=== PATIENT | male | born 1945 | race Caucasian/White ===

== ENCOUNTER 2022-02-03 19:28 | Inpatient (IN) | payer MEDICARE, MEDICAID, SELFPAY ==
--- NOTE | ~2022-02-03 | US_ITS ---
EXAMINATION: US VENOUS ULTRASOUND WITH DOPPLER LOWER EXTREMITY, BILATERAL CLINICAL INFORMATION: Swelling COMPARISON: None TECHNIQUE: Ultrasound of the deep veins is performed from the hip to the calf with compression sonography and color and pulse Doppler assessment. Spectral analysis with color-flow imaging is performed. FINDINGS: RIGHT: There is normal venous compression and respiratory variation and augmented flow. The visualized common femoral vein, superficial femoral vein, profunda femoral vein, popliteal vein, and posterior tibial veins show no evidence of deep venous thrombosis. The peroneal veins are not visualized. There is limited visualization of the distal superficial femoral vein. There is no significant popliteal fossa cyst. LEFT: There is normal venous compression and respiratory variation and augmented flow. The visualized common femoral vein, superficial femoral vein, profunda femoral vein, popliteal vein, and the posterior tibial veins show no evidence of deep venous thrombosis. The peroneal veins are not visualized. There is limited visualization of the distal superficial femoral vein. There is no significant popliteal fossa cyst. If the patient's symptoms persist, followup ultrasound in 5 days 7 days might be of value to exclude proximal propagation from a non-visualized calf vein. US/US venous duplex LE BI IMPRESSION: No DVT demonstrated in the bilateral lower extremity. Peroneal vein is not visualized bilaterally and there is limited visualization of the distal superficial femoral veins bilaterally as well.
--- NOTE | ~2022-02-03 | XR_ITS ---
EXAMINATION: XR SHOULDER, RIGHT CLINICAL INFORMATION: Pain COMPARISON: None TECHNIQUE: AP external rotation, Grashey, scapular Y, and axillary views of the right shoulder. FINDINGS: Mild widening of the AC joint. The glenohumeral joint space is maintained normal. No visible acute fracture, dislocation or subluxation. XR/XR shoulder RT min 2V IMPRESSION: Mild widening of right AC joint. No visible acute fracture, dislocation or subluxation seen.
--- NOTE | ~2022-02-03 | XR_ITS ---
EXAMINATION: XR CHEST CLINICAL INFORMATION: Hypoxia COMPARISON: None TECHNIQUE: Frontal view of the chest was obtained. FINDINGS: Exam is limited due to patient positioning. The lung volumes are low. The cardiac silhouette is not well visualized but may be slightly enlarged. There is a left subclavian dual chamber pacemaker. There is atelectasis or small infiltrates at the lung bases. There is no pleural effusion or pneumothorax. There are degenerative changes of the spine. XR/XR chest 1V IMPRESSION: Limited exam. Question atelectasis or small infiltrates at the lung bases.
[2022-02-03 21:28] VITALS: BMI 25.2
[2022-02-03] MEDS: Acetaminophen 325 MG TABLET 650 MG PO (21:31)
[2022-02-03] MEDS: Thiamine HCL 100 MG TABLET PO (22:40)
[2022-02-03] MEDS: Apixaban 5 MG TABLET PO (22:40)
[2022-02-03] MEDS: Memantine HCl 10 MG TABLET PO (22:40)
[2022-02-03] MEDS: levETIRAcetam 500 MG TABLET PO (22:40)
[2022-02-03] MEDS: Gabapentin 600 MG TABLET PO (22:40)
[2022-02-03] MEDS: Folic Acid 1 MG TABLET PO (22:40)
[2022-02-03] MEDS: Pravastatin Sodium 40 MG TABLET PO (22:41)
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
[2022-02-04 06:00] VITALS: BP 157/85; PULSE 75; RESP 16; TEMP 36.2; O2SAT 92
[2022-02-04] MEDS: Sertraline HCL 25 MG TABLET 75 MG PO (10:18)
[2022-02-04] MEDS: Gabapentin 600 MG TABLET PO ×2 (10:19→21:09)
[2022-02-04] MEDS: Acetaminophen 325 MG TABLET 650 MG PO (10:19)
[2022-02-04] MEDS: Metoprolol Succinate ER 25 MG TAB.ER.24H PO (10:19)
[2022-02-04] MEDS: Memantine HCl 10 MG TABLET PO ×2 (10:20→21:09)
[2022-02-04] MEDS: Thiamine HCL 100 MG TABLET PO ×2 (10:20→21:09)
[2022-02-04] MEDS: Apixaban 5 MG TABLET PO ×2 (10:20→21:09)
[2022-02-04] MEDS: levETIRAcetam 500 MG TABLET PO ×2 (10:20→21:09)
[2022-02-04] MEDS: Multivitamin TABLET 1 TAB PO (10:20)
--- NOTE | 2022-02-04 14:20 | MHC.CLN ---
NUTRITION DIET CHANGED TO 2 GRAM SODIUM DUE TO DX CKD STAGE 3 AND HTN.
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
[2022-02-04 19:48] VITALS: BP 136/85; PULSE 78; RESP 20; TEMP 36.3; O2SAT 94
[2022-02-04] MEDS: Pravastatin Sodium 40 MG TABLET PO (21:09)
[2022-02-04] MEDS: risperiDONE 0.5 MG TABLET PO (21:09)
[2022-02-04] MEDS: Folic Acid 1 MG TABLET PO (21:09)
[2022-02-05 06:00] VITALS: BP 117/84; PULSE 76; RESP 16; TEMP 36.5; O2SAT 94
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
[2022-02-05 19:59] VITALS: BP 100/66; PULSE 92; RESP 18; TEMP 36.5; O2SAT 94
[2022-02-05] MEDS: Thiamine HCL 100 MG TABLET PO (21:22)
[2022-02-05] MEDS: Folic Acid 1 MG TABLET PO (21:22)
[2022-02-05] MEDS: Gabapentin 600 MG TABLET PO (21:22)
[2022-02-05] MEDS: Apixaban 5 MG TABLET PO (21:23)
[2022-02-05] MEDS: risperiDONE 0.5 MG TABLET PO (21:23)
[2022-02-05] MEDS: levETIRAcetam 500 MG TABLET PO (21:23)
[2022-02-05] MEDS: Memantine HCl 10 MG TABLET PO (21:23)
[2022-02-05] MEDS: Pravastatin Sodium 40 MG TABLET PO (21:23)
[2022-02-06 07:45] VITALS: BP 109/79; PULSE 77; RESP 16; TEMP 36.7; O2SAT 92
[2022-02-06] MEDS: risperiDONE 0.5 MG TABLET PO ×2 (13:10→20:15)
[2022-02-06] MEDS: levETIRAcetam 500 MG TABLET PO ×2 (13:10→20:15)
[2022-02-06] MEDS: Thiamine HCL 100 MG TABLET PO ×2 (13:10→20:15)
[2022-02-06] MEDS: Apixaban 5 MG TABLET PO ×2 (13:11→20:15)
[2022-02-06] MEDS: Tamsulosin HCL 0.4 MG CAPSULE PO (13:11)
[2022-02-06] MEDS: Multivitamin TABLET 1 TAB PO (13:11)
[2022-02-06] MEDS: Gabapentin 600 MG TABLET PO ×2 (13:11→20:15)
[2022-02-06] MEDS: Memantine HCl 10 MG TABLET PO ×2 (13:12→20:15)
[2022-02-06] MEDS: Sertraline HCL 25 MG TABLET 75 MG PO (13:12)
[2022-02-06] MEDS: Metoprolol Succinate ER 25 MG TAB.ER.24H PO (13:12)
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
[2022-02-06 18:00] VITALS: BP 100/65; PULSE 96; RESP 20; TEMP 36.1; O2SAT 91
--- NOTE | 2022-02-06 18:49 | PC.NURSE ---
Amb with walker about unit, Displayed good respiratory tolerance/stamina. Required frequent rests later in shift. O2 sat 88-90% rm air with activity, 89-92 at rest. Message sent to Chela MIN via [employer] to question need for prn O2 with parameters. Chela states O2 sat needs to be 90 or above at all times.
[2022-02-06] MEDS: Folic Acid 1 MG TABLET PO (20:15)
[2022-02-06] MEDS: Pravastatin Sodium 40 MG TABLET PO (20:15)
[2022-02-07 09:11] VITALS: BP 108/76; PULSE 92; RESP 17; TEMP 36.1; O2SAT 92
[2022-02-07] MEDS: levETIRAcetam 500 MG TABLET PO ×2 (09:13→20:29)
[2022-02-07] MEDS: Sertraline HCL 25 MG TABLET 75 MG PO (09:13)
[2022-02-07] MEDS: Apixaban 5 MG TABLET PO ×2 (09:13→20:29)
[2022-02-07] MEDS: Tamsulosin HCL 0.4 MG CAPSULE PO (09:13)
[2022-02-07] MEDS: Memantine HCl 10 MG TABLET PO ×2 (09:13→20:28)
[2022-02-07] MEDS: Metoprolol Succinate ER 25 MG TAB.ER.24H PO (09:14)
[2022-02-07] MEDS: Gabapentin 600 MG TABLET PO ×2 (09:14→20:29)
[2022-02-07] MEDS: risperiDONE 0.5 MG TABLET PO ×2 (09:15→20:28)
[2022-02-07] MEDS: Thiamine HCL 100 MG TABLET PO ×2 (09:15→20:28)
[2022-02-07] MEDS: Multivitamin TABLET 1 TAB PO (09:15)
--- NOTE | 2022-02-07 10:32 | PC.NURSE ---
Patients O2 at 92%. Respiration are even and non labored. No acute distress noted or reported. Does not require supplemental Oxygen at this time. Will continue to monitor.
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
[2022-02-07 18:00] VITALS: BP 127/73; PULSE 90; RESP 20; TEMP 35.9; O2SAT 95
[2022-02-07] MEDS: Pravastatin Sodium 40 MG TABLET PO (20:29)
[2022-02-07] MEDS: Folic Acid 1 MG TABLET PO (20:29)
[2022-02-08] MEDS: Acetaminophen 325 MG TABLET 650 MG PO ×2 (05:17→19:59)
[2022-02-08 11:57] VITALS: BP 118/76; PULSE 73; RESP 17; TEMP 36.3; O2SAT 91
[2022-02-08 13:16] VITALS: BP 102/63; PULSE 87
[2022-02-08] MEDS: Sertraline HCL 25 MG TABLET 75 MG PO (13:43)
[2022-02-08] MEDS: Thiamine HCL 100 MG TABLET PO ×2 (13:43→20:00)
[2022-02-08] MEDS: Gabapentin 600 MG TABLET PO ×2 (13:44→20:00)
[2022-02-08] MEDS: risperiDONE 0.5 MG TABLET PO ×2 (13:44→20:00)
[2022-02-08] MEDS: levETIRAcetam 500 MG TABLET PO ×2 (13:44→20:00)
[2022-02-08] MEDS: Multivitamin TABLET 1 TAB PO (13:44)
[2022-02-08] MEDS: Tamsulosin HCL 0.4 MG CAPSULE PO (13:44)
[2022-02-08] MEDS: Apixaban 5 MG TABLET PO ×2 (13:45→20:00)
[2022-02-08] MEDS: Memantine HCl 10 MG TABLET PO ×2 (13:45→20:00)
[2022-02-08] MEDS: Metoprolol Succinate ER 25 MG TAB.ER.24H PO (13:45)
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
[2022-02-08 18:00] VITALS: BP 138/53; PULSE 90; RESP 18; TEMP 36.4; O2SAT 91
[2022-02-08] MEDS: Pravastatin Sodium 40 MG TABLET PO (20:00)
[2022-02-08] MEDS: Folic Acid 1 MG TABLET PO (20:00)
[2022-02-09] MEDS: Tamsulosin HCL 0.4 MG CAPSULE PO (09:15)
[2022-02-09] MEDS: risperiDONE 0.5 MG TABLET PO ×2 (09:15→21:21)
[2022-02-09] MEDS: Apixaban 5 MG TABLET PO ×2 (09:15→21:21)
[2022-02-09] MEDS: Memantine HCl 10 MG TABLET PO ×2 (09:16→21:21)
[2022-02-09] MEDS: Multivitamin TABLET 1 TAB PO (09:16)
[2022-02-09] MEDS: levETIRAcetam 500 MG TABLET PO ×2 (09:16→21:21)
[2022-02-09] MEDS: Gabapentin 600 MG TABLET PO ×2 (09:17→21:21)
[2022-02-09] MEDS: Thiamine HCL 100 MG TABLET PO ×2 (09:17→21:21)
[2022-02-09] MEDS: Sertraline HCL 25 MG TABLET 75 MG PO (09:17)
[2022-02-09 09:30] VITALS: BP 144/71; PULSE 87; RESP 20; TEMP 36.1; O2SAT 94
[2022-02-09] MEDS: Metoprolol Succinate ER 25 MG TAB.ER.24H PO (10:34)
[2022-02-09 10:47] VITALS: BP 144/71; PULSE 87; O2SAT 94
--- NOTE | 2022-02-09 17:16 | HO.PSYCHPN ---
Subjective Subjective Date of Service: 02/09/22 Reason For Visit: acute psychosis Interim History: Patient seen and discussed with team. Patient evaluated today and upon interview he reports Im fantastic, says he is having a wonderful time today here, people are very very nice, then says he has been out giving away gifts, i.e. trying to give t-shirts to peers. Says he sleeps like a log, no issues sleeping whatsoever. Reviewed shoulder x-ray, says I don?t have any pain right now. Says the police are gonna find me an apartment. Denies SI/SIB/HI upon inquiry. Medication Compliance: Yes Side effects from medications: No Review of Systems Acute medical concerns: No Medical Review of Systems: unchanged Mental Status Exam Mental Status Exam Narrative: Patient Appearance:?Well Grooomed Patient Orientation:?Person and Situation Level of Consciousness:?Awake Patient Behavior:?Appropriate Mood Description:?Withdrawn Affect Description:?Constricted Ability to Follow Directions:?Good Speech Pattern:?Clear Hallucinations:?None Delusions:?Not Present Thought Process:?Linear Thought Content:?positive for Sullivan and positive for Circumstantial Judgement:?Fair Diagnostics Vital Signs (24Hr): Vital Signs - 24 hr 02/08/22 18:00 02/09/22 09:30 02/09/22 10:47 Temperature 97.6 F 96.9 F Pulse Rate 90 87 87 Respiratory Rate 18 20 Blood Pressure 138/53 L 144/71 H 144/71 H Pulse Oximetry 91 L 94 94 BMI result Body Mass Index 25.2 Imaging Radiology Impressions: ITS Impressions Shoulder X-Ray 02/09/22 08:43 IMPRESSION: Mild widening of right AC joint. No visible acute fracture, dislocation or subluxation seen. Medications Medications Current Medications Acetaminophen (Acetaminophen 325 Mg Tablet) 650 mg PO Q6H PRN PRN Reason: Headache/Pain Mild Scale (1-3) Last Admin: 02/08/22 19:59 Dose: 650 mg Documented by: Al Hydroxide/Mg Hydroxide (Magnesium Hydrox/Alum Hydrox 30 Ml Oral.Susp) 30 ml PO Q6H PRN PRN Reason: Heartburn/Nausea Apixaban (Apixaban 5 Mg Tablet) 5 mg PO BID [facility] Last Admin: 02/09/22 09:15 Dose: 5 mg Documented by: Benzocaine (Throat Lozenge, Medicated Lozenge) 1 lozenge MUCOUS MEM Q2H PRN PRN Reason: Cough Folic Acid (Folic Acid 1 Mg Tablet) 1 mg PO BEDTIME [facility] Last Admin: 02/08/22 20:00 Dose: 1 mg Documented by: Gabapentin (Gabapentin 600 Mg Tablet) 600 mg PO BID [facility] Last Admin: 02/09/22 09:17 Dose: 600 mg Documented by: Levetiracetam (Levetiracetam 500 Mg Tablet) 500 mg PO BID [facility] Last Admin: 02/09/22 09:16 Dose: 500 mg Documented by: Magnesium Hydroxide (Milk Of Magnesia 30 Ml Oral.Susp) 30 ml PO DAILY PRN PRN Reason: Constipation Memantine (Memantine Hcl 10 Mg Tablet) 10 mg PO BID [facility] Last Admin: 02/09/22 09:16 Dose: 10 mg Documented by: Metoprolol Succinate (Metoprolol Succinate Er 25 Mg Tab.Er.24h) 25 mg PO DAILY [facility]; Protocol Last Admin: 02/09/22 10:34 Dose: 25 mg Documented by: Multivitamins/Vitamin C (Multivitamin Tablet) 1 tab PO DAILY [facility] Last Admin: 02/09/22 09:16 Dose: 1 tab Documented by: Non-Formulary Medication (Umeclidinium-Vilanterol [Anoro Ellipta]) 1 inhalation INHALE DAILY [facility] Pravastatin Sodium (Pravastatin Sodium 40 Mg Tablet) 40 mg PO BEDTIME [facility] Last Admin: 02/08/22 20:00 Dose: 40 mg Documented by: Risperidone (Risperidone 0.5 Mg Tablet) 0.5 mg PO BID [facility] Last Admin: 02/09/22 09:15 Dose: 0.5 mg Documented by: Sertraline HCl (Sertraline Hcl 25 Mg Tablet) 75 mg PO DAILY [facility] Last Admin: 02/09/22 09:17 Dose: 75 mg Documented by: Tamsulosin HCl (Tamsulosin Hcl 0.4 Mg Capsule) 0.4 mg PO DAILY [facility] Last Admin: 02/09/22 09:15 Dose: 0.4 mg Documented by: Thiamine HCl (Thiamine Hcl 100 Mg Tablet) 100 mg PO BID [facility] Last Admin: 02/09/22 09:17 Dose: 100 mg Documented by: Allergies Allergies Allergy/AdvReac Type Severity Reaction Status Date / Time Penicillins Allergy Unknown Unknown Verified 05/17/22 19:47 Assessment & Plan Assessment & Plan (1) Psychosis: Status: Acute Code(s): F29 - Unspecified psychosis not due to a substance or known physiological condition Assessment and Plan: 02/08/2022: Complained of right shoulder pain (there pre admission) and agreed to x ray. No changes to primary team treatment plan. Disposition planning Is challenging and in progress. Plan ?the patient is an elderly male with a history of dementia who was brought into the facility for exacerbation of aggressive behavior.? The patient denies having prior psychiatric illness but he is confused and restless unable to provide a full comprehensive history.? Plan 1. Gather collateral information.? 2. Start Risperdal 0.5 p.o. b.i.d. to target paranoia and as a mood stabilizer 02/08/2022: Complained of right shoulder pain (there pre admission) and agreed to x ray. No changes to primary team treatment plan.? Disposition planning ? Is challenging and in progress. 02/09/2022: No med changes I spent minutes with the patient and/or on the patient floor today, greater than?50% of which was spent counseling/coordinating care. Patient educated on: other Reason for contiued inpatient stay Substantial Risk for: inability to function and med/psych decompensation
[2022-02-09 21:15] VITALS: BP 148/73; PULSE 82; RESP 19; TEMP 36.4; O2SAT 96
[2022-02-09] MEDS: Folic Acid 1 MG TABLET PO (21:21)
[2022-02-09] MEDS: Pravastatin Sodium 40 MG TABLET PO (21:21)
[2022-02-09] MEDS: Acetaminophen 325 MG TABLET 650 MG PO (21:36)
[2022-02-10 06:00] VITALS: BP 118/69; PULSE 75; RESP 18; TEMP 36.1; O2SAT 96
--- NOTE | 2022-02-10 07:54 | P.CONOP_ITS ---
History of Present Illness HPI Consult date: 02/10/22 Chief complaint: acute psychosis Narrative: Patient currently admitted to the geriatric psychiatric unit for acute psychosis. Durring his stay he verbalized right shoulder pain and orthopedics was consulted. The patient reports that he has been unable to move the right upper extremity for quite some time. He reports that he had an injury but is unable to recall what happened. Review of Systems Review of Systems: Yes all other systems are reviewed and are negative PMFSH Past Medical History Medical History (Updated 02/10/22 @ 07:58 by Savannah Mishra PA-C) Atrial fibrillation BPH (benign prostatic hyperplasia) Chronic shoulder pain CKD (chronic kidney disease) COPD (chronic obstructive pulmonary disease) CVA (cerebral vascular accident) HLD (hyperlipidemia) HTN (hypertension) Hyponatremia Pacemaker Pulmonary embolism Seizure disorder Surgical History Surgical History History of appendectomy Social History Social History (Updated 02/06/22 @ 14:52 by MECHELLE Hadley) Household Members: Family Household Members Other:: Lives with nephew Housing: Apartment Do you presently have visiting nurse or other home services: Yes (Reports a nurse comes in to take care of his feet.) Alcohol intake: current Patient Tobacco Use Status: Current everyday Tobacco user Tobacco use type: Cigarette Cigarette Packs Per Day: 2.5 Cigarettes Per Day: 50.0 Years Smoked: 63 Smoked in Last 30 Days: Yes e-Cigarette/Vaping Use: Never Used Patient Interested in Nicotine Replacement: No Patient Given Instructions on How to Stop Smoking: Yes Date Education Initiated: 02/03/22 Second Hand Smoke Exposure: No Use of substances other than those prescribed or required for medical reasons: No Currently Displaying Signs/Symptoms of Drug Intoxication Withdrawal: No Any prior treatment program specific to substance use: No Have you been hit, kicked, punched, or otherwise hurt by someone within the past year? If so, by whom?: No Do you feel safe in your current relationship?: No Current Relationship Is there a partner from a previous relationship who is making you feel unsafe now?: No Are you made to feel afraid or neglected: No Spiritual Healthcare Practices: n/a [facility] Practices: n/a Cultural Healthcare Practices: n/a Advance Directives: No Advance Directives Information Provided: No Advance Directives on File: No Do you have thoughts of harming others: None Do you have a plan to hurt others: No Plan Recently lost weight without trying: No How much weight loss: Not applicable Eating poorly because of decreased appetite: No Nutrition screen score: 0 Poor oral hygiene: No service: No Sexual orientation: Straight/Heterosexual Meds Allergies Allergy/AdvReac Type Severity Reaction Status Date / Time Penicillins Allergy Unknown Unknown Verified 02/03/22 19:47 Active Medications: Current Medications Acetaminophen (Acetaminophen 325 Mg Tablet) 650 mg PO Q6H PRN PRN Reason: Headache/Pain Mild Scale (1-3) Last Admin: 02/09/22 21:36 Dose: 650 mg Documented by: Al Hydroxide/Mg Hydroxide (Magnesium Hydrox/Alum Hydrox 30 Ml Oral.Susp) 30 ml PO Q6H PRN PRN Reason: Heartburn/Nausea Apixaban (Apixaban 5 Mg Tablet) 5 mg PO BID [facility] Last Admin: 02/09/22 21:21 Dose: 5 mg Documented by: Benzocaine (Throat Lozenge, Medicated Lozenge) 1 lozenge MUCOUS MEM Q2H PRN PRN Reason: Cough Folic Acid (Folic Acid 1 Mg Tablet) 1 mg PO BEDTIME [facility] Last Admin: 02/09/22 21:21 Dose: 1 mg Documented by: Gabapentin (Gabapentin 600 Mg Tablet) 600 mg PO BID [facility] Last Admin: 02/09/22 21:21 Dose: 600 mg Documented by: Levetiracetam (Levetiracetam 500 Mg Tablet) 500 mg PO BID [facility] Last Admin: 02/09/22 21:21 Dose: 500 mg Documented by: Magnesium Hydroxide (Milk Of Magnesia 30 Ml Oral.Susp) 30 ml PO DAILY PRN PRN Reason: Constipation Memantine (Memantine Hcl 10 Mg Tablet) 10 mg PO BID [facility] Last Admin: 02/09/22 21:21 Dose: 10 mg Documented by: Metoprolol Succinate (Metoprolol Succinate Er 25 Mg Tab.Er.24h) 25 mg PO DAILY [facility]; Protocol Last Admin: 02/09/22 10:34 Dose: 25 mg Documented by: Multivitamins/Vitamin C (Multivitamin Tablet) 1 tab PO DAILY [facility] Last Admin: 02/09/22 09:16 Dose: 1 tab Documented by: Non-Formulary Medication (Umeclidinium-Vilanterol [Anoro Ellipta]) 1 inhalation INHALE DAILY [facility] Pravastatin Sodium (Pravastatin Sodium 40 Mg Tablet) 40 mg PO BEDTIME [facility] Last Admin: 02/09/22 21:21 Dose: 40 mg Documented by: Risperidone (Risperidone 0.5 Mg Tablet) 0.5 mg PO BID [facility] Last Admin: 02/09/22 21:21 Dose: 0.5 mg Documented by: Sertraline HCl (Sertraline Hcl 25 Mg Tablet) 75 mg PO DAILY [facility] Last Admin: 02/09/22 09:17 Dose: 75 mg Documented by: Tamsulosin HCl (Tamsulosin Hcl 0.4 Mg Capsule) 0.4 mg PO DAILY [facility] Last Admin: 02/09/22 09:15 Dose: 0.4 mg Documented by: Thiamine HCl (Thiamine Hcl 100 Mg Tablet) 100 mg PO BID [facility] Last Admin: 02/09/22 21:21 Dose: 100 mg Documented by: Home Medications Medication Instructions Recorded Confirmed Last Taken Type apixaban 5 mg tablet (Eliquis) 5 mg PO BID 02/03/22 02/03/22 Unknown History folic acid 1 mg tablet 1 mg PO BEDTIME 02/03/22 02/03/22 Unknown History gabapentin 300 mg tablet 600 mg PO BID 02/03/22 02/03/22 Unknown History levetiracetam 500 mg tablet 500 mg PO BID 02/03/22 02/03/22 Unknown History lovastatin 40 mg tablet 40 mg PO QPM 02/03/22 02/03/22 Unknown History memantine 10 mg tablet 10 mg PO BID 02/03/22 02/03/22 Unknown History metoprolol succinate 25 mg 25 mg PO DAILY 02/03/22 02/03/22 Unknown History tablet,extended release 24 hr (Toprol XL) multivitamin 1 tab PO DAILY 02/03/22 02/03/22 Unknown History sertraline 25 mg tablet 75 mg PO DAILY 02/03/22 02/03/22 Unknown History tamsulosin 0.4 mg capsule 0.04 mg PO DAILY 02/03/22 02/03/22 Unknown History thiamine HCl (vitamin B1) 100 mg 100 mg PO BID 02/03/22 02/03/22 Unknown History tablet (Vitamin B-1) umeclidinium 62.5 mcg-vilanterol 1 inh INHALATION DAILY 02/03/22 02/03/22 Unknown History 25 mcg/actuation powdr for inhalation (Anoro Ellipta) Physical Exam Vital Signs: Vital Signs: Last Vital Signs Temp 97.5 F 02/09/22 21:15 Pulse 82 02/09/22 21:15 Resp 19 02/09/22 21:15 BP 148/73 H 02/09/22 21:15 Pulse Ox 96 02/09/22 21:15 BMI result Body Mass Index 25.2 Const: General: cooperative, healthy appearing and no acute distress Resp: Effort & Inspection: normal respiratory effort and able to speak in complete sentences Cardio: Rate: regular rate Peripheral pulses: Peripheral pulses 2+ throughout GI: Palpation (GI): Soft to palpation Skin: Lesions: no lesions Rashes: no rashes Extrem: Other: Patient demonstrates pain with active forward flexion to 30 degrees. THe rest of the examination was deferred due to patient agitation. Results Labs Labs: All other labs normal. Assessment and Plan (1) Separation of right acromioclavicular joint: Status: Acute Mr. Pizarro is a 76 year old male who is currently admitted to the geriatric psychiatric unit for acute psychosis. Durring his stay he verbalized right shoulder pain and orthopedics was consulted. The patient reports that he has been unable to move the right upper extremity for quite some time. He reports that he had an injury but is unable to recall what happened. X-rays obtained reveals an AC joint separation. No additional orthopedic intervention is needed at this time. Tylenol as needed for pain control as the patient is unable to take NSAIDs due to Eliquis. Procedures Date of Service Date of Service: 02/10/22
--- NOTE | 2022-02-10 16:24 | P.CONNP_ITS ---
History of Present Illness Reason for Consult Consult date: 02/10/22 Reason for consult: CKD Management Chief Complaint Chief complaint: acute psychosis History of Present Illness Narrative: 76-year-old male with past medical history of dementia, CKD III with last know S-Cr ~ 1.4 mg/dL on 02/02 at [facility], who initially presented to [facility] emergency room for agitation and paranoia. He was transferred to [facility] for psychiatric stabilization. The patient reports seeing a clothes wringer out in [place], [place] named Dr. Lamb and seems to be aware of underlying CKD history. He admits to smoking 2 ppd since his teens. Patient states that he is cold but otherwise denies symptoms. ROS otherwise negative. Review of Systems Review of Systems Yes all other systems are reviewed and are negative [facility] Past Medical History Medical History (Updated 02/10/22 @ 16:32 by Hira Braun MD) Atrial fibrillation BPH (benign prostatic hyperplasia) Chronic shoulder pain CKD (chronic kidney disease) COPD (chronic obstructive pulmonary disease) CVA (cerebral vascular accident) HLD (hyperlipidemia) HTN (hypertension) Hyponatremia Pacemaker Pulmonary embolism Seizure disorder Surgical History Surgical History History of appendectomy Social History Social History (Updated 02/06/22 @ 14:52 by MECHELLE Hadley) Household Members: Family Household Members Other:: Lives with nephew Housing: Apartment Do you presently have visiting nurse or other home services: Yes (Reports a nurse comes in to take care of his feet.) Alcohol intake: current Patient Tobacco Use Status: Current everyday Tobacco user Tobacco use type: Cigarette Cigarette Packs Per Day: 2.5 Cigarettes Per Day: 50.0 Years Smoked: 63 Smoked in Last 30 Days: Yes e-Cigarette/Vaping Use: Never Used Patient Interested in Nicotine Replacement: No Patient Given Instructions on How to Stop Smoking: Yes Date Education Initiated: 02/03/22 Second Hand Smoke Exposure: No Use of substances other than those prescribed or required for medical reasons: No Currently Displaying Signs/Symptoms of Drug Intoxication Withdrawal: No Any prior treatment program specific to substance use: No Have you been hit, kicked, punched, or otherwise hurt by someone within the past year? If so, by whom?: No Do you feel safe in your current relationship?: No Current Relationship Is there a partner from a previous relationship who is making you feel unsafe now?: No Are you made to feel afraid or neglected: No Spiritual Healthcare Practices: n/a Gnosticist Healthcare Practices: n/a Cultural Healthcare Practices: n/a Advance Directives: No Advance Directives Information Provided: No Advance Directives on File: No Do you have thoughts of harming others: None Do you have a plan to hurt others: No Plan Recently lost weight without trying: No How much weight loss: Not applicable Eating poorly because of decreased appetite: No Nutrition screen score: 0 Poor oral hygiene: No service: No Sexual orientation: Straight/Heterosexual Meds Allergies Allergy/AdvReac Type Severity Reaction Status Date / Time Penicillins Allergy Unknown Unknown Verified 02/03/22 19:47 Active Medications: Current Medications Acetaminophen (Acetaminophen 325 Mg Tablet) 650 mg PO Q6H PRN PRN Reason: Headache/Pain Mild Scale (1-3) Last Admin: 02/09/22 21:36 Dose: 650 mg Documented by: Al Hydroxide/Mg Hydroxide (Magnesium Hydrox/Alum Hydrox 30 Ml Oral.Susp) 30 ml PO Q6H PRN PRN Reason: Heartburn/Nausea Apixaban (Apixaban 5 Mg Tablet) 5 mg PO BID [facility] Last Admin: 02/10/22 11:17 Dose: Not Given Documented by: Benzocaine (Throat Lozenge, Medicated Lozenge) 1 lozenge MUCOUS MEM Q2H PRN PRN Reason: Cough Folic Acid (Folic Acid 1 Mg Tablet) 1 mg PO BEDTIME [facility] Last Admin: 02/09/22 21:21 Dose: 1 mg Documented by: Gabapentin (Gabapentin 600 Mg Tablet) 600 mg PO BID [facility] Last Admin: 02/10/22 11:18 Dose: Not Given Documented by: Levetiracetam (Levetiracetam 500 Mg Tablet) 500 mg PO BID [facility] Last Admin: 02/10/22 11:18 Dose: Not Given Documented by: Magnesium Hydroxide (Milk Of Magnesia 30 Ml Oral.Susp) 30 ml PO DAILY PRN PRN Reason: Constipation Memantine (Memantine Hcl 10 Mg Tablet) 10 mg PO BID [facility] Last Admin: 02/10/22 11:18 Dose: Not Given Documented by: Metoprolol Succinate (Metoprolol Succinate Er 25 Mg Tab.Er.24h) 25 mg PO DAILY [facility]; Protocol Last Admin: 02/10/22 11:18 Dose: Not Given Documented by: Multivitamins/Vitamin C (Multivitamin Tablet) 1 tab PO DAILY [facility] Last Admin: 02/10/22 11:18 Dose: Not Given Documented by: Non-Formulary Medication (Umeclidinium-Vilanterol [Anoro Ellipta]) 1 inhalation INHALE DAILY [facility] Pravastatin Sodium (Pravastatin Sodium 40 Mg Tablet) 40 mg PO BEDTIME [facility] Last Admin: 02/09/22 21:21 Dose: 40 mg Documented by: Risperidone (Risperidone 0.5 Mg Tablet) 0.5 mg PO BID [facility] Last Admin: 02/10/22 11:18 Dose: Not Given Documented by: Sertraline HCl (Sertraline Hcl 25 Mg Tablet) 75 mg PO DAILY [facility] Last Admin: 02/10/22 11:18 Dose: Not Given Documented by: Tamsulosin HCl (Tamsulosin Hcl 0.4 Mg Capsule) 0.4 mg PO DAILY [facility] Last Admin: 02/10/22 11:19 Dose: Not Given Documented by: Thiamine HCl (Thiamine Hcl 100 Mg Tablet) 100 mg PO BID [facility] Last Admin: 02/10/22 11:19 Dose: Not Given Documented by: Home Medications Medication Instructions Recorded Confirmed Last Taken Type apixaban 5 mg tablet (Eliquis) 5 mg PO BID 02/03/22 02/03/22 Unknown History folic acid 1 mg tablet 1 mg PO BEDTIME 02/03/22 02/03/22 Unknown History gabapentin 300 mg tablet 600 mg PO BID 02/03/22 02/03/22 Unknown History levetiracetam 500 mg tablet 500 mg PO BID 02/03/22 02/03/22 Unknown History lovastatin 40 mg tablet 40 mg PO QPM 02/03/22 02/03/22 Unknown History memantine 10 mg tablet 10 mg PO BID 02/03/22 02/03/22 Unknown History metoprolol succinate 25 mg 25 mg PO DAILY 02/03/22 02/03/22 Unknown History tablet,extended release 24 hr (Toprol XL) multivitamin 1 tab PO DAILY 02/03/22 02/03/22 Unknown History sertraline 25 mg tablet 75 mg PO DAILY 02/03/22 02/03/22 Unknown History tamsulosin 0.4 mg capsule 0.04 mg PO DAILY 02/03/22 02/03/22 Unknown History thiamine HCl (vitamin B1) 100 mg 100 mg PO BID 02/03/22 02/03/22 Unknown History tablet (Vitamin B-1) umeclidinium 62.5 mcg-vilanterol 1 inh INHALATION DAILY 02/03/22 02/03/22 Unknown History 25 mcg/actuation powdr for inhalation (Anoro Ellipta) Physical Exam Vital Signs: Last Vital Signs Temp 97.0 F 02/10/22 06:00 Pulse 75 02/10/22 06:00 Resp 18 02/10/22 06:00 BP 118/69 02/10/22 06:00 Pulse Ox 96 02/10/22 06:00 BMI result Body Mass Index 25.2 Const General: comfortable and no acute distress HEENT Head: Yes normocephalic and Yes atraumatic Chest Chest palpation & inspection: normal inspection of the chest Resp Auscultation: clear to auscultation bilaterally Cardio Jugular venous distension: no JVD Rate: regular rate Rhythm: regular rhythm GI Auscultation: normal bowel sounds Neuro General: no focal motor deficits Extrem General: Yes no joint enlargement and Yes no clubbing, cyanosis or edema Assessment and Plan (1) CKD (chronic kidney disease): Status: Acute Plan 76-year-old male with past medical history of dementia, CKD III with last know S-Cr ~ 1.4 mg/dL on 02/02 at [facility], who initially presented to [facility] emergency room for agitation and paranoia. He was transferred to [facility] for psychiatric stabilization. The patient reports seeing a clothes wringer out in [place], [place] named Dr. Lamb and seems to be aware of underlying CKD history. He admits to smoking 2 ppd since his teens. Patient states that he is cold but otherwise denies symptoms. CKD III (BL S-Cr ~ 1.4 mg/dL) Will plan to check renal panel and UA BP appears well controlled at this time. CKD-Anemia: Check Iron panel and cbc CKD-MBD: Will chek PTH, vitD, phos to rule out SHPTH. Thank you for allowing me to take part in the care of this patient. Hira Braun, DO Procedures Date of Service Date of Service: 02/10/22
--- NOTE | 2022-02-10 17:11 | HO.PSYCHPN ---
Subjective Subjective Date of Service: 02/10/22 Reason For Visit: acute psychosis Subjective Notes: Conditional Voluntary Interim History: the nursing staff reported the patient has been confused but compliant with his treatment. He denies suicidal ideation or middle ideation. Yesterday he have consult with Nephrology and other services. On interview the patient reports that he is doing fine and he wants to be discharged but currently he is technically homeless. Mental Status Exam Mental Status Exam Patient Appearance: Appropriate Patient Orientation: Person and Situation Level of Consciousness: Awake Patient Behavior: Cooperative Mood Description: Withdrawn Affect Description: Constricted Patient Cognition Impaired: Yes Ability to Follow Directions: Good Speech Pattern: Appropriate Hallucinations: None Delusions: Not Present Thought Process: Distracted and Linear Thought Content: positive for [place] and positive for Poverty of Content Judgement: Fair Diagnostics Vital Signs (24Hr): Vital Signs - 24 hr 02/09/22 21:15 02/10/22 06:00 Temperature 97.5 F 97.0 F Pulse Rate 82 75 Respiratory Rate 19 18 Blood Pressure 148/73 H 118/69 Pulse Oximetry 96 96 BMI result Body Mass Index 25.2 Imaging Radiology Impressions: ITS Impressions Shoulder X-Ray 02/09/22 08:43 IMPRESSION: Mild widening of right AC joint. No visible acute fracture, dislocation or subluxation seen. Medications Medications Current Medications Acetaminophen (Acetaminophen 325 Mg Tablet) 650 mg PO Q6H PRN PRN Reason: Headache/Pain Mild Scale (1-3) Last Admin: 02/09/22 21:36 Dose: 650 mg Documented by: Al Hydroxide/Mg Hydroxide (Magnesium Hydrox/Alum Hydrox 30 Ml Oral.Susp) 30 ml PO Q6H PRN PRN Reason: Heartburn/Nausea Apixaban (Apixaban 5 Mg Tablet) 5 mg PO BID [facility] Last Admin: 02/10/22 11:17 Dose: Not Given Documented by: Benzocaine (Throat Lozenge, Medicated Lozenge) 1 lozenge MUCOUS MEM Q2H PRN PRN Reason: Cough Folic Acid (Folic Acid 1 Mg Tablet) 1 mg PO BEDTIME [facility] Last Admin: 02/09/22 21:21 Dose: 1 mg Documented by: Gabapentin (Gabapentin 600 Mg Tablet) 600 mg PO BID [facility] Last Admin: 02/10/22 11:18 Dose: Not Given Documented by: Levetiracetam (Levetiracetam 500 Mg Tablet) 500 mg PO BID [facility] Last Admin: 02/10/22 11:18 Dose: Not Given Documented by: Magnesium Hydroxide (Milk Of Magnesia 30 Ml Oral.Susp) 30 ml PO DAILY PRN PRN Reason: Constipation Memantine (Memantine Hcl 10 Mg Tablet) 10 mg PO BID [facility] Last Admin: 02/10/22 11:18 Dose: Not Given Documented by: Metoprolol Succinate (Metoprolol Succinate Er 25 Mg Tab.Er.24h) 25 mg PO DAILY [facility]; Protocol Last Admin: 02/10/22 11:18 Dose: Not Given Documented by: Multivitamins/Vitamin C (Multivitamin Tablet) 1 tab PO DAILY [facility] Last Admin: 02/10/22 11:18 Dose: Not Given Documented by: Non-Formulary Medication (Umeclidinium-Vilanterol [Anoro Ellipta]) 1 inhalation INHALE DAILY [facility] Pravastatin Sodium (Pravastatin Sodium 40 Mg Tablet) 40 mg PO BEDTIME [facility] Last Admin: 02/09/22 21:21 Dose: 40 mg Documented by: Risperidone (Risperidone 0.5 Mg Tablet) 0.5 mg PO BID [facility] Last Admin: 02/10/22 11:18 Dose: Not Given Documented by: Sertraline HCl (Sertraline Hcl 25 Mg Tablet) 75 mg PO DAILY [facility] Last Admin: 02/10/22 11:18 Dose: Not Given Documented by: Tamsulosin HCl (Tamsulosin Hcl 0.4 Mg Capsule) 0.4 mg PO DAILY [facility] Last Admin: 02/10/22 11:19 Dose: Not Given Documented by: Thiamine HCl (Thiamine Hcl 100 Mg Tablet) 100 mg PO BID [facility] Last Admin: 02/10/22 11:19 Dose: Not Given Documented by: Allergies Allergies Allergy/AdvReac Type Severity Reaction Status Date / Time Penicillins Allergy Unknown Unknown Verified 02/03/22 19:47 Assessment & Plan Assessment & Plan (1) CKD (chronic kidney disease): Status: Acute Code(s): N18.9 - Chronic kidney disease, unspecified Plan 76-year-old male with past medical history of dementia, CKD III with last know S-Cr ~ 1.4 mg/dL on 02/02 at [facility], who initially presented to [facility] emergency room for agitation and paranoia. He was transferred to [facility] for psychiatric stabilization. The patient reports seeing a television station manager out in [place] named Dr. Lamb and seems to be aware of underlying CKD history. He admits to smoking 2 ppd since his teens. Patient states that he is cold but otherwise denies symptoms. CKD III (BL S-Cr ~ 1.4 mg/dL) Will plan to check renal panel and UA BP appears well controlled at this time. CKD-Anemia: Check Iron panel and cbc CKD-MBD: Will chek PTH, vitD, phos to rule out SHPTH. Prepare for discharge planning I spent ___20___ minutes with the patient and/or on the patient floor today, greater than?50% of which was spent counseling/coordinating care. Reason for contiued inpatient stay Substantial Risk for: inability to function, rapid decompensation and med/psych decompensation
[2022-02-10 18:00] VITALS: BP 113/66; PULSE 91; RESP 19; TEMP 36.6; O2SAT 92
[2022-02-10] MEDS: Apixaban 5 MG TABLET PO (20:15)
[2022-02-10] MEDS: Folic Acid 1 MG TABLET PO (20:15)
[2022-02-10] MEDS: levETIRAcetam 500 MG TABLET PO (20:16)
[2022-02-10] MEDS: Memantine HCl 10 MG TABLET PO (20:16)
[2022-02-10] MEDS: risperiDONE 0.5 MG TABLET PO (20:16)
[2022-02-10] MEDS: Pravastatin Sodium 40 MG TABLET PO (20:16)
[2022-02-10] MEDS: Thiamine HCL 100 MG TABLET PO (20:16)
[2022-02-10] MEDS: Gabapentin 600 MG TABLET PO (20:16)
[2022-02-10] MEDS: Acetaminophen 325 MG TABLET 650 MG PO (20:17)
[2022-02-11] MEDS: Acetaminophen 325 MG TABLET 650 MG PO ×2 (02:53→23:08)
[2022-02-11 06:00] VITALS: BP 121/82; PULSE 86; RESP 18; TEMP 36.1; O2SAT 92
[2022-02-11] MEDS: Sertraline HCL 25 MG TABLET 75 MG PO (08:15)
[2022-02-11] MEDS: Multivitamin TABLET 1 TAB PO (08:18)
[2022-02-11] MEDS: Gabapentin 600 MG TABLET PO ×2 (08:18→20:22)
[2022-02-11] MEDS: levETIRAcetam 500 MG TABLET PO ×2 (08:18→20:23)
[2022-02-11] MEDS: Tamsulosin HCL 0.4 MG CAPSULE PO (08:19)
[2022-02-11] MEDS: Thiamine HCL 100 MG TABLET PO ×2 (08:19→20:22)
[2022-02-11] MEDS: Memantine HCl 10 MG TABLET PO ×2 (08:19→20:22)
[2022-02-11] MEDS: Metoprolol Succinate ER 25 MG TAB.ER.24H PO (08:19)
[2022-02-11] MEDS: Apixaban 5 MG TABLET PO ×2 (08:19→20:22)
[2022-02-11] MEDS: risperiDONE 0.5 MG TABLET PO ×2 (10:37→20:22)
--- NOTE | 2022-02-11 15:26 | HO.PSYCHPN ---
Subjective Subjective Date of Service: 02/11/22 Reason For Visit: acute psychosis Subjective Notes: Conditional Voluntary and 3 Day Mental Status Exam Mental Status Exam Patient Appearance: Well Grooomed Patient Orientation: Person and Situation Level of Consciousness: Awake Patient Behavior: Appropriate Mood Description: Withdrawn Affect Description: Constricted Ability to Follow Directions: Good Speech Pattern: Clear Hallucinations: None Delusions: Not Present Thought Process: Linear Thought Content: positive for [place] and positive for Circumstantial Judgement: Fair Diagnostics Vital Signs (24Hr): Vital Signs - 24 hr 02/10/22 18:00 02/11/22 06:00 Temperature 97.8 F 96.9 F Pulse Rate 91 86 Respiratory Rate 19 18 Blood Pressure 113/66 121/82 Pulse Oximetry 92 92 BMI result Body Mass Index 25.2 Imaging Radiology Impressions: ITS Impressions Shoulder X-Ray 02/09/22 08:43 IMPRESSION: Mild widening of right AC joint. No visible acute fracture, dislocation or subluxation seen. Medications Medications Current Medications Acetaminophen (Acetaminophen 325 Mg Tablet) 650 mg PO Q6H PRN PRN Reason: Headache/Pain Mild Scale (1-3) Last Admin: 02/11/22 02:53 Dose: 650 mg Documented by: Al Hydroxide/Mg Hydroxide (Magnesium Hydrox/Alum Hydrox 30 Ml Oral.Susp) 30 ml PO Q6H PRN PRN Reason: Heartburn/Nausea Apixaban (Apixaban 5 Mg Tablet) 5 mg PO BID [facility] Last Admin: 02/11/22 08:19 Dose: 5 mg Documented by: Benzocaine (Throat Lozenge, Medicated Lozenge) 1 lozenge MUCOUS MEM Q2H PRN PRN Reason: Cough Folic Acid (Folic Acid 1 Mg Tablet) 1 mg PO BEDTIME [facility] Last Admin: 02/10/22 20:15 Dose: 1 mg Documented by: Gabapentin (Gabapentin 600 Mg Tablet) 600 mg PO BID [facility] Last Admin: 02/11/22 08:18 Dose: 600 mg Documented by: Levetiracetam (Levetiracetam 500 Mg Tablet) 500 mg PO BID [facility] Last Admin: 02/11/22 08:18 Dose: 500 mg Documented by: Magnesium Hydroxide (Milk Of Magnesia 30 Ml Oral.Susp) 30 ml PO DAILY PRN PRN Reason: Constipation Memantine (Memantine Hcl 10 Mg Tablet) 10 mg PO BID [facility] Last Admin: 02/11/22 08:19 Dose: 10 mg Documented by: Metoprolol Succinate (Metoprolol Succinate Er 25 Mg Tab.Er.24h) 25 mg PO DAILY [facility]; Protocol Last Admin: 02/11/22 08:19 Dose: 25 mg Documented by: Multivitamins/Vitamin C (Multivitamin Tablet) 1 tab PO DAILY [facility] Last Admin: 02/11/22 08:18 Dose: 1 tab Documented by: Non-Formulary Medication (Umeclidinium-Vilanterol [Anoro Ellipta]) 1 inhalation INHALE DAILY [facility] Pravastatin Sodium (Pravastatin Sodium 40 Mg Tablet) 40 mg PO BEDTIME [facility] Last Admin: 02/10/22 20:16 Dose: 40 mg Documented by: Risperidone (Risperidone 0.5 Mg Tablet) 0.5 mg PO BID [facility] Last Admin: 02/11/22 10:37 Dose: 0.5 mg Documented by: Sertraline HCl (Sertraline Hcl 25 Mg Tablet) 75 mg PO DAILY [facility] Last Admin: 02/11/22 08:15 Dose: 75 mg Documented by: Tamsulosin HCl (Tamsulosin Hcl 0.4 Mg Capsule) 0.4 mg PO DAILY [facility] Last Admin: 02/11/22 08:19 Dose: 0.4 mg Documented by: Thiamine HCl (Thiamine Hcl 100 Mg Tablet) 100 mg PO BID [facility] Last Admin: 02/11/22 08:19 Dose: 100 mg Documented by: Allergies Allergies Allergy/AdvReac Type Severity Reaction Status Date / Time Penicillins Allergy Unknown Unknown Verified 02/03/22 19:47 Assessment & Plan Assessment & Plan (1) CKD (chronic kidney disease): Status: Acute Code(s): N18.9 - Chronic kidney disease, unspecified Plan 76-year-old male with past medical history of dementia, CKD III with last know S-Cr ~ 1.4 mg/dL on 02/02 at [facility], who initially presented to [facility] emergency room for agitation and paranoia. He was transferred [place] [facility] [place]. The patient reports [place] Lamb and seems to be aware of underlying CKD history. He admits to smoking 2 ppd since his teens. Patient states that he is cold but otherwise denies symptoms. CKD III (BL S-Cr ~ 1.4 mg/dL) Will plan to check renal panel and UA BP appears well controlled at this time. CKD-Anemia: Check Iron panel and cbc CKD-MBD: Will chek PTH, vitD, phos to rule out SHPTH. Prepare for discharge planning I spent ___20___ minutes with the patient and/or on the patient floor today, greater than?50% of which was spent counseling/coordinating care. Reason for contiued inpatient stay Substantial Risk for: inability to function, rapid decompensation and med/psych decompensation
[2022-02-11 18:00] VITALS: BP 141/95; PULSE 99; RESP 18; TEMP 36.8; O2SAT 92
[2022-02-11] MEDS: Pravastatin Sodium 40 MG TABLET PO (20:22)
[2022-02-11] MEDS: Folic Acid 1 MG TABLET PO (20:23)
[2022-02-12] MEDS: Acetaminophen 325 MG TABLET 650 MG PO (05:55)
[2022-02-12 06:00] VITALS: BP 116/59; PULSE 97; RESP 18; TEMP 36.6; O2SAT 92
[2022-02-12 07:00] VITALS: BMI 31.6
[2022-02-12] MEDS: Sertraline HCL 25 MG TABLET 75 MG PO (11:07)
[2022-02-12] MEDS: Apixaban 5 MG TABLET PO ×2 (11:07→23:10)
[2022-02-12] MEDS: Multivitamin TABLET 1 TAB PO (11:08)
[2022-02-12] MEDS: Tamsulosin HCL 0.4 MG CAPSULE PO (11:08)
[2022-02-12] MEDS: Thiamine HCL 100 MG TABLET PO ×2 (11:08→23:10)
[2022-02-12] MEDS: Metoprolol Succinate ER 25 MG TAB.ER.24H PO (11:08)
[2022-02-12] MEDS: Gabapentin 600 MG TABLET PO ×2 (11:08→23:11)
[2022-02-12] MEDS: risperiDONE 0.5 MG TABLET PO ×2 (11:08→23:11)
[2022-02-12] MEDS: Memantine HCl 10 MG TABLET PO ×2 (11:09→23:10)
[2022-02-12] MEDS: levETIRAcetam 500 MG TABLET PO ×2 (11:09→23:10)
[2022-02-12] MEDS: traMADoL HCL 50 MG TABLET PO ×2 (11:32→17:47)
--- NOTE | 2022-02-12 16:23 | HO.PSYCHPN ---
Subjective Subjective Date of Service: 02/12/22 Reason For Visit: acute psychosis Subjective Notes: Conditional Voluntary Medical Problems Affecting Mental Status: No Interim History: The nursing staff reported that he was compliant with treatment. He complained of shoulder pain that has not improved with Tylenol. On interview, he denied of new symptoms. We will have a family meeting tomorrow. Mental Status Exam Mental Status Exam Patient Appearance: Appropriate Patient Orientation: Person, Place and Situation Level of Consciousness: Awake Patient Behavior: Appropriate Mood Description: Withdrawn Affect Description: Constricted Patient Cognition Impaired: Yes Ability to Follow Directions: Good Speech Pattern: Clear Hallucinations: None Delusions: Paranoid Ideation Thought Process: Distracted and Evasive Thought Content: positive for [place], positive for [place] and positive for Poverty of Content Judgement: Fair Diagnostics Vital Signs (24Hr): Vital Signs - 24 hr 02/11/22 18:00 Temperature 98.3 F Pulse Rate 99 Respiratory Rate 18 Blood Pressure 141/95 H Pulse Oximetry 92 BMI result Body Mass Index 25.2 Imaging Radiology Impressions: ITS Impressions Shoulder X-Ray 02/09/22 08:43 IMPRESSION: Mild widening of right AC joint. No visible acute fracture, dislocation or subluxation seen. Medications Medications Current Medications Acetaminophen (Acetaminophen 325 Mg Tablet) 650 mg PO Q6H PRN PRN Reason: Headache/Pain Mild Scale (1-3) Last Admin: 02/12/22 05:55 Dose: 650 mg Documented by: Al Hydroxide/Mg Hydroxide (Magnesium Hydrox/Alum Hydrox 30 Ml Oral.Susp) 30 ml PO Q6H PRN PRN Reason: Heartburn/Nausea Apixaban (Apixaban 5 Mg Tablet) 5 mg PO BID [facility] Last Admin: 02/12/22 11:07 Dose: 5 mg Documented by: Benzocaine (Throat Lozenge, Medicated Lozenge) 1 lozenge MUCOUS MEM Q2H PRN PRN Reason: Cough Folic Acid (Folic Acid 1 Mg Tablet) 1 mg PO BEDTIME [facility] Last Admin: 02/11/22 20:23 Dose: 1 mg Documented by: Gabapentin (Gabapentin 600 Mg Tablet) 600 mg PO BID [facility] Last Admin: 02/12/22 11:08 Dose: 600 mg Documented by: Levetiracetam (Levetiracetam 500 Mg Tablet) 500 mg PO BID [facility] Last Admin: 02/12/22 11:09 Dose: 500 mg Documented by: Magnesium Hydroxide (Milk Of Magnesia 30 Ml Oral.Susp) 30 ml PO DAILY PRN PRN Reason: Constipation Memantine (Memantine Hcl 10 Mg Tablet) 10 mg PO BID [facility] Last Admin: 02/12/22 11:09 Dose: 10 mg Documented by: Metoprolol Succinate (Metoprolol Succinate Er 25 Mg Tab.Er.24h) 25 mg PO DAILY [facility]; Protocol Last Admin: 02/12/22 11:08 Dose: 25 mg Documented by: Multivitamins/Vitamin C (Multivitamin Tablet) 1 tab PO DAILY [facility] Last Admin: 02/12/22 11:08 Dose: 1 tab Documented by: Non-Formulary Medication (Umeclidinium-Vilanterol [Anoro Ellipta]) 1 inhalation INHALE DAILY [facility] Pravastatin Sodium (Pravastatin Sodium 40 Mg Tablet) 40 mg PO BEDTIME [facility] Last Admin: 02/11/22 20:22 Dose: 40 mg Documented by: Risperidone (Risperidone 0.5 Mg Tablet) 0.5 mg PO BID [facility] Last Admin: 02/12/22 11:08 Dose: 0.5 mg Documented by: Sertraline HCl (Sertraline Hcl 25 Mg Tablet) 75 mg PO DAILY [facility] Last Admin: 02/12/22 11:07 Dose: 75 mg Documented by: Tamsulosin HCl (Tamsulosin Hcl 0.4 Mg Capsule) 0.4 mg PO DAILY [facility] Last Admin: 02/12/22 11:08 Dose: 0.4 mg Documented by: Thiamine HCl (Thiamine Hcl 100 Mg Tablet) 100 mg PO BID [facility] Last Admin: 02/12/22 11:08 Dose: 100 mg Documented by: Tramadol HCl (Tramadol Hcl 50 Mg Tablet) 50 mg PO Q6H PRN PRN Reason: Pain, Moderate (Pain Scale 4-6 Last Admin: 02/12/22 11:32 Dose: 50 mg Documented by: Allergies Allergies Allergy/AdvReac Type Severity Reaction Status Date / Time Penicillins Allergy Unknown Unknown Verified 02/03/22 19:47 Assessment & Plan Assessment & Plan (1) Psychosis: Status: Acute Code(s): F29 - Unspecified psychosis not due to a substance or known physiological condition Assessment and Plan: 02/08/2022: Complained of right shoulder pain (there pre admission) and agreed to x ray. No changes to primary team treatment plan. Disposition planning Is challenging and in progress. Plan ?the patient is an elderly male with a history of dementia who was brought into the facility for exacerbation of aggressive behavior.? The patient denies having prior psychiatric illness but he is confused and restless unable to provide a full comprehensive history.? Plan 1. Gather collateral information.? 2. Start Risperdal 0.5 p.o. b.i.d. to target paranoia and as a mood stabilizer 3. Add PRN Tramadol for pain I spent __20____ minutes with the patient and/or on the patient floor today, greater than?50% of which was spent counseling/coordinating care. Reason for contiued inpatient stay Substantial Risk for: inability to function, rapid decompensation and med/psych decompensation
[2022-02-12 18:00] VITALS: BP 117/67; PULSE 105; RESP 17; TEMP 36.3; O2SAT 89
[2022-02-12 20:15] VITALS: BP 117/67; PULSE 111; RESP 18; TEMP 36.3; O2SAT 89
[2022-02-12] MEDS: Pravastatin Sodium 40 MG TABLET PO (23:10)
[2022-02-12] MEDS: Folic Acid 1 MG TABLET PO (23:10)
[2022-02-13 08:00] VITALS: BP 129/67; PULSE 96; RESP 18; TEMP 36.6; O2SAT 86
--- NOTE | 2022-02-13 15:49 | P.PNPSI_ITS ---
Subjective Subjective Date of Service: 02/13/22 Reason For Visit: acute psychosis Subjective Notes: Conditional Voluntary Interim History: The nursing staff reported the patient is compliant at times with medication. His pain improved with the affect of tramadol. We had a family meeting over zoom with his family and it was clear that they cannot take care of him. We will go through the process of a few permission of healthcare proxy. Apparently, he has been complaining of paranoid delusions with his family. On interview the patient denies new symptoms he looks pleasantly confused Mental Status Exam Mental Status Exam Patient Appearance: Appropriate Patient Orientation: Person and Situation Level of Consciousness: Awake Patient Behavior: Guarded Mood Description: Withdrawn Affect Description: Constricted Patient Cognition Impaired: Yes Ability to Follow Directions: Fair Speech Pattern: Clear Hallucinations: None Delusions: Paranoid Ideation Thought Process: Distracted Thought Content: positive for [place] and positive for Poverty of Content Judgement: Fair Diagnostics Vital Signs (24Hr): Vital Signs - 24 hr 02/12/22 18:00 02/12/22 20:15 02/13/22 08:00 Temperature 97.3 F 97.3 F 97.9 F Pulse Rate 105 H 111 H 96 Respiratory Rate 17 18 18 Blood Pressure 117/67 117/67 129/67 Pulse Oximetry 89 L 89 L 86 L BMI result Body Mass Index 31.6 Imaging Radiology Impressions: ITS Impressions Shoulder X-Ray 02/09/22 08:43 IMPRESSION: Mild widening of right AC joint. No visible acute fracture, dislocation or subluxation seen. Medications Medications Current Medications Acetaminophen (Acetaminophen 325 Mg Tablet) 650 mg PO Q6H PRN PRN Reason: Headache/Pain Mild Scale (1-3) Last Admin: 02/12/22 05:55 Dose: 650 mg Documented by: Al Hydroxide/Mg Hydroxide (Magnesium Hydrox/Alum Hydrox 30 Ml Oral.Susp) 30 ml PO Q6H PRN PRN Reason: Heartburn/Nausea Apixaban (Apixaban 5 Mg Tablet) 5 mg PO BID [facility] Last Admin: 02/13/22 10:24 Dose: Not Given Documented by: Benzocaine (Throat Lozenge, Medicated Lozenge) 1 lozenge MUCOUS MEM Q2H PRN PRN Reason: Cough Folic Acid (Folic Acid 1 Mg Tablet) 1 mg PO BEDTIME [facility] Last Admin: 02/12/22 23:10 Dose: 1 mg Documented by: Gabapentin (Gabapentin 600 Mg Tablet) 600 mg PO BID [facility] Last Admin: 02/13/22 10:24 Dose: Not Given Documented by: Levetiracetam (Levetiracetam 500 Mg Tablet) 500 mg PO BID [facility] Last Admin: 02/13/22 10:25 Dose: Not Given Documented by: Magnesium Hydroxide (Milk Of Magnesia 30 Ml Oral.Susp) 30 ml PO DAILY PRN PRN Reason: Constipation Memantine (Memantine Hcl 10 Mg Tablet) 10 mg PO BID [facility] Last Admin: 02/13/22 10:25 Dose: Not Given Documented by: Metoprolol Succinate (Metoprolol Succinate Er 25 Mg Tab.Er.24h) 25 mg PO DAILY [facility]; Protocol Last Admin: 02/13/22 10:25 Dose: Not Given Documented by: Multivitamins/Vitamin C (Multivitamin Tablet) 1 tab PO DAILY [facility] Last Admin: 02/13/22 10:25 Dose: Not Given Documented by: Pravastatin Sodium (Pravastatin Sodium 40 Mg Tablet) 40 mg PO BEDTIME [facility] Last Admin: 02/12/22 23:10 Dose: 40 mg Documented by: Risperidone (Risperidone 0.5 Mg Tablet) 0.5 mg PO BID [facility] Last Admin: 02/13/22 10:25 Dose: Not Given Documented by: Sertraline HCl (Sertraline Hcl 25 Mg Tablet) 75 mg PO DAILY [facility] Last Admin: 02/13/22 10:27 Dose: Not Given Documented by: Tamsulosin HCl (Tamsulosin Hcl 0.4 Mg Capsule) 0.4 mg PO DAILY [facility] Last Admin: 02/13/22 10:27 Dose: Not Given Documented by: Thiamine HCl (Thiamine Hcl 100 Mg Tablet) 100 mg PO BID [facility] Last Admin: 02/13/22 10:28 Dose: Not Given Documented by: Tramadol HCl (Tramadol Hcl 50 Mg Tablet) 50 mg PO Q6H PRN PRN Reason: Pain, Moderate (Pain Scale 4-6 Last Admin: 02/12/22 17:47 Dose: 50 mg Documented by: Allergies Allergies Allergy/AdvReac Type Severity Reaction Status Date / Time Penicillins Allergy Unknown Unknown Verified 02/03/22 19:47 Assessment & Plan Assessment & Plan (1) Psychosis: Status: Acute Code(s): F29 - Unspecified psychosis not due to a substance or known physiological condition Assessment and Plan: 02/08/2022: Complained of right shoulder pain (there pre admission) and agreed to x ray. No changes to primary team treatment plan. Disposition planning Is challenging and in progress. Plan ?the patient is an elderly male with a history of dementia who was brought into the facility for exacerbation of aggressive behavior.? The patient denies having prior psychiatric illness but he is confused and restless unable to provide a full comprehensive history.? Plan 1. Gather collateral information.? 2. Start Risperdal 0.5 p.o. b.i.d. to target paranoia and as a mood stabilizer 3. Add PRN Tramadol for pain I spent ___20___ minutes with the patient and/or on the patient floor today, greater than?50% of which was spent counseling/coordinating care. Reason for contiued inpatient stay Substantial Risk for: inability to function, rapid decompensation and med/psych decompensation
[2022-02-13] MEDS: Pravastatin Sodium 40 MG TABLET PO (20:13)
[2022-02-13] MEDS: Folic Acid 1 MG TABLET PO (20:13)
[2022-02-13] MEDS: risperiDONE 0.5 MG TABLET PO (20:13)
[2022-02-13] MEDS: traMADoL HCL 50 MG TABLET PO (20:13)
[2022-02-13] MEDS: Thiamine HCL 100 MG TABLET PO (20:13)
[2022-02-13] MEDS: Gabapentin 600 MG TABLET PO (20:13)
[2022-02-13] MEDS: Memantine HCl 10 MG TABLET PO (20:13)
[2022-02-13] MEDS: levETIRAcetam 500 MG TABLET PO (20:13)
[2022-02-13] MEDS: Apixaban 5 MG TABLET PO (20:13)
[2022-02-13] MEDS: Throat Lozenge, Medicated LOZENGE 1 LOZENGE MUCOUS MEM (20:26)
[2022-02-13 21:00] VITALS: BP 130/69; PULSE 95; RESP 18; TEMP 36.6; O2SAT 93
[2022-02-13] MEDS: Acetaminophen 325 MG TABLET 650 MG PO (21:22)
[2022-02-14] MEDS: traMADoL HCL 50 MG TABLET PO ×2 (06:53→20:53)
[2022-02-14 08:00] VITALS: BP 134/66; PULSE 86; RESP 19; TEMP 36; O2SAT 92
--- NOTE | 2022-02-14 08:24 | P.PNPSI_ITS ---
Subjective Subjective Date of Service: 02/14/22 Reason For Visit: acute psychosis Subjective Notes: Conditional Voluntary Interim History: The nursing staff reported the last night the patient was angry and agitated because his room was called. He was offered to be changed rooms but he refused. He received tramadol for pain and apparently helped him a little. On interview the patient denies new symptoms we will increase Risperdal at night to target irritability and sundowning. Medication Compliance: Yes Side effects from medications: No Attending Groups: Intermittent Mental Status Exam Mental Status Exam Patient Appearance: Appropriate Patient Orientation: Person and Situation Level of Consciousness: Awake Patient Behavior: Guarded and Cooperative Mood Description: Withdrawn Affect Description: Withdrawn and Constricted Patient Cognition Impaired: Yes Ability to Follow Directions: Good Speech Pattern: Clear Hallucinations: None Delusions: Paranoid Ideation Thought Process: Distracted Thought Content: positive for [place] and positive for Poverty of Content Judgement: Fair Diagnostics Vital Signs (24Hr): Vital Signs - 24 hr 02/13/22 21:00 Temperature 98 F Pulse Rate 95 Respiratory Rate 18 Blood Pressure 130/69 Pulse Oximetry 93 BMI result Body Mass Index 31.6 Imaging Radiology Impressions: ITS Impressions Shoulder X-Ray 02/09/22 08:43 IMPRESSION: Mild widening of right AC joint. No visible acute fracture, dislocation or subluxation seen. Medications Medications Current Medications Acetaminophen (Acetaminophen 325 Mg Tablet) 650 mg PO Q6H PRN PRN Reason: Headache/Pain Mild Scale (1-3) Last Admin: 02/13/22 21:22 Dose: 650 mg Documented by: Al Hydroxide/Mg Hydroxide (Magnesium Hydrox/Alum Hydrox 30 Ml Oral.Susp) 30 ml PO Q6H PRN PRN Reason: Heartburn/Nausea Apixaban (Apixaban 5 Mg Tablet) 5 mg PO BID [facility] Last Admin: 02/13/22 20:13 Dose: 5 mg Documented by: Benzocaine (Throat Lozenge, Medicated Lozenge) 1 lozenge MUCOUS MEM Q2H PRN PRN Reason: Cough Last Admin: 02/13/22 20:26 Dose: 1 lozenge Documented by: Folic Acid (Folic Acid 1 Mg Tablet) 1 mg PO BEDTIME [facility] Last Admin: 02/13/22 20:13 Dose: 1 mg Documented by: Gabapentin (Gabapentin 600 Mg Tablet) 600 mg PO BID [facility] Last Admin: 02/13/22 20:13 Dose: 600 mg Documented by: Levetiracetam (Levetiracetam 500 Mg Tablet) 500 mg PO BID [facility] Last Admin: 02/13/22 20:13 Dose: 500 mg Documented by: Magnesium Hydroxide (Milk Of Magnesia 30 Ml Oral.Susp) 30 ml PO DAILY PRN PRN Reason: Constipation Memantine (Memantine Hcl 10 Mg Tablet) 10 mg PO BID [facility] Last Admin: 02/13/22 20:13 Dose: 10 mg Documented by: Metoprolol Succinate (Metoprolol Succinate Er 25 Mg Tab.Er.24h) 25 mg PO DAILY [facility]; Protocol Last Admin: 02/13/22 10:25 Dose: Not Given Documented by: Multivitamins/Vitamin C (Multivitamin Tablet) 1 tab PO DAILY [facility] Last Admin: 02/13/22 10:25 Dose: Not Given Documented by: Pravastatin Sodium (Pravastatin Sodium 40 Mg Tablet) 40 mg PO BEDTIME [facility] Last Admin: 02/13/22 20:13 Dose: 40 mg Documented by: Risperidone (Risperidone 0.5 Mg Tablet) 0.5 mg PO BID [facility] Last Admin: 02/13/22 20:13 Dose: 0.5 mg Documented by: Sertraline HCl (Sertraline Hcl 50 Mg Tablet) 50 mg PO DAILY [facility] Tamsulosin HCl (Tamsulosin Hcl 0.4 Mg Capsule) 0.4 mg PO DAILY [facility] Last Admin: 02/13/22 10:27 Dose: Not Given Documented by: Thiamine HCl (Thiamine Hcl 100 Mg Tablet) 100 mg PO BID [facility] Last Admin: 02/13/22 20:13 Dose: 100 mg Documented by: Tramadol HCl (Tramadol Hcl 50 Mg Tablet) 50 mg PO Q6H PRN PRN Reason: Pain, Moderate (Pain Scale 4-6 Last Admin: 02/14/22 06:53 Dose: 50 mg Documented by: Allergies Allergies Allergy/AdvReac Type Severity Reaction Status Date / Time Penicillins Allergy Unknown Unknown Verified 02/03/22 19:47 Assessment & Plan Assessment & Plan (1) Psychosis: Status: Acute Code(s): F29 - Unspecified psychosis not due to a substance or known physiological condition Assessment and Plan: 02/08/2022: Complained of right shoulder pain (there pre admission) and agreed to x ray. No changes to primary team treatment plan. Disposition planning Is challenging and in progress. Plan ?the patient is an elderly male with a history of dementia who was brought into the facility for exacerbation of aggressive behavior.? The patient denies having prior psychiatric illness but he is confused and restless unable to provide a full comprehensive history.? Plan 1. Gather collateral information.? 2. Increase Risperdal up to 1 mg p.o. q.h.s. 3. Keep the rest the same I spent __20____ minutes with the patient and/or on the patient floor today, greater than?50% of which was spent counseling/coordinating care. Reason for contiued inpatient stay Substantial Risk for: inability to function, rapid decompensation and med/psych decompensation
[2022-02-14] MEDS: Gabapentin 600 MG TABLET PO ×2 (08:33→20:53)
[2022-02-14] MEDS: Sertraline HCL 50 MG TABLET PO (08:33)
[2022-02-14] MEDS: Multivitamin TABLET 1 TAB PO (08:33)
[2022-02-14] MEDS: Apixaban 5 MG TABLET PO ×2 (08:33→20:53)
[2022-02-14] MEDS: levETIRAcetam 500 MG TABLET PO ×2 (08:33→20:53)
[2022-02-14] MEDS: Memantine HCl 10 MG TABLET PO ×2 (08:33→22:05)
[2022-02-14] MEDS: Metoprolol Succinate ER 25 MG TAB.ER.24H PO (08:33)
[2022-02-14] MEDS: Tamsulosin HCL 0.4 MG CAPSULE PO (08:33)
[2022-02-14] MEDS: Thiamine HCL 100 MG TABLET PO ×2 (08:34→20:53)
[2022-02-14] MEDS: risperiDONE 0.5 MG TABLET PO (08:34)
[2022-02-14 19:30] VITALS: BP 155/83; PULSE 93; RESP 17; TEMP 36.1; O2SAT 90
[2022-02-14] MEDS: Pravastatin Sodium 40 MG TABLET PO (20:53)
[2022-02-14] MEDS: Folic Acid 1 MG TABLET PO (20:53)
[2022-02-14] MEDS: risperiDONE 1 MG TABLET PO (20:53)
[2022-02-14] MEDS: Acetaminophen 325 MG TABLET 650 MG PO (20:53)
[2022-02-14] MEDS: Throat Lozenge, Medicated LOZENGE 1 LOZENGE MUCOUS MEM (20:53)
[2022-02-15 08:00] VITALS: BP 103/61; PULSE 79; RESP 18; TEMP 36.1; O2SAT 94
[2022-02-15] MEDS: Thiamine HCL 100 MG TABLET PO ×2 (08:17→20:48)
[2022-02-15] MEDS: Memantine HCl 10 MG TABLET PO ×2 (08:17→20:48)
[2022-02-15] MEDS: Multivitamin TABLET 1 TAB PO (08:18)
[2022-02-15] MEDS: Sertraline HCL 50 MG TABLET PO (08:18)
[2022-02-15] MEDS: levETIRAcetam 500 MG TABLET PO ×2 (08:18→20:48)
[2022-02-15] MEDS: Gabapentin 600 MG TABLET PO ×2 (08:18→20:48)
[2022-02-15] MEDS: Tamsulosin HCL 0.4 MG CAPSULE PO (08:18)
[2022-02-15] MEDS: risperiDONE 0.5 MG TABLET PO (08:18)
[2022-02-15] MEDS: Apixaban 5 MG TABLET PO ×2 (08:18→20:47)
--- NOTE | 2022-02-15 09:43 | HO.PSYCHPN ---
Subjective Subjective Date of Service: 02/15/22 Reason For Visit: acute psychosis Subjective Notes: Conditional Voluntary Guardianship: No Interim History: The nursing staff reported that yesterday the patient was agitated and needed to move to a new room because he was feeling to called. His confused at times. On interview the patient remains confused at times Mental Status Exam Mental Status Exam Patient Appearance: Appropriate Patient Orientation: Person and Situation Level of Consciousness: Appropriate Patient Behavior: Suspicious Mood Description: Appropriate Affect Description: Withdrawn Patient Cognition Impaired: Yes Ability to Follow Directions: Fair Speech Pattern: Loud (hard of hearing) Hallucinations: None Delusions: Paranoid Ideation Thought Process: Evasive Thought Content: positive for [place] and positive for Poverty of Content Judgement: Fair Diagnostics Vital Signs (24Hr): Vital Signs - 24 hr 02/14/22 19:30 Temperature 97.0 F Pulse Rate 93 Respiratory Rate 17 Blood Pressure 155/83 H Pulse Oximetry 90 L BMI result Body Mass Index 31.6 Imaging Radiology Impressions: ITS Impressions Shoulder X-Ray 02/09/22 08:43 IMPRESSION: Mild widening of right AC joint. No visible acute fracture, dislocation or subluxation seen. Medications Medications Current Medications Acetaminophen (Acetaminophen 325 Mg Tablet) 650 mg PO Q6H PRN PRN Reason: Headache/Pain Mild Scale (1-3) Last Admin: 02/14/22 20:53 Dose: 650 mg Documented by: Al Hydroxide/Mg Hydroxide (Magnesium Hydrox/Alum Hydrox 30 Ml Oral.Susp) 30 ml PO Q6H PRN PRN Reason: Heartburn/Nausea Apixaban (Apixaban 5 Mg Tablet) 5 mg PO BID [facility] Last Admin: 02/15/22 08:18 Dose: 5 mg Documented by: Benzocaine (Throat Lozenge, Medicated Lozenge) 1 lozenge MUCOUS MEM Q2H PRN PRN Reason: Cough Last Admin: 02/14/22 20:53 Dose: 1 lozenge Documented by: Folic Acid (Folic Acid 1 Mg Tablet) 1 mg PO BEDTIME [facility] Last Admin: 02/14/22 20:53 Dose: 1 mg Documented by: Gabapentin (Gabapentin 600 Mg Tablet) 600 mg PO BID [facility] Last Admin: 02/15/22 08:18 Dose: 600 mg Documented by: Levetiracetam (Levetiracetam 500 Mg Tablet) 500 mg PO BID [facility] Last Admin: 02/15/22 08:18 Dose: 500 mg Documented by: Magnesium Hydroxide (Milk Of Magnesia 30 Ml Oral.Susp) 30 ml PO DAILY PRN PRN Reason: Constipation Memantine (Memantine Hcl 10 Mg Tablet) 10 mg PO BID [facility] Last Admin: 02/15/22 08:17 Dose: 10 mg Documented by: Metoprolol Succinate (Metoprolol Succinate Er 25 Mg Tab.Er.24h) 25 mg PO DAILY [facility]; Protocol Last Admin: 02/14/22 08:33 Dose: 25 mg Documented by: Multivitamins/Vitamin C (Multivitamin Tablet) 1 tab PO DAILY [facility] Last Admin: 02/15/22 08:18 Dose: 1 tab Documented by: Pravastatin Sodium (Pravastatin Sodium 40 Mg Tablet) 40 mg PO BEDTIME [facility] Last Admin: 02/14/22 20:53 Dose: 40 mg Documented by: Risperidone (Risperidone 0.5 Mg Tablet) 0.5 mg PO DAILY [facility] Last Admin: 02/15/22 08:18 Dose: 0.5 mg Documented by: Risperidone (Risperidone 1 Mg Tablet) 1 mg PO DAILY@1700 [facility] Last Admin: 02/14/22 20:53 Dose: 1 mg Documented by: Sertraline HCl (Sertraline Hcl 50 Mg Tablet) 50 mg PO DAILY [facility] Last Admin: 02/15/22 08:18 Dose: 50 mg Documented by: Tamsulosin HCl (Tamsulosin Hcl 0.4 Mg Capsule) 0.4 mg PO DAILY [facility] Last Admin: 02/15/22 08:18 Dose: 0.4 mg Documented by: Thiamine HCl (Thiamine Hcl 100 Mg Tablet) 100 mg PO BID [facility] Last Admin: 02/15/22 08:17 Dose: 100 mg Documented by: Tramadol HCl (Tramadol Hcl 50 Mg Tablet) 50 mg PO Q6H PRN PRN Reason: Pain, Moderate (Pain Scale 4-6 Last Admin: 02/14/22 20:53 Dose: 50 mg Documented by: Allergies Allergies Allergy/AdvReac Type Severity Reaction Status Date / Time Penicillins Allergy Unknown Unknown Verified 02/03/22 19:47 Assessment & Plan Assessment & Plan (1) Psychosis: Status: Acute Code(s): F29 - Unspecified psychosis not due to a substance or known physiological condition Assessment and Plan: 02/08/2022: Complained of right shoulder pain (there pre admission) and agreed to x ray. No changes to primary team treatment plan. Disposition planning Is challenging and in progress. Plan ?the patient is an elderly male with a history of dementia who was brought into the facility for exacerbation of aggressive behavior.? The patient denies having prior psychiatric illness but he is confused and restless unable to provide a full comprehensive history.? Plan 1. Gather collateral information.? 2. Increase Risperdal up to 1 mg p.o. q.h.s. 3. Continuation of tapering of Zoloft, lower Zoloft 25 mg po qhs. I spent __20____ minutes with the patient and/or on the patient floor today, greater than?50% of which was spent counseling/coordinating care. Reason for contiued inpatient stay Substantial Risk for: inability to function, rapid decompensation and med/psych decompensation
[2022-02-15] MEDS: risperiDONE 1 MG TABLET PO (17:35)
[2022-02-15 19:30] VITALS: BP 116/70; PULSE 107; RESP 18; TEMP 36.9; O2SAT 92
[2022-02-15] MEDS: Pravastatin Sodium 40 MG TABLET PO (20:48)
[2022-02-15] MEDS: Folic Acid 1 MG TABLET PO (20:48)
[2022-02-15] MEDS: traMADoL HCL 50 MG TABLET PO (22:56)
--- NOTE | 2022-02-16 08:06 | HO.PSYCHPN ---
Subjective Subjective Date of Service: 02/16/22 Reason For Visit: acute psychosis Subjective Notes: Conditional Voluntary Interim History: The nursing staff reported the patient has been compliant with treatment, he was agitated when he had to go to the bathroom because he does not want to be observed when he is using the toilet. On interview the patient denies new symptoms. Mental Status Exam Mental Status Exam Patient Appearance: Well Grooomed Patient Orientation: Person and Situation Level of Consciousness: Awake Patient Behavior: Guarded and Passive Mood Description: Withdrawn Affect Description: Withdrawn Patient Cognition Impaired: Yes Ability to Follow Directions: Fair Speech Pattern: Clear Hallucinations: None Delusions: Paranoid Ideation Thought Process: Distracted and Evasive Thought Content: positive for Circumstantial Judgement: Fair Diagnostics Vital Signs (24Hr): Vital Signs - 24 hr 02/15/22 19:30 Temperature 98.4 F Pulse Rate 107 H Respiratory Rate 18 Blood Pressure 116/70 Pulse Oximetry 92 BMI result Body Mass Index 31.6 Imaging Radiology Impressions: ITS Impressions Shoulder X-Ray 02/09/22 08:43 IMPRESSION: Mild widening of right AC joint. No visible acute fracture, dislocation or subluxation seen. Medications Medications Current Medications Acetaminophen (Acetaminophen 325 Mg Tablet) 650 mg PO Q6H PRN PRN Reason: Headache/Pain Mild Scale (1-3) Last Admin: 02/14/22 20:53 Dose: 650 mg Documented by: Al Hydroxide/Mg Hydroxide (Magnesium Hydrox/Alum Hydrox 30 Ml Oral.Susp) 30 ml PO Q6H PRN PRN Reason: Heartburn/Nausea Apixaban (Apixaban 5 Mg Tablet) 5 mg PO BID [facility] Last Admin: 02/15/22 20:47 Dose: 5 mg Documented by: Benzocaine (Throat Lozenge, Medicated Lozenge) 1 lozenge MUCOUS MEM Q2H PRN PRN Reason: Cough Last Admin: 02/14/22 20:53 Dose: 1 lozenge Documented by: Folic Acid (Folic Acid 1 Mg Tablet) 1 mg PO BEDTIME [facility] Last Admin: 02/15/22 20:48 Dose: 1 mg Documented by: Gabapentin (Gabapentin 600 Mg Tablet) 600 mg PO BID [facility] Last Admin: 02/15/22 20:48 Dose: 600 mg Documented by: Levetiracetam (Levetiracetam 500 Mg Tablet) 500 mg PO BID [facility] Last Admin: 02/15/22 20:48 Dose: 500 mg Documented by: Magnesium Hydroxide (Milk Of Magnesia 30 Ml Oral.Susp) 30 ml PO DAILY PRN PRN Reason: Constipation Memantine (Memantine Hcl 10 Mg Tablet) 10 mg PO BID [facility] Last Admin: 02/15/22 20:48 Dose: 10 mg Documented by: Metoprolol Succinate (Metoprolol Succinate Er 25 Mg Tab.Er.24h) 25 mg PO DAILY [facility]; Protocol Last Admin: 02/15/22 10:07 Dose: Not Given Documented by: Multivitamins/Vitamin C (Multivitamin Tablet) 1 tab PO DAILY [facility] Last Admin: 02/15/22 08:18 Dose: 1 tab Documented by: Pravastatin Sodium (Pravastatin Sodium 40 Mg Tablet) 40 mg PO BEDTIME [facility] Last Admin: 02/15/22 20:48 Dose: 40 mg Documented by: Risperidone (Risperidone 0.5 Mg Tablet) 0.5 mg PO DAILY [facility] Last Admin: 02/15/22 08:18 Dose: 0.5 mg Documented by: Risperidone (Risperidone 1 Mg Tablet) 1 mg PO DAILY@1700 [facility] Last Admin: 02/15/22 17:35 Dose: 1 mg Documented by: Sertraline HCl (Sertraline Hcl 25 Mg Tablet) 25 mg PO DAILY [facility] Tamsulosin HCl (Tamsulosin Hcl 0.4 Mg Capsule) 0.4 mg PO DAILY [facility] Last Admin: 02/15/22 08:18 Dose: 0.4 mg Documented by: Thiamine HCl (Thiamine Hcl 100 Mg Tablet) 100 mg PO BID [facility] Last Admin: 02/15/22 20:48 Dose: 100 mg Documented by: Tramadol HCl (Tramadol Hcl 50 Mg Tablet) 50 mg PO Q6H PRN PRN Reason: Pain, Moderate (Pain Scale 4-6 Last Admin: 02/15/22 22:56 Dose: 50 mg Documented by: Allergies Allergies Allergy/AdvReac Type Severity Reaction Status Date / Time Penicillins Allergy Unknown Unknown Verified 02/03/22 19:47 Assessment & Plan Assessment & Plan (1) Psychosis: Status: Acute Code(s): F29 - Unspecified psychosis not due to a substance or known physiological condition Assessment and Plan: 02/08/2022: Complained of right shoulder pain (there pre admission) and agreed to x ray. No changes to primary team treatment plan. Disposition planning Is challenging and in progress. Plan ?the patient is an elderly male with a history of dementia who was brought into the facility for exacerbation of aggressive behavior.? The patient denies having prior psychiatric illness but he is confused and restless unable to provide a full comprehensive history.? Plan 1. Gather collateral information.? 2. Increase Risperdal up to 1 mg p.o. q.h.s. 3. Continuation of tapering of Zoloft, lower Zoloft 25 mg po qhs. I spent minutes with the patient and/or on the patient floor today, greater than?50% of which was spent counseling/coordinating care. Reason for contiued inpatient stay Substantial Risk for: inability to function, rapid decompensation and med/psych decompensation
[2022-02-16 09:11] VITALS: BP 117/62; PULSE 101; RESP 18; TEMP 36.6; O2SAT 91
[2022-02-16] MEDS: levETIRAcetam 500 MG TABLET PO ×2 (09:11→20:00)
[2022-02-16] MEDS: Tamsulosin HCL 0.4 MG CAPSULE PO (09:12)
[2022-02-16] MEDS: risperiDONE 0.5 MG TABLET PO (09:12)
[2022-02-16] MEDS: Thiamine HCL 100 MG TABLET PO ×2 (09:12→20:00)
[2022-02-16] MEDS: Multivitamin TABLET 1 TAB PO (09:12)
[2022-02-16] MEDS: Sertraline HCL 25 MG TABLET PO (09:12)
[2022-02-16] MEDS: Memantine HCl 10 MG TABLET PO ×2 (09:13→20:00)
[2022-02-16] MEDS: Apixaban 5 MG TABLET PO ×2 (09:13→19:59)
[2022-02-16] MEDS: Metoprolol Succinate ER 25 MG TAB.ER.24H PO (09:13)
[2022-02-16] MEDS: Gabapentin 600 MG TABLET PO ×2 (09:13→20:00)
[2022-02-16 18:00] VITALS: BP 133/100; PULSE 97; RESP 16; TEMP 35.9; O2SAT 92
[2022-02-16] MEDS: risperiDONE 1 MG TABLET PO (18:22)
[2022-02-16] MEDS: Throat Lozenge, Medicated LOZENGE 1 LOZENGE MUCOUS MEM (19:21)
[2022-02-16] MEDS: Folic Acid 1 MG TABLET PO (20:00)
[2022-02-16] MEDS: Pravastatin Sodium 40 MG TABLET PO (20:00)
[2022-02-17 07:40] VITALS: BP 101/55; PULSE 76; RESP 14; TEMP 36.1; O2SAT 94
[2022-02-17] MEDS: traMADoL HCL 50 MG TABLET PO (08:56)
[2022-02-17] MEDS: Memantine HCl 10 MG TABLET PO ×2 (08:56→20:38)
[2022-02-17] MEDS: Tamsulosin HCL 0.4 MG CAPSULE PO (08:56)
[2022-02-17] MEDS: levETIRAcetam 500 MG TABLET PO ×2 (08:56→20:37)
[2022-02-17] MEDS: Metoprolol Succinate ER 25 MG TAB.ER.24H PO (08:56)
[2022-02-17] MEDS: Gabapentin 600 MG TABLET PO ×2 (08:56→20:37)
[2022-02-17] MEDS: Thiamine HCL 100 MG TABLET PO ×2 (08:56→20:38)
[2022-02-17] MEDS: Apixaban 5 MG TABLET PO ×2 (08:57→20:37)
[2022-02-17] MEDS: Multivitamin TABLET 1 TAB PO (08:58)
[2022-02-17] MEDS: Sertraline HCL 25 MG TABLET PO (08:58)
[2022-02-17] MEDS: risperiDONE 0.5 MG TABLET PO (08:58)
[2022-02-17 09:08] LABS: COVID-19 Test Positive (Negative)
[2022-02-17 12:50] VITALS: BP 114/65; PULSE 80; RESP 16; TEMP 36.6; O2SAT 90
--- NOTE | 2022-02-17 15:37 | P.PNPSI_ITS ---
Subjective Subjective Date of Service: 02/17/22 Reason For Visit: acute psychosis Subjective Notes: Conditional Voluntary Interim History: The nursing staff reported the patient has been fully compliant with treatment. He has some shoulder pain and he took tramadol with improvement. Later, he presented with upper respiratory symptoms and he tested positive to COVID. At this moment he is on COVID precaution as per protocol. On interview the patient is hard of hearing he is fully aware that he needs to be in isolation. Mental Status Exam Mental Status Exam Patient Appearance: Appropriate Patient Orientation: Person Level of Consciousness: Appropriate Patient Behavior: Guarded and Passive Mood Description: Withdrawn Affect Description: Constricted Patient Cognition Impaired: Yes Ability to Follow Directions: Fair Speech Pattern: Clear Hallucinations: None Delusions: Paranoid Ideation Thought Process: Distracted Thought Content: positive for Poverty of Content Judgement: Fair Diagnostics Vital Signs (24Hr): Vital Signs - 24 hr 02/16/22 18:00 02/17/22 07:40 02/17/22 12:50 Temperature 96.7 F L 97.0 F 98 F Pulse Rate 97 76 80 Respiratory Rate 16 14 16 Blood Pressure 133/100 H 101/55 L 114/65 Pulse Oximetry 92 94 90 L BMI result Body Mass Index 31.6 Labs Labs: Laboratory Results - last 48 hr 02/17/22 08:40 COVID-19 ([facility]) Positive A COVID-19 Clin Com See Note Imaging Radiology Impressions: ITS Impressions Shoulder X-Ray 02/09/22 08:43 IMPRESSION: Mild widening of right AC joint. No visible acute fracture, dislocation or subluxation seen. Medications Medications Current Medications Acetaminophen (Acetaminophen 325 Mg Tablet) 650 mg PO Q6H PRN PRN Reason: Headache/Pain Mild Scale (1-3) Last Admin: 02/14/22 20:53 Dose: 650 mg Documented by: Al Hydroxide/Mg Hydroxide (Magnesium Hydrox/Alum Hydrox 30 Ml Oral.Susp) 30 ml PO Q6H PRN PRN Reason: Heartburn/Nausea Apixaban (Apixaban 5 Mg Tablet) 5 mg PO BID [facility] Last Admin: 02/17/22 08:57 Dose: 5 mg Documented by: Benzocaine (Throat Lozenge, Medicated Lozenge) 1 lozenge MUCOUS MEM Q2H PRN PRN Reason: Cough Last Admin: 02/16/22 19:21 Dose: 1 lozenge Documented by: Folic Acid (Folic Acid 1 Mg Tablet) 1 mg PO BEDTIME [facility] Last Admin: 02/16/22 20:00 Dose: 1 mg Documented by: Gabapentin (Gabapentin 600 Mg Tablet) 600 mg PO BID [facility] Last Admin: 02/17/22 08:56 Dose: 600 mg Documented by: Levetiracetam (Levetiracetam 500 Mg Tablet) 500 mg PO BID [facility] Last Admin: 02/17/22 08:56 Dose: 500 mg Documented by: Magnesium Hydroxide (Milk Of Magnesia 30 Ml Oral.Susp) 30 ml PO DAILY PRN PRN Reason: Constipation Memantine (Memantine Hcl 10 Mg Tablet) 10 mg PO BID [facility] Last Admin: 02/17/22 08:56 Dose: 10 mg Documented by: Metoprolol Succinate (Metoprolol Succinate Er 25 Mg Tab.Er.24h) 25 mg PO DAILY [facility]; Protocol Last Admin: 02/17/22 08:56 Dose: 25 mg Documented by: Multivitamins/Vitamin C (Multivitamin Tablet) 1 tab PO DAILY [facility] Last Admin: 02/17/22 08:58 Dose: 1 tab Documented by: Pravastatin Sodium (Pravastatin Sodium 40 Mg Tablet) 40 mg PO BEDTIME [facility] Last Admin: 02/16/22 20:00 Dose: 40 mg Documented by: Risperidone (Risperidone 0.5 Mg Tablet) 0.5 mg PO DAILY [facility] Last Admin: 02/17/22 08:58 Dose: 0.5 mg Documented by: Risperidone (Risperidone 1 Mg Tablet) 1 mg PO DAILY@1700 [facility] Last Admin: 02/16/22 18:22 Dose: 1 mg Documented by: Sertraline HCl (Sertraline Hcl 25 Mg Tablet) 25 mg PO DAILY [facility] Last Admin: 02/17/22 08:58 Dose: 25 mg Documented by: Tamsulosin HCl (Tamsulosin Hcl 0.4 Mg Capsule) 0.4 mg PO DAILY [facility] Last Admin: 02/17/22 08:56 Dose: 0.4 mg Documented by: Thiamine HCl (Thiamine Hcl 100 Mg Tablet) 100 mg PO BID [facility] Last Admin: 02/17/22 08:56 Dose: 100 mg Documented by: Allergies Allergies Allergy/AdvReac Type Severity Reaction Status Date / Time Penicillins Allergy Unknown Unknown Verified 02/03/22 19:47 Assessment & Plan Assessment & Plan (1) Psychosis: Status: Acute Code(s): F29 - Unspecified psychosis not due to a substance or known physiological condition Assessment and Plan: 02/08/2022: Complained of right shoulder pain (there pre admission) and agreed to x ray. No changes to primary team treatment plan. Disposition planning Is challenging and in progress. Plan ?the patient is an elderly male with a history of dementia who was brought into the facility for exacerbation of aggressive behavior.? The patient denies having prior psychiatric illness but he is confused and restless unable to provide a full comprehensive history.? Plan 1. Gather collateral information.? 2. Increase Risperdal up to 1 mg p.o. q.h.s. 3. Discontinue Zoloft. 4. COVID-19 protocol. I spent __20____ minutes with the patient and/or on the patient floor today, greater than?50% of which was spent counseling/coordinating care. Reason for contiued inpatient stay Substantial Risk for: inability to function, rapid decompensation and med/psych decompensation
[2022-02-17 16:03] VITALS: BP 107/55; PULSE 76; RESP 16; TEMP 36.2; O2SAT 92
[2022-02-17] MEDS: risperiDONE 1 MG TABLET PO (16:08)
[2022-02-17 20:00] VITALS: PULSE 96; RESP 18; TEMP 36.6; O2SAT 91
[2022-02-17] MEDS: Pravastatin Sodium 40 MG TABLET PO (20:38)
[2022-02-17] MEDS: Folic Acid 1 MG TABLET PO (20:38)
[2022-02-17] MEDS: Acetaminophen 325 MG TABLET 650 MG PO (20:46)
[2022-02-18] VITALS: BP 110/63; PULSE 84; TEMP 36.9; O2SAT 91
[2022-02-18 08:50] VITALS: BP 120/56; PULSE 64; RESP 14; TEMP 36.3; O2SAT 92
[2022-02-18] MEDS: risperiDONE 0.5 MG TABLET PO (09:39)
[2022-02-18] MEDS: Apixaban 5 MG TABLET PO ×2 (09:39→20:07)
[2022-02-18] MEDS: Multivitamin TABLET 1 TAB PO (09:39)
[2022-02-18] MEDS: levETIRAcetam 500 MG TABLET PO ×2 (09:39→20:07)
[2022-02-18] MEDS: Tamsulosin HCL 0.4 MG CAPSULE PO (09:39)
[2022-02-18] MEDS: Gabapentin 600 MG TABLET PO ×2 (09:39→20:07)
[2022-02-18] MEDS: Metoprolol Succinate ER 25 MG TAB.ER.24H PO (09:39)
[2022-02-18] MEDS: Thiamine HCL 100 MG TABLET PO ×2 (09:39→20:08)
[2022-02-18] MEDS: Memantine HCl 10 MG TABLET PO ×2 (09:40→20:07)
--- NOTE | 2022-02-18 11:09 | PC.NURSE ---
Pt's daughter notified of pt's positive Covid status.
--- NOTE | 2022-02-18 13:30 | HO.PSYCHPN ---
Subjective Subjective Date of Service: 02/18/22 Reason For Visit: acute psychosis Subjective Notes: Conditional Voluntary Interim History: The patient has been uncooperative and belligerent with COVID precautions and protocol. Security needed to be called yesterday because he was not compliant with the protocol. He has been med compliant he slept well. On interview the patient denies new symptoms and he wants to be discharged to another facility as soon as possible. He is aware of his COVID diagnosis. Mental Status Exam Mental Status Exam Patient Appearance: Appropriate Patient Orientation: Person and Situation Level of Consciousness: Awake Patient Behavior: Guarded and Cooperative Mood Description: Withdrawn Affect Description: Constricted Patient Cognition Impaired: Yes Ability to Follow Directions: Good Speech Pattern: Clear Hallucinations: None Delusions: Not Present Thought Process: Distracted Thought Content: positive for Poverty of Content Judgement: Fair Diagnostics Vital Signs (24Hr): Vital Signs - 24 hr 02/17/22 16:03 02/17/22 20:00 02/18/22 00:00 Temperature 97.2 F 97.9 F 98.4 F Pulse Rate 76 96 84 Respiratory Rate 16 18 Blood Pressure 107/55 L 110/63 Pulse Oximetry 92 91 L 91 L 02/18/22 08:50 Temperature 97.3 F Pulse Rate 64 Respiratory Rate 14 Blood Pressure 120/56 L Pulse Oximetry 92 BMI result Body Mass Index 31.6 Labs Labs: Laboratory Results - last 48 hr 02/17/22 08:40 COVID-19 ([facility]) Positive A COVID-19 Clin Com See Note Imaging Radiology Impressions: ITS Impressions Shoulder X-Ray 02/09/22 08:43 IMPRESSION: Mild widening of right AC joint. No visible acute fracture, dislocation or subluxation seen. Medications Medications Current Medications Acetaminophen (Acetaminophen 325 Mg Tablet) 650 mg PO Q6H PRN PRN Reason: Headache/Pain Mild Scale (1-3) Last Admin: 02/17/22 20:46 Dose: 650 mg Documented by: Al Hydroxide/Mg Hydroxide (Magnesium Hydrox/Alum Hydrox 30 Ml Oral.Susp) 30 ml PO Q6H PRN PRN Reason: Heartburn/Nausea Apixaban (Apixaban 5 Mg Tablet) 5 mg PO BID [facility] Last Admin: 02/18/22 09:39 Dose: 5 mg Documented by: Benzocaine (Throat Lozenge, Medicated Lozenge) 1 lozenge MUCOUS MEM Q2H PRN PRN Reason: Cough Last Admin: 02/16/22 19:21 Dose: 1 lozenge Documented by: Folic Acid (Folic Acid 1 Mg Tablet) 1 mg PO BEDTIME [facility] Last Admin: 02/17/22 20:38 Dose: 1 mg Documented by: Gabapentin (Gabapentin 600 Mg Tablet) 600 mg PO BID [facility] Last Admin: 02/18/22 09:39 Dose: 600 mg Documented by: Levetiracetam (Levetiracetam 500 Mg Tablet) 500 mg PO BID [facility] Last Admin: 02/18/22 09:39 Dose: 500 mg Documented by: Magnesium Hydroxide (Milk Of Magnesia 30 Ml Oral.Susp) 30 ml PO DAILY PRN PRN Reason: Constipation Memantine (Memantine Hcl 10 Mg Tablet) 10 mg PO BID [facility] Last Admin: 02/18/22 09:40 Dose: 10 mg Documented by: Metoprolol Succinate (Metoprolol Succinate Er 25 Mg Tab.Er.24h) 25 mg PO DAILY [facility]; Protocol Last Admin: 02/18/22 09:39 Dose: 25 mg Documented by: Multivitamins/Vitamin C (Multivitamin Tablet) 1 tab PO DAILY [facility] Last Admin: 02/18/22 09:39 Dose: 1 tab Documented by: Pravastatin Sodium (Pravastatin Sodium 40 Mg Tablet) 40 mg PO BEDTIME [facility] Last Admin: 02/17/22 20:38 Dose: 40 mg Documented by: Risperidone (Risperidone 0.5 Mg Tablet) 0.5 mg PO DAILY [facility] Last Admin: 02/18/22 09:39 Dose: 0.5 mg Documented by: Risperidone (Risperidone 1 Mg Tablet) 1 mg PO DAILY@1700 [facility] Last Admin: 02/17/22 16:08 Dose: 1 mg Documented by: Tamsulosin HCl (Tamsulosin Hcl 0.4 Mg Capsule) 0.4 mg PO DAILY [facility] Last Admin: 02/18/22 09:39 Dose: 0.4 mg Documented by: Thiamine HCl (Thiamine Hcl 100 Mg Tablet) 100 mg PO BID [facility] Last Admin: 02/18/22 09:39 Dose: 100 mg Documented by: Allergies Allergies Allergy/AdvReac Type Severity Reaction Status Date / Time Penicillins Allergy Unknown Unknown Verified 02/03/22 19:47 Assessment & Plan Assessment & Plan (1) Psychosis: Status: Acute Code(s): F29 - Unspecified psychosis not due to a substance or known physiological condition Assessment and Plan: 02/08/2022: Complained of right shoulder pain (there pre admission) and agreed to x ray. No changes to primary team treatment plan. Disposition planning Is challenging and in progress. Plan ?the patient is an elderly male with a history of dementia who was brought into the facility for exacerbation of aggressive behavior.? The patient denies having prior psychiatric illness but he is confused and restless unable to provide a full comprehensive history.? Plan 1. Gather collateral information.? 2. Increase Risperdal up to 1 mg p.o. q.h.s. 3. Discontinue Zoloft. 4. COVID-19 protocol. I spent _20 minutes with the patient and/or on the patient floor today, greater than?50% of which was spent counseling/coordinating care. Reason for contiued inpatient stay Substantial Risk for: inability to function, rapid decompensation and med/psych decompensation
--- NOTE | 2022-02-18 15:00 | PC.NURSE ---
ALEXANDRA attempted to engage patient in 1:1 treatment however patient has been sleeping all day and not feeling well. Attempts to wake patient caused patient to be irritable/argumentative.
[2022-02-18 16:00] VITALS: BP 134/75; PULSE 82; RESP 17; TEMP 36.6; O2SAT 92
[2022-02-18] MEDS: risperiDONE 1 MG TABLET PO (17:32)
[2022-02-18 20:00] VITALS: BP 106/66; PULSE 91; RESP 18; TEMP 36.3; O2SAT 93
[2022-02-18] MEDS: Folic Acid 1 MG TABLET PO (20:07)
[2022-02-18] MEDS: Pravastatin Sodium 40 MG TABLET PO (20:08)
[2022-02-18] MEDS: Acetaminophen 325 MG TABLET 650 MG PO (22:17)
[2022-02-19] VITALS: BP 120/70; PULSE 90; RESP 20; TEMP 36.5; O2SAT 92
[2022-02-19 07:00] VITALS: BMI 25.6
[2022-02-19 08:00] VITALS: BP 90/57; PULSE 73; RESP 18; TEMP 35.7; O2SAT 93
[2022-02-19] MEDS: Metoprolol Succinate ER 25 MG TAB.ER.24H PO (08:18)
[2022-02-19] MEDS: Apixaban 5 MG TABLET PO ×2 (08:19→20:15)
[2022-02-19] MEDS: risperiDONE 0.5 MG TABLET PO (08:19)
[2022-02-19] MEDS: Tamsulosin HCL 0.4 MG CAPSULE PO (08:19)
[2022-02-19] MEDS: Memantine HCl 10 MG TABLET PO ×2 (08:19→20:15)
[2022-02-19] MEDS: levETIRAcetam 500 MG TABLET PO ×2 (08:19→20:15)
[2022-02-19] MEDS: Thiamine HCL 100 MG TABLET PO ×2 (08:19→20:15)
[2022-02-19] MEDS: Gabapentin 600 MG TABLET PO ×2 (08:19→20:15)
[2022-02-19] MEDS: Multivitamin TABLET 1 TAB PO (08:19)
[2022-02-19 12:00] VITALS: BP 107/65; PULSE 94; RESP 18; TEMP 36; O2SAT 92
[2022-02-19] MEDS: traMADoL HCL 50 MG TABLET PO ×2 (13:50→21:41)
[2022-02-19] MEDS: risperiDONE 1 MG TABLET PO (17:16)
--- NOTE | 2022-02-19 18:08 | HO.PSYCHPN ---
Subjective Subjective Date of Service: 02/19/22 Reason For Visit: acute psychosis Interim History: Patient seen and discussed with team. Pt did not have behavioral outbursts today. Patient evaluated today and upon interview he reports im doing just fine, requests for nail clipper to clean nails. Says I dont have any trouble sleeping. Per pt I'm so freaking bored, nothing else to do [but sleep], and the whole place sucks. But says the food aint all that bad. In the milieu, patient is safe. Says he feels safe. Mental Status Exam Mental Status Exam Narrative: Patient Appearance:?Appropriate Patient Orientation:?Person and Situation Level of Consciousness:?Awake Patient Behavior:?Guarded and Cooperative Mood Description:?Withdrawn Affect Description:?Constricted Patient Cognition Impaired:?Yes Ability to Follow Directions:?Good Speech Pattern:?Clear Hallucinations:?None Delusions:?Not Present Thought Process:?Distracted Thought Content:?positive for Poverty of Content Judgment:?Fair Diagnostics Vital Signs (24Hr): Vital Signs - 24 hr 02/18/22 20:00 02/19/22 00:00 02/19/22 08:00 Temperature 97.3 F 97.7 F 96.3 F L Pulse Rate 91 90 73 Respiratory Rate 18 20 18 Blood Pressure 106/66 120/70 90/57 L Pulse Oximetry 93 92 93 02/19/22 12:00 Temperature 96.8 F Pulse Rate 94 Respiratory Rate 18 Blood Pressure 107/65 Pulse Oximetry 92 BMI result Body Mass Index 25.6 Imaging Radiology Impressions: ITS Impressions Shoulder X-Ray 02/09/22 08:43 IMPRESSION: Mild widening of right AC joint. No visible acute fracture, dislocation or subluxation seen. Medications Medications Current Medications Acetaminophen (Acetaminophen 325 Mg Tablet) 650 mg PO Q6H PRN PRN Reason: Headache/Pain Mild Scale (1-3) Last Admin: 02/18/22 22:17 Dose: 650 mg Documented by: Al Hydroxide/Mg Hydroxide (Magnesium Hydrox/Alum Hydrox 30 Ml Oral.Susp) 30 ml PO Q6H PRN PRN Reason: Heartburn/Nausea Apixaban (Apixaban 5 Mg Tablet) 5 mg PO BID [facility] Last Admin: 02/19/22 08:19 Dose: 5 mg Documented by: Benzocaine (Throat Lozenge, Medicated Lozenge) 1 lozenge MUCOUS MEM Q2H PRN PRN Reason: Cough Last Admin: 02/16/22 19:21 Dose: 1 lozenge Documented by: Folic Acid (Folic Acid 1 Mg Tablet) 1 mg PO BEDTIME [facility] Last Admin: 02/18/22 20:07 Dose: 1 mg Documented by: Gabapentin (Gabapentin 600 Mg Tablet) 600 mg PO BID [facility] Last Admin: 02/19/22 08:19 Dose: 600 mg Documented by: Levetiracetam (Levetiracetam 500 Mg Tablet) 500 mg PO BID [facility] Last Admin: 02/19/22 08:19 Dose: 500 mg Documented by: Magnesium Hydroxide (Milk Of Magnesia 30 Ml Oral.Susp) 30 ml PO DAILY PRN PRN Reason: Constipation Memantine (Memantine Hcl 10 Mg Tablet) 10 mg PO BID [facility] Last Admin: 02/19/22 08:19 Dose: 10 mg Documented by: Metoprolol Succinate (Metoprolol Succinate Er 25 Mg Tab.Er.24h) 25 mg PO DAILY [facility]; Protocol Last Admin: 02/19/22 08:18 Dose: 25 mg Documented by: Multivitamins/Vitamin C (Multivitamin Tablet) 1 tab PO DAILY [facility] Last Admin: 02/19/22 08:19 Dose: 1 tab Documented by: Pravastatin Sodium (Pravastatin Sodium 40 Mg Tablet) 40 mg PO BEDTIME [facility] Last Admin: 02/18/22 20:08 Dose: 40 mg Documented by: Risperidone (Risperidone 0.5 Mg Tablet) 0.5 mg PO DAILY [facility] Last Admin: 02/19/22 08:19 Dose: 0.5 mg Documented by: Risperidone (Risperidone 1 Mg Tablet) 1 mg PO DAILY@1700 [facility] Last Admin: 02/19/22 17:16 Dose: 1 mg Documented by: Tamsulosin HCl (Tamsulosin Hcl 0.4 Mg Capsule) 0.4 mg PO DAILY [facility] Last Admin: 02/19/22 08:19 Dose: 0.4 mg Documented by: Thiamine HCl (Thiamine Hcl 100 Mg Tablet) 100 mg PO BID [facility] Last Admin: 02/19/22 08:19 Dose: 100 mg Documented by: Tramadol HCl (Tramadol Hcl 50 Mg Tablet) 50 mg PO Q6H PRN PRN Reason: Pain, Severe (Pain Scale 7-10) Last Admin: 02/19/22 13:50 Dose: 50 mg Documented by: Allergies Allergies Allergy/AdvReac Type Severity Reaction Status Date / Time Penicillins Allergy Unknown Unknown Verified 02/03/22 19:47 Assessment & Plan Assessment & Plan (1) Psychosis: Status: Acute Code(s): F29 - Unspecified psychosis not due to a substance or known physiological condition Assessment and Plan: 02/08/2022: Complained of right shoulder pain (there pre admission) and agreed to x ray. No changes to primary team treatment plan. Disposition planning Is challenging and in progress. Plan ?the patient is an elderly male with a history of dementia who was brought into the facility for exacerbation of aggressive behavior.? The patient denies having prior psychiatric illness but he is confused and restless unable to provide a full comprehensive history.? Plan 1. Gather collateral information.? 2. Increase Risperdal up to 1 mg p.o. q.h.s. 3. Discontinue Zoloft. 4. COVID-19 protocol. I spent minutes with the patient and/or on the patient floor today, greater than?50% of which was spent counseling/coordinating care. Patient educated on: therapeutic strategies Reason for contiued inpatient stay Substantial Risk for: med/psych decompensation
[2022-02-19 20:00] VITALS: BP 98/52; PULSE 90; RESP 20; TEMP 37.1; O2SAT 92
[2022-02-19] MEDS: Pravastatin Sodium 40 MG TABLET PO (20:15)
[2022-02-19] MEDS: Folic Acid 1 MG TABLET PO (20:15)
[2022-02-20] MEDS: Memantine HCl 10 MG TABLET PO ×2 (08:22→20:02)
[2022-02-20] MEDS: levETIRAcetam 500 MG TABLET PO ×2 (08:22→20:02)
[2022-02-20] MEDS: Gabapentin 600 MG TABLET PO ×2 (08:22→20:02)
[2022-02-20] MEDS: Multivitamin TABLET 1 TAB PO (08:22)
[2022-02-20] MEDS: Thiamine HCL 100 MG TABLET PO ×2 (08:22→20:02)
[2022-02-20] MEDS: Tamsulosin HCL 0.4 MG CAPSULE PO (08:22)
[2022-02-20] MEDS: risperiDONE 0.5 MG TABLET PO (08:22)
[2022-02-20] MEDS: Apixaban 5 MG TABLET PO ×2 (08:22→20:02)
[2022-02-20] MEDS: Metoprolol Succinate ER 25 MG TAB.ER.24H PO (08:22)
[2022-02-20 08:30] VITALS: BP 126/64; PULSE 91; RESP 18; TEMP 36.4; O2SAT 90
--- NOTE | 2022-02-20 09:58 | HO.PSYCHPN ---
Subjective Subjective Date of Service: 02/20/22 Reason For Visit: acute psychosis Subjective Notes: Conditional Voluntary Interim History: Nursing staff reported the patient had shoulder pain and he took tramadol p.r.n. he has been cooperative. He is at regions of oxygen rounds between 85-90% but in general his vital signs are stable. On interview the patient reports that he is doing fine, waiting for placement, aware that he is homeless at this moment, willing to go to [facility] facility Mental Status Exam Mental Status Exam Patient Appearance: Well Grooomed Patient Orientation: Person and Situation Level of Consciousness: Awake Patient Behavior: Cooperative Mood Description: Appropriate Affect Description: Constricted Patient Cognition Impaired: Yes Ability to Follow Directions: Fair Speech Pattern: Clear Hallucinations: None Delusions: Paranoid Ideation Thought Content: positive for [place] Judgement: Fair Diagnostics Vital Signs (24Hr): Vital Signs - 24 hr 02/19/22 12:00 02/19/22 20:00 02/20/22 08:30 Temperature 96.8 F 98.8 F 97.6 F Pulse Rate 94 90 91 Respiratory Rate 18 20 18 Blood Pressure 107/65 98/52 L 126/64 Pulse Oximetry 92 92 90 L BMI result Body Mass Index 25.6 Imaging Radiology Impressions: ITS Impressions Shoulder X-Ray 02/09/22 08:43 IMPRESSION: Mild widening of right AC joint. No visible acute fracture, dislocation or subluxation seen. Medications Medications Current Medications Acetaminophen (Acetaminophen 325 Mg Tablet) 650 mg PO Q6H PRN PRN Reason: Headache/Pain Mild Scale (1-3) Last Admin: 02/18/22 22:17 Dose: 650 mg Documented by: Al Hydroxide/Mg Hydroxide (Magnesium Hydrox/Alum Hydrox 30 Ml Oral.Susp) 30 ml PO Q6H PRN PRN Reason: Heartburn/Nausea Apixaban (Apixaban 5 Mg Tablet) 5 mg PO BID [facility] Last Admin: 02/20/22 08:22 Dose: 5 mg Documented by: Benzocaine (Throat Lozenge, Medicated Lozenge) 1 lozenge MUCOUS MEM Q2H PRN PRN Reason: Cough Last Admin: 02/16/22 19:21 Dose: 1 lozenge Documented by: Folic Acid (Folic Acid 1 Mg Tablet) 1 mg PO BEDTIME [facility] Last Admin: 02/19/22 20:15 Dose: 1 mg Documented by: Gabapentin (Gabapentin 600 Mg Tablet) 600 mg PO BID [facility] Last Admin: 02/20/22 08:22 Dose: 600 mg Documented by: Levetiracetam (Levetiracetam 500 Mg Tablet) 500 mg PO BID [facility] Last Admin: 02/20/22 08:22 Dose: 500 mg Documented by: Magnesium Hydroxide (Milk Of Magnesia 30 Ml Oral.Susp) 30 ml PO DAILY PRN PRN Reason: Constipation Memantine (Memantine Hcl 10 Mg Tablet) 10 mg PO BID [facility] Last Admin: 02/20/22 08:22 Dose: 10 mg Documented by: Metoprolol Succinate (Metoprolol Succinate Er 25 Mg Tab.Er.24h) 25 mg PO DAILY [facility]; Protocol Last Admin: 02/20/22 08:22 Dose: 25 mg Documented by: Multivitamins/Vitamin C (Multivitamin Tablet) 1 tab PO DAILY [facility] Last Admin: 02/20/22 08:22 Dose: 1 tab Documented by: Pravastatin Sodium (Pravastatin Sodium 40 Mg Tablet) 40 mg PO BEDTIME [facility] Last Admin: 02/19/22 20:15 Dose: 40 mg Documented by: Risperidone (Risperidone 0.5 Mg Tablet) 0.5 mg PO DAILY [facility] Last Admin: 02/20/22 08:22 Dose: 0.5 mg Documented by: Risperidone (Risperidone 1 Mg Tablet) 1 mg PO DAILY@1700 [facility] Last Admin: 02/19/22 17:16 Dose: 1 mg Documented by: Tamsulosin HCl (Tamsulosin Hcl 0.4 Mg Capsule) 0.4 mg PO DAILY [facility] Last Admin: 02/20/22 08:22 Dose: 0.4 mg Documented by: Thiamine HCl (Thiamine Hcl 100 Mg Tablet) 100 mg PO BID [facility] Last Admin: 02/20/22 08:22 Dose: 100 mg Documented by: Tramadol HCl (Tramadol Hcl 50 Mg Tablet) 50 mg PO Q6H PRN PRN Reason: Pain, Severe (Pain Scale 7-10) Last Admin: 02/19/22 21:41 Dose: 50 mg Documented by: Allergies Allergies Allergy/AdvReac Type Severity Reaction Status Date / Time Penicillins Allergy Unknown Unknown Verified 02/03/22 19:47 Assessment & Plan Assessment & Plan (1) Psychosis: Status: Acute Code(s): F29 - Unspecified psychosis not due to a substance or known physiological condition Assessment and Plan: 02/08/2022: Complained of right shoulder pain (there pre admission) and agreed to x ray. No changes to primary team treatment plan. Disposition planning Is challenging and in progress. Plan ?the patient is an elderly male with a history of dementia who was brought into the facility for exacerbation of aggressive behavior.? The patient denies having prior psychiatric illness but he is confused and restless unable to provide a full comprehensive history.? Plan 1. Gather collateral information.? 2. Increase Risperdal up to 1 mg p.o. q.h.s. 3. Discontinue Zoloft. 4. COVID-19 protocol. I spent __20____ minutes with the patient and/or on the patient floor today, greater than?50% of which was spent counseling/coordinating care. Reason for contiued inpatient stay Substantial Risk for: inability to function, rapid decompensation and med/psych decompensation
[2022-02-20 13:46] VITALS: BP 146/69; PULSE 91; RESP 18; TEMP 36.3; O2SAT 89
[2022-02-20 17:00] VITALS: BP 126/59; PULSE 86; RESP 14; TEMP 36.2; O2SAT 88
[2022-02-20] MEDS: risperiDONE 1 MG TABLET PO (17:01)
[2022-02-20] MEDS: Pravastatin Sodium 40 MG TABLET PO (20:02)
[2022-02-20] MEDS: Folic Acid 1 MG TABLET PO (20:02)
[2022-02-20 21:00] VITALS: TEMP 36.1; O2SAT 89
[2022-02-21 08:17] VITALS: BP 129/78; PULSE 100; RESP 18; TEMP 36.8; O2SAT 90
[2022-02-21] MEDS: risperiDONE 0.5 MG TABLET PO (08:18)
[2022-02-21] MEDS: levETIRAcetam 500 MG TABLET PO ×2 (08:18→20:07)
[2022-02-21] MEDS: Thiamine HCL 100 MG TABLET PO ×2 (08:19→20:07)
[2022-02-21] MEDS: Gabapentin 600 MG TABLET PO ×2 (08:19→20:07)
[2022-02-21] MEDS: Metoprolol Succinate ER 25 MG TAB.ER.24H PO (08:19)
[2022-02-21] MEDS: Memantine HCl 10 MG TABLET PO ×2 (08:19→20:08)
[2022-02-21] MEDS: Apixaban 5 MG TABLET PO ×2 (08:19→20:07)
[2022-02-21] MEDS: Multivitamin TABLET 1 TAB PO (08:20)
[2022-02-21] MEDS: Tamsulosin HCL 0.4 MG CAPSULE PO (08:21)
--- NOTE | 2022-02-21 10:53 | HO.PSYCHPN ---
Subjective Subjective Date of Service: 02/21/22 Reason For Visit: acute psychosis Subjective Notes: Conditional Voluntary Healthcare Proxy: No Guardianship: No Medical Problems Affecting Mental Status: Yes (COVID positive) Interim History: Patient was seen and discussed in rounds today. He is visible, intermittently social and interactive. His oxygen continues to be in the high 80s and this morning 90% because of his COPD. He is in no distress. He is med compliant. Eating and sleeping adequately. No changes were made today Review of Systems Review of Systems Yes all other systems are reviewed and are negative Mental Status Exam Mental Status Exam Patient Appearance: Well Grooomed Patient Orientation: Person and Situation Level of Consciousness: Awake Patient Behavior: Cooperative Mood Description: Appropriate Affect Description: Constricted Patient Cognition Impaired: Yes Ability to Follow Directions: Fair Speech Pattern: Clear Hallucinations: None Delusions: Paranoid Ideation Thought Content: positive for [place] Judgement: Fair Diagnostics Vital Signs (24Hr): Vital Signs - 24 hr 02/20/22 13:46 02/20/22 17:00 02/20/22 21:00 Temperature 97.3 F 97.2 F 97.0 F Pulse Rate 91 86 Respiratory Rate 18 14 Blood Pressure 146/69 H 126/59 L Pulse Oximetry 89 L 88 L 89 L 02/21/22 08:17 Temperature 98.2 F Pulse Rate 100 Respiratory Rate 18 Blood Pressure 129/78 Pulse Oximetry 90 L BMI result Body Mass Index 25.6 Imaging Radiology Impressions: ITS Impressions Shoulder X-Ray 02/09/22 08:43 IMPRESSION: Mild widening of right AC joint. No visible acute fracture, dislocation or subluxation seen. Medications Medications Current Medications Acetaminophen (Acetaminophen 325 Mg Tablet) 650 mg PO Q6H PRN PRN Reason: Headache/Pain Mild Scale (1-3) Last Admin: 02/18/22 22:17 Dose: 650 mg Documented by: Al Hydroxide/Mg Hydroxide (Magnesium Hydrox/Alum Hydrox 30 Ml Oral.Susp) 30 ml PO Q6H PRN PRN Reason: Heartburn/Nausea Apixaban (Apixaban 5 Mg Tablet) 5 mg PO BID [facility] Last Admin: 02/21/22 08:19 Dose: 5 mg Documented by: Benzocaine (Throat Lozenge, Medicated Lozenge) 1 lozenge MUCOUS MEM Q2H PRN PRN Reason: Cough Last Admin: 02/16/22 19:21 Dose: 1 lozenge Documented by: Folic Acid (Folic Acid 1 Mg Tablet) 1 mg PO BEDTIME [facility] Last Admin: 02/20/22 20:02 Dose: 1 mg Documented by: Gabapentin (Gabapentin 600 Mg Tablet) 600 mg PO BID [facility] Last Admin: 02/21/22 08:19 Dose: 600 mg Documented by: Levetiracetam (Levetiracetam 500 Mg Tablet) 500 mg PO BID [facility] Last Admin: 02/21/22 08:18 Dose: 500 mg Documented by: Magnesium Hydroxide (Milk Of Magnesia 30 Ml Oral.Susp) 30 ml PO DAILY PRN PRN Reason: Constipation Memantine (Memantine Hcl 10 Mg Tablet) 10 mg PO BID [facility] Last Admin: 02/21/22 08:19 Dose: 10 mg Documented by: Metoprolol Succinate (Metoprolol Succinate Er 25 Mg Tab.Er.24h) 25 mg PO DAILY [facility]; Protocol Last Admin: 02/21/22 08:19 Dose: 25 mg Documented by: Multivitamins/Vitamin C (Multivitamin Tablet) 1 tab PO DAILY [facility] Last Admin: 02/21/22 08:20 Dose: 1 tab Documented by: Pravastatin Sodium (Pravastatin Sodium 40 Mg Tablet) 40 mg PO BEDTIME [facility] Last Admin: 02/20/22 20:02 Dose: 40 mg Documented by: Risperidone (Risperidone 0.5 Mg Tablet) 0.5 mg PO DAILY [facility] Last Admin: 02/21/22 08:18 Dose: 0.5 mg Documented by: Risperidone (Risperidone 1 Mg Tablet) 1 mg PO DAILY@1700 [facility] Last Admin: 02/20/22 17:01 Dose: 1 mg Documented by: Tamsulosin HCl (Tamsulosin Hcl 0.4 Mg Capsule) 0.4 mg PO DAILY [facility] Last Admin: 02/21/22 08:21 Dose: 0.4 mg Documented by: Thiamine HCl (Thiamine Hcl 100 Mg Tablet) 100 mg PO BID [facility] Last Admin: 02/21/22 08:19 Dose: 100 mg Documented by: Tramadol HCl (Tramadol Hcl 50 Mg Tablet) 50 mg PO Q6H PRN PRN Reason: Pain, Severe (Pain Scale 7-10) Last Admin: 02/19/22 21:41 Dose: 50 mg Documented by: Allergies Allergies Allergy/AdvReac Type Severity Reaction Status Date / Time Penicillins Allergy Unknown Unknown Verified 02/03/22 19:47 Assessment & Plan Assessment & Plan (1) Psychosis: Status: Acute Code(s): F29 - Unspecified psychosis not due to a substance or known physiological condition Assessment and Plan: 02/08/2022: Complained of right shoulder pain (there pre admission) and agreed to x ray. No changes to primary team treatment plan. Disposition planning Is challenging and in progress. Plan ?the patient is an elderly male with a history of dementia who was brought into the facility for exacerbation of aggressive behavior.? The patient denies having prior psychiatric illness but he is confused and restless unable to provide a full comprehensive history.? Plan 1. Gather collateral information.? 2. Increase Risperdal up to 1 mg p.o. q.h.s. 3. Discontinue Zoloft. 4. COVID-19 protocol. 02/21: Continue current regimen and plans I spent minutes with the patient and/or on the patient floor today, greater than?50% of which was spent counseling/coordinating care. Reason for contiued inpatient stay Substantial Risk for: inability to function
[2022-02-21 13:00] VITALS: PULSE 79; RESP 18; TEMP 35.9; O2SAT 89
[2022-02-21] MEDS: risperiDONE 1 MG TABLET PO (16:26)
[2022-02-21 16:49] VITALS: PULSE 94; TEMP 37; O2SAT 91
[2022-02-21] MEDS: Folic Acid 1 MG TABLET PO (20:07)
[2022-02-21] MEDS: traMADoL HCL 50 MG TABLET PO (20:08)
[2022-02-21] MEDS: Pravastatin Sodium 40 MG TABLET PO (20:08)
[2022-02-21 20:58] VITALS: BP 121/75; PULSE 90; RESP 18; TEMP 36.1; O2SAT 88
--- NOTE | 2022-02-22 09:00 | P.PNPSI_ITS ---
Subjective Subjective Date of Service: 02/22/22 Reason For Visit: acute psychosis Subjective Notes: Conditional Voluntary Interim History: Patient was seen and discussed in rounds today. Records and plans were reviewed. He continues to be visible. His O2 sat has been at baseline, 89- [address] COPD. He is med compliant. Eating and sleeping adequately and generally has been pleasant and cooperative. No complaints. No changes were made Review of Systems Review of Systems Yes all other systems are reviewed and are negative Mental Status Exam Mental Status Exam Patient Appearance: Well Grooomed Patient Orientation: Person and Situation Level of Consciousness: Awake Patient Behavior: Cooperative Mood Description: Appropriate Affect Description: Constricted Patient Cognition Impaired: Yes Ability to Follow Directions: Fair Speech Pattern: Clear Hallucinations: None Delusions: Paranoid Ideation Thought Content: positive for [place] Judgement: Fair Diagnostics Vital Signs (24Hr): Vital Signs - 24 hr 02/21/22 13:00 02/21/22 16:49 02/21/22 20:58 Temperature 96.7 F L 98.6 F 96.9 F Pulse Rate 79 94 90 Respiratory Rate 18 18 Blood Pressure 121/75 Pulse Oximetry 89 L 91 L 88 L BMI result Body Mass Index 25.6 Imaging Radiology Impressions: ITS Impressions Shoulder X-Ray 02/09/22 08:43 IMPRESSION: Mild widening of right AC joint. No visible acute fracture, dislocation or subluxation seen. Medications Medications Current Medications Acetaminophen (Acetaminophen 325 Mg Tablet) 650 mg PO Q6H PRN PRN Reason: Headache/Pain Mild Scale (1-3) Last Admin: 02/18/22 22:17 Dose: 650 mg Documented by: Al Hydroxide/Mg Hydroxide (Magnesium Hydrox/Alum Hydrox 30 Ml Oral.Susp) 30 ml PO Q6H PRN PRN Reason: Heartburn/Nausea Apixaban (Apixaban 5 Mg Tablet) 5 mg PO BID [facility] Last Admin: 02/21/22 20:07 Dose: 5 mg Documented by: Benzocaine (Throat Lozenge, Medicated Lozenge) 1 lozenge MUCOUS MEM Q2H PRN PRN Reason: Cough Last Admin: 02/16/22 19:21 Dose: 1 lozenge Documented by: Folic Acid (Folic Acid 1 Mg Tablet) 1 mg PO BEDTIME [facility] Last Admin: 02/21/22 20:07 Dose: 1 mg Documented by: Gabapentin (Gabapentin 600 Mg Tablet) 600 mg PO BID [facility] Last Admin: 02/21/22 20:07 Dose: 600 mg Documented by: Levetiracetam (Levetiracetam 500 Mg Tablet) 500 mg PO BID [facility] Last Admin: 02/21/22 20:07 Dose: 500 mg Documented by: Magnesium Hydroxide (Milk Of Magnesia 30 Ml Oral.Susp) 30 ml PO DAILY PRN PRN Reason: Constipation Memantine (Memantine Hcl 10 Mg Tablet) 10 mg PO BID [facility] Last Admin: 02/21/22 20:08 Dose: 10 mg Documented by: Metoprolol Succinate (Metoprolol Succinate Er 25 Mg Tab.Er.24h) 25 mg PO DAILY [facility]; Protocol Last Admin: 02/21/22 08:19 Dose: 25 mg Documented by: Multivitamins/Vitamin C (Multivitamin Tablet) 1 tab PO DAILY [facility] Last Admin: 02/21/22 08:20 Dose: 1 tab Documented by: Pravastatin Sodium (Pravastatin Sodium 40 Mg Tablet) 40 mg PO BEDTIME [facility] Last Admin: 02/21/22 20:08 Dose: 40 mg Documented by: Risperidone (Risperidone 0.5 Mg Tablet) 0.5 mg PO DAILY [facility] Last Admin: 02/21/22 08:18 Dose: 0.5 mg Documented by: Risperidone (Risperidone 1 Mg Tablet) 1 mg PO DAILY@1700 [facility] Last Admin: 02/21/22 16:26 Dose: 1 mg Documented by: Tamsulosin HCl (Tamsulosin Hcl 0.4 Mg Capsule) 0.4 mg PO DAILY [facility] Last Admin: 02/21/22 08:21 Dose: 0.4 mg Documented by: Thiamine HCl (Thiamine Hcl 100 Mg Tablet) 100 mg PO BID [facility] Last Admin: 02/21/22 20:07 Dose: 100 mg Documented by: Tramadol HCl (Tramadol Hcl 50 Mg Tablet) 50 mg PO Q6H PRN PRN Reason: Pain, Severe (Pain Scale 7-10) Last Admin: 02/21/22 20:08 Dose: 50 mg Documented by: Allergies Allergies Allergy/AdvReac Type Severity Reaction Status Date / Time Penicillins Allergy Unknown Unknown Verified 02/03/22 19:47 Assessment & Plan Assessment & Plan (1) Psychosis: Status: Acute Code(s): F29 - Unspecified psychosis not due to a substance or known physiological condition Assessment and Plan: 02/08/2022: Complained of right shoulder pain (there pre admission) and agreed to x ray. No changes to primary team treatment plan. Disposition planning Is challenging and in progress. Plan ?the patient is an elderly male with a history of dementia who was brought into the facility for exacerbation of aggressive behavior.? The patient denies having prior psychiatric illness but he is confused and restless unable to provide a full comprehensive history.? Plan 1. Gather collateral information.? 2. Increase Risperdal up to 1 mg p.o. q.h.s. 3. Discontinue Zoloft. 4. COVID-19 protocol. 02/21: Continue current regimen and plans 02/22: Continue current plans and regimen I spent minutes with the patient and/or on the patient floor today, greater than?50% of which was spent counseling/coordinating care. Reason for contiued inpatient stay Substantial Risk for: inability to function
[2022-02-22 09:26] VITALS: BP 84/50; PULSE 90; RESP 16; TEMP 36.4; O2SAT 89
[2022-02-22] MEDS: risperiDONE 0.5 MG TABLET PO (09:28)
[2022-02-22] MEDS: Multivitamin TABLET 1 TAB PO (09:29)
[2022-02-22] MEDS: Thiamine HCL 100 MG TABLET PO ×2 (09:29→21:49)
[2022-02-22] MEDS: Gabapentin 600 MG TABLET PO ×2 (09:29→21:49)
[2022-02-22] MEDS: Apixaban 5 MG TABLET PO ×2 (09:29→21:49)
[2022-02-22] MEDS: Memantine HCl 10 MG TABLET PO ×2 (09:29→21:49)
[2022-02-22] MEDS: levETIRAcetam 500 MG TABLET PO ×2 (09:29→21:49)
[2022-02-22] MEDS: Tamsulosin HCL 0.4 MG CAPSULE PO (09:29)
[2022-02-22 13:00] VITALS: TEMP 36.7; O2SAT 89
[2022-02-22 17:00] VITALS: PULSE 105; TEMP 36.4; O2SAT 88
[2022-02-22] MEDS: risperiDONE 1 MG TABLET PO (18:31)
[2022-02-22 21:45] VITALS: BP 137/66; PULSE 83; RESP 18; TEMP 36.1; O2SAT 93
[2022-02-22] MEDS: Acetaminophen 325 MG TABLET 650 MG PO (21:49)
[2022-02-22] MEDS: traMADoL HCL 50 MG TABLET PO (21:49)
[2022-02-22] MEDS: Pravastatin Sodium 40 MG TABLET PO (21:49)
[2022-02-22] MEDS: Folic Acid 1 MG TABLET PO (21:49)
[2022-02-23 08:30] VITALS: BP 119/65; PULSE 99; RESP 16; TEMP 36.6; O2SAT 93
[2022-02-23] MEDS: Memantine HCl 10 MG TABLET PO ×2 (08:51→20:38)
[2022-02-23] MEDS: Gabapentin 600 MG TABLET PO ×2 (08:51→20:36)
[2022-02-23] MEDS: Thiamine HCL 100 MG TABLET PO ×2 (08:51→20:36)
[2022-02-23] MEDS: risperiDONE 0.5 MG TABLET PO (08:51)
[2022-02-23] MEDS: levETIRAcetam 500 MG TABLET PO ×2 (08:51→20:36)
[2022-02-23] MEDS: Multivitamin TABLET 1 TAB PO (08:51)
[2022-02-23] MEDS: Tamsulosin HCL 0.4 MG CAPSULE PO (08:51)
[2022-02-23] MEDS: Apixaban 5 MG TABLET PO ×2 (08:51→20:38)
[2022-02-23] MEDS: Metoprolol Succinate ER 25 MG TAB.ER.24H PO (08:51)
[2022-02-23 12:45] VITALS: BP 107/64; PULSE 75; RESP 16; TEMP 36.4; O2SAT 91
--- NOTE | 2022-02-23 13:21 | HO.PSYCHPN ---
Subjective Subjective Date of Service: 02/23/22 Reason For Visit: acute psychosis Subjective Notes: Conditional Voluntary Interim History: The nursing staff reported the patient has been medication compliant and pleasant and times. His vital signs remained stable but his saturations around 91%, he does not have respiratory distress it seems that he has COPD. He has been waiting for placement. On interview the patient reports being bored and wants to be discharged, he is aware that he needs to be COVID negative. He wants to go close to her home town and he is not realistic on his options. Mental Status Exam Mental Status Exam Patient Appearance: Appropriate Patient Orientation: Person Level of Consciousness: Awake Patient Behavior: Guarded and Passive Mood Description: Withdrawn Affect Description: Labile Patient Cognition Impaired: Yes Ability to Follow Directions: Good Speech Pattern: Clear Hallucinations: None Delusions: Paranoid Ideation Thought Process: Distracted Thought Content: positive for [place] Judgement: Fair Diagnostics Vital Signs (24Hr): Vital Signs - 24 hr 02/22/22 17:00 02/22/22 21:45 02/23/22 08:30 Temperature 97.6 F 97 F 97.9 F Pulse Rate 105 H 83 99 Respiratory Rate 18 16 Blood Pressure 137/66 119/65 Pulse Oximetry 88 L 93 93 BMI result Body Mass Index 25.6 Imaging Radiology Impressions: ITS Impressions Shoulder X-Ray 02/09/22 08:43 IMPRESSION: Mild widening of right AC joint. No visible acute fracture, dislocation or subluxation seen. Medications Medications Current Medications Acetaminophen (Acetaminophen 325 Mg Tablet) 650 mg PO Q6H PRN PRN Reason: Headache/Pain Mild Scale (1-3) Last Admin: 02/22/22 21:49 Dose: 650 mg Documented by: Al Hydroxide/Mg Hydroxide (Magnesium Hydrox/Alum Hydrox 30 Ml Oral.Susp) 30 ml PO Q6H PRN PRN Reason: Heartburn/Nausea Apixaban (Apixaban 5 Mg Tablet) 5 mg PO BID [facility] Last Admin: 02/23/22 08:51 Dose: 5 mg Documented by: Benzocaine (Throat Lozenge, Medicated Lozenge) 1 lozenge MUCOUS MEM Q2H PRN PRN Reason: Cough Last Admin: 02/16/22 19:21 Dose: 1 lozenge Documented by: Folic Acid (Folic Acid 1 Mg Tablet) 1 mg PO BEDTIME [facility] Last Admin: 02/22/22 21:49 Dose: 1 mg Documented by: Gabapentin (Gabapentin 600 Mg Tablet) 600 mg PO BID [facility] Last Admin: 02/23/22 08:51 Dose: 600 mg Documented by: Levetiracetam (Levetiracetam 500 Mg Tablet) 500 mg PO BID [facility] Last Admin: 02/23/22 08:51 Dose: 500 mg Documented by: Magnesium Hydroxide (Milk Of Magnesia 30 Ml Oral.Susp) 30 ml PO DAILY PRN PRN Reason: Constipation Memantine (Memantine Hcl 10 Mg Tablet) 10 mg PO BID [facility] Last Admin: 02/23/22 08:51 Dose: 10 mg Documented by: Metoprolol Succinate (Metoprolol Succinate Er 25 Mg Tab.Er.24h) 25 mg PO DAILY [facility]; Protocol Last Admin: 02/23/22 08:51 Dose: 25 mg Documented by: Multivitamins/Vitamin C (Multivitamin Tablet) 1 tab PO DAILY [facility] Last Admin: 02/23/22 08:51 Dose: 1 tab Documented by: Pravastatin Sodium (Pravastatin Sodium 40 Mg Tablet) 40 mg PO BEDTIME [facility] Last Admin: 02/22/22 21:49 Dose: 40 mg Documented by: Risperidone (Risperidone 0.5 Mg Tablet) 0.5 mg PO DAILY [facility] Last Admin: 02/23/22 08:51 Dose: 0.5 mg Documented by: Risperidone (Risperidone 1 Mg Tablet) 1 mg PO DAILY@1700 [facility] Last Admin: 02/22/22 18:31 Dose: 1 mg Documented by: Tamsulosin HCl (Tamsulosin Hcl 0.4 Mg Capsule) 0.4 mg PO DAILY [facility] Last Admin: 02/23/22 08:51 Dose: 0.4 mg Documented by: Thiamine HCl (Thiamine Hcl 100 Mg Tablet) 100 mg PO BID [facility] Last Admin: 02/23/22 08:51 Dose: 100 mg Documented by: Tramadol HCl (Tramadol Hcl 50 Mg Tablet) 50 mg PO Q6H PRN PRN Reason: Pain, Severe (Pain Scale 7-10) Last Admin: 02/22/22 21:49 Dose: 50 mg Documented by: Allergies Allergies Allergy/AdvReac Type Severity Reaction Status Date / Time Penicillins Allergy Unknown Unknown Verified 02/03/22 19:47 Assessment & Plan Assessment & Plan (1) Psychosis: Status: Acute Code(s): F29 - Unspecified psychosis not due to a substance or known physiological condition Assessment and Plan: 02/08/2022: Complained of right shoulder pain (there pre admission) and agreed to x ray. No changes to primary team treatment plan. Disposition planning Is challenging and in progress. Plan ?the patient is an elderly male with a history of dementia who was brought into the facility for exacerbation of aggressive behavior.? The patient denies having prior psychiatric illness but he is confused and restless unable to provide a full comprehensive history.? Plan 1. Gather collateral information.? 2. Increase Risperdal up to 1 mg p.o. q.h.s. 3. Discontinue Zoloft. 4. COVID-19 protocol. I spent ___20___ minutes with the patient and/or on the patient floor today, greater than?50% of which was spent counseling/coordinating care. Reason for contiued inpatient stay Substantial Risk for: inability to function, rapid decompensation and med/psych decompensation
[2022-02-23] MEDS: risperiDONE 1 MG TABLET PO (17:16)
[2022-02-23 17:45] VITALS: BP 102/59; PULSE 91; RESP 16; TEMP 36.6; O2SAT 100
[2022-02-23] MEDS: traMADoL HCL 50 MG TABLET PO (20:36)
[2022-02-23] MEDS: Pravastatin Sodium 40 MG TABLET PO (20:37)
[2022-02-23] MEDS: Folic Acid 1 MG TABLET PO (20:38)
[2022-02-23 20:55] VITALS: BP 120/74; PULSE 98; RESP 18; TEMP 36.6; O2SAT 92
[2022-02-24] MEDS: traMADoL HCL 50 MG TABLET PO (03:33)
[2022-02-24] MEDS: Apixaban 5 MG TABLET PO ×2 (08:25→20:30)
[2022-02-24] MEDS: Thiamine HCL 100 MG TABLET PO ×2 (08:25→20:30)
[2022-02-24] MEDS: Tamsulosin HCL 0.4 MG CAPSULE PO (08:25)
[2022-02-24] MEDS: Metoprolol Succinate ER 25 MG TAB.ER.24H PO (08:25)
[2022-02-24] MEDS: Memantine HCl 10 MG TABLET PO ×2 (08:25→20:30)
[2022-02-24] MEDS: levETIRAcetam 500 MG TABLET PO ×2 (08:25→20:30)
[2022-02-24] MEDS: Multivitamin TABLET 1 TAB PO (08:25)
[2022-02-24] MEDS: Gabapentin 600 MG TABLET PO ×2 (08:25→20:30)
[2022-02-24] MEDS: risperiDONE 0.5 MG TABLET PO (08:25)
[2022-02-24] MEDS: Loratadine 10 MG TABLET PO (08:41)
[2022-02-24 09:00] VITALS: BP 123/59; PULSE 92; RESP 18; TEMP 36.4; O2SAT 90
[2022-02-24 13:00] VITALS: BP 120/62; PULSE 94; RESP 18; TEMP 36.7; O2SAT 92
--- NOTE | 2022-02-24 15:26 | HO.PSYCHPN ---
Subjective Subjective Date of Service: 02/24/22 Reason For Visit: acute psychosis Subjective Notes: Conditional Voluntary Interim History: The nursing staff reported the patient has shoulder pain he received tramadol with some help. He woke up at 03:00 o'clock in the morning complaining of pain. His saturation is between 90-93 with some productive cough but no fever. On interview, the patient refused to sign to apply for [facility] facility. He could not understand very well the papers that they were presented to him so I explained him that he is technically homeless and he has to be realistic with his expectations of housing. He agreed to work with us. Mental Status Exam Mental Status Exam Patient Appearance: Appropriate Patient Orientation: Person Level of Consciousness: Awake Patient Behavior: Cooperative Mood Description: Withdrawn Affect Description: Constricted Patient Cognition Impaired: Yes Ability to Follow Directions: Good Speech Pattern: Clear Hallucinations: None Delusions: Not Present Thought Process: Linear Thought Content: positive for Circumstantial Judgement: Fair Diagnostics Vital Signs (24Hr): Vital Signs - 24 hr 02/23/22 17:45 02/23/22 20:55 02/24/22 09:00 Temperature 97.9 F 97.8 F 97.5 F Pulse Rate 91 98 92 Respiratory Rate 16 18 18 Blood Pressure 102/59 L 120/74 123/59 L Pulse Oximetry 100 92 90 L BMI result Body Mass Index 25.6 Imaging Radiology Impressions: ITS Impressions Shoulder X-Ray 02/09/22 08:43 IMPRESSION: Mild widening of right AC joint. No visible acute fracture, dislocation or subluxation seen. Medications Medications Current Medications Acetaminophen (Acetaminophen 325 Mg Tablet) 650 mg PO Q6H PRN PRN Reason: Headache/Pain Mild Scale (1-3) Last Admin: 02/22/22 21:49 Dose: 650 mg Documented by: Al Hydroxide/Mg Hydroxide (Magnesium Hydrox/Alum Hydrox 30 Ml Oral.Susp) 30 ml PO Q6H PRN PRN Reason: Heartburn/Nausea Apixaban (Apixaban 5 Mg Tablet) 5 mg PO BID [facility] Last Admin: 02/24/22 08:25 Dose: 5 mg Documented by: Benzocaine (Throat Lozenge, Medicated Lozenge) 1 lozenge MUCOUS MEM Q2H PRN PRN Reason: Cough Last Admin: 02/16/22 19:21 Dose: 1 lozenge Documented by: Folic Acid (Folic Acid 1 Mg Tablet) 1 mg PO BEDTIME [facility] Last Admin: 02/23/22 20:38 Dose: 1 mg Documented by: Gabapentin (Gabapentin 600 Mg Tablet) 600 mg PO BID [facility] Last Admin: 02/24/22 08:25 Dose: 600 mg Documented by: Levetiracetam (Levetiracetam 500 Mg Tablet) 500 mg PO BID [facility] Last Admin: 02/24/22 08:25 Dose: 500 mg Documented by: Loratadine (Loratadine 10 Mg Tablet) 10 mg PO DAILY [facility] Last Admin: 02/24/22 08:41 Dose: 10 mg Documented by: Magnesium Hydroxide (Milk Of Magnesia 30 Ml Oral.Susp) 30 ml PO DAILY PRN PRN Reason: Constipation Memantine (Memantine Hcl 10 Mg Tablet) 10 mg PO BID [facility] Last Admin: 02/24/22 08:25 Dose: 10 mg Documented by: Metoprolol Succinate (Metoprolol Succinate Er 25 Mg Tab.Er.24h) 25 mg PO DAILY [facility]; Protocol Last Admin: 02/24/22 08:25 Dose: 25 mg Documented by: Multivitamins/Vitamin C (Multivitamin Tablet) 1 tab PO DAILY [facility] Last Admin: 02/24/22 08:25 Dose: 1 tab Documented by: Pravastatin Sodium (Pravastatin Sodium 40 Mg Tablet) 40 mg PO BEDTIME [facility] Last Admin: 02/23/22 20:37 Dose: 40 mg Documented by: Risperidone (Risperidone 0.5 Mg Tablet) 0.5 mg PO DAILY [facility] Last Admin: 02/24/22 08:25 Dose: 0.5 mg Documented by: Risperidone (Risperidone 1 Mg Tablet) 1 mg PO DAILY@1700 [facility] Last Admin: 02/23/22 17:16 Dose: 1 mg Documented by: Tamsulosin HCl (Tamsulosin Hcl 0.4 Mg Capsule) 0.4 mg PO DAILY [facility] Last Admin: 02/24/22 08:25 Dose: 0.4 mg Documented by: Thiamine HCl (Thiamine Hcl 100 Mg Tablet) 100 mg PO BID [facility] Last Admin: 02/24/22 08:25 Dose: 100 mg Documented by: Allergies Allergies Allergy/AdvReac Type Severity Reaction Status Date / Time Penicillins Allergy Unknown Unknown Verified 02/03/22 19:47 Assessment & Plan Assessment & Plan (1) Psychosis: Status: Acute Code(s): F29 - Unspecified psychosis not due to a substance or known physiological condition Assessment and Plan: 02/08/2022: Complained of right shoulder pain (there pre admission) and agreed to x ray. No changes to primary team treatment plan. Disposition planning Is challenging and in progress. Plan ?the patient is an elderly male with a history of dementia who was brought into the facility for exacerbation of aggressive behavior.? The patient denies having prior psychiatric illness but he is confused and restless unable to provide a full comprehensive history.? Plan 1. Gather collateral information.? 2. Increase Risperdal up to 1 mg p.o. q.h.s. 3. Discontinue Zoloft. 4. COVID-19 protocol. I spent ___20___ minutes with the patient and/or on the patient floor today, greater than?50% of which was spent counseling/coordinating care. Reason for contiued inpatient stay Substantial Risk for: inability to function, rapid decompensation and med/psych decompensation
[2022-02-24] MEDS: risperiDONE 1 MG TABLET PO (18:20)
[2022-02-24] MEDS: Acetaminophen 325 MG TABLET 650 MG PO (20:30)
[2022-02-24] MEDS: Folic Acid 1 MG TABLET PO (20:30)
[2022-02-24] MEDS: Pravastatin Sodium 40 MG TABLET PO (20:30)
[2022-02-24 21:00] VITALS: BP 109/69; PULSE 91; RESP 17; TEMP 36.1; O2SAT 92
[2022-02-25 05:00] VITALS: BP 118/68; PULSE 65; RESP 20; TEMP 36.4; O2SAT 91
[2022-02-25] MEDS: Memantine HCl 10 MG TABLET PO ×2 (08:56→20:28)
[2022-02-25] MEDS: Gabapentin 600 MG TABLET PO ×2 (08:56→20:28)
[2022-02-25] MEDS: Multivitamin TABLET 1 TAB PO (08:56)
[2022-02-25] MEDS: risperiDONE 0.5 MG TABLET PO (08:56)
[2022-02-25] MEDS: Apixaban 5 MG TABLET PO ×2 (08:56→20:28)
[2022-02-25] MEDS: levETIRAcetam 500 MG TABLET PO ×2 (08:56→20:28)
[2022-02-25] MEDS: Loratadine 10 MG TABLET PO (08:56)
[2022-02-25] MEDS: Tamsulosin HCL 0.4 MG CAPSULE PO (08:56)
[2022-02-25] MEDS: Metoprolol Succinate ER 25 MG TAB.ER.24H PO (08:56)
[2022-02-25] MEDS: Thiamine HCL 100 MG TABLET PO ×2 (08:56→20:28)
[2022-02-25 08:58] VITALS: BP 101/57; PULSE 83; RESP 16; TEMP 36.2; O2SAT 92
--- NOTE | 2022-02-25 13:44 | HO.PSYCHPN ---
Subjective Subjective Date of Service: 02/25/22 Reason For Visit: acute psychosis Subjective Notes: Conditional Voluntary Interim History: the nursing staff reported the patient has been pleasant mostly during the day and evening he was more irritable. He stated that he had been hearing cats under his bed. On interview the patient denies new symptoms Mental Status Exam Mental Status Exam Patient Appearance: Well Grooomed Patient Orientation: Person and Situation Level of Consciousness: Awake Patient Behavior: Guarded Mood Description: Constricted Affect Description: Labile Patient Cognition Impaired: Yes Ability to Follow Directions: Good Speech Pattern: Clear Hallucinations: Auditory Delusions: Paranoid Ideation Thought Process: Linear Thought Content: positive for [place] and positive for Poverty of Content Judgement: Fair Diagnostics Vital Signs (24Hr): Vital Signs - 24 hr 02/24/22 21:00 02/25/22 05:00 02/25/22 08:58 Temperature 96.9 F 97.5 F 97.1 F Pulse Rate 91 65 83 Respiratory Rate 17 20 16 Blood Pressure 109/69 118/68 101/57 L Pulse Oximetry 92 91 L 92 Oxygen Delivery Method Room Air Room Air Room Air BMI result Body Mass Index 25.6 Imaging Radiology Impressions: ITS Impressions Shoulder X-Ray 02/09/22 08:43 IMPRESSION: Mild widening of right AC joint. No visible acute fracture, dislocation or subluxation seen. Medications Medications Current Medications Acetaminophen (Acetaminophen 325 Mg Tablet) 650 mg PO Q6H PRN PRN Reason: Headache/Pain Mild Scale (1-3) Last Admin: 02/24/22 20:30 Dose: 650 mg Al Hydroxide/Mg Hydroxide (Magnesium Hydrox/Alum Hydrox 30 Ml Oral.Susp) 30 ml PO Q6H PRN PRN Reason: Heartburn/Nausea Apixaban (Apixaban 5 Mg Tablet) 5 mg PO BID [facility] Last Admin: 02/25/22 08:56 Dose: 5 mg Benzocaine (Throat Lozenge, Medicated Lozenge) 1 lozenge MUCOUS MEM Q2H PRN PRN Reason: Cough Last Admin: 02/16/22 19:21 Dose: 1 lozenge Folic Acid (Folic Acid 1 Mg Tablet) 1 mg PO BEDTIME [facility] Last Admin: 02/24/22 20:30 Dose: 1 mg Gabapentin (Gabapentin 600 Mg Tablet) 600 mg PO BID [facility] Last Admin: 02/25/22 08:56 Dose: 600 mg Levetiracetam (Levetiracetam 500 Mg Tablet) 500 mg PO BID [facility] Last Admin: 02/25/22 08:56 Dose: 500 mg Loratadine (Loratadine 10 Mg Tablet) 10 mg PO DAILY [facility] Last Admin: 02/25/22 08:56 Dose: 10 mg Magnesium Hydroxide (Milk Of Magnesia 30 Ml Oral.Susp) 30 ml PO DAILY PRN PRN Reason: Constipation Memantine (Memantine Hcl 10 Mg Tablet) 10 mg PO BID [facility] Last Admin: 02/25/22 08:56 Dose: 10 mg Metoprolol Succinate (Metoprolol Succinate Er 25 Mg Tab.Er.24h) 25 mg PO DAILY [facility]; Protocol Last Admin: 02/25/22 08:56 Dose: 25 mg Multivitamins/Vitamin C (Multivitamin Tablet) 1 tab PO DAILY [facility] Last Admin: 02/25/22 08:56 Dose: 1 tab Pravastatin Sodium (Pravastatin Sodium 40 Mg Tablet) 40 mg PO BEDTIME [facility] Last Admin: 02/24/22 20:30 Dose: 40 mg Risperidone (Risperidone 0.5 Mg Tablet) 0.5 mg PO DAILY [facility] Last Admin: 02/25/22 08:56 Dose: 0.5 mg Risperidone (Risperidone 1 Mg Tablet) 1 mg PO DAILY@1700 [facility] Last Admin: 02/24/22 18:20 Dose: 1 mg Tamsulosin HCl (Tamsulosin Hcl 0.4 Mg Capsule) 0.4 mg PO DAILY [facility] Last Admin: 02/25/22 08:56 Dose: 0.4 mg Thiamine HCl (Thiamine Hcl 100 Mg Tablet) 100 mg PO BID [facility] Last Admin: 02/25/22 08:56 Dose: 100 mg Allergies Allergies Allergy/AdvReac Type Severity Reaction Status Date / Time Penicillins Allergy Unknown Unknown Verified 02/03/22 19:47 Assessment & Plan Assessment & Plan (1) Psychosis: Status: Acute Code(s): F29 - Unspecified psychosis not due to a substance or known physiological condition Assessment and Plan: 02/08/2022: Complained of right shoulder pain (there pre admission) and agreed to x ray. No changes to primary team treatment plan. Disposition planning Is challenging and in progress. Plan ?the patient is an elderly male with a history of dementia who was brought into the facility for exacerbation of aggressive behavior.? The patient denies having prior psychiatric illness but he is confused and restless unable to provide a full comprehensive history.? Plan 1. Gather collateral information.? 2. Increase Risperdal up to 1 mg p.o. q.h.s. 3. Discontinue Zoloft. 4. COVID-19 protocol. I spent __20__ minutes with the patient and/or on the patient floor today, greater than?50% of which was spent counseling/coordinating care. Reason for contiued inpatient stay Substantial Risk for: inability to function, rapid decompensation and med/psych decompensation
[2022-02-25 14:15] VITALS: BP 92/58; PULSE 100; RESP 20; TEMP 36.6; O2SAT 92
[2022-02-25] MEDS: risperiDONE 1 MG TABLET PO (17:04)
[2022-02-25] MEDS: Pravastatin Sodium 40 MG TABLET PO (20:28)
[2022-02-25] MEDS: Folic Acid 1 MG TABLET PO (20:28)
[2022-02-25 22:20] VITALS: BP 132/62; PULSE 103; TEMP 36.1; O2SAT 90
[2022-02-26 06:00] VITALS: BP 112/62; PULSE 94; RESP 14; TEMP 36.3; O2SAT 93
[2022-02-26 07:00] VITALS: BMI 25.6
[2022-02-26] MEDS: Tamsulosin HCL 0.4 MG CAPSULE PO (08:40)
[2022-02-26] MEDS: Thiamine HCL 100 MG TABLET PO ×2 (08:40→20:38)
[2022-02-26] MEDS: risperiDONE 0.5 MG TABLET PO (08:40)
[2022-02-26] MEDS: levETIRAcetam 500 MG TABLET PO ×2 (08:40→20:38)
[2022-02-26] MEDS: Metoprolol Succinate ER 25 MG TAB.ER.24H PO (08:40)
[2022-02-26] MEDS: Multivitamin TABLET 1 TAB PO (08:40)
[2022-02-26] MEDS: Apixaban 5 MG TABLET PO ×2 (08:41→20:37)
[2022-02-26] MEDS: Memantine HCl 10 MG TABLET PO ×2 (08:41→20:38)
[2022-02-26] MEDS: Gabapentin 600 MG TABLET PO ×2 (08:41→20:38)
[2022-02-26] MEDS: Loratadine 10 MG TABLET PO (08:41)
[2022-02-26 13:47] VITALS: BP 90/55; PULSE 106; RESP 16; TEMP 36.7; O2SAT 92
[2022-02-26 14:00] VITALS: BP 100/60; PULSE 100
--- NOTE | 2022-02-26 15:11 | P.PNPSI_ITS ---
Subjective Subjective Date of Service: 02/26/22 Reason For Visit: acute psychosis Subjective Notes: Conditional Voluntary Interim History: the nursing staff reported the patient has been pleasant, sundowning in the evening but easily redirectable. He stated that he has been very called. On interview the patient denies new symptoms Mental Status Exam Mental Status Exam Patient Appearance: Well Grooomed Patient Orientation: Person and Situation Level of Consciousness: Awake Patient Behavior: Cooperative Mood Description: Withdrawn Affect Description: Labile Patient Cognition Impaired: Yes Ability to Follow Directions: Good Speech Pattern: Clear Hallucinations: None Delusions: Paranoid Ideation Thought Process: Distracted Thought Content: positive for [place] and positive for Poverty of Content Judgement: Fair Diagnostics Vital Signs (24Hr): Vital Signs - 24 hr 02/25/22 22:20 02/26/22 06:00 02/26/22 13:47 Temperature 97.0 F 97.4 F 98.0 F Pulse Rate 103 H 94 106 H Respiratory Rate 14 16 Blood Pressure 132/62 112/62 90/55 L Pulse Oximetry 90 L 93 92 Oxygen Delivery Method Room Air Room Air Room Air 02/26/22 14:00 Temperature Pulse Rate 100 Respiratory Rate Blood Pressure 100/60 Pulse Oximetry Oxygen Delivery Method BMI result Body Mass Index 25.6 Imaging Radiology Impressions: ITS Impressions Shoulder X-Ray 02/09/22 08:43 IMPRESSION: Mild widening of right AC joint. No visible acute fracture, dislocation or subluxation seen. Medications Medications Current Medications Acetaminophen (Acetaminophen 325 Mg Tablet) 650 mg PO Q6H PRN PRN Reason: Headache/Pain Mild Scale (1-3) Last Admin: 02/24/22 20:30 Dose: 650 mg Al Hydroxide/Mg Hydroxide (Magnesium Hydrox/Alum Hydrox 30 Ml Oral.Susp) 30 ml PO Q6H PRN PRN Reason: Heartburn/Nausea Apixaban (Apixaban 5 Mg Tablet) 5 mg PO BID [facility] Last Admin: 02/26/22 08:41 Dose: 5 mg Benzocaine (Throat Lozenge, Medicated Lozenge) 1 lozenge MUCOUS MEM Q2H PRN PRN Reason: Cough Last Admin: 02/16/22 19:21 Dose: 1 lozenge Folic Acid (Folic Acid 1 Mg Tablet) 1 mg PO BEDTIME [facility] Last Admin: 02/25/22 20:28 Dose: 1 mg Gabapentin (Gabapentin 600 Mg Tablet) 600 mg PO BID [facility] Last Admin: 02/26/22 08:41 Dose: 600 mg Levetiracetam (Levetiracetam 500 Mg Tablet) 500 mg PO BID [facility] Last Admin: 02/26/22 08:40 Dose: 500 mg Loratadine (Loratadine 10 Mg Tablet) 10 mg PO DAILY [facility] Last Admin: 02/26/22 08:41 Dose: 10 mg Magnesium Hydroxide (Milk Of Magnesia 30 Ml Oral.Susp) 30 ml PO DAILY PRN PRN Reason: Constipation Memantine (Memantine Hcl 10 Mg Tablet) 10 mg PO BID [facility] Last Admin: 02/26/22 08:41 Dose: 10 mg Metoprolol Succinate (Metoprolol Succinate Er 25 Mg Tab.Er.24h) 25 mg PO DAILY [facility]; Protocol Last Admin: 02/26/22 08:40 Dose: 25 mg Multivitamins/Vitamin C (Multivitamin Tablet) 1 tab PO DAILY [facility] Last Admin: 02/26/22 08:40 Dose: 1 tab Pravastatin Sodium (Pravastatin Sodium 40 Mg Tablet) 40 mg PO BEDTIME [facility] Last Admin: 02/25/22 20:28 Dose: 40 mg Risperidone (Risperidone 0.5 Mg Tablet) 0.5 mg PO DAILY [facility] Last Admin: 02/26/22 08:40 Dose: 0.5 mg Risperidone (Risperidone 1 Mg Tablet) 1 mg PO DAILY@1700 [facility] Last Admin: 02/25/22 17:04 Dose: 1 mg Tamsulosin HCl (Tamsulosin Hcl 0.4 Mg Capsule) 0.4 mg PO DAILY [facility] Last Admin: 02/26/22 08:40 Dose: 0.4 mg Thiamine HCl (Thiamine Hcl 100 Mg Tablet) 100 mg PO BID [facility] Last Admin: 02/26/22 08:40 Dose: 100 mg Allergies Allergies Allergy/AdvReac Type Severity Reaction Status Date / Time Penicillins Allergy Unknown Unknown Verified 02/03/22 19:47 Assessment & Plan Assessment & Plan (1) Psychosis: Status: Acute Code(s): F29 - Unspecified psychosis not due to a substance or known physiological condition Assessment and Plan: 02/08/2022: Complained of right shoulder pain (there pre admission) and agreed to x ray. No changes to primary team treatment plan. Disposition planning Is challenging and in progress. (2) Dementia: Status: Acute Code(s): F03.90 - Unspecified dementia without behavioral disturbance Plan ?the patient is an elderly male with a history of dementia who was brought into the facility for exacerbation of aggressive behavior.? The patient denies having prior psychiatric illness but he is confused and restless unable to provide a full comprehensive history.? Plan 1. Gather collateral information.? 2. Increase Risperdal up to 1 mg p.o. q.h.s. 3. Discontinue Zoloft. 4. COVID-19 protocol. I spent ___20___ minutes with the patient and/or on the patient floor today, greater than?50% of which was spent counseling/coordinating care. Reason for contiued inpatient stay Substantial Risk for: inability to function, rapid decompensation and med/psych decompensation
[2022-02-26] MEDS: risperiDONE 1 MG TABLET PO (17:23)
[2022-02-26 18:00] VITALS: BP 124/67; PULSE 96; TEMP 36.8; O2SAT 87
[2022-02-26] MEDS: Folic Acid 1 MG TABLET PO (20:37)
[2022-02-26] MEDS: Pravastatin Sodium 40 MG TABLET PO (20:38)
[2022-02-27] MEDS: Metoprolol Succinate ER 25 MG TAB.ER.24H PO (08:38)
[2022-02-27] MEDS: Tamsulosin HCL 0.4 MG CAPSULE PO (08:38)
[2022-02-27] MEDS: Multivitamin TABLET 1 TAB PO (08:38)
[2022-02-27] MEDS: levETIRAcetam 500 MG TABLET PO ×2 (08:38→20:57)
[2022-02-27] MEDS: Thiamine HCL 100 MG TABLET PO ×2 (08:38→20:57)
[2022-02-27] MEDS: Loratadine 10 MG TABLET PO (08:38)
[2022-02-27] MEDS: Apixaban 5 MG TABLET PO ×2 (08:38→20:58)
[2022-02-27] MEDS: Gabapentin 600 MG TABLET PO ×2 (08:39→20:57)
[2022-02-27] MEDS: Memantine HCl 10 MG TABLET PO ×2 (08:39→20:58)
[2022-02-27] MEDS: risperiDONE 0.5 MG TABLET PO (08:39)
[2022-02-27 08:40] VITALS: BP 110/58; PULSE 103; RESP 16; TEMP 36.2; O2SAT 91
--- NOTE | 2022-02-27 11:32 | P.PNPSI_ITS ---
Subjective Subjective Date of Service: 02/27/22 Reason For Visit: acute psychosis Subjective Notes: Conditional Voluntary Interim History: the nursing staff reported the patient has been fully compliant with treatment. they reported that he is more confused in the evening even though that we give Risperdal 1 mg at 03:00 o'clock in the evening. On interview the patient was complaining of shoulder pain and he has tramadol fell of the so pharmacy list. Mental Status Exam Mental Status Exam Patient Appearance: Well Grooomed Patient Orientation: Person and Situation Level of Consciousness: Awake Patient Behavior: Cooperative Mood Description: Withdrawn Affect Description: Calm Patient Cognition Impaired: Yes Ability to Follow Directions: Good Speech Pattern: Clear Hallucinations: None Delusions: Not Present Thought Process: Distracted Thought Content: positive for [place] and positive for Poverty of Content Judgement: Fair Diagnostics Vital Signs (24Hr): Vital Signs - 24 hr 02/26/22 13:47 02/26/22 14:00 02/26/22 18:00 Temperature 98.0 F 98.2 F Pulse Rate 106 H 100 96 Respiratory Rate 16 Blood Pressure 90/55 L 100/60 124/67 Pulse Oximetry 92 87 L Oxygen Delivery Method Room Air Room Air 02/27/22 08:40 Temperature 97.1 F Pulse Rate 103 H Respiratory Rate 16 Blood Pressure 110/58 L Pulse Oximetry 91 L Oxygen Delivery Method Room Air BMI result Body Mass Index 25.6 Imaging Radiology Impressions: ITS Impressions Shoulder X-Ray 02/09/22 08:43 IMPRESSION: Mild widening of right AC joint. No visible acute fracture, dislocation or subluxation seen. Medications Medications Current Medications Acetaminophen (Acetaminophen 325 Mg Tablet) 650 mg PO Q6H PRN PRN Reason: Headache/Pain Mild Scale (1-3) Last Admin: 02/24/22 20:30 Dose: 650 mg Al Hydroxide/Mg Hydroxide (Magnesium Hydrox/Alum Hydrox 30 Ml Oral.Susp) 30 ml PO Q6H PRN PRN Reason: Heartburn/Nausea Apixaban (Apixaban 5 Mg Tablet) 5 mg PO BID [facility] Last Admin: 02/27/22 08:38 Dose: 5 mg Benzocaine (Throat Lozenge, Medicated Lozenge) 1 lozenge MUCOUS MEM Q2H PRN PRN Reason: Cough Last Admin: 02/16/22 19:21 Dose: 1 lozenge Folic Acid (Folic Acid 1 Mg Tablet) 1 mg PO BEDTIME [facility] Last Admin: 02/26/22 20:37 Dose: 1 mg Gabapentin (Gabapentin 600 Mg Tablet) 600 mg PO BID [facility] Last Admin: 02/27/22 08:39 Dose: 600 mg Levetiracetam (Levetiracetam 500 Mg Tablet) 500 mg PO BID [facility] Last Admin: 02/27/22 08:38 Dose: 500 mg Loratadine (Loratadine 10 Mg Tablet) 10 mg PO DAILY [facility] Last Admin: 02/27/22 08:38 Dose: 10 mg Magnesium Hydroxide (Milk Of Magnesia 30 Ml Oral.Susp) 30 ml PO DAILY PRN PRN Reason: Constipation Memantine (Memantine Hcl 10 Mg Tablet) 10 mg PO BID [facility] Last Admin: 02/27/22 08:39 Dose: 10 mg Metoprolol Succinate (Metoprolol Succinate Er 25 Mg Tab.Er.24h) 25 mg PO DAILY [facility]; Protocol Last Admin: 02/27/22 08:38 Dose: 25 mg Multivitamins/Vitamin C (Multivitamin Tablet) 1 tab PO DAILY [facility] Last Admin: 02/27/22 08:38 Dose: 1 tab Pravastatin Sodium (Pravastatin Sodium 40 Mg Tablet) 40 mg PO BEDTIME [facility] Last Admin: 02/26/22 20:38 Dose: 40 mg Risperidone (Risperidone 0.5 Mg Tablet) 0.5 mg PO DAILY [facility] Last Admin: 02/27/22 08:39 Dose: 0.5 mg Risperidone (Risperidone 1 Mg Tablet) 1 mg PO DAILY@1700 [facility] Last Admin: 02/26/22 17:23 Dose: 1 mg Tamsulosin HCl (Tamsulosin Hcl 0.4 Mg Capsule) 0.4 mg PO DAILY [facility] Last Admin: 02/27/22 08:38 Dose: 0.4 mg Thiamine HCl (Thiamine Hcl 100 Mg Tablet) 100 mg PO BID [facility] Last Admin: 02/27/22 08:38 Dose: 100 mg Tramadol HCl (Tramadol Hcl 50 Mg Tablet) 25 mg PO TID [facility] Allergies Allergies Allergy/AdvReac Type Severity Reaction Status Date / Time Penicillins Allergy Unknown Unknown Verified 02/03/22 19:47 Assessment & Plan Assessment & Plan (1) Psychosis: Status: Acute Code(s): F29 - Unspecified psychosis not due to a substance or known physiological condition Assessment and Plan: 02/08/2022: Complained of right shoulder pain (there pre admission) and agreed to x ray. No changes to primary team treatment plan. Disposition planning Is challenging and in progress. (2) Dementia: Status: Acute Code(s): F03.90 - Unspecified dementia without behavioral disturbance Plan ?the patient is an elderly male with a history of dementia who was brought into the facility for exacerbation of aggressive behavior.? The patient denies having prior psychiatric illness but he is confused and restless unable to provide a full comprehensive history.? Plan 1. Gather collateral information.? 2. Increase Risperdal up to 1 mg p.o. q.h.s. 3. Discontinue Zoloft. 4. COVID-19 protocol. 5. Start tramadol 25 p.o. t.i.d. I spent minutes with the patient and/or on the patient floor today, greater than?50% of which was spent counseling/coordinating care. Reason for contiued inpatient stay Substantial Risk for: inability to function, rapid decompensation and med/psych decompensation
[2022-02-27 13:58] VITALS: BP 112/65; PULSE 88; RESP 20; O2SAT 93
[2022-02-27] MEDS: traMADoL HCL 50 MG TABLET 25 MG PO ×3 (15:06→20:55)
[2022-02-27] MEDS: risperiDONE 1 MG TABLET PO (16:34)
[2022-02-27 20:09] VITALS: BP 104/67; PULSE 97; RESP 16; TEMP 36.6; O2SAT 95
[2022-02-27] MEDS: Folic Acid 1 MG TABLET PO (20:54)
[2022-02-27] MEDS: Pravastatin Sodium 40 MG TABLET PO (20:58)
[2022-02-28] MEDS: traMADoL HCL 50 MG TABLET 25 MG PO ×3 (09:17→21:13)
[2022-02-28] MEDS: Apixaban 5 MG TABLET PO ×2 (09:18→21:10)
[2022-02-28] MEDS: Memantine HCl 10 MG TABLET PO ×2 (09:18→21:13)
[2022-02-28] MEDS: Loratadine 10 MG TABLET PO (09:18)
[2022-02-28] MEDS: Multivitamin TABLET 1 TAB PO (09:18)
[2022-02-28] MEDS: Tamsulosin HCL 0.4 MG CAPSULE PO (09:18)
[2022-02-28] MEDS: Metoprolol Succinate ER 25 MG TAB.ER.24H PO (09:18)
[2022-02-28] MEDS: Thiamine HCL 100 MG TABLET PO ×2 (09:18→21:14)
[2022-02-28] MEDS: risperiDONE 0.5 MG TABLET PO (09:18)
[2022-02-28] MEDS: levETIRAcetam 500 MG TABLET PO ×2 (09:18→21:13)
[2022-02-28] MEDS: Gabapentin 600 MG TABLET PO ×2 (09:18→21:13)
[2022-02-28 09:21] VITALS: BP 102/68; PULSE 83; RESP 18; TEMP 36.8
--- NOTE | 2022-02-28 10:08 | P.PNPSI_ITS ---
Subjective Subjective Date of Service: 02/28/22 Reason For Visit: acute psychosis Interim History: Pt seen outside. He reports doing well. He denies SI/HI. He reports his several years ago and it has been difficulty for him. He reports sleeping and eating well- which was confirmed by nursing. No behavioral concerns. Medication Compliance: Yes Side effects from medications: No Review of Systems Review of Systems Complained of right shoulder pain (there pre admission) and agreed to x ray Yes all other systems are reviewed and are negative Constitutional: Denies chills and Denies fever(s) Cardiovascular: Denies chest pain, Denies palpitations and Denies dyspnea Respiratory: Denies cough and Denies dyspnea Gastrointestinal: Denies abdominal pain, Denies nausea and Denies vomiting Endocrine: Denies palpitations Mental Status Exam Mental Status Exam Narrative: Patient Appearance:?Appropriate Patient Orientation:?Person and Situation Level of Consciousness:?Awake Patient Behavior:?Guarded and Cooperative Mood Description:?Withdrawn Affect Description:?Constricted Patient Cognition Impaired:?Yes Ability to Follow Directions:?Good Speech Pattern:?Clear Hallucinations:?None Delusions:?Not Present Thought Process:?Distracted Thought Content:?positive for Poverty of Content Judgment:?Fair Patient Appearance: Well Grooomed Patient Orientation: Person and Situation Level of Consciousness: Awake Patient Behavior: Cooperative Mood Description: Withdrawn Affect Description: Calm Patient Cognition Impaired: Yes Ability to Follow Directions: Good Speech Pattern: Clear Diagnostics Vital Signs (24Hr): Vital Signs - 24 hr 03/01/22 22:00 Temperature 97 F Pulse Rate 93 Respiratory Rate 20 Blood Pressure 126/71 Pulse Oximetry 91 L Oxygen Delivery Method Room Air BMI result Body Mass Index 25.6 Imaging Radiology Impressions: ITS Impressions Shoulder X-Ray 02/09/22 08:43 IMPRESSION: Mild widening of right AC joint. No visible acute fracture, dislocation or subluxation seen. Medications Medications Current Medications Acetaminophen (Acetaminophen 325 Mg Tablet) 650 mg PO Q6H PRN PRN Reason: Headache/Pain Mild Scale (1-3) Last Admin: 03/02/22 03:00 Dose: 650 mg Al Hydroxide/Mg Hydroxide (Magnesium Hydrox/Alum Hydrox 30 Ml Oral.Susp) 30 ml PO Q6H PRN PRN Reason: Heartburn/Nausea Apixaban (Apixaban 5 Mg Tablet) 5 mg PO BID [facility] Last Admin: 03/01/22 21:59 Dose: 5 mg Benzocaine (Throat Lozenge, Medicated Lozenge) 1 lozenge MUCOUS MEM Q2H PRN PRN Reason: Cough Last Admin: 02/16/22 19:21 Dose: 1 lozenge Folic Acid (Folic Acid 1 Mg Tablet) 1 mg PO BEDTIME [facility] Last Admin: 03/01/22 22:00 Dose: 1 mg Gabapentin (Gabapentin 600 Mg Tablet) 600 mg PO BID [facility] Last Admin: 03/01/22 21:59 Dose: 600 mg Levetiracetam (Levetiracetam 500 Mg Tablet) 500 mg PO BID [facility] Last Admin: 03/01/22 21:59 Dose: 500 mg Loratadine (Loratadine 10 Mg Tablet) 10 mg PO DAILY [facility] Last Admin: 03/01/22 08:37 Dose: 10 mg Magnesium Hydroxide (Milk Of Magnesia 30 Ml Oral.Susp) 30 ml PO DAILY PRN PRN Reason: Constipation Memantine (Memantine Hcl 10 Mg Tablet) 10 mg PO BID [facility] Last Admin: 03/01/22 22:00 Dose: 10 mg Metoprolol Succinate (Metoprolol Succinate Er 25 Mg Tab.Er.24h) 25 mg PO DAILY [facility]; Protocol Last Admin: 03/01/22 10:30 Dose: Not Given Multivitamins/Vitamin C (Multivitamin Tablet) 1 tab PO DAILY [facility] Last Admin: 03/01/22 08:35 Dose: 1 tab Pravastatin Sodium (Pravastatin Sodium 40 Mg Tablet) 40 mg PO BEDTIME [facility] Last Admin: 03/01/22 21:59 Dose: 40 mg Risperidone (Risperidone 0.5 Mg Tablet) 0.5 mg PO DAILY [facility] Last Admin: 03/01/22 08:36 Dose: 0.5 mg Risperidone (Risperidone 1 Mg Tablet) 1 mg PO DAILY@1700 [facility] Last Admin: 03/01/22 17:04 Dose: 1 mg Tamsulosin HCl (Tamsulosin Hcl 0.4 Mg Capsule) 0.4 mg PO DAILY [facility] Last Admin: 03/01/22 08:36 Dose: 0.4 mg Thiamine HCl (Thiamine Hcl 100 Mg Tablet) 100 mg PO BID [facility] Last Admin: 03/01/22 21:59 Dose: 100 mg Tramadol HCl (Tramadol Hcl 50 Mg Tablet) 25 mg PO TID [facility] Last Admin: 03/01/22 22:00 Dose: 25 mg Allergies Allergies Allergy/AdvReac Type Severity Reaction Status Date / Time Penicillins Allergy Unknown Unknown Verified 02/03/22 19:47 Assessment & Plan Assessment & Plan (1) Psychosis: Status: Acute Code(s): F29 - Unspecified psychosis not due to a substance or known physiological condition Assessment and Plan: 02/08/2022: Complained of right shoulder pain (there pre admission) and agreed to x ray. No changes to primary team treatment plan. Disposition planning Is challenging and in progress. (2) Dementia: Status: Acute Code(s): F03.90 - Unspecified dementia without behavioral disturbance Plan ?the patient is an elderly male with a history of dementia who was brought into the facility for exacerbation of aggressive behavior.? The patient denies having prior psychiatric illness but he is confused and restless unable to provide a full comprehensive history.? Plan 1. Gather collateral information.? 2. Increase Risperdal up to 1 mg p.o. q.h.s. 3. Discontinue Zoloft. 4. COVID-19 protocol. 5. Start tramadol 25 p.o. t.i.d. 02/28 continue current medications I spent minutes with the patient and/or on the patient floor today, greater than?50% of which was spent counseling/coordinating care. Reason for contiued inpatient stay Substantial Risk for: inability to function
[2022-02-28] MEDS: risperiDONE 1 MG TABLET PO (16:11)
[2022-02-28 19:31] VITALS: BP 130/56; PULSE 102; RESP 20; TEMP 36.5; O2SAT 94
[2022-02-28] MEDS: Acetaminophen 325 MG TABLET 650 MG PO (21:10)
[2022-02-28] MEDS: Pravastatin Sodium 40 MG TABLET PO (21:12)
[2022-02-28] MEDS: Folic Acid 1 MG TABLET PO (21:12)
[2022-03-01 06:00] VITALS: BP 116/56; PULSE 94; RESP 16; TEMP 36.4; O2SAT 90
[2022-03-01] MEDS: Multivitamin TABLET 1 TAB PO (08:35)
[2022-03-01] MEDS: Apixaban 5 MG TABLET PO ×2 (08:36→21:59)
[2022-03-01] MEDS: risperiDONE 0.5 MG TABLET PO (08:36)
[2022-03-01] MEDS: traMADoL HCL 50 MG TABLET 25 MG PO ×3 (08:36→22:00)
[2022-03-01] MEDS: Tamsulosin HCL 0.4 MG CAPSULE PO (08:36)
[2022-03-01] MEDS: levETIRAcetam 500 MG TABLET PO ×2 (08:37→21:59)
[2022-03-01] MEDS: Thiamine HCL 100 MG TABLET PO ×2 (08:37→21:59)
[2022-03-01] MEDS: Memantine HCl 10 MG TABLET PO ×2 (08:37→22:00)
[2022-03-01] MEDS: Loratadine 10 MG TABLET PO (08:37)
[2022-03-01] MEDS: Gabapentin 600 MG TABLET PO ×2 (08:37→21:59)
--- NOTE | 2022-03-01 10:10 | P.PNPSI_ITS ---
Subjective Subjective Date of Service: 03/01/22 Reason For Visit: acute psychosis Subjective Notes: Conditional Voluntary Interim History: Pt visible on the unit. He is casually groomed. Good hygiene.He reports he is doing well. He denies SI/HI. He is sleeping and eating well. He denies any pain or physical concerns. Per nursing, no behavioral concerns. Medication Compliance: Yes Side effects from medications: No Review of Systems Review of Systems Complained of right shoulder pain (there pre admission) and agreed to x ray Yes all other systems are reviewed and are negative Constitutional: Denies chills and Denies fever(s) Cardiovascular: Denies chest pain, Denies palpitations and Denies dyspnea Respiratory: Denies cough and Denies dyspnea Gastrointestinal: Denies abdominal pain, Denies nausea and Denies vomiting Endocrine: Denies palpitations Mental Status Exam Mental Status Exam Narrative: Patient Appearance:?Appropriate Patient Orientation:?Person and Situation Level of Consciousness:?Awake Patient Behavior:?Guarded and Cooperative Mood Description:?Withdrawn Affect Description:?Constricted Patient Cognition Impaired:?Yes Ability to Follow Directions:?Good Speech Pattern:?Clear Hallucinations:?None Delusions:?Not Present Thought Process:?Distracted Thought Content:?positive for Poverty of Content Judgment:?Fair Patient Appearance: Well Grooomed Patient Orientation: Person and Situation Level of Consciousness: Awake Patient Behavior: Cooperative Mood Description: Withdrawn Affect Description: Calm Patient Cognition Impaired: Yes Ability to Follow Directions: Good Speech Pattern: Clear Diagnostics Vital Signs (24Hr): Vital Signs - 24 hr 03/01/22 22:00 Temperature 97 F Pulse Rate 93 Respiratory Rate 20 Blood Pressure 126/71 Pulse Oximetry 91 L Oxygen Delivery Method Room Air BMI result Body Mass Index 25.6 Imaging Radiology Impressions: ITS Impressions Shoulder X-Ray 02/09/22 08:43 IMPRESSION: Mild widening of right AC joint. No visible acute fracture, dislocation or subluxation seen. Medications Medications Current Medications Acetaminophen (Acetaminophen 325 Mg Tablet) 650 mg PO Q6H PRN PRN Reason: Headache/Pain Mild Scale (1-3) Last Admin: 03/02/22 03:00 Dose: 650 mg Al Hydroxide/Mg Hydroxide (Magnesium Hydrox/Alum Hydrox 30 Ml Oral.Susp) 30 ml PO Q6H PRN PRN Reason: Heartburn/Nausea Apixaban (Apixaban 5 Mg Tablet) 5 mg PO BID [facility] Last Admin: 03/01/22 21:59 Dose: 5 mg Benzocaine (Throat Lozenge, Medicated Lozenge) 1 lozenge MUCOUS MEM Q2H PRN PRN Reason: Cough Last Admin: 02/16/22 19:21 Dose: 1 lozenge Folic Acid (Folic Acid 1 Mg Tablet) 1 mg PO BEDTIME [facility] Last Admin: 03/01/22 22:00 Dose: 1 mg Gabapentin (Gabapentin 600 Mg Tablet) 600 mg PO BID [facility] Last Admin: 03/01/22 21:59 Dose: 600 mg Levetiracetam (Levetiracetam 500 Mg Tablet) 500 mg PO BID [facility] Last Admin: 03/01/22 21:59 Dose: 500 mg Loratadine (Loratadine 10 Mg Tablet) 10 mg PO DAILY [facility] Last Admin: 03/01/22 08:37 Dose: 10 mg Magnesium Hydroxide (Milk Of Magnesia 30 Ml Oral.Susp) 30 ml PO DAILY PRN PRN Reason: Constipation Memantine (Memantine Hcl 10 Mg Tablet) 10 mg PO BID [facility] Last Admin: 03/01/22 22:00 Dose: 10 mg Metoprolol Succinate (Metoprolol Succinate Er 25 Mg Tab.Er.24h) 25 mg PO DAILY [facility]; Protocol Last Admin: 03/01/22 10:30 Dose: Not Given Multivitamins/Vitamin C (Multivitamin Tablet) 1 tab PO DAILY [facility] Last Admin: 03/01/22 08:35 Dose: 1 tab Pravastatin Sodium (Pravastatin Sodium 40 Mg Tablet) 40 mg PO BEDTIME [facility] Last Admin: 03/01/22 21:59 Dose: 40 mg Risperidone (Risperidone 0.5 Mg Tablet) 0.5 mg PO DAILY [facility] Last Admin: 03/01/22 08:36 Dose: 0.5 mg Risperidone (Risperidone 1 Mg Tablet) 1 mg PO DAILY@1700 [facility] Last Admin: 03/01/22 17:04 Dose: 1 mg Tamsulosin HCl (Tamsulosin Hcl 0.4 Mg Capsule) 0.4 mg PO DAILY [facility] Last Admin: 03/01/22 08:36 Dose: 0.4 mg Thiamine HCl (Thiamine Hcl 100 Mg Tablet) 100 mg PO BID [facility] Last Admin: 03/01/22 21:59 Dose: 100 mg Tramadol HCl (Tramadol Hcl 50 Mg Tablet) 25 mg PO TID [facility] Last Admin: 03/01/22 22:00 Dose: 25 mg Allergies Allergies Allergy/AdvReac Type Severity Reaction Status Date / Time Penicillins Allergy Unknown Unknown Verified 02/03/22 19:47 Assessment & Plan Assessment & Plan (1) Psychosis: Status: Acute Code(s): F29 - Unspecified psychosis not due to a substance or known physiological condition Assessment and Plan: 02/08/2022: Complained of right shoulder pain (there pre admission) and agreed to x ray. No changes to primary team treatment plan. Disposition planning Is challenging and in progress. (2) Dementia: Status: Acute Code(s): F03.90 - Unspecified dementia without behavioral disturbance Plan ?the patient is an elderly male with a history of dementia who was brought into the facility for exacerbation of aggressive behavior.? The patient denies having prior psychiatric illness but he is confused and restless unable to provide a full comprehensive history.? Plan 1. Gather collateral information.? 2. Increase Risperdal up to 1 mg p.o. q.h.s. 3. Discontinue Zoloft. 4. COVID-19 protocol. 5. Start tramadol 25 p.o. t.i.d. 02/28 continue current medications 03/01 continue current medications. I spent __25____ minutes with the patient and/or on the patient floor today, greater than?50% of which was spent counseling/coordinating care. Reason for contiued inpatient stay Substantial Risk for: inability to function
[2022-03-01] MEDS: Acetaminophen 325 MG TABLET 650 MG PO (15:38)
[2022-03-01] MEDS: risperiDONE 1 MG TABLET PO (17:04)
[2022-03-01] MEDS: Pravastatin Sodium 40 MG TABLET PO (21:59)
[2022-03-01 22:00] VITALS: BP 126/71; PULSE 93; RESP 20; TEMP 36.1; O2SAT 91
[2022-03-01] MEDS: Folic Acid 1 MG TABLET PO (22:00)
[2022-03-02] MEDS: Acetaminophen 325 MG TABLET 650 MG PO ×2 (03:00→23:52)
[2022-03-02 07:45] VITALS: BP 84/53; PULSE 89; RESP 14; TEMP 36.6; O2SAT 83
[2022-03-02 10:15] VITALS: BP 89/57
[2022-03-02] MEDS: risperiDONE 0.5 MG TABLET PO (10:17)
[2022-03-02] MEDS: Tamsulosin HCL 0.4 MG CAPSULE PO (10:17)
[2022-03-02] MEDS: Thiamine HCL 100 MG TABLET PO ×2 (10:17→20:50)
[2022-03-02] MEDS: traMADoL HCL 50 MG TABLET 25 MG PO ×3 (10:17→20:47)
[2022-03-02] MEDS: Multivitamin TABLET 1 TAB PO (10:17)
[2022-03-02] MEDS: Apixaban 5 MG TABLET PO ×2 (10:17→20:50)
[2022-03-02] MEDS: levETIRAcetam 500 MG TABLET PO ×2 (10:21→20:50)
[2022-03-02] MEDS: Loratadine 10 MG TABLET PO (10:21)
[2022-03-02] MEDS: Gabapentin 600 MG TABLET PO ×2 (10:21→20:50)
[2022-03-02] MEDS: Memantine HCl 10 MG TABLET PO ×2 (10:21→20:49)
--- NOTE | 2022-03-02 14:55 | HO.PSYCHPN ---
Subjective Subjective Date of Service: 03/02/22 Reason For Visit: acute psychosis Subjective Notes: Conditional Voluntary Interim History: the nursing staff reported the patient has been sundowning morning to evening. He becomes more confused and aggressive in the afternoon. The social worker masters reported that they have applied for several jail facilities. On interview the patient denies new symptoms Mental Status Exam Mental Status Exam Patient Appearance: Well Grooomed Patient Orientation: Person and Situation Level of Consciousness: Awake Patient Behavior: Cooperative Mood Description: Withdrawn Affect Description: Calm Patient Cognition Impaired: Yes Ability to Follow Directions: Good Speech Pattern: Clear Memory Description: Intact Hallucinations: None Delusions: Paranoid Ideation Judgement: Fair Diagnostics Vital Signs (24Hr): Vital Signs - 24 hr 03/01/22 22:00 03/02/22 07:45 03/02/22 10:15 Temperature 97 F 97.9 F Pulse Rate 93 89 Respiratory Rate 20 14 Blood Pressure 126/71 84/53 L 89/57 L Pulse Oximetry 91 L 83 L Oxygen Delivery Method Room Air Room Air BMI result Body Mass Index 25.6 Imaging Radiology Impressions: ITS Impressions Shoulder X-Ray 02/09/22 08:43 IMPRESSION: Mild widening of right AC joint. No visible acute fracture, dislocation or subluxation seen. Medications Medications Current Medications Acetaminophen (Acetaminophen 325 Mg Tablet) 650 mg PO Q6H PRN PRN Reason: Headache/Pain Mild Scale (1-3) Last Admin: 03/02/22 03:00 Dose: 650 mg Al Hydroxide/Mg Hydroxide (Magnesium Hydrox/Alum Hydrox 30 Ml Oral.Susp) 30 ml PO Q6H PRN PRN Reason: Heartburn/Nausea Apixaban (Apixaban 5 Mg Tablet) 5 mg PO BID [facility] Last Admin: 03/02/22 10:17 Dose: 5 mg Benzocaine (Throat Lozenge, Medicated Lozenge) 1 lozenge MUCOUS MEM Q2H PRN PRN Reason: Cough Last Admin: 02/16/22 19:21 Dose: 1 lozenge Folic Acid (Folic Acid 1 Mg Tablet) 1 mg PO BEDTIME [facility] Last Admin: 03/01/22 22:00 Dose: 1 mg Gabapentin (Gabapentin 600 Mg Tablet) 600 mg PO BID [facility] Last Admin: 03/02/22 10:21 Dose: 600 mg Levetiracetam (Levetiracetam 500 Mg Tablet) 500 mg PO BID [facility] Last Admin: 03/02/22 10:21 Dose: 500 mg Loratadine (Loratadine 10 Mg Tablet) 10 mg PO DAILY [facility] Last Admin: 03/02/22 10:21 Dose: 10 mg Magnesium Hydroxide (Milk Of Magnesia 30 Ml Oral.Susp) 30 ml PO DAILY PRN PRN Reason: Constipation Memantine (Memantine Hcl 10 Mg Tablet) 10 mg PO BID [facility] Last Admin: 03/02/22 10:21 Dose: 10 mg Metoprolol Succinate (Metoprolol Succinate Er 25 Mg Tab.Er.24h) 25 mg PO DAILY [facility]; Protocol Last Admin: 03/02/22 10:23 Dose: Not Given Multivitamins/Vitamin C (Multivitamin Tablet) 1 tab PO DAILY [facility] Last Admin: 03/02/22 10:17 Dose: 1 tab Pravastatin Sodium (Pravastatin Sodium 40 Mg Tablet) 40 mg PO BEDTIME [facility] Last Admin: 03/01/22 21:59 Dose: 40 mg Risperidone (Risperidone 0.5 Mg Tablet) 0.5 mg PO DAILY [facility] Last Admin: 03/02/22 10:17 Dose: 0.5 mg Risperidone (Risperidone 1 Mg Tablet) 1 mg PO DAILY@1700 [facility] Last Admin: 03/01/22 17:04 Dose: 1 mg Tamsulosin HCl (Tamsulosin Hcl 0.4 Mg Capsule) 0.4 mg PO DAILY [facility] Last Admin: 03/02/22 10:17 Dose: 0.4 mg Thiamine HCl (Thiamine Hcl 100 Mg Tablet) 100 mg PO BID [facility] Last Admin: 03/02/22 10:17 Dose: 100 mg Tramadol HCl (Tramadol Hcl 50 Mg Tablet) 25 mg PO TID [facility] Last Admin: 03/02/22 10:17 Dose: 25 mg Allergies Allergies Allergy/AdvReac Type Severity Reaction Status Date / Time Penicillins Allergy Unknown Unknown Verified 02/03/22 19:47 Assessment & Plan Assessment & Plan (1) Psychosis: Status: Acute Code(s): F29 - Unspecified psychosis not due to a substance or known physiological condition Assessment and Plan: 02/08/2022: Complained of right shoulder pain (there pre admission) and agreed to x ray. No changes to primary team treatment plan. Disposition planning Is challenging and in progress. (2) Dementia: Status: Acute Code(s): F03.90 - Unspecified dementia without behavioral disturbance Plan ?the patient is an elderly male with a history of dementia who was brought into the facility for exacerbation of aggressive behavior.? The patient denies having prior psychiatric illness but he is confused and restless unable to provide a full comprehensive history.? Plan 1. Gather collateral information.? 2. Increase Risperdal up to 1 mg p.o. q.h.s. 3. Discontinue Zoloft. 4. COVID-19 protocol. 5. Start tramadol 25 p.o. t.i.d. 02/28 continue current medications 03/01 continue current medications. I spent ___20___ minutes with the patient and/or on the patient floor today, greater than?50% of which was spent counseling/coordinating care. Reason for contiued inpatient stay Substantial Risk for: inability to function, rapid decompensation and med/psych decompensation
[2022-03-02] MEDS: risperiDONE 1 MG TABLET PO (16:59)
[2022-03-02 18:00] VITALS: BP 125/72; PULSE 99; TEMP 36.2; O2SAT 99
[2022-03-02] MEDS: Folic Acid 1 MG TABLET PO (20:50)
[2022-03-02] MEDS: Pravastatin Sodium 40 MG TABLET PO (20:50)
[2022-03-03 06:00] VITALS: BP 104/55; PULSE 69; RESP 16; TEMP 36.6; O2SAT 88
[2022-03-03] MEDS: risperiDONE 0.5 MG TABLET PO (09:57)
[2022-03-03] MEDS: Gabapentin 600 MG TABLET PO ×2 (09:57→20:40)
[2022-03-03] MEDS: levETIRAcetam 500 MG TABLET PO ×2 (09:57→20:39)
[2022-03-03] MEDS: traMADoL HCL 50 MG TABLET 25 MG PO ×3 (09:57→20:37)
[2022-03-03] MEDS: Metoprolol Succinate ER 25 MG TAB.ER.24H PO (09:57)
[2022-03-03] MEDS: Memantine HCl 10 MG TABLET PO ×2 (09:57→20:42)
[2022-03-03] MEDS: Thiamine HCL 100 MG TABLET PO ×2 (09:57→20:41)
[2022-03-03] MEDS: Multivitamin TABLET 1 TAB PO (09:57)
[2022-03-03] MEDS: Loratadine 10 MG TABLET PO (09:58)
[2022-03-03] MEDS: Apixaban 5 MG TABLET PO ×2 (09:58→20:40)
[2022-03-03] MEDS: Tamsulosin HCL 0.4 MG CAPSULE PO (09:58)
--- NOTE | 2022-03-03 16:00 | HO.PSYCHPN ---
Subjective Subjective Date of Service: 03/03/22 Reason For Visit: acute psychosis Subjective Notes: Conditional Voluntary Interim History: The nursing staff reported that the patient was compliant with treatment, he complained of shoulder pain. On interview the patient denies new symptoms he looks more confused in the afternoon. Mental Status Exam Mental Status Exam Patient Appearance: Well Grooomed Patient Orientation: Person Level of Consciousness: Awake Patient Behavior: Cooperative Mood Description: Calm Affect Description: Constricted Ability to Follow Directions: Fair Speech Pattern: Appropriate Hallucinations: None Delusions: Not Present Thought Process: Linear Thought Content: positive for Poverty of Content Judgement: Fair Diagnostics Vital Signs (24Hr): Vital Signs - 24 hr 03/02/22 18:00 03/03/22 06:00 Temperature 97.1 F 97.9 F Pulse Rate 99 69 Respiratory Rate 16 Blood Pressure 125/72 104/55 L Pulse Oximetry 99 88 L Oxygen Delivery Method Room Air Room Air BMI result Body Mass Index 25.6 Imaging Radiology Impressions: ITS Impressions Shoulder X-Ray 02/09/22 08:43 IMPRESSION: Mild widening of right AC joint. No visible acute fracture, dislocation or subluxation seen. Medications Medications Current Medications Acetaminophen (Acetaminophen 325 Mg Tablet) 650 mg PO Q6H PRN PRN Reason: Headache/Pain Mild Scale (1-3) Last Admin: 03/02/22 23:52 Dose: 650 mg Al Hydroxide/Mg Hydroxide (Magnesium Hydrox/Alum Hydrox 30 Ml Oral.Susp) 30 ml PO Q6H PRN PRN Reason: Heartburn/Nausea Apixaban (Apixaban 5 Mg Tablet) 5 mg PO BID [facility] Last Admin: 03/03/22 09:58 Dose: 5 mg Benzocaine (Throat Lozenge, Medicated Lozenge) 1 lozenge MUCOUS MEM Q2H PRN PRN Reason: Cough Last Admin: 02/16/22 19:21 Dose: 1 lozenge Folic Acid (Folic Acid 1 Mg Tablet) 1 mg PO BEDTIME [facility] Last Admin: 03/02/22 20:50 Dose: 1 mg Gabapentin (Gabapentin 600 Mg Tablet) 600 mg PO BID [facility] Last Admin: 03/03/22 09:57 Dose: 600 mg Levetiracetam (Levetiracetam 500 Mg Tablet) 500 mg PO BID [facility] Last Admin: 03/03/22 09:57 Dose: 500 mg Loratadine (Loratadine 10 Mg Tablet) 10 mg PO DAILY [facility] Last Admin: 03/03/22 09:58 Dose: 10 mg Magnesium Hydroxide (Milk Of Magnesia 30 Ml Oral.Susp) 30 ml PO DAILY PRN PRN Reason: Constipation Memantine (Memantine Hcl 10 Mg Tablet) 10 mg PO BID [facility] Last Admin: 03/03/22 09:57 Dose: 10 mg Metoprolol Succinate (Metoprolol Succinate Er 25 Mg Tab.Er.24h) 25 mg PO DAILY [facility]; Protocol Last Admin: 03/03/22 09:57 Dose: 25 mg Multivitamins/Vitamin C (Multivitamin Tablet) 1 tab PO DAILY [facility] Last Admin: 03/03/22 09:57 Dose: 1 tab Pravastatin Sodium (Pravastatin Sodium 40 Mg Tablet) 40 mg PO BEDTIME [facility] Last Admin: 03/02/22 20:50 Dose: 40 mg Risperidone (Risperidone 0.5 Mg Tablet) 0.5 mg PO DAILY [facility] Last Admin: 03/03/22 09:57 Dose: 0.5 mg Risperidone (Risperidone 1 Mg Tablet) 1 mg PO DAILY@1700 [facility] Last Admin: 03/02/22 16:59 Dose: 1 mg Tamsulosin HCl (Tamsulosin Hcl 0.4 Mg Capsule) 0.4 mg PO DAILY [facility] Last Admin: 03/03/22 09:58 Dose: 0.4 mg Thiamine HCl (Thiamine Hcl 100 Mg Tablet) 100 mg PO BID [facility] Last Admin: 03/03/22 09:57 Dose: 100 mg Tramadol HCl (Tramadol Hcl 50 Mg Tablet) 25 mg PO TID [facility] Last Admin: 03/03/22 15:18 Dose: 25 mg Allergies Allergies Allergy/AdvReac Type Severity Reaction Status Date / Time Penicillins Allergy Unknown Unknown Verified 02/03/22 19:47 Assessment & Plan Assessment & Plan (1) Psychosis: Status: Acute Code(s): F29 - Unspecified psychosis not due to a substance or known physiological condition Assessment and Plan: 02/08/2022: Complained of right shoulder pain (there pre admission) and agreed to x ray. No changes to primary team treatment plan. Disposition planning Is challenging and in progress. (2) Dementia: Status: Acute Code(s): F03.90 - Unspecified dementia without behavioral disturbance Plan ?the patient is an elderly male with a history of dementia who was brought into the facility for exacerbation of aggressive behavior.? The patient denies having prior psychiatric illness but he is confused and restless unable to provide a full comprehensive history.? Plan 1. Gather collateral information.? 2. Increase Risperdal up to 1 mg p.o. q.h.s. 3. Discontinue Zoloft. 4. COVID-19 protocol. 5. Start tramadol 25 p.o. t.i.d. I spent __20____ minutes with the patient and/or on the patient floor today, greater than?50% of which was spent counseling/coordinating care. Reason for contiued inpatient stay Substantial Risk for: inability to function, rapid decompensation and med/psych decompensation
[2022-03-03] MEDS: risperiDONE 1 MG TABLET PO (17:09)
[2022-03-03] MEDS: Folic Acid 1 MG TABLET PO (20:40)
[2022-03-03] MEDS: Pravastatin Sodium 40 MG TABLET PO (20:42)
[2022-03-04 09:14] VITALS: BP 99/62; PULSE 90; RESP 16; TEMP 36.8; O2SAT 89
[2022-03-04] MEDS: levETIRAcetam 500 MG TABLET PO ×2 (09:18→20:58)
[2022-03-04] MEDS: Memantine HCl 10 MG TABLET PO ×2 (09:18→20:57)
[2022-03-04] MEDS: Tamsulosin HCL 0.4 MG CAPSULE PO (09:18)
[2022-03-04] MEDS: risperiDONE 0.5 MG TABLET PO (09:18)
[2022-03-04] MEDS: traMADoL HCL 50 MG TABLET 25 MG PO ×2 (09:19→23:57)
[2022-03-04] MEDS: Multivitamin TABLET 1 TAB PO (09:19)
[2022-03-04] MEDS: Thiamine HCL 100 MG TABLET PO (09:19)
[2022-03-04] MEDS: Gabapentin 600 MG TABLET PO ×2 (09:19→20:57)
[2022-03-04] MEDS: Metoprolol Succinate ER 25 MG TAB.ER.24H PO (09:20)
[2022-03-04] MEDS: Apixaban 5 MG TABLET PO ×2 (09:20→20:58)
[2022-03-04] MEDS: Loratadine 10 MG TABLET PO (09:20)
[2022-03-04] MEDS: Acetaminophen 325 MG TABLET 650 MG PO (15:55)
--- NOTE | 2022-03-04 16:21 | HO.PSYCHPN ---
Subjective Subjective Date of Service: 03/04/22 Reason For Visit: acute psychosis Subjective Notes: Conditional Voluntary Interim History: the nursing staff reported the patient is in more confused in the evening. He was seen with exit seeking behavior but he was red rectal verbally. On interview the patient denies new symptoms waiting for placement Mental Status Exam Mental Status Exam Patient Appearance: Well Grooomed Patient Orientation: Person Level of Consciousness: Awake Patient Behavior: Guarded and Passive Mood Description: Withdrawn Affect Description: Labile Patient Cognition Impaired: Yes Ability to Follow Directions: Good Speech Pattern: Clear Hallucinations: None Delusions: Not Present Thought Process: Distracted Thought Content: positive for [place] and positive for Circumstantial Judgement: Fair Diagnostics Vital Signs (24Hr): Vital Signs - 24 hr 03/04/22 09:14 Temperature 98.2 F Pulse Rate 90 Respiratory Rate 16 Blood Pressure 99/62 Pulse Oximetry 89 L Oxygen Delivery Method Room Air BMI result Body Mass Index 25.6 Imaging Radiology Impressions: ITS Impressions Shoulder X-Ray 02/09/22 08:43 IMPRESSION: Mild widening of right AC joint. No visible acute fracture, dislocation or subluxation seen. Medications Medications Current Medications Acetaminophen (Acetaminophen 325 Mg Tablet) 650 mg PO Q6H PRN PRN Reason: Headache/Pain Mild Scale (1-3) Last Admin: 03/04/22 15:55 Dose: 650 mg Al Hydroxide/Mg Hydroxide (Magnesium Hydrox/Alum Hydrox 30 Ml Oral.Susp) 30 ml PO Q6H PRN PRN Reason: Heartburn/Nausea Apixaban (Apixaban 5 Mg Tablet) 5 mg PO BID [facility] Last Admin: 03/04/22 09:20 Dose: 5 mg Benzocaine (Throat Lozenge, Medicated Lozenge) 1 lozenge MUCOUS MEM Q2H PRN PRN Reason: Cough Last Admin: 02/16/22 19:21 Dose: 1 lozenge Folic Acid (Folic Acid 1 Mg Tablet) 1 mg PO BEDTIME [facility] Last Admin: 03/03/22 20:40 Dose: 1 mg Gabapentin (Gabapentin 600 Mg Tablet) 600 mg PO BID [facility] Last Admin: 03/04/22 09:19 Dose: 600 mg Levetiracetam (Levetiracetam 500 Mg Tablet) 500 mg PO BID [facility] Last Admin: 03/04/22 09:18 Dose: 500 mg Loratadine (Loratadine 10 Mg Tablet) 10 mg PO DAILY [facility] Last Admin: 03/04/22 09:20 Dose: 10 mg Magnesium Hydroxide (Milk Of Magnesia 30 Ml Oral.Susp) 30 ml PO DAILY PRN PRN Reason: Constipation Memantine (Memantine Hcl 10 Mg Tablet) 10 mg PO BID [facility] Last Admin: 03/04/22 09:18 Dose: 10 mg Metoprolol Succinate (Metoprolol Succinate Er 25 Mg Tab.Er.24h) 25 mg PO DAILY [facility]; Protocol Last Admin: 03/04/22 09:20 Dose: 25 mg Multivitamins/Vitamin C (Multivitamin Tablet) 1 tab PO DAILY [facility] Last Admin: 03/04/22 09:19 Dose: 1 tab Pravastatin Sodium (Pravastatin Sodium 40 Mg Tablet) 40 mg PO BEDTIME [facility] Last Admin: 03/03/22 20:42 Dose: 40 mg Risperidone (Risperidone 0.5 Mg Tablet) 0.5 mg PO DAILY [facility] Last Admin: 03/04/22 09:18 Dose: 0.5 mg Risperidone (Risperidone 1 Mg Tablet) 1 mg PO DAILY@1700 [facility] Last Admin: 03/03/22 17:09 Dose: 1 mg Tamsulosin HCl (Tamsulosin Hcl 0.4 Mg Capsule) 0.4 mg PO DAILY [facility] Last Admin: 03/04/22 09:18 Dose: 0.4 mg Thiamine HCl (Thiamine Hcl 100 Mg Tablet) 100 mg PO BID [facility] Last Admin: 03/04/22 09:19 Dose: 100 mg Allergies Allergies Allergy/AdvReac Type Severity Reaction Status Date / Time Penicillins Allergy Unknown Unknown Verified 02/03/22 19:47 Assessment & Plan Assessment & Plan (1) Psychosis: Status: Acute Code(s): F29 - Unspecified psychosis not due to a substance or known physiological condition Assessment and Plan: 02/08/2022: Complained of right shoulder pain (there pre admission) and agreed to x ray. No changes to primary team treatment plan. Disposition planning Is challenging and in progress. (2) Dementia: Status: Acute Code(s): F03.90 - Unspecified dementia without behavioral disturbance Plan ?the patient is an elderly male with a history of dementia who was brought into the facility for exacerbation of aggressive behavior.? The patient denies having prior psychiatric illness but he is confused and restless unable to provide a full comprehensive history.? Plan 1. Gather collateral information.? 2. Increase Risperdal up to 1 mg p.o. q.h.s. 3. Discontinue Zoloft. 4. COVID-19 protocol. 5. Start tramadol 25 p.o. t.i.d. I spent __20____ minutes with the patient and/or on the patient floor today, greater than?50% of which was spent counseling/coordinating care. Reason for contiued inpatient stay Substantial Risk for: inability to function, rapid decompensation and med/psych decompensation
[2022-03-04] MEDS: risperiDONE 1 MG TABLET PO (16:55)
[2022-03-04 18:00] VITALS: BP 112/65; PULSE 77; RESP 18; TEMP 35.9; O2SAT 87
[2022-03-04] MEDS: Folic Acid 1 MG TABLET PO (20:57)
[2022-03-04] MEDS: Pravastatin Sodium 40 MG TABLET PO (20:58)
[2022-03-05 07:20] VITALS: BP 134/76; PULSE 84; RESP 16; TEMP 36.1; O2SAT 90
[2022-03-05] MEDS: Multivitamin TABLET 1 TAB PO (11:15)
[2022-03-05] MEDS: Metoprolol Succinate ER 25 MG TAB.ER.24H PO (11:15)
[2022-03-05] MEDS: Tamsulosin HCL 0.4 MG CAPSULE PO (11:15)
[2022-03-05] MEDS: Memantine HCl 10 MG TABLET PO ×2 (11:15→20:39)
[2022-03-05] MEDS: Gabapentin 600 MG TABLET PO ×2 (11:16→20:39)
[2022-03-05] MEDS: levETIRAcetam 500 MG TABLET PO ×2 (11:16→20:39)
[2022-03-05] MEDS: Thiamine HCL 100 MG TABLET PO ×2 (11:16→20:38)
[2022-03-05] MEDS: Loratadine 10 MG TABLET PO (11:16)
[2022-03-05] MEDS: traMADoL HCL 50 MG TABLET 25 MG PO ×3 (11:16→20:38)
[2022-03-05] MEDS: risperiDONE 0.5 MG TABLET PO (11:16)
[2022-03-05] MEDS: Apixaban 5 MG TABLET PO ×2 (11:17→21:50)
--- NOTE | 2022-03-05 12:35 | P.PNPSI_ITS ---
Subjective Subjective Date of Service: 03/05/22 Reason For Visit: acute psychosis Subjective Notes: Conditional Voluntary Interim History: The nursing staff reported the patient has being more confused in the evening but overall he has been seclusive and easily redirectable. Mental Status Exam Mental Status Exam Patient Appearance: Well Grooomed Patient Orientation: Person and Situation Level of Consciousness: Awake Patient Behavior: Cooperative Mood Description: Constricted Patient Cognition Impaired: Yes Ability to Follow Directions: Good Speech Pattern: Clear Hallucinations: None Delusions: Paranoid Ideation Thought Process: Distracted Thought Content: positive for Poverty of Content Judgement: Fair Diagnostics Vital Signs (24Hr): Vital Signs - 24 hr 03/04/22 18:00 03/05/22 07:20 Temperature 96.6 F L 97 F Pulse Rate 77 84 Respiratory Rate 18 16 Blood Pressure 112/65 134/76 Pulse Oximetry 87 L 90 L Oxygen Delivery Method Room Air Room Air BMI result Body Mass Index 25.6 Imaging Radiology Impressions: ITS Impressions Shoulder X-Ray 02/09/22 08:43 IMPRESSION: Mild widening of right AC joint. No visible acute fracture, dislocation or subluxation seen. Medications Medications Current Medications Acetaminophen (Acetaminophen 325 Mg Tablet) 650 mg PO Q6H PRN PRN Reason: Headache/Pain Mild Scale (1-3) Last Admin: 03/04/22 15:55 Dose: 650 mg Al Hydroxide/Mg Hydroxide (Magnesium Hydrox/Alum Hydrox 30 Ml Oral.Susp) 30 ml PO Q6H PRN PRN Reason: Heartburn/Nausea Apixaban (Apixaban 5 Mg Tablet) 5 mg PO BID [facility] Last Admin: 03/05/22 11:17 Dose: 5 mg Benzocaine (Throat Lozenge, Medicated Lozenge) 1 lozenge MUCOUS MEM Q2H PRN PRN Reason: Cough Last Admin: 02/16/22 19:21 Dose: 1 lozenge Folic Acid (Folic Acid 1 Mg Tablet) 1 mg PO BEDTIME [facility] Last Admin: 03/04/22 20:57 Dose: 1 mg Gabapentin (Gabapentin 600 Mg Tablet) 600 mg PO BID [facility] Last Admin: 03/05/22 11:16 Dose: 600 mg Levetiracetam (Levetiracetam 500 Mg Tablet) 500 mg PO BID [facility] Last Admin: 03/05/22 11:16 Dose: 500 mg Loratadine (Loratadine 10 Mg Tablet) 10 mg PO DAILY [facility] Last Admin: 03/05/22 11:16 Dose: 10 mg Magnesium Hydroxide (Milk Of Magnesia 30 Ml Oral.Susp) 30 ml PO DAILY PRN PRN Reason: Constipation Memantine (Memantine Hcl 10 Mg Tablet) 10 mg PO BID [facility] Last Admin: 03/05/22 11:15 Dose: 10 mg Metoprolol Succinate (Metoprolol Succinate Er 25 Mg Tab.Er.24h) 25 mg PO DAILY [facility]; Protocol Last Admin: 03/05/22 11:15 Dose: 25 mg Multivitamins/Vitamin C (Multivitamin Tablet) 1 tab PO DAILY [facility] Last Admin: 03/05/22 11:15 Dose: 1 tab Pravastatin Sodium (Pravastatin Sodium 40 Mg Tablet) 40 mg PO BEDTIME [facility] Last Admin: 03/04/22 20:58 Dose: 40 mg Risperidone (Risperidone 0.5 Mg Tablet) 0.5 mg PO DAILY [facility] Last Admin: 03/05/22 11:16 Dose: 0.5 mg Risperidone (Risperidone 1 Mg Tablet) 1 mg PO DAILY@1700 [facility] Last Admin: 03/04/22 16:55 Dose: 1 mg Tamsulosin HCl (Tamsulosin Hcl 0.4 Mg Capsule) 0.4 mg PO DAILY [facility] Last Admin: 03/05/22 11:15 Dose: 0.4 mg Thiamine HCl (Thiamine Hcl 100 Mg Tablet) 100 mg PO BID [facility] Last Admin: 03/05/22 11:16 Dose: 100 mg Tramadol HCl (Tramadol Hcl 50 Mg Tablet) 25 mg PO TID [facility] Last Admin: 03/05/22 11:16 Dose: 25 mg Allergies Allergies Allergy/AdvReac Type Severity Reaction Status Date / Time Penicillins Allergy Unknown Unknown Verified 02/03/22 19:47 Assessment & Plan Assessment & Plan (1) Psychosis: Status: Acute Code(s): F29 - Unspecified psychosis not due to a substance or known physiological condition Assessment and Plan: 02/08/2022: Complained of right shoulder pain (there pre admission) and agreed to x ray. No changes to primary team treatment plan. Disposition planning Is challenging and in progress. (2) Dementia: Status: Acute Code(s): F03.90 - Unspecified dementia without behavioral disturbance Plan ?the patient is an elderly male with a history of dementia who was brought into the facility for exacerbation of aggressive behavior.? The patient denies having prior psychiatric illness but he is confused and restless unable to provide a full comprehensive history.? Plan 1. Gather collateral information.? 2. Increase Risperdal up to 1 mg p.o. q.h.s. 3. Discontinue Zoloft. 4. COVID-19 protocol. 5. Start tramadol 25 p.o. t.i.d. I spent minutes with the patient and/or on the patient floor today, greater than?50% of which was spent counseling/coordinating care. Reason for contiued inpatient stay Substantial Risk for: inability to function, rapid decompensation and med/psych decompensation
[2022-03-05] MEDS: risperiDONE 1 MG TABLET PO (15:52)
[2022-03-05 18:00] VITALS: BP 128/61; PULSE 91; TEMP 36.3; O2SAT 89
[2022-03-05] MEDS: Pravastatin Sodium 40 MG TABLET PO (20:39)
[2022-03-05] MEDS: Folic Acid 1 MG TABLET PO (20:39)
[2022-03-06 10:19] VITALS: BP 116/65; PULSE 95; RESP 16; TEMP 36.3; O2SAT 90
[2022-03-06] MEDS: risperiDONE 0.5 MG TABLET PO (10:20)
[2022-03-06] MEDS: Multivitamin TABLET 1 TAB PO (10:20)
[2022-03-06] MEDS: Apixaban 5 MG TABLET PO ×2 (10:21→20:18)
[2022-03-06] MEDS: Loratadine 10 MG TABLET PO (10:21)
[2022-03-06] MEDS: Metoprolol Succinate ER 25 MG TAB.ER.24H PO (10:21)
[2022-03-06] MEDS: Tamsulosin HCL 0.4 MG CAPSULE PO (10:21)
[2022-03-06] MEDS: Gabapentin 600 MG TABLET PO ×2 (10:21→20:17)
[2022-03-06] MEDS: Memantine HCl 10 MG TABLET PO ×2 (10:21→20:17)
[2022-03-06] MEDS: traMADoL HCL 50 MG TABLET 25 MG PO ×2 (10:21→20:15)
[2022-03-06] MEDS: levETIRAcetam 500 MG TABLET PO ×2 (10:21→20:17)
[2022-03-06] MEDS: Thiamine HCL 100 MG TABLET PO ×2 (10:22→20:18)
--- NOTE | 2022-03-06 12:51 | HO.PSYCHPN ---
Subjective Subjective Date of Service: 03/06/22 Reason For Visit: acute psychosis Subjective Notes: Conditional Voluntary Interim History: the nursing staff reported the patient has been compliant with medications. He slept 8 hours. On interview the patient is aware that we are waiting for placement. No new symptoms. Mental Status Exam Mental Status Exam Patient Appearance: Appropriate Patient Orientation: Person and Situation Level of Consciousness: Awake Patient Behavior: Guarded and Passive Mood Description: Withdrawn Affect Description: Labile Patient Cognition Impaired: Yes Ability to Follow Directions: Fair Speech Pattern: Impoverished and Loud Hallucinations: None Delusions: Paranoid Ideation Thought Process: Distracted Thought Content: positive for Poverty of Content Judgement: Fair Diagnostics Vital Signs (24Hr): Vital Signs - 24 hr 03/05/22 18:00 03/06/22 10:19 Temperature 97.3 F 97.4 F Pulse Rate 91 95 Respiratory Rate 16 Blood Pressure 128/61 116/65 Pulse Oximetry 89 L 90 L Oxygen Delivery Method Room Air Room Air BMI result Body Mass Index 25.6 Imaging Radiology Impressions: ITS Impressions Shoulder X-Ray 02/09/22 08:43 IMPRESSION: Mild widening of right AC joint. No visible acute fracture, dislocation or subluxation seen. Medications Medications Current Medications Acetaminophen (Acetaminophen 325 Mg Tablet) 650 mg PO Q6H PRN PRN Reason: Headache/Pain Mild Scale (1-3) Last Admin: 03/04/22 15:55 Dose: 650 mg Al Hydroxide/Mg Hydroxide (Magnesium Hydrox/Alum Hydrox 30 Ml Oral.Susp) 30 ml PO Q6H PRN PRN Reason: Heartburn/Nausea Apixaban (Apixaban 5 Mg Tablet) 5 mg PO BID [facility] [place] Last Admin: 03/06/22 10:21 Dose: 5 mg Benzocaine (Throat Lozenge, Medicated Lozenge) 1 lozenge MUCOUS MEM Q2H PRN PRN Reason: Cough Last Admin: 02/16/22 19:21 Dose: 1 lozenge Folic Acid (Folic Acid 1 Mg Tablet) 1 mg PO BEDTIME [facility] [place] Last Admin: 03/05/22 20:39 Dose: 1 mg Gabapentin (Gabapentin 600 Mg Tablet) 600 mg PO BID [facility] [place] Last Admin: 03/06/22 10:21 Dose: 600 mg Levetiracetam (Levetiracetam 500 Mg Tablet) 500 mg PO BID [facility] [place] Last Admin: 03/06/22 10:21 Dose: 500 mg Loratadine (Loratadine 10 Mg Tablet) 10 mg PO DAILY [facility] [place] Last Admin: 03/06/22 10:21 Dose: 10 mg Magnesium Hydroxide (Milk Of Magnesia 30 Ml Oral.Susp) 30 ml PO DAILY PRN PRN Reason: Constipation Memantine (Memantine Hcl 10 Mg Tablet) 10 mg PO BID [facility] [place] Last Admin: 03/06/22 10:21 Dose: 10 mg Metoprolol Succinate (Metoprolol Succinate Er 25 Mg Tab.Er.24h) 25 mg PO DAILY [facility] [place]; Protocol Last Admin: 03/06/22 10:21 Dose: 25 mg Multivitamins/Vitamin C (Multivitamin Tablet) 1 tab PO DAILY [facility] [place] Last Admin: 03/06/22 10:20 Dose: 1 tab Pravastatin Sodium (Pravastatin Sodium 40 Mg Tablet) 40 mg PO BEDTIME [facility] [place] Last Admin: 03/05/22 20:39 Dose: 40 mg Risperidone (Risperidone 0.5 Mg Tablet) 0.5 mg PO DAILY [facility] [place] Last Admin: 03/06/22 10:20 Dose: 0.5 mg Risperidone (Risperidone 1 Mg Tablet) 1 mg PO DAILY@1700 [facility] [place] Last Admin: 03/05/22 15:52 Dose: 1 mg Tamsulosin HCl (Tamsulosin Hcl 0.4 Mg Capsule) 0.4 mg PO DAILY [facility] [place] Last Admin: 03/06/22 10:21 Dose: 0.4 mg Thiamine HCl (Thiamine Hcl 100 Mg Tablet) 100 mg PO BID [facility] Last Admin: 03/06/22 10:22 Dose: 100 mg Tramadol HCl (Tramadol Hcl 50 Mg Tablet) 25 mg PO TID [facility] [place] Last Admin: 03/06/22 10:21 Dose: 25 mg Allergies Allergies Allergy/AdvReac Type Severity Reaction Status Date / Time Penicillins Allergy Unknown Unknown Verified 02/03/22 19:47 Assessment & Plan Assessment & Plan (1) Psychosis: Status: Acute Code(s): F29 - Unspecified psychosis not due to a substance or known physiological condition Assessment and Plan: 02/08/2022: Complained of right shoulder pain (there pre admission) and agreed to x ray. No changes to primary team treatment plan. Disposition planning Is challenging and in progress. (2) Dementia: Status: Acute Code(s): F03.90 - Unspecified dementia without behavioral disturbance Plan ?the patient is an elderly male with a history of dementia who was brought into the facility for exacerbation of aggressive behavior.? The patient denies having prior psychiatric illness but he is confused and restless unable to provide a full comprehensive history.? Plan 1. Gather collateral information.? 2. keep Risperdal up to 1 mg p.o. q.h.s. 3. Discontinue Zoloft. 4. COVID-19 protocol. 5. Continue tramadol 25 p.o. t.i.d. I spent __20____ minutes with the patient and/or on the patient floor today, greater than?50% of which was spent counseling/coordinating care. Reason for contiued inpatient stay Substantial Risk for: inability to function, rapid decompensation and med/psych decompensation
[2022-03-06 18:00] VITALS: BP 118/67; PULSE 95; RESP 18; TEMP 37.1; O2SAT 95
[2022-03-06] MEDS: Pravastatin Sodium 40 MG TABLET PO (20:17)
[2022-03-06] MEDS: Folic Acid 1 MG TABLET PO (20:18)
[2022-03-07 07:10] VITALS: BP 118/67; PULSE 83; RESP 16; TEMP 36.1; O2SAT 90
[2022-03-07] MEDS: Metoprolol Succinate ER 25 MG TAB.ER.24H PO (09:01)
[2022-03-07] MEDS: traMADoL HCL 50 MG TABLET 25 MG PO ×3 (09:01→20:39)
[2022-03-07] MEDS: risperiDONE 0.5 MG TABLET PO (09:01)
[2022-03-07] MEDS: Gabapentin 600 MG TABLET PO ×2 (09:02→20:39)
[2022-03-07] MEDS: Loratadine 10 MG TABLET PO (09:02)
[2022-03-07] MEDS: Thiamine HCL 100 MG TABLET PO ×2 (09:02→20:38)
[2022-03-07] MEDS: Multivitamin TABLET 1 TAB PO (09:02)
[2022-03-07] MEDS: Tamsulosin HCL 0.4 MG CAPSULE PO (09:02)
[2022-03-07] MEDS: levETIRAcetam 500 MG TABLET PO ×2 (09:02→20:38)
[2022-03-07] MEDS: Apixaban 5 MG TABLET PO ×2 (09:02→20:38)
[2022-03-07] MEDS: Memantine HCl 10 MG TABLET PO ×2 (09:02→20:39)
--- NOTE | 2022-03-07 17:18 | P.PNPSI_ITS ---
Subjective Subjective Date of Service: 03/07/22 Reason For Visit: acute psychosis Interim History: pt lying in bed asleep, but easily aroused; he says he's fine and asks expert medical writer the same. He says he's safe, no SI/HI/avh. he says he's waiting for housing. Staff reports med adherent , calm, in good behavioral control. Mental Status Exam Mental Status Exam Narrative: Pt is alert and oriented; behavior is cooperative, friendly and calm; patient is not in distress; dressed in casual attire with unkempt hair but adequate hygiene; mood is described as good and affect congruent; eye contact appropriate; Speech is normal rate, volume and prosody and not pressured; no psychomotor agitation/retardation present; thought process is organized and goal directed; Thought content is on tx; otherwise pertinent to relevant topics and without any delusional content, paranoid ideations or grandiosity; denies any SI/HI. There is no evidence of perceptual disturbance. Patients insight and judgment appear intact. Diagnostics Vital Signs (24Hr): Vital Signs - 24 hr 03/06/22 18:00 03/07/22 07:10 Temperature 98.7 F 97.0 F Pulse Rate 95 83 Respiratory Rate 18 16 Blood Pressure 118/67 118/67 Pulse Oximetry 95 90 L Oxygen Delivery Method Room Air Room Air BMI result Body Mass Index 25.6 Imaging Radiology Impressions: ITS Impressions Shoulder X-Ray 02/09/22 08:43 IMPRESSION: Mild widening of right AC joint. No visible acute fracture, dislocation or subluxation seen. Medications Medications Current Medications Acetaminophen (Acetaminophen 325 Mg Tablet) 650 mg PO Q6H PRN PRN Reason: Headache/Pain Mild Scale (1-3) Last Admin: 03/04/22 15:55 Dose: 650 mg Al Hydroxide/Mg Hydroxide (Magnesium Hydrox/Alum Hydrox 30 Ml Oral.Susp) 30 ml PO Q6H PRN PRN Reason: Heartburn/Nausea Apixaban (Apixaban 5 Mg Tablet) 5 mg PO BID [facility] Last Admin: 03/07/22 09:02 Dose: 5 mg Benzocaine (Throat Lozenge, Medicated Lozenge) 1 lozenge MUCOUS MEM Q2H PRN PRN Reason: Cough Last Admin: 02/16/22 19:21 Dose: 1 lozenge Folic Acid (Folic Acid 1 Mg Tablet) 1 mg PO BEDTIME [facility] Last Admin: 03/06/22 20:18 Dose: 1 mg Gabapentin (Gabapentin 600 Mg Tablet) 600 mg PO BID [facility] Last Admin: 03/07/22 09:02 Dose: 600 mg Levetiracetam (Levetiracetam 500 Mg Tablet) 500 mg PO BID [facility] Last Admin: 03/07/22 09:02 Dose: 500 mg Loratadine (Loratadine 10 Mg Tablet) 10 mg PO DAILY [facility] Last Admin: 03/07/22 09:02 Dose: 10 mg Magnesium Hydroxide (Milk Of Magnesia 30 Ml Oral.Susp) 30 ml PO DAILY PRN PRN Reason: Constipation Memantine (Memantine Hcl 10 Mg Tablet) 10 mg PO BID [facility] Last Admin: 03/07/22 09:02 Dose: 10 mg Metoprolol Succinate (Metoprolol Succinate Er 25 Mg Tab.Er.24h) 25 mg PO DAILY [facility]; Protocol Last Admin: 03/07/22 09:01 Dose: 25 mg Multivitamins/Vitamin C (Multivitamin Tablet) 1 tab PO DAILY [facility] Last Admin: 03/07/22 09:02 Dose: 1 tab Pravastatin Sodium (Pravastatin Sodium 40 Mg Tablet) 40 mg PO BEDTIME [facility] Last Admin: 03/06/22 20:17 Dose: 40 mg Risperidone (Risperidone 0.5 Mg Tablet) 0.5 mg PO DAILY [facility] Last Admin: 03/07/22 09:01 Dose: 0.5 mg Risperidone (Risperidone 1 Mg Tablet) 1 mg PO DAILY@1700 [facility] Last Admin: 03/07/22 08:58 Dose: Not Given Tamsulosin HCl (Tamsulosin Hcl 0.4 Mg Capsule) 0.4 mg PO DAILY [facility] Last Admin: 03/07/22 09:02 Dose: 0.4 mg Thiamine HCl (Thiamine Hcl 100 Mg Tablet) 100 mg PO BID [facility] Last Admin: 03/07/22 09:02 Dose: 100 mg Tramadol HCl (Tramadol Hcl 50 Mg Tablet) 25 mg PO TID [facility] Last Admin: 03/07/22 09:01 Dose: 25 mg Allergies Allergies Allergy/AdvReac Type Severity Reaction Status Date / Time Penicillins Allergy Unknown Unknown Verified 02/03/22 19:47 Assessment & Plan Assessment & Plan (1) Psychosis: Status: Acute Code(s): F29 - Unspecified psychosis not due to a substance or known physiological condition Assessment and Plan: 02/08/2022: Complained of right shoulder pain (there pre admission) and agreed to x ray. No changes to primary team treatment plan. Disposition planning Is challenging and in progress. (2) Dementia: Status: Acute Code(s): F03.90 - Unspecified dementia without behavioral disturbance Plan ?the patient is an elderly male with a history of dementia who was brought into the facility for exacerbation of aggressive behavior.? The patient denies having prior psychiatric illness but he is confused and restless unable to provide a full comprehensive history.? Plan 1. Gather collateral information.? 2. keep Risperdal up to 1 mg p.o. q.h.s. 3. Discontinue Zoloft. 4. COVID-19 protocol. 5. Continue tramadol 25 p.o. t.i.d. 03/07 no changes I spent minutes with the patient and/or on the patient floor today, greater than?50% of which was spent counseling/coordinating care. Reason for contiued inpatient stay Substantial Risk for: rapid decompensation
[2022-03-07] MEDS: risperiDONE 1 MG TABLET PO (17:25)
[2022-03-07 18:00] VITALS: BP 128/69; PULSE 90; RESP 22; TEMP 36.4; O2SAT 93
[2022-03-07] MEDS: Acetaminophen 325 MG TABLET 650 MG PO (18:24)
[2022-03-07] MEDS: Pravastatin Sodium 40 MG TABLET PO (20:38)
[2022-03-07] MEDS: Folic Acid 1 MG TABLET PO (20:39)
[2022-03-08 08:15] VITALS: BP 126/65; PULSE 99; RESP 16; TEMP 36.1; O2SAT 90
[2022-03-08] MEDS: Memantine HCl 10 MG TABLET PO ×2 (08:41→20:39)
[2022-03-08] MEDS: risperiDONE 0.5 MG TABLET PO (08:41)
[2022-03-08] MEDS: Gabapentin 600 MG TABLET PO ×2 (08:41→20:39)
[2022-03-08] MEDS: Apixaban 5 MG TABLET PO ×2 (08:41→20:38)
[2022-03-08] MEDS: levETIRAcetam 500 MG TABLET PO ×2 (08:41→20:39)
[2022-03-08] MEDS: Metoprolol Succinate ER 25 MG TAB.ER.24H PO (08:41)
[2022-03-08] MEDS: Loratadine 10 MG TABLET PO (08:42)
[2022-03-08] MEDS: traMADoL HCL 50 MG TABLET 25 MG PO ×3 (08:42→20:40)
[2022-03-08] MEDS: Thiamine HCL 100 MG TABLET PO ×2 (08:42→20:39)
[2022-03-08] MEDS: Tamsulosin HCL 0.4 MG CAPSULE PO (08:42)
[2022-03-08] MEDS: Multivitamin TABLET 1 TAB PO (08:42)
[2022-03-08] MEDS: risperiDONE 1 MG TABLET PO (16:30)
--- NOTE | 2022-03-08 17:41 | HO.PSYCHPN ---
Subjective Subjective Date of Service: 03/08/22 Reason For Visit: acute psychosis Interim History: polite, friendly; says he's doing well and asks television writer the same. C/o right should pain and agrees to higher dose of Tramadol. Mental Status Exam Mental Status Exam Narrative: Pt is alert and oriented; behavior is cooperative, friendly and calm; patient is not in distress; dressed in casual attire with unkempt hair but adequate hygiene; mood is described as good and affect congruent; eye contact appropriate; Speech is normal rate, volume and prosody and not pressured; no psychomotor agitation/retardation present; thought process is organized and goal directed; Thought content is on tx; otherwise pertinent to relevant topics and without any delusional content, paranoid ideations or grandiosity; denies any SI/HI. There is no evidence of perceptual disturbance. Patients insight and judgment appear intact. Diagnostics Vital Signs (24Hr): Vital Signs - 24 hr 03/07/22 18:00 03/08/22 08:15 Temperature 97.6 F 96.9 F Pulse Rate 90 99 Respiratory Rate 22 H 16 Blood Pressure 128/69 126/65 Pulse Oximetry 93 90 L Oxygen Delivery Method Room Air Room Air BMI result Body Mass Index 25.6 Imaging Radiology Impressions: ITS Impressions Shoulder X-Ray 02/09/22 08:43 IMPRESSION: Mild widening of right AC joint. No visible acute fracture, dislocation or subluxation seen. Medications Medications Current Medications Acetaminophen (Acetaminophen 325 Mg Tablet) 650 mg PO Q6H PRN PRN Reason: Headache/Pain Mild Scale (1-3) Last Admin: 03/07/22 18:24 Dose: 650 mg Al Hydroxide/Mg Hydroxide (Magnesium Hydrox/Alum Hydrox 30 Ml Oral.Susp) 30 ml PO Q6H PRN PRN Reason: Heartburn/Nausea Apixaban (Apixaban 5 Mg Tablet) 5 mg PO BID [facility] Last Admin: 03/08/22 08:41 Dose: 5 mg Benzocaine (Throat Lozenge, Medicated Lozenge) 1 lozenge MUCOUS MEM Q2H PRN PRN Reason: Cough Last Admin: 02/16/22 19:21 Dose: 1 lozenge Folic Acid (Folic Acid 1 Mg Tablet) 1 mg PO BEDTIME [facility] Last Admin: 03/07/22 20:39 Dose: 1 mg Gabapentin (Gabapentin 600 Mg Tablet) 600 mg PO BID [facility] Last Admin: 03/08/22 08:41 Dose: 600 mg Levetiracetam (Levetiracetam 500 Mg Tablet) 500 mg PO BID [facility] Last Admin: 03/08/22 08:41 Dose: 500 mg Loratadine (Loratadine 10 Mg Tablet) 10 mg PO DAILY [facility] Last Admin: 03/08/22 08:42 Dose: 10 mg Magnesium Hydroxide (Milk Of Magnesia 30 Ml Oral.Susp) 30 ml PO DAILY PRN PRN Reason: Constipation Memantine (Memantine Hcl 10 Mg Tablet) 10 mg PO BID [facility] Last Admin: 03/08/22 08:41 Dose: 10 mg Metoprolol Succinate (Metoprolol Succinate Er 25 Mg Tab.Er.24h) 25 mg PO DAILY [facility]; Protocol Last Admin: 03/08/22 08:41 Dose: 25 mg Multivitamins/Vitamin C (Multivitamin Tablet) 1 tab PO DAILY [facility] Last Admin: 03/08/22 08:42 Dose: 1 tab Pravastatin Sodium (Pravastatin Sodium 40 Mg Tablet) 40 mg PO BEDTIME [facility] Last Admin: 03/07/22 20:38 Dose: 40 mg Risperidone (Risperidone 0.5 Mg Tablet) 0.5 mg PO DAILY [facility] Last Admin: 03/08/22 08:41 Dose: 0.5 mg Risperidone (Risperidone 1 Mg Tablet) 1 mg PO DAILY@1700 [facility] Last Admin: 03/08/22 16:30 Dose: 1 mg Tamsulosin HCl (Tamsulosin Hcl 0.4 Mg Capsule) 0.4 mg PO DAILY [facility] Last Admin: 03/08/22 08:42 Dose: 0.4 mg Thiamine HCl (Thiamine Hcl 100 Mg Tablet) 100 mg PO BID [facility] Last Admin: 03/08/22 08:42 Dose: 100 mg Tramadol HCl (Tramadol Hcl 50 Mg Tablet) 25 mg PO TID PRN PRN Reason: Breakthrough Pain Last Admin: 03/08/22 16:30 Dose: 25 mg Allergies Allergies Allergy/AdvReac Type Severity Reaction Status Date / Time Penicillins Allergy Unknown Unknown Verified 02/03/22 19:47 Assessment & Plan Assessment & Plan (1) Psychosis: Status: Acute Code(s): F29 - Unspecified psychosis not due to a substance or known physiological condition Assessment and Plan: 02/08/2022: Complained of right shoulder pain (there pre admission) and agreed to x ray. No changes to primary team treatment plan. Disposition planning Is challenging and in progress. (2) Dementia: Status: Acute Code(s): F03.90 - Unspecified dementia without behavioral disturbance Plan ?the patient is an elderly male with a history of dementia who was brought into the facility for exacerbation of aggressive behavior.? The patient denies having prior psychiatric illness but he is confused and restless unable to provide a full comprehensive history.? Plan 1. Gather collateral information.? 2. keep Risperdal up to 1 mg p.o. q.h.s. 3. Discontinue Zoloft. 4. COVID-19 protocol. 5. Continue tramadol 25 p.o. t.i.d. 03/07 no changes 03/08 added Tramadol 25mg TID PRN for pain not controlled by scheduled dose I spent minutes with the patient and/or on the patient floor today, greater than?50% of which was spent counseling/coordinating care. Patient educated on: medical condition Informed Consent: understands Reason for contiued inpatient stay Substantial Risk for: med/psych decompensation
[2022-03-08 18:00] VITALS: BP 110/65; PULSE 79; RESP 16; TEMP 36.1; O2SAT 90
[2022-03-08] MEDS: Pravastatin Sodium 40 MG TABLET PO (20:39)
[2022-03-08] MEDS: Folic Acid 1 MG TABLET PO (20:40)
[2022-03-09 07:50] VITALS: BP 116/69; PULSE 90; RESP 18; TEMP 36.6; O2SAT 92
[2022-03-09] MEDS: Memantine HCl 10 MG TABLET PO ×2 (08:51→20:13)
[2022-03-09] MEDS: Metoprolol Succinate ER 25 MG TAB.ER.24H PO (08:51)
[2022-03-09] MEDS: Thiamine HCL 100 MG TABLET PO ×2 (08:51→20:13)
[2022-03-09] MEDS: levETIRAcetam 500 MG TABLET PO ×2 (08:51→20:12)
[2022-03-09] MEDS: Apixaban 5 MG TABLET PO ×2 (08:51→20:13)
[2022-03-09] MEDS: traMADoL HCL 50 MG TABLET 25 MG PO ×3 (08:52→17:58)
[2022-03-09] MEDS: Loratadine 10 MG TABLET PO (08:52)
[2022-03-09] MEDS: risperiDONE 0.5 MG TABLET PO (08:52)
[2022-03-09] MEDS: Gabapentin 600 MG TABLET PO ×2 (08:52→20:13)
[2022-03-09] MEDS: Multivitamin TABLET 1 TAB PO (08:52)
[2022-03-09] MEDS: Tamsulosin HCL 0.4 MG CAPSULE PO (08:52)
--- NOTE | 2022-03-09 14:08 | HO.PSYCHPN ---
Subjective Subjective Date of Service: 03/09/22 Reason For Visit: acute psychosis Subjective Notes: Conditional Voluntary Interim History: The nursing staff reported the patient has been confused at times but he is redirectable. He reported pain on his shoulder. Her On interview he complains of pain ask for a sling. No new symptoms. The social media intern reported that they will continue working on proper placement Mental Status Exam Mental Status Exam Patient Appearance: Well Grooomed Patient Orientation: Person Level of Consciousness: Awake Patient Behavior: Cooperative Mood Description: Withdrawn Affect Description: Constricted Patient Cognition Impaired: Yes Ability to Follow Directions: Good Speech Pattern: Clear Hallucinations: None Delusions: Not Present Thought Process: Distracted Thought Content: positive for Circumstantial Judgement: Fair Diagnostics Vital Signs (24Hr): Vital Signs - 24 hr 03/08/22 18:00 03/09/22 07:50 Temperature 97 F 98 F Pulse Rate 79 90 Respiratory Rate 16 18 Blood Pressure 110/65 116/69 Pulse Oximetry 90 L 92 Oxygen Delivery Method Room Air Room Air BMI result Body Mass Index 25.6 Imaging Radiology Impressions: ITS Impressions Shoulder X-Ray 02/09/22 08:43 IMPRESSION: Mild widening of right AC joint. No visible acute fracture, dislocation or subluxation seen. Medications Medications Current Medications Acetaminophen (Acetaminophen 325 Mg Tablet) 650 mg PO Q6H PRN PRN Reason: Headache/Pain Mild Scale (1-3) Last Admin: 03/07/22 18:24 Dose: 650 mg Al Hydroxide/Mg Hydroxide (Magnesium Hydrox/Alum Hydrox 30 Ml Oral.Susp) 30 ml PO Q6H PRN PRN Reason: Heartburn/Nausea Apixaban (Apixaban 5 Mg Tablet) 5 mg PO BID [facility] Last Admin: 03/09/22 08:51 Dose: 5 mg Benzocaine (Throat Lozenge, Medicated Lozenge) 1 lozenge MUCOUS MEM Q2H PRN PRN Reason: Cough Last Admin: 02/16/22 19:21 Dose: 1 lozenge Folic Acid (Folic Acid 1 Mg Tablet) 1 mg PO BEDTIME [facility] Last Admin: 03/08/22 20:40 Dose: 1 mg Gabapentin (Gabapentin 600 Mg Tablet) 600 mg PO BID [facility] Last Admin: 03/09/22 08:52 Dose: 600 mg Levetiracetam (Levetiracetam 500 Mg Tablet) 500 mg PO BID [facility] Last Admin: 03/09/22 08:51 Dose: 500 mg Loratadine (Loratadine 10 Mg Tablet) 10 mg PO DAILY [facility] Last Admin: 03/09/22 08:52 Dose: 10 mg Magnesium Hydroxide (Milk Of Magnesia 30 Ml Oral.Susp) 30 ml PO DAILY PRN PRN Reason: Constipation Memantine (Memantine Hcl 10 Mg Tablet) 10 mg PO BID [facility] Last Admin: 03/09/22 08:51 Dose: 10 mg Metoprolol Succinate (Metoprolol Succinate Er 25 Mg Tab.Er.24h) 25 mg PO DAILY [facility]; Protocol Last Admin: 03/09/22 08:51 Dose: 25 mg Multivitamins/Vitamin C (Multivitamin Tablet) 1 tab PO DAILY [facility] Last Admin: 03/09/22 08:52 Dose: 1 tab Pravastatin Sodium (Pravastatin Sodium 40 Mg Tablet) 40 mg PO BEDTIME [facility] Last Admin: 03/08/22 20:39 Dose: 40 mg Risperidone (Risperidone 0.5 Mg Tablet) 0.5 mg PO DAILY [facility] Last Admin: 03/09/22 08:52 Dose: 0.5 mg Risperidone (Risperidone 1 Mg Tablet) 1 mg PO DAILY@1700 [facility] Last Admin: 03/08/22 16:30 Dose: 1 mg Tamsulosin HCl (Tamsulosin Hcl 0.4 Mg Capsule) 0.4 mg PO DAILY [facility] Last Admin: 03/09/22 08:52 Dose: 0.4 mg Thiamine HCl (Thiamine Hcl 100 Mg Tablet) 100 mg PO BID [facility] Last Admin: 03/09/22 08:51 Dose: 100 mg Tramadol HCl (Tramadol Hcl 50 Mg Tablet) 25 mg PO TID PRN PRN Reason: Breakthrough Pain Last Admin: 03/09/22 08:59 Dose: 25 mg Tramadol HCl (Tramadol Hcl 50 Mg Tablet) 25 mg PO TID [facility] Last Admin: 03/09/22 08:52 Dose: 25 mg Allergies Allergies Allergy/AdvReac Type Severity Reaction Status Date / Time Penicillins Allergy Unknown Unknown Verified 02/03/22 19:47 Assessment & Plan Assessment & Plan (1) Psychosis: Status: Acute Code(s): F29 - Unspecified psychosis not due to a substance or known physiological condition Assessment and Plan: 02/08/2022: Complained of right shoulder pain (there pre admission) and agreed to x ray. No changes to primary team treatment plan. Disposition planning Is challenging and in progress. (2) Dementia: Status: Acute Code(s): F03.90 - Unspecified dementia without behavioral disturbance Plan ?the patient is an elderly male with a history of dementia who was brought into the facility for exacerbation of aggressive behavior.? The patient denies having prior psychiatric illness but he is confused and restless unable to provide a full comprehensive history.? Plan 1. Gather collateral information.? 2. keep Risperdal up to 1 mg p.o. q.h.s. 3. Discontinue Zoloft. 4. COVID-19 protocol. 5. Increase tramadol up to 50 p.o. t.i.d. 6. Sling on left shoulder. I spent ___20___ minutes with the patient and/or on the patient floor today, greater than?50% of which was spent counseling/coordinating care. Reason for contiued inpatient stay Substantial Risk for: inability to function, rapid decompensation and med/psych decompensation
[2022-03-09] MEDS: traMADoL HCL 50 MG TABLET PO ×2 (15:28→20:13)
[2022-03-09] MEDS: risperiDONE 1 MG TABLET PO (17:06)
[2022-03-09 20:00] VITALS: BP 126/69; PULSE 83; RESP 18; TEMP 36.8; O2SAT 93
[2022-03-09] MEDS: Pravastatin Sodium 40 MG TABLET PO (20:12)
[2022-03-09] MEDS: Folic Acid 1 MG TABLET PO (20:13)
[2022-03-10 08:32] VITALS: BP 127/74; PULSE 89; RESP 20; TEMP 36.3; O2SAT 98
[2022-03-10] MEDS: Thiamine HCL 100 MG TABLET PO ×2 (08:40→21:11)
[2022-03-10] MEDS: Multivitamin TABLET 1 TAB PO (08:40)
[2022-03-10] MEDS: Tamsulosin HCL 0.4 MG CAPSULE PO (08:40)
[2022-03-10] MEDS: Metoprolol Succinate ER 25 MG TAB.ER.24H PO (08:40)
[2022-03-10] MEDS: traMADoL HCL 50 MG TABLET PO ×3 (08:41→21:09)
[2022-03-10] MEDS: levETIRAcetam 500 MG TABLET PO ×2 (08:42→21:11)
[2022-03-10] MEDS: Loratadine 10 MG TABLET PO (08:42)
[2022-03-10] MEDS: Memantine HCl 10 MG TABLET PO ×2 (08:42→21:08)
[2022-03-10] MEDS: risperiDONE 0.5 MG TABLET PO (08:43)
[2022-03-10] MEDS: Gabapentin 600 MG TABLET PO ×2 (08:43→21:09)
[2022-03-10] MEDS: Apixaban 5 MG TABLET PO ×2 (08:43→21:09)
--- NOTE | 2022-03-10 16:46 | P.PNPSI_ITS ---
Subjective Subjective Date of Service: 03/10/22 Reason For Visit: acute psychosis Subjective Notes: Conditional Voluntary Interim History: the nursing staff reported the patient has been compliant with treatment, he complains of pain. Yesterday we increase the tramadol to target pain and he feels slightly better. Today in the afternoon, it was noticed that he has red leg was very swollen and had pain. We did an ultrasound to rule out DVT any came back normal. On interview the patient denies new symptoms he is slightly confused after 17:00 Mental Status Exam Mental Status Exam Patient Appearance: Appropriate Patient Orientation: Person and Situation Level of Consciousness: Awake Patient Behavior: Cooperative Mood Description: Withdrawn Affect Description: Constricted Patient Cognition Impaired: Yes Ability to Follow Directions: Fair Speech Pattern: Clear Hallucinations: None Delusions: Not Present Thought Process: Linear Thought Content: positive for [place] Judgement: Fair Diagnostics Vital Signs (24Hr): Vital Signs - 24 hr 03/09/22 20:00 03/10/22 08:32 Temperature 98.2 F 97.3 F Pulse Rate 83 89 Respiratory Rate 18 20 Blood Pressure 126/69 127/74 Pulse Oximetry 93 98 Oxygen Delivery Method Room Air Room Air BMI result Body Mass Index 25.6 Imaging Radiology Impressions: ITS Impressions Shoulder X-Ray 02/09/22 08:43 IMPRESSION: Mild widening of right AC joint. No visible acute fracture, dislocation or subluxation seen. Venous Duplex 03/10/22 15:23 IMPRESSION: No DVT demonstrated in the bilateral lower extremity. Peroneal vein is not visualized bilaterally and there is limited visualization of the distal superficial femoral veins bilaterally as well. Medications Medications Current Medications Acetaminophen (Acetaminophen 325 Mg Tablet) 650 mg PO Q6H PRN PRN Reason: Headache/Pain Mild Scale (1-3) Last Admin: 03/07/22 18:24 Dose: 650 mg Al Hydroxide/Mg Hydroxide (Magnesium Hydrox/Alum Hydrox 30 Ml Oral.Susp) 30 ml PO Q6H PRN PRN Reason: Heartburn/Nausea Apixaban (Apixaban 5 Mg Tablet) 5 mg PO BID [facility] Last Admin: 03/10/22 08:43 Dose: 5 mg Benzocaine (Throat Lozenge, Medicated Lozenge) 1 lozenge MUCOUS MEM Q2H PRN PRN Reason: Cough Last Admin: 02/16/22 19:21 Dose: 1 lozenge Folic Acid (Folic Acid 1 Mg Tablet) 1 mg PO BEDTIME [facility] Last Admin: 03/09/22 20:13 Dose: 1 mg Gabapentin (Gabapentin 600 Mg Tablet) 600 mg PO BID [facility] Last Admin: 03/10/22 08:43 Dose: 600 mg Levetiracetam (Levetiracetam 500 Mg Tablet) 500 mg PO BID [facility] Last Admin: 03/10/22 08:42 Dose: 500 mg Loratadine (Loratadine 10 Mg Tablet) 10 mg PO DAILY [facility] Last Admin: 03/10/22 08:42 Dose: 10 mg Magnesium Hydroxide (Milk Of Magnesia 30 Ml Oral.Susp) 30 ml PO DAILY PRN PRN Reason: Constipation Memantine (Memantine Hcl 10 Mg Tablet) 10 mg PO BID [facility] Last Admin: 03/10/22 08:42 Dose: 10 mg Metoprolol Succinate (Metoprolol Succinate Er 25 Mg Tab.Er.24h) 25 mg PO DAILY [facility]; Protocol Last Admin: 03/10/22 08:40 Dose: 25 mg Multivitamins/Vitamin C (Multivitamin Tablet) 1 tab PO DAILY [facility] Last Admin: 03/10/22 08:40 Dose: 1 tab Pravastatin Sodium (Pravastatin Sodium 40 Mg Tablet) 40 mg PO BEDTIME [facility] Last Admin: 03/09/22 20:12 Dose: 40 mg Risperidone (Risperidone 0.5 Mg Tablet) 0.5 mg PO DAILY [facility] Last Admin: 03/10/22 08:43 Dose: 0.5 mg Risperidone (Risperidone 1 Mg Tablet) 1 mg PO DAILY@1700 [facility] Last Admin: 03/09/22 17:06 Dose: 1 mg Tamsulosin HCl (Tamsulosin Hcl 0.4 Mg Capsule) 0.4 mg PO DAILY [facility] Last Admin: 03/10/22 08:40 Dose: 0.4 mg Thiamine HCl (Thiamine Hcl 100 Mg Tablet) 100 mg PO BID [facility] Last Admin: 03/10/22 08:40 Dose: 100 mg Tramadol HCl (Tramadol Hcl 50 Mg Tablet) 25 mg PO TID PRN PRN Reason: Breakthrough Pain Last Admin: 03/09/22 17:58 Dose: 25 mg Tramadol HCl (Tramadol Hcl 50 Mg Tablet) 50 mg PO TID [facility] Last Admin: 03/10/22 14:24 Dose: 50 mg Allergies Allergies Allergy/AdvReac Type Severity Reaction Status Date / Time Penicillins Allergy Unknown Unknown Verified 02/03/22 19:47 Assessment & Plan Assessment & Plan (1) Psychosis: Status: Acute Code(s): F29 - Unspecified psychosis not due to a substance or known physiological condition Assessment and Plan: 02/08/2022: Complained of right shoulder pain (there pre admission) and agreed to x ray. No changes to primary team treatment plan. Disposition planning Is challenging and in progress. (2) Dementia: Status: Acute Code(s): F03.90 - Unspecified dementia without behavioral disturbance Plan ?the patient is an elderly male with a history of dementia who was brought into the facility for exacerbation of aggressive behavior.? The patient denies having prior psychiatric illness but he is confused and restless unable to provide a full comprehensive history.? Plan 1. Gather collateral information.? 2. keep Risperdal up to 1 mg p.o. q.h.s. 3. Discontinue Zoloft. 4. COVID-19 protocol. 5. Increase tramadol up to 50 p.o. t.i.d. 6. Sling on left shoulder. 7. Regular blood work for tomorrow morning I spent minutes with the patient and/or on the patient floor today, greater than?50% of which was spent counseling/coordinating care. Reason for contiued inpatient stay Substantial Risk for: inability to function, stable for discharge and med/psych decompensation
[2022-03-10] MEDS: risperiDONE 1 MG TABLET PO (16:52)
[2022-03-10 18:00] VITALS: BP 121/71; PULSE 82; TEMP 36.1; O2SAT 89
[2022-03-10] MEDS: Folic Acid 1 MG TABLET PO (21:08)
[2022-03-10] MEDS: Pravastatin Sodium 40 MG TABLET PO (21:11)
[2022-03-11 08:09] LABS: MANUAL DIFF FLAG NO
[2022-03-11 08:24] LABS: Basophils Percent Auto 0.4 % (0-2); Eosinophils Absolute Auto 0.6 X10*3/uL (0.0-0.4); Eosinophils Percent Auto 9.4 % (0-4); Hematocrit 36.4 % (42.0-52.0); Hemoglobin 11.9 g/dl (14.0-18.0); Imm Gran Abs Auto 0.02 X10*3/uL (0.00-0.03); Imm Gran Pct Auto 0.3 % (0.0-0.4); Lymphocytes Absolute Auto 1.4 X10*3/uL (1.2-4.9); Lymphocytes Percent Auto 20.4 % (20-40); Mean Corpuscular HGB Conc 32.7 g/dl (31.0-36.0); Mean Corpuscular Hemoglobin 32.6 pg (27.0-33.0); Mean Corpuscular Volume 99.7 fL (80.0-98.0); Mean Platelet Volume 9.3 fL (9.4-12.4); Neutrophils Absolute Auto 3.7 x10*3/uL (2.0-8.3); Neutrophils Percent Auto 54.5 % (45-73); Platelet Count 211 X10*3/uL (160-400); Red Blood Count 3.65 X10*6/uL (4.60-5.80); Red Cell Distribution Width 12.9 % (11.0-16.0); White Blood Count 6.8 X10*3/uL (4.8-10.8)
[2022-03-11 08:32] LABS: Estimated Average Glucose 97 mg/dL
[2022-03-11 08:54] LABS: Alanine Aminotransferase 14 U/L (0-40); Albumin Level 3.2 g/dL (3.5-5.0); Alkaline Phosphatase 33 U/L (39-117); Anion Gap 11 (12-20); Aspartate Amino Transferase 21 U/L (5-37); Bilirubin Direct 0.4 mg/dL (0.0-0.5); Bilirubin Total 0.7 mg/dL (0.0-1.0); Blood Urea Nitrogen 35 mg/dL (9-16); Calcium 8.5 mg/dL (8.4-10.2); Carbon Dioxide 24 mmol/L (22-29); Chloride 104 mmol/L (96-108); Cholesterol 98 mg/dL; Creatinine Clr Calc Pharmacy 45.7; Estimated Glomerular Filt Rate 47; Glucose Random 86 mg/dL (60-115); HDL Cholesterol 37 mg/dL; LDL Cholesterol Calculated 51 mg/dl; Potassium 4.6 mmol/L (3.3-5.1); Sodium 134 mmol/L (135-145); Total Protein 5.9 g/dL (6.5-8.0); Triglycerides 51 mg/dL
[2022-03-11 09:02] LABS: Thyroid Stimulating Hormone 2.23 uIU/mL (0.32-4.0)
[2022-03-11 09:20] VITALS: BP 105/54; PULSE 84; RESP 20; TEMP 36.6; O2SAT 93
[2022-03-11] MEDS: Apixaban 5 MG TABLET PO ×2 (09:28→20:38)
[2022-03-11] MEDS: Tamsulosin HCL 0.4 MG CAPSULE PO (09:29)
[2022-03-11] MEDS: Loratadine 10 MG TABLET PO (09:29)
[2022-03-11] MEDS: traMADoL HCL 50 MG TABLET PO ×3 (09:29→20:38)
[2022-03-11] MEDS: Thiamine HCL 100 MG TABLET PO ×2 (09:29→20:38)
[2022-03-11] MEDS: Memantine HCl 10 MG TABLET PO ×2 (09:31→20:38)
[2022-03-11] MEDS: risperiDONE 0.5 MG TABLET PO (09:31)
[2022-03-11] MEDS: levETIRAcetam 500 MG TABLET PO ×2 (09:31→20:37)
[2022-03-11] MEDS: Multivitamin TABLET 1 TAB PO (09:31)
[2022-03-11] MEDS: Metoprolol Succinate ER 25 MG TAB.ER.24H PO (09:32)
[2022-03-11] MEDS: Gabapentin 600 MG TABLET PO ×2 (09:32→20:38)
--- NOTE | 2022-03-11 10:52 | P.PNPSI_ITS ---
Subjective Subjective Date of Service: 03/11/22 Reason For Visit: acute psychosis Subjective Notes: Conditional Voluntary Interim History: The nursing staff reported that the patient has been compliant with treatment. Yesterday we did an ultrasound to rule out DVT since he complained of abrupt swollen as and slight pain. Today we checked his leg and he looks infected with cellulitis. We will start Keflex 250 p.o. q.12. On interview the patient denies new symptoms besides his left hip pain. Mental Status Exam Mental Status Exam Patient Appearance: Well Grooomed Patient Orientation: Person and Situation Level of Consciousness: Awake Patient Behavior: Cooperative Mood Description: Calm Affect Description: Constricted Patient Cognition Impaired: Yes Ability to Follow Directions: Good Speech Pattern: Clear Thought Process: Distracted and Linear Thought Content: positive for Circumstantial Judgement: Fair Diagnostics Vital Signs (24Hr): Vital Signs - 24 hr 03/10/22 18:00 03/11/22 09:20 Temperature 96.9 F 97.9 F Pulse Rate 82 84 Respiratory Rate 20 Blood Pressure 121/71 105/54 L Pulse Oximetry 89 L 93 Oxygen Delivery Method Room Air Room Air BMI result Body Mass Index 25.6 Labs Results: 03/11/22 07:53 03/11/22 07:53 Labs: Laboratory Results - last 48 hr 03/11/22 03/11/22 03/11/22 07:53 07:53 07:53 WBC 6.8 RBC 3.65 L Hgb 11.9 L Hct 36.4 L MCV 99.7 H MCH 32.6 MCHC 32.7 RDW 12.9 Plt Count 211 MPV 9.3 L Immature Gran % (Auto) 0.3 Neut % (Auto) 54.5 Lymph % (Auto) 20.4 Oliver % (Auto) 15.0 H Eos % (Auto) 9.4 H Baso % (Auto) 0.4 Lymph # (Auto) 1.4 Oliver # (Auto) 1.0 Eos # (Auto) 0.6 H Baso # (Auto) 0.0 Abs Immat Gran (auto) 0.02 Absolute Neuts (auto) 3.7 Absolute Nucleated RBC 0.000 Nucleated RBC % (auto) 0.0 Sodium 134 L Potassium 4.6 Chloride 104 Carbon Dioxide 24 Anion Gap 11 L BUN 35 H Creatinine 1.46 H Estim Creat Clear Calc 45.7 Estimated GFR 47 Random Glucose 86 Estimat Average Glucose 97 Hemoglobin A1c % 5.0 Calcium 8.5 Total Bilirubin 0.7 Direct Bilirubin 0.4 AST 21 ALT 14 Alkaline Phosphatase 33 L Total Protein 5.9 L Albumin 3.2 L Triglycerides 51 Cholesterol 98 LDL Cholesterol, Calc 51 HDL Cholesterol 37 TSH 2.23 Imaging Radiology Impressions: ITS Impressions Shoulder X-Ray 02/09/22 08:43 IMPRESSION: Mild widening of right AC joint. No visible acute fracture, dislocation or subluxation seen. Venous Duplex 03/10/22 15:23 IMPRESSION: No DVT demonstrated in the bilateral lower extremity. Peroneal vein is not visualized bilaterally and there is limited visualization of the distal superficial femoral veins bilaterally as well. Medications Medications Current Medications Acetaminophen (Acetaminophen 325 Mg Tablet) 650 mg PO Q6H PRN PRN Reason: Headache/Pain Mild Scale (1-3) Last Admin: 03/07/22 18:24 Dose: 650 mg Al Hydroxide/Mg Hydroxide (Magnesium Hydrox/Alum Hydrox 30 Ml Oral.Susp) 30 ml PO Q6H PRN PRN Reason: Heartburn/Nausea Apixaban (Apixaban 5 Mg Tablet) 5 mg PO BID [facility] Last Admin: 03/11/22 09:28 Dose: 5 mg Benzocaine (Throat Lozenge, Medicated Lozenge) 1 lozenge MUCOUS MEM Q2H PRN PRN Reason: Cough Last Admin: 02/16/22 19:21 Dose: 1 lozenge Cephalexin HCl (Cephalexin 250 Mg Capsule) 250 mg PO Q12H [facility] Folic Acid (Folic Acid 1 Mg Tablet) 1 mg PO BEDTIME [facility] Last Admin: 03/10/22 21:08 Dose: 1 mg Gabapentin (Gabapentin 600 Mg Tablet) 600 mg PO BID [facility] Last Admin: 03/11/22 09:32 Dose: 600 mg Levetiracetam (Levetiracetam 500 Mg Tablet) 500 mg PO BID [facility] Last Admin: 03/11/22 09:31 Dose: 500 mg Loratadine (Loratadine 10 Mg Tablet) 10 mg PO DAILY [facility] Last Admin: 03/11/22 09:29 Dose: 10 mg Magnesium Hydroxide (Milk Of Magnesia 30 Ml Oral.Susp) 30 ml PO DAILY PRN PRN Reason: Constipation Memantine (Memantine Hcl 10 Mg Tablet) 10 mg PO BID [facility] Last Admin: 03/11/22 09:31 Dose: 10 mg Metoprolol Succinate (Metoprolol Succinate Er 25 Mg Tab.Er.24h) 25 mg PO DAILY [facility]; Protocol Last Admin: 03/11/22 09:32 Dose: 25 mg Multivitamins/Vitamin C (Multivitamin Tablet) 1 tab PO DAILY [facility] Last Admin: 03/11/22 09:31 Dose: 1 tab Pravastatin Sodium (Pravastatin Sodium 40 Mg Tablet) 40 mg PO BEDTIME [facility] Last Admin: 03/10/22 21:11 Dose: 40 mg Risperidone (Risperidone 0.5 Mg Tablet) 0.5 mg PO DAILY [facility] Last Admin: 03/11/22 09:31 Dose: 0.5 mg Risperidone (Risperidone 1 Mg Tablet) 1 mg PO DAILY@1700 [facility] Last Admin: 03/10/22 16:52 Dose: 1 mg Tamsulosin HCl (Tamsulosin Hcl 0.4 Mg Capsule) 0.4 mg PO DAILY [facility] Last Admin: 03/11/22 09:29 Dose: 0.4 mg Thiamine HCl (Thiamine Hcl 100 Mg Tablet) 100 mg PO BID [facility] Last Admin: 03/11/22 09:29 Dose: 100 mg Tramadol HCl (Tramadol Hcl 50 Mg Tablet) 25 mg PO TID PRN PRN Reason: Breakthrough Pain Last Admin: 03/09/22 17:58 Dose: 25 mg Tramadol HCl (Tramadol Hcl 50 Mg Tablet) 50 mg PO TID [facility] Last Admin: 03/11/22 09:29 Dose: 50 mg Allergies Allergies Allergy/AdvReac Type Severity Reaction Status Date / Time Penicillins Allergy Unknown Unknown Verified 02/03/22 19:47 Assessment & Plan Assessment & Plan (1) Psychosis: Status: Acute Code(s): F29 - Unspecified psychosis not due to a substance or known physiological condition Assessment and Plan: 02/08/2022: Complained of right shoulder pain (there pre admission) and agreed to x ray. No changes to primary team treatment plan. Disposition planning Is challenging and in progress. (2) Dementia: Status: Acute Code(s): F03.90 - Unspecified dementia without behavioral disturbance Plan ?the patient is an elderly male with a history of dementia who was b rought into the facility for exacerbation of aggressive behavior.? The patient denies having prior psychiatric illness but he is confused and restless unable to provide a full comprehensive history.? Plan 1. Gather collateral information.? 2. keep Risperdal up to 1 mg p.o. q.h.s. 3. Discontinue Zoloft. 4. COVID-19 protocol already discontinue patient is clear. 5. Increase tramadol up to 50 p.o. t.i.d. 6. Sling on left shoulder. 7. Regular blood work Within normal limits. 8. Start Keflex 250 p.o. q.12 for cellulitis I spent __20____ minutes with the patient and/or on the patient floor today, greater than?50% of which was spent counseling/coordinating care. Reason for contiued inpatient stay Substantial Risk for: inability to function, rapid decompensation and med/psych decompensation
[2022-03-11] MEDS: cephALEXin 500 MG CAPSULE PO ×3 (13:06→20:38)
[2022-03-11 18:00] VITALS: BP 136/77; PULSE 89; RESP 16; TEMP 36.3; O2SAT 94
[2022-03-11] MEDS: risperiDONE 1 MG TABLET PO (18:44)
[2022-03-11] MEDS: Pravastatin Sodium 40 MG TABLET PO (20:38)
[2022-03-11] MEDS: Folic Acid 1 MG TABLET PO (20:38)
[2022-03-12] MEDS: Tamsulosin HCL 0.4 MG CAPSULE PO (12:00)
[2022-03-12 12:08] VITALS: BP 112/56; PULSE 94; RESP 16; TEMP 36.1; O2SAT 92
[2022-03-12] MEDS: risperiDONE 0.5 MG TABLET PO (12:12)
[2022-03-12] MEDS: Metoprolol Succinate ER 25 MG TAB.ER.24H PO (12:12)
[2022-03-12] MEDS: Multivitamin TABLET 1 TAB PO (12:12)
[2022-03-12] MEDS: Loratadine 10 MG TABLET PO (12:13)
[2022-03-12] MEDS: Gabapentin 600 MG TABLET PO ×2 (12:13→21:03)
[2022-03-12] MEDS: Thiamine HCL 100 MG TABLET PO ×2 (12:13→21:04)
[2022-03-12] MEDS: levETIRAcetam 500 MG TABLET PO ×2 (12:13→21:03)
[2022-03-12] MEDS: traMADoL HCL 50 MG TABLET PO ×3 (12:14→21:03)
[2022-03-12] MEDS: cephALEXin 500 MG CAPSULE PO ×4 (12:14→21:03)
[2022-03-12] MEDS: Memantine HCl 10 MG TABLET PO ×2 (12:14→21:03)
[2022-03-12] MEDS: Apixaban 5 MG TABLET PO ×2 (12:15→21:04)
--- NOTE | 2022-03-12 13:52 | P.PNPSI_ITS ---
Subjective Subjective Date of Service: 03/12/22 Reason For Visit: acute psychosis Subjective Notes: Conditional Voluntary Interim History: The nursing staff reported that he was fully compliant with treatment, VS are stable. No fever, started on Keflex for cellulitis. On interview, no safety concerns, waiting for placement. Mental Status Exam Mental Status Exam Patient Appearance: Well Grooomed Patient Orientation: Person Level of Consciousness: Awake Patient Behavior: Guarded Mood Description: Withdrawn and Appropriate Affect Description: Labile Patient Cognition Impaired: Yes Ability to Follow Directions: Good Speech Pattern: Clear Hallucinations: None Delusions: Not Present Thought Process: Distracted Thought Content: positive for [place] Judgement: Fair Diagnostics Vital Signs (24Hr): Vital Signs - 24 hr 03/11/22 18:00 03/12/22 12:08 Temperature 97.4 F 97.0 F Pulse Rate 89 94 Respiratory Rate 16 16 Blood Pressure 136/77 112/56 L Pulse Oximetry 94 92 Oxygen Delivery Method Room Air Room Air BMI result Body Mass Index 25.6 Labs Results: 03/11/22 07:53 03/11/22 07:53 Labs: Laboratory Results - last 48 hr 03/11/22 03/11/22 03/11/22 07:53 07:53 07:53 WBC 6.8 RBC 3.65 L Hgb 11.9 L Hct 36.4 L MCV 99.7 H MCH 32.6 MCHC 32.7 RDW 12.9 Plt Count 211 MPV 9.3 L Immature Gran % (Auto) 0.3 Neut % (Auto) 54.5 Lymph % (Auto) 20.4 Floyd % (Auto) 15.0 H Eos % (Auto) 9.4 H Baso % (Auto) 0.4 Lymph # (Auto) 1.4 Floyd # (Auto) 1.0 Eos # (Auto) 0.6 H Baso # (Auto) 0.0 Abs Immat Gran (auto) 0.02 Absolute Neuts (auto) 3.7 Absolute Nucleated RBC 0.000 Nucleated RBC % (auto) 0.0 Sodium 134 L Potassium 4.6 Chloride 104 Carbon Dioxide 24 Anion Gap 11 L BUN 35 H Creatinine 1.46 H Estim Creat Clear Calc 45.7 Estimated GFR 47 Random Glucose 86 Estimat Average Glucose 97 Hemoglobin A1c % 5.0 Calcium 8.5 Total Bilirubin 0.7 Direct Bilirubin 0.4 AST 21 ALT 14 Alkaline Phosphatase 33 L Total Protein 5.9 L Albumin 3.2 L Triglycerides 51 Cholesterol 98 LDL Cholesterol, Calc 51 HDL Cholesterol 37 TSH 2.23 Imaging Radiology Impressions: ITS Impressions Shoulder X-Ray 02/09/22 08:43 IMPRESSION: Mild widening of right AC joint. No visible acute fracture, dislocation or subluxation seen. Venous Duplex 03/10/22 15:23 IMPRESSION: No DVT demonstrated in the bilateral lower extremity. Peroneal vein is not visualized bilaterally and there is limited visualization of the distal superficial femoral veins bilaterally as well. Medications Medications Current Medications Acetaminophen (Acetaminophen 325 Mg Tablet) 650 mg PO Q6H PRN PRN Reason: Headache/Pain Mild Scale (1-3) Last Admin: 03/07/22 18:24 Dose: 650 mg Al Hydroxide/Mg Hydroxide (Magnesium Hydrox/Alum Hydrox 30 Ml Oral.Susp) 30 ml PO Q6H PRN PRN Reason: Heartburn/Nausea Apixaban (Apixaban 5 Mg Tablet) 5 mg PO BID [facility] Last Admin: 03/11/22 20:38 Dose: 5 mg Benzocaine (Throat Lozenge, Medicated Lozenge) 1 lozenge MUCOUS MEM Q2H PRN PRN Reason: Cough Last Admin: 02/16/22 19:21 Dose: 1 lozenge Cephalexin HCl (Cephalexin 500 Mg Capsule) 500 mg PO QID [facility] Last Admin: 03/11/22 20:38 Dose: 500 mg Folic Acid (Folic Acid 1 Mg Tablet) 1 mg PO BEDTIME [facility] Last Admin: 03/11/22 20:38 Dose: 1 mg Gabapentin (Gabapentin 600 Mg Tablet) 600 mg PO BID [facility] Last Admin: 03/11/22 20:38 Dose: 600 mg Levetiracetam (Levetiracetam 500 Mg Tablet) 500 mg PO BID [facility] Last Admin: 03/11/22 20:37 Dose: 500 mg Loratadine (Loratadine 10 Mg Tablet) 10 mg PO DAILY [facility] Last Admin: 03/11/22 09:29 Dose: 10 mg Magnesium Hydroxide (Milk Of Magnesia 30 Ml Oral.Susp) 30 ml PO DAILY PRN PRN Reason: Constipation Memantine (Memantine Hcl 10 Mg Tablet) 10 mg PO BID [facility] Last Admin: 03/11/22 20:38 Dose: 10 mg Metoprolol Succinate (Metoprolol Succinate Er 25 Mg Tab.Er.24h) 25 mg PO DAILY [facility]; Protocol Last Admin: 03/11/22 09:32 Dose: 25 mg Multivitamins/Vitamin C (Multivitamin Tablet) 1 tab PO DAILY [facility] Last Admin: 03/11/22 09:31 Dose: 1 tab Pravastatin Sodium (Pravastatin Sodium 40 Mg Tablet) 40 mg PO BEDTIME [facility] Last Admin: 03/11/22 20:38 Dose: 40 mg Risperidone (Risperidone 0.5 Mg Tablet) 0.5 mg PO DAILY [facility] Last Admin: 03/11/22 09:31 Dose: 0.5 mg Risperidone (Risperidone 1 Mg Tablet) 1 mg PO DAILY@1700 [facility] Last Admin: 03/11/22 18:44 Dose: 1 mg Tamsulosin HCl (Tamsulosin Hcl 0.4 Mg Capsule) 0.4 mg PO DAILY [facility] Last Admin: 03/11/22 09:29 Dose: 0.4 mg Thiamine HCl (Thiamine Hcl 100 Mg Tablet) 100 mg PO BID [facility] Last Admin: 03/11/22 20:38 Dose: 100 mg Tramadol HCl (Tramadol Hcl 50 Mg Tablet) 25 mg PO TID PRN PRN Reason: Breakthrough Pain Last Admin: 03/09/22 17:58 Dose: 25 mg Tramadol HCl (Tramadol Hcl 50 Mg Tablet) 50 mg PO TID [facility] Last Admin: 03/11/22 20:38 Dose: 50 mg Allergies Allergies Allergy/AdvReac Type Severity Reaction Status Date / Time Penicillins Allergy Unknown Unknown Verified 02/03/22 19:47 Assessment & Plan Assessment & Plan (1) Psychosis: Status: Acute Code(s): F29 - Unspecified psychosis not due to a substance or known physiological condition Assessment and Plan: 02/08/2022: Complained of right shoulder pain (there pre admission) and agreed to x ray. No changes to primary team treatment plan. Disposition planning Is challenging and in progress. (2) Dementia: Status: Acute Code(s): F03.90 - Unspecified dementia without behavioral disturbance Plan ?the patient is an elderly male with a history of dementia who was brought into the facility for exacerbation of aggressive behavior.? The patient denies having prior psychiatric illness but he is confused and restless unable t o provide a full comprehensive history.? Plan 1. Gather collateral information.? 2. keep Risperdal up to 1 mg p.o. q.h.s. 3. Discontinue Zoloft. 4. COVID-19 protocol already discontinue patient is clear. 5. Increase tramadol up to 50 p.o. t.i.d. 6. Sling on left shoulder. 7. Regular blood work Within normal limits. 8. Start Keflex 250 p.o. q.12 for cellulitis I spent ___20___ minutes with the patient and/or on the patient floor today, greater than?50% of which was spent counseling/coordinating care. Reason for contiued inpatient stay Substantial Risk for: inability to function, rapid decompensation and med/psych decompensation
[2022-03-12] MEDS: risperiDONE 1 MG TABLET PO (17:10)
[2022-03-12 18:00] VITALS: BP 132/69; PULSE 98; TEMP 36.6; O2SAT 91
[2022-03-12] MEDS: Folic Acid 1 MG TABLET PO (21:03)
[2022-03-12] MEDS: Pravastatin Sodium 40 MG TABLET PO (21:04)
[2022-03-13 07:05] VITALS: BP 135/78; PULSE 89; RESP 18; TEMP 36.4; O2SAT 90
[2022-03-13] MEDS: Loratadine 10 MG TABLET PO (08:12)
[2022-03-13] MEDS: traMADoL HCL 50 MG TABLET PO ×3 (08:12→19:52)
[2022-03-13] MEDS: cephALEXin 500 MG CAPSULE PO ×3 (08:12→19:53)
[2022-03-13] MEDS: levETIRAcetam 500 MG TABLET PO ×2 (08:12→19:54)
[2022-03-13] MEDS: Multivitamin TABLET 1 TAB PO (08:12)
[2022-03-13] MEDS: Apixaban 5 MG TABLET PO ×2 (08:12→19:54)
[2022-03-13] MEDS: Memantine HCl 10 MG TABLET PO ×2 (08:13→19:54)
[2022-03-13] MEDS: Thiamine HCL 100 MG TABLET PO ×2 (08:13→19:54)
[2022-03-13] MEDS: Gabapentin 600 MG TABLET PO ×2 (08:13→19:52)
[2022-03-13] MEDS: risperiDONE 0.5 MG TABLET PO (08:13)
[2022-03-13] MEDS: Tamsulosin HCL 0.4 MG CAPSULE PO (08:13)
[2022-03-13] MEDS: Metoprolol Succinate ER 25 MG TAB.ER.24H PO (08:13)
--- NOTE | 2022-03-13 12:03 | HO.PSYCHPN ---
Subjective Subjective Date of Service: 03/13/22 Reason For Visit: acute psychosis Interim History: The nursing staff reported the patient was a little and ring the evening. He has been grumpy with staff mostly in the evening. He is on antibiotics for cellulitis, no side effects. The social media director reported that he has called [facility] and commented now with no response. On interview the patient denies new symptoms he is bored and he wants to be discharged as soon as possible. He is aware that he is technically homeless. Mental Status Exam Mental Status Exam Patient Appearance: Appropriate Patient Orientation: Person and Situation Level of Consciousness: Awake Patient Behavior: Cooperative Mood Description: Withdrawn Affect Description: Constricted Patient Cognition Impaired: Yes Ability to Follow Directions: Good Speech Pattern: Clear Hallucinations: None Delusions: Not Present Thought Process: Linear Thought Content: positive for [place] Judgement: Fair Diagnostics Vital Signs (24Hr): Vital Signs - 24 hr 03/12/22 12:08 03/12/22 18:00 03/13/22 07:05 Temperature 97.0 F 97.9 F 97.5 F Pulse Rate 94 98 89 Respiratory Rate 16 18 Blood Pressure 112/56 L 132/69 135/78 Pulse Oximetry 92 91 L 90 L Oxygen Delivery Method Room Air Room Air Room Air BMI result Body Mass Index 25.6 Labs Results: 03/11/22 07:53 03/11/22 07:53 Imaging Radiology Impressions: ITS Impressions Shoulder X-Ray 02/09/22 08:43 IMPRESSION: Mild widening of right AC joint. No visible acute fracture, dislocation or subluxation seen. Venous Duplex 03/10/22 15:23 IMPRESSION: No DVT demonstrated in the bilateral lower extremity. Peroneal vein is not visualized bilaterally and there is limited visualization of the distal superficial femoral veins bilaterally as well. Medications Medications Current Medications Acetaminophen (Acetaminophen 325 Mg Tablet) 650 mg PO Q6H PRN PRN Reason: Headache/Pain Mild Scale (1-3) Last Admin: 03/07/22 18:24 Dose: 650 mg Al Hydroxide/Mg Hydroxide (Magnesium Hydrox/Alum Hydrox 30 Ml Oral.Susp) 30 ml PO Q6H PRN PRN Reason: Heartburn/Nausea Apixaban (Apixaban 5 Mg Tablet) 5 mg PO BID [facility] Last Admin: 03/13/22 08:12 Dose: 5 mg Benzocaine (Throat Lozenge, Medicated Lozenge) 1 lozenge MUCOUS MEM Q2H PRN PRN Reason: Cough Last Admin: 02/16/22 19:21 Dose: 1 lozenge Cephalexin HCl (Cephalexin 500 Mg Capsule) 500 mg PO QID [facility] Last Admin: 03/13/22 08:12 Dose: 500 mg Folic Acid (Folic Acid 1 Mg Tablet) 1 mg PO BEDTIME [facility] Last Admin: 03/12/22 21:03 Dose: 1 mg Gabapentin (Gabapentin 600 Mg Tablet) 600 mg PO BID [facility] Last Admin: 03/13/22 08:13 Dose: 600 mg Levetiracetam (Levetiracetam 500 Mg Tablet) 500 mg PO BID [facility] Last Admin: 03/13/22 08:12 Dose: 500 mg Loratadine (Loratadine 10 Mg Tablet) 10 mg PO DAILY [facility] Last Admin: 03/13/22 08:12 Dose: 10 mg Magnesium Hydroxide (Milk Of Magnesia 30 Ml Oral.Susp) 30 ml PO DAILY PRN PRN Reason: Constipation Memantine (Memantine Hcl 10 Mg Tablet) 10 mg PO BID [facility] Last Admin: 03/13/22 08:13 Dose: 10 mg Metoprolol Succinate (Metoprolol Succinate Er 25 Mg Tab.Er.24h) 25 mg PO DAILY [facility]; Protocol Last Admin: 03/13/22 08:13 Dose: 25 mg Multivitamins/Vitamin C (Multivitamin Tablet) 1 tab PO DAILY [facility] Last Admin: 03/13/22 08:12 Dose: 1 tab Pravastatin Sodium (Pravastatin Sodium 40 Mg Tablet) 40 mg PO BEDTIME [facility] Last Admin: 03/12/22 21:04 Dose: 40 mg Risperidone (Risperidone 0.5 Mg Tablet) 0.5 mg PO DAILY [facility] Last Admin: 03/13/22 08:13 Dose: 0.5 mg Risperidone (Risperidone 1 Mg Tablet) 1 mg PO DAILY@1700 [facility] Last Admin: 03/12/22 17:10 Dose: 1 mg Tamsulosin HCl (Tamsulosin Hcl 0.4 Mg Capsule) 0.4 mg PO DAILY [facility] Last Admin: 03/13/22 08:13 Dose: 0.4 mg Thiamine HCl (Thiamine Hcl 100 Mg Tablet) 100 mg PO BID [facility] Last Admin: 03/13/22 08:13 Dose: 100 mg Tramadol HCl (Tramadol Hcl 50 Mg Tablet) 25 mg PO TID PRN PRN Reason: Breakthrough Pain Last Admin: 03/09/22 17:58 Dose: 25 mg Tramadol HCl (Tramadol Hcl 50 Mg Tablet) 50 mg PO TID [facility] Last Admin: 03/13/22 08:12 Dose: 50 mg Allergies Allergies Allergy/AdvReac Type Severity Reaction Status Date / Time Penicillins Allergy Unknown Unknown Verified 02/03/22 19:47 Assessment & Plan Assessment & Plan (1) Psychosis: Status: Acute Code(s): F29 - Unspecified psychosis not due to a substance or known physiological condition Assessment and Plan: 02/08/2022: Complained of right shoulder pain (there pre admission) and agreed to x ray. No changes to primary team treatment plan. Disposition planning Is challenging and in progress. (2) Dementia: Status: Acute Code(s): F03.90 - Unspecified dementia without behavioral disturbance Plan ?the patient is an elderly male with a history of dementia who was brought into the facility for exacerbation of aggressive behavior.? The patient denies having prior psychiatric illness but he is confused and restless unable to provide a full comprehensive history.? Plan 1. Continue same treatment, continue Keflex for cellulitis. 2. Waiting for placement I spent __20____ minutes with the patient and/or on the patient floor today, greater than?50% of which was spent counseling/coordinating care. Reason for contiued inpatient stay Substantial Risk for: inability to function, rapid decompensation and med/psych decompensation
[2022-03-13] MEDS: risperiDONE 1 MG TABLET PO (15:14)
[2022-03-13 18:00] VITALS: BP 112/52; PULSE 76; RESP 18; TEMP 36.4; O2SAT 90
[2022-03-13] MEDS: Folic Acid 1 MG TABLET PO (19:53)
[2022-03-13] MEDS: Pravastatin Sodium 40 MG TABLET PO (19:53)
[2022-03-14 07:45] VITALS: BP 97/60; PULSE 97; RESP 14; TEMP 36.1; O2SAT 91
[2022-03-14] MEDS: Thiamine HCL 100 MG TABLET PO ×2 (09:05→19:59)
[2022-03-14] MEDS: Tamsulosin HCL 0.4 MG CAPSULE PO (09:05)
[2022-03-14] MEDS: risperiDONE 0.5 MG TABLET PO (09:05)
[2022-03-14] MEDS: traMADoL HCL 50 MG TABLET PO ×3 (09:05→19:55)
[2022-03-14] MEDS: levETIRAcetam 500 MG TABLET PO ×2 (09:06→19:58)
[2022-03-14] MEDS: Apixaban 5 MG TABLET PO ×2 (09:07→19:58)
[2022-03-14] MEDS: Memantine HCl 10 MG TABLET PO ×2 (09:07→19:57)
[2022-03-14] MEDS: Multivitamin TABLET 1 TAB PO (09:08)
[2022-03-14] MEDS: Metoprolol Succinate ER 25 MG TAB.ER.24H PO (09:08)
[2022-03-14] MEDS: Gabapentin 600 MG TABLET PO ×2 (09:08→19:59)
[2022-03-14] MEDS: Loratadine 10 MG TABLET PO (09:08)
[2022-03-14] MEDS: cephALEXin 500 MG CAPSULE PO ×4 (09:10→19:58)
--- NOTE | 2022-03-14 11:50 | HO.PSYCHPN ---
Subjective Subjective Date of Service: 03/14/22 Reason For Visit: acute psychosis Subjective Notes: Conditional Voluntary Medical Problems Affecting Mental Status: Yes (dementia process history of seizure disorder ) Interim History: Patient being treated for cellulitis social able to go out on the patio mildly dysphoric and irritable wants to return to his prior living situation difficulty accepting current situation afebrile vital signs unremarkable Mental Status Exam Mental Status Exam Patient Appearance: Appropriate Patient Orientation: Person and Situation Level of Consciousness: Awake Patient Behavior: Cooperative Mood Description: Withdrawn and Apprehensive Affect Description: Constricted and Blunted Patient Cognition Impaired: Yes Ability to Follow Directions: Good Speech Pattern: Clear Hallucinations: None Delusions: Not Present Thought Process: Linear Thought Content: positive for [facility] Judgement: Fair Diagnostics Vital Signs (24Hr): Vital Signs - 24 hr 03/13/22 18:00 03/14/22 07:45 Temperature 97.6 F 97 F Pulse Rate 76 97 Respiratory Rate 18 14 Blood Pressure 112/52 L 97/60 Pulse Oximetry 90 L 91 L Oxygen Delivery Method Room Air Room Air BMI result Body Mass Index 25.6 Labs Results: 03/15/22 15:50 03/15/22 15:50 Imaging Radiology Impressions: ITS Impressions Shoulder X-Ray 02/09/22 08:43 IMPRESSION: Mild widening of right AC joint. No visible acute fracture, dislocation or subluxation seen. Venous Duplex 03/10/22 15:23 IMPRESSION: No DVT demonstrated in the bilateral lower extremity. Peroneal vein is not visualized bilaterally and there is limited visualization of the distal superficial femoral veins bilaterally as well. Medications Medications Current Medications Acetaminophen (Acetaminophen 325 Mg Tablet) 650 mg PO Q6H PRN PRN Reason: Headache/Pain Mild Scale (1-3) Last Admin: 03/07/22 18:24 Dose: 650 mg Al Hydroxide/Mg Hydroxide (Magnesium Hydrox/Alum Hydrox 30 Ml Oral.Susp) 30 ml PO Q6H PRN PRN Reason: Heartburn/Nausea Apixaban (Apixaban 5 Mg Tablet) 5 mg PO BID [facility] Last Admin: 03/14/22 09:07 Dose: 5 mg Benzocaine (Throat Lozenge, Medicated Lozenge) 1 lozenge MUCOUS MEM Q2H PRN PRN Reason: Cough Last Admin: 02/16/22 19:21 Dose: 1 lozenge Cephalexin HCl (Cephalexin 500 Mg Capsule) 500 mg PO QID [facility] Folic Acid (Folic Acid 1 Mg Tablet) 1 mg PO BEDTIME [facility] Last Admin: 03/13/22 19:53 Dose: 1 mg Gabapentin (Gabapentin 600 Mg Tablet) 600 mg PO BID [facility] Last Admin: 03/14/22 09:08 Dose: 600 mg Levetiracetam (Levetiracetam 500 Mg Tablet) 500 mg PO BID [facility] Last Admin: 03/14/22 09:06 Dose: 500 mg Loratadine (Loratadine 10 Mg Tablet) 10 mg PO DAILY [facility] Last Admin: 03/14/22 09:08 Dose: 10 mg Magnesium Hydroxide (Milk Of Magnesia 30 Ml Oral.Susp) 30 ml PO DAILY PRN PRN Reason: Constipation Memantine (Memantine Hcl 10 Mg Tablet) 10 mg PO BID [facility] Last Admin: 03/14/22 09:07 Dose: 10 mg Metoprolol Succinate (Metoprolol Succinate Er 25 Mg Tab.Er.24h) 25 mg PO DAILY [facility]; Protocol Last Admin: 03/14/22 09:08 Dose: 25 mg Multivitamins/Vitamin C (Multivitamin Tablet) 1 tab PO DAILY [facility] Last Admin: 03/14/22 09:08 Dose: 1 tab Pravastatin Sodium (Pravastatin Sodium 40 Mg Tablet) 40 mg PO BEDTIME [facility] Last Admin: 03/13/22 19:53 Dose: 40 mg Risperidone (Risperidone 0.5 Mg Tablet) 0.5 mg PO DAILY [facility] Last Admin: 03/14/22 09:05 Dose: 0.5 mg Risperidone (Risperidone 1 Mg Tablet) 1 mg PO DAILY@1700 [facility] Last Admin: 03/13/22 15:14 Dose: 1 mg Tamsulosin HCl (Tamsulosin Hcl 0.4 Mg Capsule) 0.4 mg PO DAILY [facility] Last Admin: 03/14/22 09:05 Dose: 0.4 mg Thiamine HCl (Thiamine Hcl 100 Mg Tablet) 100 mg PO BID [facility] Last Admin: 03/14/22 09:05 Dose: 100 mg Tramadol HCl (Tramadol Hcl 50 Mg Tablet) 50 mg PO TID [facility] Last Admin: 03/14/22 09:05 Dose: 50 mg Allergies Allergies Allergy/AdvReac Type Severity Reaction Status Date / Time Penicillins Allergy Unknown Unknown Verified 02/03/22 19:47 Assessment & Plan Assessment & Plan (1) Psychosis: Status: Acute Code(s): F29 - Unspecified psychosis not due to a substance or known physiological condition Assessment and Plan: 02/08/2022: Complained of right shoulder pain (there pre admission) and agreed to x ray. No changes to primary team treatment plan. Disposition planning Is challenging and in progress. (2) Dementia: Status: Acute Code(s): F03.90 - Unspecified dementia without behavioral disturbance Plan ?the patient is an elderly male with a history of dementia who was brought into the facility for exacerbation of aggressive behavior.? The patient denies having prior psychiatric illness but he is confused and restless unable to provide a full comprehensive history.? Plan 1. Continue same treatment, continue Keflex for cellulitis. 2. Waiting for placement Assessment and plan for Patient seen unremarkable social withdrawn somewhat irritable responds with encouragement. Patient being referred to snf placement History of seizure disorder smoking cellulitis reported history COPD Continue antibiotic for cellulitis Risperdal or behavioral problems with dementia process [place] Patient for snf referral I spent minutes with the patient and/or on the patient floor today, greater than?50% of which was spent counseling/coordinating care. Reason for contiued inpatient stay Substantial Risk for: inability to function, rapid decompensation and med/psych decompensation
[2022-03-14] MEDS: risperiDONE 1 MG TABLET PO (17:46)
[2022-03-14 18:00] VITALS: BP 132/71; PULSE 80; RESP 16; TEMP 36.4; O2SAT 92
[2022-03-14] MEDS: Acetaminophen 325 MG TABLET 650 MG PO (19:54)
[2022-03-14] MEDS: Pravastatin Sodium 40 MG TABLET PO (19:57)
[2022-03-14] MEDS: Folic Acid 1 MG TABLET PO (22:31)
[2022-03-15] MEDS: traMADoL HCL 50 MG TABLET PO (05:28)
[2022-03-15 06:00] VITALS: BP 119/60; PULSE 90; RESP 16; TEMP 37; O2SAT 88
--- NOTE | 2022-03-15 06:24 | PC.NURSE ---
Dr Root contacted notified 1. concerns for increasing pitting edema of pts lower legs 2. lower legs have shiny/taught appearance 3. legs tender to touch 4. right leg is worst 5. c/o of right calf pain with palpation 6. pt is on elquis 7. vital signs 98.6 90 bpm rr 16 sao2 88% b/p 119/60. pts baseline sao2 90-92% hx of COPD-
[2022-03-15 10:30] VITALS: BP 130/71; PULSE 110; RESP 16; TEMP 36.1; O2SAT 79
[2022-03-15] MEDS: Multivitamin TABLET 1 TAB PO (10:31)
[2022-03-15] MEDS: Apixaban 5 MG TABLET PO (10:31)
[2022-03-15] MEDS: Metoprolol Succinate ER 25 MG TAB.ER.24H PO (10:31)
[2022-03-15] MEDS: Loratadine 10 MG TABLET PO (10:35)
[2022-03-15] MEDS: Tamsulosin HCL 0.4 MG CAPSULE PO (10:35)
[2022-03-15] MEDS: cephALEXin 500 MG CAPSULE PO ×3 (10:35→16:57)
[2022-03-15] MEDS: Memantine HCl 10 MG TABLET PO (10:35)
[2022-03-15] MEDS: Gabapentin 600 MG TABLET PO (10:35)
[2022-03-15] MEDS: levETIRAcetam 500 MG TABLET PO (10:35)
[2022-03-15] MEDS: Thiamine HCL 100 MG TABLET PO (10:35)
[2022-03-15] MEDS: risperiDONE 0.5 MG TABLET PO (10:35)
[2022-03-15 11:30] LABS: VBG Base Excess -3.7 mmol/L; VBG HCO3 20 mmol/L (22-26); VBG pCO2 33 mmHg; VBG pH 7.39 (7.32-7.43); VBG pO2 33 mmHg
[2022-03-15 11:30] LABS: Venous Blood Gas Refer to POC result
[2022-03-15 11:46] LABS: B Type Natriuretic Peptide 120 pg/mL (<100)
--- NOTE | 2022-03-15 13:26 | P.CONHOSP_ITS ---
History of Present Illness Data of Consult Service Date: 03/15/22 Primary Care Provider: Unknown Physician Review of Systems Review of Systems: Denies any recent fever chills or decrease in appetite respiratory denies any shortness of breath coverage production cardiovascular is adjustment of any PND or edema gastrointestinal denies any dysphagia abdominal pain nausea vomiting or diarrhea genitourinary denies any dysuria frequency or hematuria musculoskeletal denies any joint pain or swelling neuropsych denies any weakness or seizures all other systems reviewed are negative [facility] Medical History (Updated 02/10/22 @ 16:32 by Hira Braun MD) Atrial fibrillation BPH (benign prostatic hyperplasia) Chronic shoulder pain COPD (chronic obstructive pulmonary disease) CVA (cerebral vascular accident) HLD (hyperlipidemia) HTN (hypertension) Hyponatremia Pacemaker Pulmonary embolism Seizure disorder Surgical History History of appendectomy Social History (Updated 02/06/22 @ 14:52 by MECHELLE Hadley) Household Members: Family Household Members Other:: Lives with nephew Housing: Apartment Do you presently have visiting nurse or other home services: Yes (Reports a nurse comes in to take care of his feet.) Alcohol intake: current Patient Tobacco Use Status: Current everyday Tobacco user Tobacco use type: Cigarette Cigarette Packs Per Day: 2.5 Cigarettes Per Day: 50.0 Years Smoked: 63 Smoked in Last 30 Days: Yes e-Cigarette/Vaping Use: Never Used Patient Interested in Nicotine Replacement: No Patient Given Instructions on How to Stop Smoking: Yes Date Education Initiated: 02/03/22 Second Hand Smoke Exposure: No Use of substances other than those prescribed or required for medical reasons: No Currently Displaying Signs/Symptoms of Drug Intoxication Withdrawal: No Any prior treatment program specific to substance use: No Have you been hit, kicked, punched, or otherwise hurt by someone within the past year? If so, by whom?: No Do you feel safe in your current relationship?: No Current Relationship Is there a partner from a previous relationship who is making you feel unsafe no w?: No Are you made to feel afraid or neglected: No Spiritual Healthcare Practices: n/a Jehovah'S Witness Healthcare Practices: n/a Cultural Healthcare Practices: n/a Advance Directives: No Advance Directives Information Provided: No Advance Directives on File: No Do you have thoughts of harming others: None Do you have a plan to hurt others: No Plan Recently lost weight without trying: No How much weight loss: Not applicable Eating poorly because of decreased appetite: No Nutrition screen score: 0 Poor oral hygiene: No service: No Sexual orientation: Straight/Heterosexual Meds Allergies Allergy/AdvReac Type Severity Reaction Status Date / Time Penicillins Allergy Unknown Unknown Verified 02/03/22 19:47 Active Medications: Current Medications Acetaminophen (Acetaminophen 325 Mg Tablet) 650 mg PO Q6H PRN PRN Reason: Headache/Pain Mild Scale (1-3) Last Admin: 03/14/22 19:54 Dose: 650 mg Al Hydroxide/Mg Hydroxide (Magnesium Hydrox/Alum Hydrox 30 Ml Oral.Susp) 30 ml PO Q6H PRN PRN Reason: Heartburn/Nausea Apixaban (Apixaban 5 Mg Tablet) 5 mg PO BID [facility] Last Admin: 03/15/22 10:31 Dose: 5 mg Benzocaine (Throat Lozenge, Medicated Lozenge) 1 lozenge MUCOUS MEM Q2H PRN PRN Reason: Cough Last Admin: 02/16/22 19:21 Dose: 1 lozenge Cephalexin HCl (Cephalexin 500 Mg Capsule) 500 mg PO QID [facility] Last Admin: 03/15/22 10:35 Dose: 500 mg Folic Acid (Folic Acid 1 Mg Tablet) 1 mg PO BEDTIME [facility] Last Admin: 03/14/22 22:31 Dose: 1 mg Gabapentin (Gabapentin 600 Mg Tablet) 600 mg PO BID [facility] Last Admin: 03/15/22 10:35 Dose: 600 mg Levetiracetam (Levetiracetam 500 Mg Tablet) 500 mg PO BID [facility] Last Admin: 03/15/22 10:35 Dose: 500 mg Loratadine (Loratadine 10 Mg Tablet) 10 mg PO DAILY [facility] Last Admin: 03/15/22 10:35 Dose: 10 mg Magnesium Hydroxide (Milk Of Magnesia 30 Ml Oral.Susp) 30 ml PO DAILY PRN PRN Reason: Constipation Memantine (Memantine Hcl 10 Mg Tablet) 10 mg PO BID [facility] Last Admin: 03/15/22 10:35 Dose: 10 mg Metoprolol Succinate (Metoprolol Succinate Er 25 Mg Tab.Er.24h) 25 mg PO DAILY [facility]; Protocol Last Admin: 03/15/22 10:31 Dose: 25 mg Multivitamins/Vitamin C (Multivitamin Tablet) 1 tab PO DAILY [facility] Last Admin: 03/15/22 10:31 Dose: 1 tab Pravastatin Sodium (Pravastatin Sodium 40 Mg Tablet) 40 mg PO BEDTIME [facility] Last Admin: 03/14/22 19:57 Dose: 40 mg Risperidone (Risperidone 0.5 Mg Tablet) 0.5 mg PO DAILY [facility] Last Admin: 03/15/22 10:35 Dose: 0.5 mg Risperidone (Risperidone 1 Mg Tablet) 1 mg PO DAILY@1700 [facility] Last Admin: 03/14/22 17:46 Dose: 1 mg Tamsulosin HCl (Tamsulosin Hcl 0.4 Mg Capsule) 0.4 mg PO DAILY [facility] Last Admin: 03/15/22 10:35 Dose: 0.4 mg Thiamine HCl (Thiamine Hcl 100 Mg Tablet) 100 mg PO BID [facility] Last Admin: 03/15/22 10:35 Dose: 100 mg Tramadol HCl (Tramadol Hcl 50 Mg Tablet) 50 mg PO TID PRN PRN Reason: Pain, Moderate (Pain Scale 4-6 Last Admin: 03/15/22 05:28 Dose: 50 mg Home Medications Medication Instructions Recorded Confirmed Last Taken Type apixaban 5 mg tablet (Eliquis) 5 mg PO BID 02/03/22 02/03/22 Unknown History folic acid 1 mg tablet 1 mg PO BEDTIME 02/03/22 02/03/22 Unknown History gabapentin 300 mg tablet 600 mg PO BID 02/03/22 02/03/22 Unknown History levetiracetam 500 mg tablet 500 mg PO BID 02/03/22 02/03/22 Unknown History lovastatin 40 mg tablet 40 mg PO QPM 02/03/22 02/03/22 Unknown History memantine 10 mg tablet 10 mg PO BID 02/03/22 02/03/22 Unknown History metoprolol succinate 25 mg 25 mg PO DAILY 02/03/22 02/03/22 Unknown History tablet,extended release 24 hr (Toprol XL) multivitamin 1 tab PO DAILY 02/03/22 02/03/22 Unknown History sertraline 25 mg tablet 75 mg PO DAILY 02/03/22 02/03/22 Unknown History tamsulosin 0.4 mg capsule 0.04 mg PO DAILY 02/03/22 02/03/22 Unknown History thiamine HCl (vitamin B1) 100 mg 100 mg PO BID 02/03/22 02/03/22 Unknown History tablet (Vitamin B-1) umeclidinium 62.5 mcg-vilanterol 1 inh inhalation DAILY 02/03/22 02/03/22 Unknown History 25 mcg/actuation powdr for inhalation (Anoro Ellipta) Physical Exam Vital Signs and Narrative: Vital Signs: Last Vital Signs Temp 97 F 03/15/22 10:30 Pulse 110 H 03/15/22 10:30 Resp 16 03/15/22 10:30 BP 130/71 03/15/22 10:30 Pulse Ox 79 L 03/15/22 10:30 O2 Del Method 03/15/22 10:30 BMI result Body Mass Index 25.6 Appearing in no acute distress head is normocephalic atraumatic eyes pupils are PERRLA sclera is anicteric mouth throat mucous membranes are intact and moist neck is supple no lymphadenopathy, no JVD noted lung sounds are clear to auscultation heart regular rate rhythm, clear S1, S2 positive bowel sounds, abdomen is soft, nontender neuro patient is alert x3, no focal deficits Results Labs CBC and Chem 7: 03/11/22 07:53 03/11/22 07:53 Labs: Laboratory Results - last 24 hr 03/15/22 03/15/22 11:19 11:26 VBG pH 7.39 VBG pCO2 33 VBG pO2 33 VBG HCO3 20 L VBG O2 Saturation 46.0 VBG Base Excess -3.7 B-Natriuretic Peptide 120 H Assessment and Plan Plan 77-year-old man admitted to [facility] with noted hypoxia with history of COPD Acute hypoxic respiratory failureSecondary to COPD exacerbation Placed on 3 L nasal cannula Normal VBG Chest x-ray BMP 120, does not appear to be in failure Prednisone 40 mg daily Schedule DuoNebs History of seizure disorder Continue Keppra BPH Continue tamsulosin Atrial fibrillation Continue Eliquis and metoprolol
[2022-03-15 15:48] LABS: COVID-19 Test Negative (Negative); IDNOW Serial# 9DB6401D
--- NOTE | 2022-03-15 15:56 | PC.NURSE ---
This RN took patients VS at 1033 when he woke up from his nights sleep (night staff reported he didn't sleep well). His O2 sat was hovering around 78% at rest. This RN contacted Dr. Root who requested that Yudy Heaton, CHEMICAL ANALYST-hospitalist assess him. Dr. Root ordered a chest [id number]-[id number] pending as the computer system is having an issue. Hospitalist ordered COVID test which is negative. She also ordered ABG-phlebotomy john and results pending. Venous Blood HC03 collected at 1126-results, 20. Pt. bottom lip appears cyanotic, despite 3L of O2 and a O2 sat reading of 93% at this time. O2 placed on pt. around 1045, 3L. Pt. is extremely lethargic which is atypical for him. Even though pt. did not sleep well last night, he is very hard to arouse which is also atypical for him. Pt. has been compliant with his medications so far today. He ate breakfast, not lunch. Pt. currently sitting in w/c with 1:1 staff d/t oxygen tank and nasal cannula. BL LE continue to be red-R leg is also taught and shiny. 2+ pitting edema. Pt. continues his course of abx-Keflex, 500mg 4x/day. He states that the leg pain has improved. Staff will continue to monitor pt. for any signs and symptoms of respiratory concerns and any other concerns as well.
[2022-03-15 16:00] LABS: Hematocrit 38.1 % (42.0-52.0); Hemoglobin 12.7 g/dl (14.0-18.0); Mean Corpuscular HGB Conc 33.3 g/dl (31.0-36.0); Mean Corpuscular Hemoglobin 33.2 pg (27.0-33.0); Mean Corpuscular Volume 99.5 fL (80.0-98.0); Mean Platelet Volume 9.2 fL (9.4-12.4); Platelet Count 219 X10*3/uL (160-400); Red Blood Count 3.83 X10*6/uL (4.60-5.80); Red Cell Distribution Width 13.1 % (11.0-16.0); White Blood Count 8.3 X10*3/uL (4.8-10.8)
[2022-03-15 16:10] LABS: Ammonia 17 umol/L (13-55)
[2022-03-15 16:17] LABS: D Dimer High Sensitivity 290 NG/ML
[2022-03-15 16:39] LABS: Anion Gap 15 (12-20); Blood Urea Nitrogen 33 mg/dL (9-16); Calcium 8.7 mg/dL (8.4-10.2); Carbon Dioxide 22 mmol/L (22-29); Chloride 101 mmol/L (96-108); Creatinine Clr Calc Pharmacy 44.2; Estimated Glomerular Filt Rate 45; Glucose Random 103 mg/dL (60-115); Sodium 133 mmol/L (135-145)
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
[2022-03-15] MEDS: risperiDONE 1 MG TABLET PO (16:57)
[2022-03-15 16:59] VITALS: O2SAT 85
[2022-03-15 17:01] LABS: ABG Base Excess -3.7 mmol/L; ABG HCO3 20 mmol/L (22-26); ABG pCO2 33 mmHg (32-45); ABG pH 7.39 (7.35-7.45); ABG pO2 58 mmHg (83-108)
[2022-03-15 22:56] LABS: ABG Refer to POC result
== END 2022-03-15 17:18 | disposition short-term general hospital (02) | DRG 885 ==
PROVIDERS: Nurse Practitioner Acute Care; Admitting Provider Psychiatry & Neurology Psychiatry; Visit Provider Psychiatry & Neurology Psychiatry
DX: F29 Unspecified psychosis not due to a substance or known physiological condition (principal); U07.1 COVID-19; L03.116 Cellulitis of left lower limb; L03.115 Cellulitis of right lower limb; N40.0 Benign prostatic hyperplasia without lower urinary tract symptoms; J44.9 Chronic obstructive pulmonary disease, unspecified; F17.210 Nicotine dependence, cigarettes, uncomplicated; Z71.6 Tobacco abuse counseling; I12.9 Hypertensive chronic kidney disease with stage 1 through stage 4 chronic kidney disease, or unspecified chronic kidney disease; S43.101A Unspecified dislocation of right acromioclavicular joint, initial encounter; X58.XXXA Exposure to other specified factors, initial encounter; D63.1 Anemia in chronic kidney disease; N25.0 Renal osteodystrophy; E78.5 Hyperlipidemia, unspecified; I48.0 Paroxysmal atrial fibrillation; N18.30 Chronic kidney disease, stage 3 unspecified; F03.90 Unspecified dementia, unspecified severity, without behavioral disturbance, psychotic disturbance, mood disturbance, and anxiety; G40.909 Epilepsy, unspecified, not intractable, without status epilepticus; Z79.01 Long term (current) use of anticoagulants; Z79.899 Other long term (current) drug therapy
CPT/HCPCS: 36415; 36600; 71045; 73030; 80048; 80061; 80076; 82140; 82803; 83036; 83880; 84443; 85025; 85027; 85379; 87040; 87635; 93970; 97162

== ENCOUNTER 2022-03-15 17:19 | Inpatient (IN) | payer MEDICARE, MEDICAID, SELFPAY ==
--- NOTE | ~2022-03-15 | CT_ITS ---
EXAMINATION: CT CHEST WITHOUT CONTRAST. CT BRAIN WITHOUT CONTRAST. CLINICAL INFORMATION: Hypoxia. COMPARISON: None TECHNIQUE: 5 mm thin axial and reformatted 3 mm thin sagittal and coronal images of chest were obtained without contrast. DLP 420. Subsequently 5 mm thin axial and reformatted 2 mm thin sagittal and coronal images of brain were obtained without contrast. DLP [id number] FINDINGS: Chest: There is diffuse emphysematous changes of both lungs with cystic changes in both upper lobes. There is mild bilateral apical parenchymal scarring. There is a right lower lobe consolidation/atelectasis and left basilar and lingular atelectasis/scarring. There is a small right pleural effusion. Heart size and the great vessels are normal caliber. There are pacer electrodes in right atrium and right ventricle. There are small reactionary lymph nodes largest lymph node aortic window measures 1.4 x 0.8 cm axial image 28/3. Thyroid lobes are symmetrical. The central trachea and the bronchi are widely patent. The axilla and the chest wall appears unremarkable. Brain: There is no acute intra-axial, extra-axial bleed, masses or midline shift. 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 There is no acute infarction in evolution. There is no edema. Bone windows reveal no calvarial abnormality. There is no scalp abnormality. Bilateral paranasal sinuses and mastoid air cells are well-aerated. Incidental finding C1 and C2 posterior fusion with hardware in place. CT/CT head/brain wo con IMPRESSION: Diffuse paraseptal emphysema with bilateral apical scarring. There is a right lower lobe dependent consolidation/atelectasis. There is lingular and left basilar scarring versus atelectasis. Small right pleural effusion. There is no acute intracranial process seen. There is old left occipital lobe encephalomalacia with mild ex vacuole dilatation of occipital horn lateral ventricle. There is moderate cerebral volume loss
--- NOTE | 2022-03-15 16:44 | PM.IMHP ---
History of Present Illness Date of Service: 03/15/22 Attending physician on admission: [facility] Chief Complaint: hypoxia 69-year-old man with multiple medical problems transferred from [facility] to [facility] for hypoxia. Patient had been admitted since 02/04/2022 and had been stable however today his oxygen saturation went down as low as 70%. He was placed on oxygen and sats went up to 88-90%. He was quite sleepy and did not answer a lot of questions but denied that he was in pain. ABG showed pH of 7.38/32/57/19. Blood pressure and may remain stable. Wet read of chest x-ray showed possible infiltrate, chest CT pending. D-dimer 290 and patient is on Eliquis for history of atrial fibrillation, sodium 133, creatinine 1.51 with history of CKD, ammonia 17, BNP 120, negative COVID. He will be admitted to [facility] and treated for acute hypoxic respiratory failure secondary to COPD and pneumonia. Review of Systems Review of Systems: Yes Unobtainable due to mental status [facility] Medical History (Updated 03/15/22 @ 17:25 by Yudy Heaton NP) Atrial fibrillation BPH (benign prostatic hyperplasia) Chronic shoulder pain COPD (chronic obstructive pulmonary disease) CVA (cerebral vascular accident) HLD (hyperlipidemia) HTN (hypertension) Hyponatremia Pacemaker Pulmonary embolism Seizure disorder Pertinent family history: Unable to obtain Surgical History History of appendectomy Social History (Updated 02/06/22 @ 14:52 by MECHELLE Hadley) Household Members: Family Household Members Other:: Lives with nephew Housing: Apartment Do you presently have visiting nurse or other home services: Yes (Reports a nurse comes in to take care of his feet.) Alcohol intake: current Patient Tobacco Use Status: Current everyday Tobacco user Tobacco use type: Cigarette Cigarette Packs Per Day: 2.5 Cigarettes Per Day: 50.0 Years Smoked: 63 e-Cigarette/Vaping Use: Never Used Second Hand Smoke Exposure: No Advance Directives: No Advance Directives Information Provided: No service: No Sexual orientation: Straight/Heterosexual Meds Allergies Allergy/AdvReac Type Severity Reaction Status Date / Time Penicillins Allergy Unknown Unknown Verified 02/03/22 19:47 Active Medications: Current Medications Acetaminophen (Acetaminophen 325 Mg Tablet) 650 mg PO Q6H PRN PRN Reason: Pain, Mild (Pain Scale 1-3) Ondansetron HCl (Ondansetron Hcl 4 Mg/2 Ml Vial) 4 mg IVPUSH Q8H PRN PRN Reason: Nausea and Vomiting Pharmacy Consult (Consult Rx Perform Med Rec) 1 each MISCELLANE ONCE PRN PRN Reason: Consult order Sodium Chloride (0.9 % Sodium Chloride Flush 3 Ml Syringe) 3 ml IVFLUSH [facility] Medications Medication Instructions Recorded Confirmed Last Taken Type apixaban 5 mg tablet (Eliquis) 5 mg PO BID 02/03/22 02/03/22 Unknown History folic acid 1 mg tablet 1 mg PO BEDTIME 02/03/22 02/03/22 Unknown History levetiracetam 500 mg tablet 500 mg PO BID 02/03/22 02/03/22 Unknown History memantine 10 mg tablet 10 mg PO BID 02/03/22 02/03/22 Unknown History metoprolol succinate 25 mg 25 mg PO DAILY 02/03/22 02/03/22 Unknown History tablet,extended release 24 hr (Toprol XL) multivitamin 1 tab PO DAILY 02/03/22 02/03/22 Unknown History tamsulosin 0.4 mg capsule 0.04 mg PO DAILY 02/03/22 02/03/22 Unknown History thiamine HCl (vitamin B1) 100 mg 100 mg PO BID 02/03/22 02/03/22 Unknown History tablet (Vitamin B-1) umeclidinium 62.5 mcg-vilanterol 1 inh inhalation DAILY 02/03/22 02/03/22 Unknown History 25 mcg/actuation powdr for inhalation (Anoro Ellipta) gabapentin 300 mg capsule 2 cap PO BID 03/15/22 03/15/22 Unknown History Physical Exam Vital Signs and Narrative: Appearing in no acute distress, appears sleepy and not wanting to answer many questions lung sounds clear/dim heart regular rate rhythm, clear S1, S2 positive bowel sounds, abdomen is soft, nontender neuro patient is alert, sleepy Assessment and Plan (1) Respiratory failure: Status: Acute Plan 77-year-old man transferred from an [facility] to [facility] due to hypoxia. Cording to the RN and the patient's oxygen had dipped down into the 70s at 1 point. During my assessment T was 90 degrees% on 3 L. he was quite sleepy and did not answer many questions. Acute hypoxic respiratory failure Unknown home oxygen status Chest CT pending Will start Rocephin and Doxy for presumed pneumonia D-dimer 290 and patient is on Eliquis ABG 7.39//28/20 Continue supplemental oxygen Normal ammonia COPD exacerbation, acute on chronic Schedule DuoNebs Prednisone Supplemental oxygen Atrial fibrillation, paroxysmal Not in exacerbation Continue metoprolol and Eliquis CKD 3/4 mildly elevated follow Mental health Psychiatry to follow Continue medications History of seizure disorder Seizure precautions Continue Keppra BPH Continue tamsulosin DVT prophylaxis with Ivettquis Attending Dr. Morales Full code Patient likely requires 2 midnights in the hospital for treatment of pneumonia and COPD exacerbation Quality Stroke Does the patient have a stroke diagnosis?: No VTE Prior VTE?: No VTE Risk Level:: Medical - moderate - high VTE Device Contraindication: Treatment Not Indicated VTE Drug Contraindication: N/A - Med Ordered
--- NOTE | 2022-03-15 17:24 | PHA.MEDREC ---
Pharmacy Consult ? Medication Reconciliation Pharmacy has completed the medication reconciliation. PT TRANSFERRED FROM [facility]
[2022-03-15] MEDS: predniSONE 20 MG TABLET 40 MG PO (18:41)
--- NOTE | 2022-03-15 18:50 | PM.EVENT ---
Event Note Date of Service: 03/15/22 Event Note: Consult for orthopedics placed for left shoulder pain and decreased ROM. Patient has been seen and evaluated by orthopedics during his stay in the geriatric psych unit on 02/10/22 X-rays reveal an AC joint separation. No acute fractures or dislocations are appreciated on xrays. There is no surgical intervention needed at this time. Recommendation would be Tylenol as the patient cannot take NSAIDs due to Eliquis use, physical therapy as needed for ROM to tolerance, and ice. May followup in the outpatient setting if needed after discharge. No further orthopedic intervention needed at this time.
[2022-03-15 20:00] VITALS: PULSE 74; RESP 18; TEMP 35.7; O2SAT 94
[2022-03-15] MEDS: Albuterol Sulfate (0.083%) 2.5 MG/3 ML VIAL.NEB INHALE (20:25)
[2022-03-15] MEDS: 0.9 % Sodium Chloride Flush 3 ML SYRINGE IVFLUSH (20:27)
[2022-03-15 20:29] VITALS: PULSE 74; RESP 18
[2022-03-15] MEDS: 0.9 % Sodium Chloride 1,000 ML 100 ML IVCONT (20:43)
[2022-03-15] MEDS: cefTRIAXone sodium 1 GM in 0.9 % Sodium Chloride 50 ML IV (20:44)
[2022-03-15] MEDS: levETIRAcetam 500 MG TABLET PO (22:41)
[2022-03-15] MEDS: Gabapentin 300 MG CAPSULE 600 MG PO (22:41)
[2022-03-15] MEDS: Doxycycline Hyclate 100 MG in 0.9 % Sodium Chloride 250 ML 166.67 MG IV (22:41)
[2022-03-15] MEDS: Apixaban 5 MG TABLET PO (22:41)
[2022-03-15] MEDS: Memantine HCl 10 MG TABLET PO (22:42)
[2022-03-15] MEDS: Folic Acid 1 MG TABLET PO (22:42)
[2022-03-15] MEDS: Thiamine HCL 100 MG TABLET PO (22:42)
[2022-03-15 23:57] VITALS: BP 137/75; PULSE 69; RESP 14; TEMP 36.1; O2SAT 93
[2022-03-16] VITALS (8 sets, daily range): BP systolic 118–147; BP diastolic 63–80; PULSE 71–86; RESP 15–20; TEMP 36.4–36.7; O2SAT 76–93; BMI 29.8
[2022-03-16 06:34] LABS: MANUAL DIFF FLAG NO
[2022-03-16 07:11] LABS: Basophils Percent Auto 0.3 % (0-2); Hematocrit 38.4 % (42.0-52.0); Hemoglobin 12.6 g/dl (14.0-18.0); Imm Gran Abs Auto 0.02 X10*3/uL (0.00-0.03); Imm Gran Pct Auto 0.5 % (0.0-0.4); Lymphocytes Absolute Auto 0.4 X10*3/uL (1.2-4.9); Lymphocytes Percent Auto 9.6 % (20-40); Mean Corpuscular HGB Conc 32.8 g/dl (31.0-36.0); Mean Corpuscular Hemoglobin 32.6 pg (27.0-33.0); Mean Corpuscular Volume 99.5 fL (80.0-98.0); Mean Platelet Volume 9.7 fL (9.4-12.4); Monocytes Absolute Auto 0.1 X10*3/uL (0.1-1.2); Monocytes Percent Auto 2.5 % (2-11); Neutrophils Absolute Auto 3.4 x10*3/uL (2.0-8.3); Neutrophils Percent Auto 87.1 % (45-73); Platelet Count 230 X10*3/uL (160-400); Red Blood Count 3.86 X10*6/uL (4.60-5.80); Red Cell Distribution Width 12.8 % (11.0-16.0)
[2022-03-16 07:19] LABS: Anion Gap 16 (12-20); Blood Urea Nitrogen 29 mg/dL (9-16); Calcium 8.9 mg/dL (8.4-10.2); Carbon Dioxide 22 mmol/L (22-29); Chloride 103 mmol/L (96-108); Creatinine Clr Calc Pharmacy 49.9; Estimated Glomerular Filt Rate 52; Glucose Random 151 mg/dL (60-115); Sodium 136 mmol/L (135-145)
[2022-03-16] MEDS: Albuterol Sulfate (0.083%) 2.5 MG/3 ML VIAL.NEB INHALE ×3 (08:13→16:18)
[2022-03-16] MEDS: Tamsulosin HCL 0.4 MG CAPSULE PO (09:18)
[2022-03-16] MEDS: Multivitamin TABLET 1 TAB PO (09:18)
[2022-03-16] MEDS: Gabapentin 300 MG CAPSULE 600 MG PO (09:18)
[2022-03-16] MEDS: Memantine HCl 10 MG TABLET PO (09:19)
[2022-03-16] MEDS: Apixaban 5 MG TABLET PO (09:19)
[2022-03-16] MEDS: Thiamine HCL 100 MG TABLET PO (09:19)
[2022-03-16] MEDS: levETIRAcetam 500 MG TABLET PO (09:19)
[2022-03-16] MEDS: Metoprolol Succinate ER 25 MG TAB.ER.24H PO (09:19)
[2022-03-16] MEDS: predniSONE 20 MG TABLET 40 MG PO (09:19)
[2022-03-16] MEDS: risperiDONE 0.5 MG TABLET PO (09:19)
[2022-03-16] MEDS: Loratadine 10 MG TABLET PO (09:19)
[2022-03-16] MEDS: Doxycycline Hyclate 100 MG in 0.9 % Sodium Chloride 250 ML 166.67 MG IV (09:20)
[2022-03-16] MEDS: 0.9 % Sodium Chloride 1,000 ML 100 ML IVCONT (11:55)
--- NOTE | 2022-03-16 12:08 | PC.RT ---
[id number] PT WALKED THIS AM TO BATHROOM ON ROOM AIR. SATS 74%. PT THEN PLACED ON 2 LITERS NASAL CANNULA AND SATS UP TO 90%. 12:15 CAME TO SEE PATIENT FOR HIS RESP TX. FOUND OFF OXYGEN AND SATS 85% ON ROOM AIR. PATIENT REMINDED TO WEAR IT. HE DOES GET FIESTY AT TIMES AND IS WILLING TO WEAR IT. IF HE GOES TO [place] TODAY OR IN THE NEAR FUTURE, HE WILL NEED AND AIR COMPRESSOR AND A SITTER HE NEEDS TO WEAR IT CONTINUOUSLY. I SPOKE WITH [facility] TODAY ABOUT HIS HOME OXYGEN. THEY TOLD ME THAT IS WAS ALL PICKED UP FROM HIS HOME THE PATIENT WAS IN [employer] [facility]. SON WANTED IT PICKED UP. THEREFORE THE PATIENT DOES NOT HAVE OXYGEN AND NO MORE SERVICES PROVIDED BY [facility] ANYMORE.
--- NOTE | 2022-03-16 14:51 | HO.PM.IMPN ---
Subjective Subjective Date of Service: 03/16/22 Review of Systems Follow up hypoxia better today awake and conversive Physical Exam Vital Signs: Vital Signs: Last Vital Signs Temp 97.5 F 03/16/22 11:52 Pulse 86 03/16/22 12:07 Resp 18 03/16/22 12:07 BP 118/63 03/16/22 11:52 Pulse Ox 91 L 03/16/22 11:52 O2 Del Method 03/16/22 11:52 O2 Flow Rate 2 03/16/22 11:52 BMI result Body Mass Index 29.8 Appearing in no acute distress lung sounds are clear to auscultation heart regular rate rhythm, clear S1, S2 positive bowel sounds, abdomen is soft, nontender neuro patient is alert Objective Data Active Medications Acetaminophen (Acetaminophen 325 Mg Tablet) 650 mg PO Q6H PRN PRN Reason: Pain, Mild (Pain Scale 1-3) Acetaminophen (Acetaminophen 325 Mg Tablet) 650 mg PO Q6H PRN PRN Reason: Headache/Pain Mild Scale (1-3) Al Hydroxide/Mg Hydroxide (Magnesium Hydrox/Alum Hydrox 30 Ml Oral.Susp) 30 ml PO Q6H PRN PRN Reason: Heartburn/Nausea Albuterol Sulfate (Albuterol Sulfate (0.083%) 2.5 Mg/3 Ml Vial.Neb) 2.5 mg INHALE RQ4H WHILE AWAKE [facility] Last Admin: 03/16/22 12:06 Dose: 2.5 mg Documented By: JULIENNE Apixaban (Apixaban 5 Mg Tablet) 5 mg PO BID [facility] Last Admin: 03/16/22 09:19 Dose: 5 mg Documented By: DOMINIKEMA Benzocaine (Throat Lozenge, Medicated Lozenge) 1 lozenge MUCOUS MEM Q2H PRN PRN Reason: Cough Folic Acid (Folic Acid 1 Mg Tablet) 1 mg PO BEDTIME [facility] Last Admin: 03/15/22 22:42 Dose: 1 mg Documented By: HOMAR Gabapentin (Gabapentin 300 Mg Capsule) 600 mg PO BID [facility] Last Admin: 03/16/22 09:18 Dose: 600 mg Documented By: JUDY Ceftriaxone Sodium 1 gm/ (Sodium Chloride) 50 mls @ 100 mls/hr IV Q24H [facility] Last Infusion: 03/15/22 22:51 Dose: 100 mls/hr Documented By: HOMAR Sodium Chloride (Ns) 1,000 mls @ 100 mls/hr IVCONT .Q10H [facility] Last Admin: 03/16/22 11:55 Dose: 100 mls/hr Documented By: JUDY Doxycycline Hyclate 100 mg/ (Sodium Chloride) 250 mls @ 166.67 mls/hr IV Q12H [facility] Last Infusion: 03/16/22 11:20 Dose: 0 mls/hr Documented By: JUDY Levetiracetam (Levetiracetam 500 Mg Tablet) 500 mg PO BID [facility] Last Admin: 03/16/22 09:19 Dose: 500 mg Documented By: JUDY Loratadine (Loratadine 10 Mg Tablet) 10 mg PO DAILY [facility] Last Admin: 03/16/22 09:19 Dose: 10 mg Documented By: COTTONY Loratadine (Loratadine 10 Mg Tablet) 10 mg PO DAILY [facility] Last Admin: 03/16/22 09:00 Dose: Not Given Documented By: JUDY Non-Admin Reason: Duplicate Order Magnesium Hydroxide (Milk Of Magnesia 30 Ml Oral.Susp) 30 ml PO DAILY PRN PRN Reason: Constipation Memantine (Memantine Hcl 10 Mg Tablet) 10 mg PO BID [facility] Last Admin: 03/16/22 09:19 Dose: 10 mg Documented By: JUDY Metoprolol Succinate (Metoprolol Succinate Er 25 Mg Tab.Er.24h) 25 mg PO DAILY [facility]; Protocol Last Admin: 03/16/22 09:19 Dose: 25 mg Documented By: JUDY Multivitamins/Vitamin C (Multivitamin Tablet) 1 tab PO DAILY [facility] Last Admin: 03/16/22 09:18 Dose: 1 tab Documented By: JUDY Ondansetron HCl (Ondansetron Hcl 4 Mg/2 Ml Vial) 4 mg IVPUSH Q8H PRN PRN Reason: Nausea and Vomiting Pharmacy Consult (Consult Rx Perform Med Rec) 1 each MISCELLANE ONCE PRN PRN Reason: Consult order Prednisone (Prednisone 20 Mg Tablet) 40 mg PO DAILY [facility] Last Admin: 03/16/22 09:19 Dose: 40 mg Documented By: JUDY Risperidone (Risperidone 0.5 Mg Tablet) 0.5 mg PO DAILY [facility] Last Admin: 03/16/22 08:58 Dose: Not Given Documented By: JUDY Non-Admin Reason: Duplicate Order Risperidone (Risperidone 1 Mg Tablet) 1 mg PO DAILY@1700 ARMANI Risperidone (Risperidone 0.5 Mg Tablet) 0.5 mg PO DAILY [facility] Last Admin: 03/16/22 09:19 Dose: 0.5 mg Documented By: COTTONY Risperidone (Risperidone 1 Mg Tablet) 1 mg PO DAILY@1700 [facility] Sodium Chloride (0.9 % Sodium Chloride Flush 3 Ml Syringe) 3 ml IVFLUSH QSHIFT [facility] Last Admin: 03/16/22 07:46 Dose: Not Given Documented By: COTTONY Non-Admin Reason: IV Running Tamsulosin HCl (Tamsulosin Hcl 0.4 Mg Capsule) 0.4 mg PO DAILY [facility] Last Admin: 03/16/22 09:18 Dose: 0.4 mg Documented By: JUDY Thiamine HCl (Thiamine Hcl 100 Mg Tablet) 100 mg PO BID [facility] Last Admin: 03/16/22 09:19 Dose: 100 mg Documented By: JUDY Tramadol HCl (Tramadol Hcl 50 Mg Tablet) 50 mg PO TID PRN PRN Reason: Pain, Moderate (Pain Scale 4-6 Tramadol HCl (Tramadol Hcl 50 Mg Tablet) 50 mg PO TID PRN PRN Reason: Pain, Moderate (Pain Scale 4-6 Labs CBC & Chem 7: 03/16/22 06:09 03/16/22 06:09 Labs: Laboratory Results - last 24 hr 03/16/22 03/16/22 06:09 06:09 MCV 99.5 H MCH 32.6 MCHC 32.8 RDW 12.8 Plt Count 230 MPV 9.7 Immature Gran % (Auto) 0.5 H Neut % (Auto) 87.1 H Lymph % (Auto) 9.6 L [place] % (Auto) 2.5 Eos % (Auto) 0.0 Baso % (Auto) 0.3 Lymph # (Auto) 0.4 L [place] # (Auto) 0.1 Eos # (Auto) 0.0 Baso # (Auto) 0.0 Abs Immat Gran (auto) 0.02 Absolute Neuts (auto) 3.4 Absolute Nucleated RBC 0.000 Nucleated RBC % (auto) 0.0 Anion Gap 16 Estim Creat Clear Calc 49.9 Estimated GFR 52 Random Glucose 151 H D Calcium 8.9 Assessment and Plan Plan 77-year-old man transferred from an [facility] psych to [facility] due to hypoxia.? According to the RN and the patient's oxygen had dipped down into the 70s at 1 point.? During my assessment was 90 degrees on 3 L. he was quite sleepy and did not answer many questions.? Acute hypoxic respiratory failure Discussed with respiratory therapist who reached out to oxygen company, [employer], who informed them that the patient was on 2 L of continuous oxygen at home Chest CT Rocephin and Doxy for presumed pneumonia D-dimer 290 and? patient is on Eliquis ABG 7.39// Continue supplemental oxygen Normal ammonia COPD exacerbation, acute on chronic Schedule DuoNebs Prednisone Supplemental oxygen Atrial fibrillation, paroxysmal Not in exacerbation Continue metoprolol and Eliquis CKD 3 mildly elevated follow Mental health Psychiatry to follow Continue medications History of seizure disorder Seizure precautions Continue Keppra BPH Continue tamsulosin DVT prophylaxis with Eliquis Attending Dr. Salazar Full code continued hospitalization for treatment of COPD exacerbation Quality Stroke Does the patient have a stroke diagnosis?: No VTE Prior VTE?: No VTE Risk Level:: Medical - moderate - high VTE Device Contraindication: Treatment Not Indicated VTE Drug Contraindication: N/A - Med Ordered
--- NOTE | 2022-03-16 15:05 | PM.DS ---
DS: Providers Provider Date of Service: 03/16/22 Date of admission: 03/15/22 17:19 Primary care physician: Unknown Physician Consults: 03/15/22 17:52 Consult to Orthopedics Routine Consulting Provider: [facility] [facility]opedic Surgeons Reason for consultation: NO FX ON XR PAIN DEC ROM PLEASE ADVISE SEE XR Has provider been notified: No Attending physician on discharge: John Salazar Discharging clinician: Yudy Heaton DS: Diagnosis Discharge Diagnosis (1) Respiratory failure: Status: Acute DS: Summary Hospital Course Hospital Course: 69-year-old man with multiple medical problems transferred from [facility] to [facility] for hypoxia.? Patient had been admitted since 02/04/2022 and had been stable however today his oxygen saturation went down as low as 70%.? He was placed on oxygen and sats went up to 88-90%.? He was quite sleepy and did not answer a lot of questions but denied that he was in pain.? ABG showed pH of 7.38/32/57/19.? Blood pressure and may remain stable.? Wet read of chest x-ray showed possible infiltrate, chest CT pending.? D-dimer 290 and patient is on Eliquis for history of atrial fibrillation, sodium 133, creatinine 1.51 with history of CKD, ammonia 17, BNP 120, negative COVID.? He will be admitted to [facility] and treated for acute hypoxic respiratory failure secondary to COPD and pneumonia. Acute hypoxic respiratory failure Discussed with respiratory therapist. He contacted home oxygen company [employer]. They told him that the patient had been on 2 L of oxygen continuously. Chest CT pending Treated with Rocephin and Doxy for presumed pneumonia, will continue 4 days of doxycycline and ceftin D-dimer 290 and? patient is on Eliquis ABG 7.39// Continue supplemental oxygen 2LNC Normal ammonia COPD exacerbation, acute on chronic treated with Scheduled DuoNebs continue Prednisone taper added proair inhalor as needed Supplemental oxygen Atrial fibrillation, paroxysmal Not in exacerbation Continue metoprolol and Eliquis CKD 3 baseline Mental health Psychiatry to follow Continue medications History of seizure disorder Seizure precautions Continue Keppra BPH Continue tamsulosin Time Spent with Patient Time attestation: Total time spent providing and/or coordinating discharge services: Discharge coordination time: Greater than 30 minutes Quality: Safe Use of Opioids Does Pt have an Active Cancer Diagnosis on the Problem List?: No Quality: Stroke Does the patient have a stroke diagnosis?: No Physical Exam Vital Signs: Vital Signs: Last Vital Signs Temp 97.5 F 03/16/22 11:52 Pulse 86 03/16/22 12:07 Resp 18 03/16/22 12:07 BP 118/63 03/16/22 11:52 Pulse Ox 91 L 03/16/22 11:52 O2 Del Method 03/16/22 11:52 O2 Flow Rate 2 03/16/22 11:52 BMI result Body Mass Index 29.8 Appearing in no acute distress head is normocephalic atraumatic eyes pupils are PERRLA sclera is anicteric mouth throat mucous membranes are intact and moist neck is supple no lymphadenopathy, no JVD noted lung sounds are clear to auscultation heart regular rate rhythm, clear S1, S2 positive bowel sounds, abdomen is soft, nontender neuro patient is alert DS: Data Data Completed and Pending Labs on day of discharge: Laboratory Results - last 24 hr 03/16/22 03/16/22 06:09 06:09 WBC 4.0 L RBC 3.86 L Hgb 12.6 L Hct 38.4 L MCV 99.5 H MCH 32.6 MCHC 32.8 RDW 12.8 Plt Count 230 MPV 9.7 Immature Gran % (Auto) 0.5 H Neut % (Auto) 87.1 H Lymph % (Auto) 9.6 L [place] % (Auto) 2.5 Eos % (Auto) 0.0 Baso % (Auto) 0.3 Lymph # (Auto) 0.4 L [place] # (Auto) 0.1 Eos # (Auto) 0.0 Baso # (Auto) 0.0 Abs Immat Gran (auto) 0.02 Absolute Neuts (auto) 3.4 Absolute Nucleated RBC 0.000 Nucleated RBC % (auto) 0.0 Sodium 136 Potassium 5.0 Chloride 103 Carbon Dioxide 22 Anion Gap 16 BUN 29 H Creatinine 1.32 Estim Creat Clear Calc 49.9 Estimated GFR 52 Random Glucose 151 H D Calcium 8.9 Discharge Plan Discharge Anticipated Discharge Date/Time: 03/16/22 15:49 Patient Disposition: Xfer Psychiatric Hosp Discharge Diagnosis: Acute on chronic hypoxic respiratory failure Clinical pneumonia COPD exacerbation Discharge Medications: New prednisone 20 mg Tablet See Taper PO DAILY Qty: 30 0RF Taper: Prednisone 40 mg daily for 3 Days and 0 Hour 30 mg daily for 3 Days and 0 Hour 20 mg daily for 3 Days and 0 Hour 10 mg daily for 3 Days and 0 Hour doxycycline hyclate 100 mg tablet 100 mg PO BID Qty: 8 0RF cefuroxime axetil 500 mg tablet 500 mg PO BID Qty: 8 0RF albuterol sulfate [ProAir HFA] 90 mcg/actuation HFA aerosol inhaler 1 inh inhalation QID PRN (Reason: shortness of breath or wheezing) Qty: 6.7 0RF Continued multivitamin Tablet 1 tab PO DAILY levetiracetam 500 mg Tablet 500 mg PO BID thiamine HCl (vitamin B1) [Vitamin B-1] 100 mg Tablet 100 mg PO BID tamsulosin 0.4 mg Capsule 0.04 mg PO DAILY folic acid 1 mg Tablet 1 mg PO BEDTIME metoprolol succinate [Toprol XL] 25 mg Tablet Extended Release 24 Hr 25 mg PO DAILY memantine 10 mg Tablet 10 mg PO BID Eliquis 5 mg Tablet 5 mg PO BID Anoro Ellipta 62.5-25 mcg/actuation Blister With Device 1 inh INHALATION DAILY loratadine 10 mg Tablet 10 mg PO DAILY Qty: 30 0RF tramadol 50 mg Tablet 50 mg PO TID PRN (Reason: Pain, Moderate (Pain Scale 4-6) 3 Days Qty: 6 0RF risperidone 1 mg Tablet 1 mg PO DAILY@1700 30 Days Qty: 30 0RF risperidone 0.5 mg Tablet 0.5 mg PO DAILY Qty: 30 0RF gabapentin 300 mg capsule 2 cap PO BID Discontinued cephalexin 500 mg Capsule 500 mg PO QID 7 Days Qty: 28 0RF Discharge Orders: Discharge Order (Routine); Ordered 03/16/22 Ordered By: Yudy Heaton Diet: advance to usual diet Activity on Discharge: As tolerated Stand Alone Forms: Patient Portal Discharge page Health Concerns: Acute on chronic hypoxic respiratory failure Plan of Treatment: Follow-up with your primary care provider after discharge from [facility] Take all medications as prescribed He had been started on oxygen 2 L nasal cannula continuous Assessment: see discharge summary
--- NOTE | 2022-03-16 16:13 | MHC.CM.PN ---
PER HOSPITALIST PT DISCHARGING BACK TO [facility] PSYCH.
--- NOTE | 2022-03-16 16:14 | MHC.CM.PN ---
IMM 03/16/22, PT TRANSFERRED FROM [facility] PSYCH D/T HYPOXIA, CM ATTMEPTED TO CONTACT PT'S SON, NO ANSWER AND MESSAGE LEFT HOWEVER CM HAS NOT RECEIVED A RETURN CALL AT TIME OF THIS NOTE. PER STAFF WHO SPOKE W/SON, SON REPORTED PT HAD PREVIOUSLY BEEN ON HOME O2 BUT IT WAS REMOVED BY [employer] WHILE PT WAS IN STR. CM RECEIVED MESSAGE FROM HOSPITALIST PT WILL RETURN TO IN PSYCH TODAY.
== END 2022-03-16 17:16 | DRG 193 ==
LOC: HO.S3 03-16 15:58 → HO.PGERI 03-16 17:09
PROVIDERS: Admitting Provider Nurse Practitioner Acute Care; Visit Provider Nurse Practitioner Acute Care
DX: J18.9 Pneumonia, unspecified organism (principal); J96.01 Acute respiratory failure with hypoxia; J44.0 Chronic obstructive pulmonary disease with (acute) lower respiratory infection; J44.1 Chronic obstructive pulmonary disease with (acute) exacerbation; I12.9 Hypertensive chronic kidney disease with stage 1 through stage 4 chronic kidney disease, or unspecified chronic kidney disease; I48.91 Unspecified atrial fibrillation; N40.0 Benign prostatic hyperplasia without lower urinary tract symptoms; N18.30 Chronic kidney disease, stage 3 unspecified; S43.102A Unspecified dislocation of left acromioclavicular joint, initial encounter; X58.XXXA Exposure to other specified factors, initial encounter; E78.5 Hyperlipidemia, unspecified; G40.909 Epilepsy, unspecified, not intractable, without status epilepticus; Z95.0 Presence of cardiac pacemaker; Z86.711 Personal history of pulmonary embolism; Z86.73 Personal history of transient ischemic attack (TIA), and cerebral infarction without residual deficits; Z79.01 Long term (current) use of anticoagulants; Z79.899 Other long term (current) drug therapy
CPT/HCPCS: 36415; 70450; 71250; 80048; 85025; 94640; 97162; J0696

== ENCOUNTER 2022-03-16 17:40 | Inpatient (IN) | payer MEDICARE, MEDICAID, SELFPAY ==
[2022-03-16 17:30] VITALS: BP 131/74; PULSE 87; RESP 16; TEMP 36.1; O2SAT 92
--- NOTE | 2022-03-16 18:06 | PC.NURSE ---
Addendum entered by Lashawn Perkins RN 03/16/22 18:20: NC not NS Original Note: pt is 69 y/o male admitted to S1 from [facility] (S3).pt signed a cv. pt was previously admitted on S1 on 02/04/22 with diagnosis of dementia w/behavioral disturbances up until 03/15/22. On 03/15/22, pt was observed to be hypoxic and unable to maintain O2sats above 70. pt was then transferred to [facility] for medical evaluation. While there, pt was treated for hypoxia and pneumonia d/t possible aspiration as evidenced by chest x-ray. pt is currently on 2L oxygen via nasal canula and sats at 952%. pt has a hx of COPD, CKD, Afib. Per respiratory recommendation, pt is to be on continuous O2 @ 2L via NS. Pt is a 1:1. vital signs upon admission are 97.0, 87, 131/74, 16, 92%. pt ambulates independently w/walker and wears glasses at baseline
[2022-03-16 22:00] VITALS: BP 152/83; PULSE 81; TEMP 36.2; O2SAT 93
[2022-03-16] MEDS: Gabapentin 600 MG TABLET PO (22:43)
[2022-03-16] MEDS: levETIRAcetam 500 MG TABLET PO (22:44)
[2022-03-16] MEDS: traMADoL HCL 50 MG TABLET PO (22:44)
[2022-03-16] MEDS: Memantine HCl 10 MG TABLET PO (22:44)
[2022-03-16] MEDS: Folic Acid 1 MG TABLET PO (22:44)
[2022-03-16] MEDS: Thiamine HCL 100 MG TABLET PO (22:45)
[2022-03-16] MEDS: Apixaban 5 MG TABLET PO (22:45)
[2022-03-17] MEDS: Multivitamin TABLET 1 TAB PO (09:45)
[2022-03-17] MEDS: Apixaban 5 MG TABLET PO ×2 (09:45→20:17)
[2022-03-17] MEDS: Loratadine 10 MG TABLET PO (09:45)
[2022-03-17] MEDS: risperiDONE 0.5 MG TABLET PO (09:45)
[2022-03-17] MEDS: predniSONE 20 MG TABLET 10 MG PO (09:45)
[2022-03-17] MEDS: Metoprolol Succinate ER 25 MG TAB.ER.24H PO (09:45)
[2022-03-17] MEDS: Thiamine HCL 100 MG TABLET PO ×2 (09:45→20:19)
[2022-03-17] MEDS: levETIRAcetam 500 MG TABLET PO ×2 (09:45→20:18)
[2022-03-17] MEDS: Memantine HCl 10 MG TABLET PO ×2 (09:45→20:19)
[2022-03-17] MEDS: Tamsulosin HCL 0.4 MG CAPSULE PO (09:45)
[2022-03-17] MEDS: Gabapentin 600 MG TABLET PO ×2 (09:45→20:18)
[2022-03-17 09:59] VITALS: BP 137/75; PULSE 71; RESP 16; TEMP 36.4; O2SAT 90
--- NOTE | 2022-03-17 12:05 | HO.PSYADMNOT ---
HPI Date of Service: 03/17/22 Chief Complaint: Dementia with Behavioral disturbance Sources of Information: patient interviewed, chart reviewed and crisis/core team assessment reviewed Additional Sources of Information: Med surge discharge plan HPI Subjective Notes: Conditional Voluntary Narrative: the patient is a 77-year-old male with a long history of dementia was transferred from the medical unit after he was been medically cleared. He was previously admitted into this unit for dementia with behavioral disturbances and psychosis and while he was waiting for placement, the patient developed respiratory failure and is attrition and needed to be transferred to Medicine. He was medically treated with antibiotics since he was diagnosed with pneumonia and oxygen therapy. His condition improved very fasting less than 36 hours and he was transfers packed into this facility. Please see the HPI of the previous admission for further details. At this moment, the patient denies hallucinations, paranoia or delusions, he is waiting for placement. Past Psychiatric History: The patient denies but as per the chart he has another previous contact with outpatient providers Medical Evaluation Reviewed: Yes [facility] Medical History Atrial fibrillation BPH (benign prostatic hyperplasia) Chronic shoulder pain COPD (chronic obstructive pulmonary disease) CVA (cerebral vascular accident) HLD (hyperlipidemia) HTN (hypertension) Hyponatremia Pacemaker Pulmonary embolism Seizure disorder Surgical History History of appendectomy Family History: denies Social History: the patient lives with his nephew, he recently lost his who was the primary caregiver. 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 and he has 2 children were not involved in his care Substance History: Tobacco abuse Trauma History: denies physical or sexual abuse Diagnostics Vital Signs (24Hr): Vital Signs - 24 hr 03/16/22 17:30 03/16/22 22:00 03/17/22 09:59 Temperature 97 F 97.2 F 97.6 F Pulse Rate 87 81 71 Respiratory Rate 16 16 Blood Pressure 131/74 152/83 H 137/75 Pulse Oximetry 92 93 90 L Oxygen Delivery Method Nasal Cannula Nasal Cannula Nasal Cannula Oxygen Flow Rate 2 2 Meds/Allergies Meds Home Medications Medication Instructions Recorded Confirmed Type apixaban 5 mg tablet (Eliquis) 5 mg PO BID 02/03/22 03/15/22 History folic acid 1 mg tablet 1 mg PO BEDTIME 02/03/22 03/15/22 History levetiracetam 500 mg tablet 500 mg PO BID 02/03/22 03/15/22 History memantine 10 mg tablet 10 mg PO BID 02/03/22 03/15/22 History metoprolol succinate 25 mg 25 mg PO DAILY 02/03/22 03/15/22 History tablet,extended release 24 hr (Toprol XL) multivitamin 1 tab PO DAILY 02/03/22 03/15/22 History tamsulosin 0.4 mg capsule 0.04 mg PO DAILY 02/03/22 03/15/22 History thiamine HCl (vitamin B1) 100 mg 100 mg PO BID 02/03/22 03/15/22 History tablet (Vitamin B-1) umeclidinium 62.5 mcg-vilanterol 1 inh inhalation DAILY 02/03/22 03/15/22 History 25 mcg/actuation powdr for inhalation (Anoro Ellipta) gabapentin 300 mg capsule 2 cap PO BID 03/15/22 03/15/22 History Allergies Allergies Allergy/AdvReac Type Severity Reaction Status Date / Time Penicillins Allergy Unknown Unknown Verified 02/03/22 19:47 Mental Status Exam Mental Status Exam Patient Appearance: Appropriate Patient Orientation: Person and Situation Level of Consciousness: Awake Patient Behavior: Cooperative Mood Description: Constricted Affect Description: Calm Patient Cognition Impaired: Yes Ability to Follow Directions: Good Speech Pattern: Clear Hallucinations: None Delusions: Not Present Thought Process: Distracted Thought Content: positive for [place] and positive for Poverty of Content Judgement: Fair Assessment & Plan Assessment & Plan (1) Dementia: Status: Acute Code(s): F03.90 - Unspecified dementia without behavioral disturbance (2) Psychosis: Status: Acute Code(s): F29 - Unspecified psychosis not due to a substance or known physiological condition (3) CKD (chronic kidney disease): Status: Acute Code(s): N18.9 - Chronic kidney disease, unspecified Plan adult male with a long history of dementia who was admitted initially to this facility for psychotic symptoms. Later he had an acute respiratory failure and needed to be transferred to Medicine for treatment of pneumonia and oxygen therapy. Currently he is stable waiting for placement. Plan 1. Continue same treatment. 2. Work for discharge planning Patient educated on: diagnosis Informed Consent: understands Reason for continued inpatient stay Substantial Risk for: inability to function, rapid decompensation and med/psych decompensation
[2022-03-17 14:30] VITALS: PULSE 77; TEMP 36.9
[2022-03-17] MEDS: Acetaminophen 325 MG TABLET 650 MG PO (14:32)
[2022-03-17] MEDS: risperiDONE 1 MG TABLET PO (16:42)
[2022-03-17 18:00] VITALS: BP 166/85; PULSE 69; RESP 90; TEMP 36.4; O2SAT 90
[2022-03-17] MEDS: Pravastatin Sodium 40 MG TABLET PO (20:18)
[2022-03-17] MEDS: Folic Acid 1 MG TABLET PO (20:19)
[2022-03-17] MEDS: traMADoL HCL 50 MG TABLET PO (20:19)
[2022-03-18 08:11] VITALS: BP 166/77; PULSE 68; RESP 18; TEMP 36.3; O2SAT 93
[2022-03-18] MEDS: Apixaban 5 MG TABLET PO ×2 (08:31→19:51)
[2022-03-18] MEDS: risperiDONE 0.5 MG TABLET PO (08:31)
[2022-03-18] MEDS: Multivitamin TABLET 1 TAB PO (08:31)
[2022-03-18] MEDS: Tamsulosin HCL 0.4 MG CAPSULE PO (08:31)
[2022-03-18] MEDS: Loratadine 10 MG TABLET PO (08:32)
[2022-03-18] MEDS: Memantine HCl 10 MG TABLET PO ×2 (08:32→19:52)
[2022-03-18] MEDS: Gabapentin 600 MG TABLET PO ×2 (08:33→19:56)
[2022-03-18] MEDS: predniSONE 20 MG TABLET 10 MG PO (08:33)
[2022-03-18] MEDS: levETIRAcetam 500 MG TABLET PO ×2 (08:34→19:57)
[2022-03-18] MEDS: Thiamine HCL 100 MG TABLET PO ×2 (08:34→19:55)
[2022-03-18] MEDS: Metoprolol Succinate ER 25 MG TAB.ER.24H PO (08:34)
--- NOTE | 2022-03-18 14:42 | HO.PSYCHPN ---
Subjective Subjective Date of Service: 03/18/22 Reason For Visit: Dementia with Behavioral disturbance Subjective Notes: Conditional Voluntary Interim History: the nursing staff reported the patient has been compliant with treatment his in one-to-one for oxygen therapy. On interview, the patient denies new symptoms his slightly loud due to his in impairment of hearing. The protective services social worker reported that he called [facility] for placement. Mental Status Exam Mental Status Exam Patient Appearance: Well Grooomed Patient Orientation: Person Level of Consciousness: Awake Patient Behavior: Cooperative Mood Description: Constricted Affect Description: Labile Patient Cognition Impaired: Yes Ability to Follow Directions: Fair Speech Pattern: Clear Hallucinations: None Delusions: Not Present Thought Process: Distracted Thought Content: positive for Circumstantial Judgement: Fair Diagnostics Vital Signs (24Hr): Vital Signs - 24 hr 03/17/22 18:00 03/18/22 08:11 Temperature 97.6 F 97.4 F Pulse Rate 69 68 Respiratory Rate 90 H 18 Blood Pressure 166/85 H 166/77 H Pulse Oximetry 90 L 93 Oxygen Delivery Method Room Air Nasal Cannula Room Air Oxygen Flow Rate 2 Medications Medications Current Medications Acetaminophen (Acetaminophen 325 Mg Tablet) 650 mg PO Q6H PRN PRN Reason: Headache/Pain Mild Scale (1-3) Last Admin: 03/17/22 14:32 Dose: 650 mg Al Hydroxide/Mg Hydroxide (Magnesium Hydrox/Alum Hydrox 30 Ml Oral.Susp) 30 ml PO Q6H PRN PRN Reason: Heartburn/Nausea Albuterol Sulfate (Albuterol Sulfate 90 Mcg 8 Gm Inhaler) 1 puff INHALE RQ4H PRN PRN Reason: wheezing Apixaban (Apixaban 5 Mg Tablet) 5 mg PO BID COUNTS [facility]CLUDE 234 BEDS AT THE [facility] Last Admin: 03/18/22 08:31 Dose: 5 mg Cefuroxime Axetil (Cefuroxime Axetil 500 Mg Tablet) 500 mg PO Q12H COUNTS INCLUDE 234 BEDS AT THE [facility] Stop: 03/20/22 09:01 Last Admin: 03/18/22 08:33 Dose: 500 mg Doxycycline Hyclate (Doxycycline Hyclate 100 Mg Tablet) 100 mg PO Q12H COUNTS INCLUDE 234 BEDS AT THE [facility] Stop: 03/20/22 09:01 Last Admin: 03/18/22 08:32 Dose: 100 mg Folic Acid (Folic Acid 1 Mg Tablet) 1 mg PO BEDTIME COUNTS INCLUDE 234 BEDS AT THE [facility] Last Admin: 03/17/22 20:19 Dose: 1 mg Gabapentin (Gabapentin 600 Mg Tablet) 600 mg PO BID COUNTS INCLUDE 234 BEDS AT THE [facility] Last Admin: 03/18/22 08:33 Dose: 600 mg Hydroxyzine HCl (Hydroxyzine Hcl 25 Mg Tablet) 25 mg PO Q6H PRN PRN Reason: Anxiety Levetiracetam (Levetiracetam 500 Mg Tablet) 500 mg PO BID COUNTS INCLUDE 234 BEDS AT THE [facility] Last Admin: 03/18/22 08:34 Dose: 500 mg Loratadine (Loratadine 10 Mg Tablet) 10 mg PO DAILY COUNTS INCLUDE 234 BEDS AT THE [facility] Last Admin: 03/18/22 08:32 Dose: 10 mg Magnesium Hydroxide (Milk Of Magnesia 30 Ml Oral.Susp) 30 ml PO DAILY PRN PRN Reason: Constipation Memantine (Memantine Hcl 10 Mg Tablet) 10 mg PO BID COUNTS INCLUDE 234 BEDS AT THE [facility] Last Admin: 03/18/22 08:32 Dose: 10 mg Metoprolol Succinate (Metoprolol Succinate Er 25 Mg Tab.Er.24h) 25 mg PO DAILY COUNTS INCLUDE 234 BEDS AT THE [facility]; Protocol Last Admin: 03/18/22 08:34 Dose: 25 mg Multivitamins/Vitamin C (Multivitamin Tablet) 1 tab PO DAILY COUNTS INCLUDE 234 BEDS AT THE [facility] Last Admin: 03/18/22 08:31 Dose: 1 tab Non-Formulary Medication (Anoro Ellipta) 62.5 mcg INHALE DAILY COUNTS INCLUDE 234 BEDS AT THE [facility] Pravastatin Sodium (Pravastatin Sodium 40 Mg Tablet) 40 mg PO BEDTIME COUNTS INCLUDE 234 BEDS AT THE [facility] Last Admin: 03/17/22 20:18 Dose: 40 mg Prednisone (Prednisone 20 Mg Tablet) 40 mg PO DAILY COUNTS INCLUDE 234 BEDS AT THE [facility]; Taper Stop: 03/29/22 08:59 Last Admin: 03/18/22 08:33 Dose: 40 mg Risperidone (Risperidone 1 Mg Tablet) 1 mg PO DAILY@1700 COUNTS INCLUDE 234 BEDS AT THE [facility] Last Admin: 03/17/22 16:42 Dose: 1 mg Risperidone (Risperidone 0.5 Mg Tablet) 0.5 mg PO DAILY COUNTS INCLUDE 234 BEDS AT THE [facility] Last Admin: 03/18/22 08:31 Dose: 0.5 mg Tamsulosin HCl (Tamsulosin Hcl 0.4 Mg Capsule) 0.4 mg PO DAILY COUNTS INCLUDE 234 BEDS AT THE [facility] Last Admin: 03/18/22 08:31 Dose: 0.4 mg Thiamine HCl (Thiamine Hcl 100 Mg Tablet) 100 mg PO BID COUNTS INCLUDE 234 BEDS AT THE [facility] Last Admin: 03/18/22 08:34 Dose: 100 mg Tramadol HCl (Tramadol Hcl 50 Mg Tablet) 50 mg PO TID PRN PRN Reason: Pain, Moderate (Pain Scale 4-6 Last Admin: 03/17/22 20:19 Dose: 50 mg Trazodone HCl (Trazodone Hcl 50 Mg Tablet) 50 mg PO BEDTIME PRN PRN Reason: Insomnia Allergies Allergies Allergy/AdvReac Type Severity Reaction Status Date / Time Penicillins Allergy Unknown Unknown Verified 02/03/22 19:47 Assessment & Plan Assessment & Plan (1) Dementia: Status: Acute Code(s): F03.90 - Unspecified dementia without behavioral disturbance (2) Psychosis: Status: Acute Code(s): F29 - Unspecified psychosis not due to a substance or known physiological condition (3) CKD (chronic kidney disease): Status: Acute Code(s): N18.9 - Chronic kidney disease, unspecified Plan adult male with a long history of dementia who was admitted initially to this facility for psychotic symptoms. Later he had an acute respiratory failure and needed to be transferred to Medicine for treatment of pneumonia and oxygen therapy. Currently he is stable waiting for placement. Plan 1. Continue same treatment. 2. Work for discharge planning I spent ___20___ minutes with the patient and/or on the patient floor today, greater than?50% of which was spent counseling/coordinating care. Reason for contiued inpatient stay Substantial Risk for: inability to function, rapid decompensation and med/psych decompensation
[2022-03-18] MEDS: risperiDONE 1 MG TABLET PO (16:32)
[2022-03-18 18:00] VITALS: BP 178/81; PULSE 72; RESP 16; TEMP 36.4; O2SAT 95
[2022-03-18] MEDS: Pravastatin Sodium 40 MG TABLET PO (19:51)
[2022-03-18] MEDS: traMADoL HCL 50 MG TABLET PO (19:52)
[2022-03-18] MEDS: Folic Acid 1 MG TABLET PO (19:55)
[2022-03-19 06:00] VITALS: O2SAT 92
[2022-03-19] MEDS: Multivitamin TABLET 1 TAB PO (10:36)
[2022-03-19] MEDS: Metoprolol Succinate ER 25 MG TAB.ER.24H PO (10:36)
[2022-03-19] MEDS: Thiamine HCL 100 MG TABLET PO ×2 (10:36→21:00)
[2022-03-19] MEDS: Loratadine 10 MG TABLET PO (10:36)
[2022-03-19] MEDS: predniSONE 20 MG TABLET 10 MG PO (10:36)
[2022-03-19] MEDS: Memantine HCl 10 MG TABLET PO ×2 (10:36→21:00)
[2022-03-19] MEDS: Tamsulosin HCL 0.4 MG CAPSULE PO (10:36)
[2022-03-19] MEDS: Gabapentin 600 MG TABLET PO ×2 (10:36→21:00)
[2022-03-19] MEDS: levETIRAcetam 500 MG TABLET PO ×2 (10:36→21:00)
[2022-03-19] MEDS: risperiDONE 0.5 MG TABLET PO (10:37)
[2022-03-19] MEDS: Apixaban 5 MG TABLET PO ×2 (10:37→20:59)
--- NOTE | 2022-03-19 15:15 | P.PNPSI_ITS ---
Subjective Subjective Date of Service: 03/19/22 Reason For Visit: Dementia with Behavioral disturbance Subjective Notes: Conditional Voluntary Interim History: The nursing staff reported the patient has been compliant with treatment he looks with a better mood today. Today in her director of social media marketing reported that probably he can be discharge to custodial today or tomorrow. On interview the patient denies new symptoms. Waiting for placement Mental Status Exam Mental Status Exam Patient Appearance: Well Grooomed Patient Orientation: Person and Situation Level of Consciousness: Awake Patient Behavior: Cooperative Mood Description: Calm Affect Description: Constricted Patient Cognition Impaired: Yes Ability to Follow Directions: Good Speech Pattern: Clear Hallucinations: None Delusions: Not Present Thought Process: Distracted Thought Content: positive for [place] Judgement: Fair Diagnostics Vital Signs (24Hr): Vital Signs - 24 hr 03/18/22 18:00 03/19/22 06:00 Temperature 97.6 F Pulse Rate 72 Respiratory Rate 16 Blood Pressure 178/81 H Pulse Oximetry 95 92 Oxygen Delivery Method Nasal Cannula Nasal Cannula Oxygen Flow Rate 2 1.5 Medications Medications Current Medications Acetaminophen (Acetaminophen 325 Mg Tablet) 650 mg PO Q6H PRN PRN Reason: Headache/Pain Mild Scale (1-3) Last Admin: 03/17/22 14:32 Dose: 650 mg Al Hydroxide/Mg Hydroxide (Magnesium Hydrox/Alum Hydrox 30 Ml Oral.Susp) 30 ml PO Q6H PRN PRN Reason: Heartburn/Nausea Albuterol Sulfate (Albuterol Sulfate 90 Mcg 8 Gm Inhaler) 1 puff INHALE RQ4H PRN PRN Reason: wheezing Apixaban (Apixaban 5 Mg Tablet) 5 mg PO BID [facility] Last Admin: 03/19/22 10:37 Dose: 5 mg Cefuroxime Axetil (Cefuroxime Axetil 500 Mg Tablet) 500 mg PO Q12H [facility] Stop: 03/20/22 09:01 Last Admin: 03/19/22 10:36 Dose: 500 mg Doxycycline Hyclate (Doxycycline Hyclate 100 Mg Tablet) 100 mg PO Q12H [facility] Stop: 03/20/22 09:01 Last Admin: 03/19/22 10:36 Dose: 100 mg Folic Acid (Folic Acid 1 Mg Tablet) 1 mg PO BEDTIME [facility] Last Admin: 03/18/22 19:55 Dose: 1 mg Gabapentin (Gabapentin 600 Mg Tablet) 600 mg PO BID [facility] Last Admin: 03/19/22 10:36 Dose: 600 mg Hydroxyzine HCl (Hydroxyzine Hcl 25 Mg Tablet) 25 mg PO Q6H PRN PRN Reason: Anxiety Levetiracetam (Levetiracetam 500 Mg Tablet) 500 mg PO BID [facility] Last Admin: 03/19/22 10:36 Dose: 500 mg Loratadine (Loratadine 10 Mg Tablet) 10 mg PO DAILY [facility] Last Admin: 03/19/22 10:36 Dose: 10 mg Magnesium Hydroxide (Milk Of Magnesia 30 Ml Oral.Susp) 30 ml PO DAILY PRN PRN Reason: Constipation Memantine (Memantine Hcl 10 Mg Tablet) 10 mg PO BID [facility] Last Admin: 03/19/22 10:36 Dose: 10 mg Metoprolol Succinate (Metoprolol Succinate Er 25 Mg Tab.Er.24h) 25 mg PO DAILY [facility]; Protocol Last Admin: 03/19/22 10:36 Dose: 25 mg Multivitamins/Vitamin C (Multivitamin Tablet) 1 tab PO DAILY [facility] Last Admin: 03/19/22 10:36 Dose: 1 tab Non-Formulary Medication (Anoro Ellipta) 62.5 mcg INHALE DAILY [facility] Pravastatin Sodium (Pravastatin Sodium 40 Mg Tablet) 40 mg PO BEDTIME [facility] Last Admin: 03/18/22 19:51 Dose: 40 mg Prednisone (Prednisone 20 Mg Tablet) 40 mg PO DAILY [facility]; Taper Stop: 03/29/22 08:59 Last Admin: 03/19/22 10:36 Dose: 40 mg Risperidone (Risperidone 1 Mg Tablet) 1 mg PO DAILY@1700 [facility] Last Admin: 03/18/22 16:32 Dose: 1 mg Risperidone (Risperidone 0.5 Mg Tablet) 0.5 mg PO DAILY [facility] Last Admin: 03/19/22 10:37 Dose: 0.5 mg Tamsulosin HCl (Tamsulosin Hcl 0.4 Mg Capsule) 0.4 mg PO DAILY [facility] Last Admin: 03/19/22 10:36 Dose: 0.4 mg Thiamine HCl (Thiamine Hcl 100 Mg Tablet) 100 mg PO BID [facility] Last Admin: 03/19/22 10:36 Dose: 100 mg Tramadol HCl (Tramadol Hcl 50 Mg Tablet) 50 mg PO TID PRN PRN Reason: Pain, Moderate (Pain Scale 4-6 Last Admin: 03/18/22 19:52 Dose: 50 mg Trazodone HCl (Trazodone Hcl 50 Mg Tablet) 50 mg PO BEDTIME PRN PRN Reason: Insomnia Allergies Allergies Allergy/AdvReac Type Severity Reaction Status Date / Time Penicillins Allergy Unknown Unknown Verified 02/03/22 19:47 Assessment & Plan Assessment & Plan (1) Dementia: Status: Acute Code(s): F03.90 - Unspecified dementia without behavioral disturbance (2) Psychosis: Status: Acute Code(s): F29 - Unspecified psychosis not due to a substance or known physiological condition (3) CKD (chronic kidney disease): Status: Acute Code(s): N18.9 - Chronic kidney disease, unspecified Plan adult male with a long history of dementia who was admitted initially to this facility for psychotic symptoms. Later he had an acute respiratory failure and needed to be transferred to Medicine for treatment of pneumonia and oxygen therapy. Currently he is stable waiting for placement. Plan 1. Continue same treatment. 2. Work for discharge planning I spent __20____ minutes with the patient and/or on the patient floor today, greater than?50% of which was spent counseling/coordinating care. Reason for contiued inpatient stay Substantial Risk for: inability to function, rapid decompensation and med/psych decompensation
[2022-03-19 18:00] VITALS: BP 140/80; PULSE 70; RESP 17; TEMP 36.4; O2SAT 94
[2022-03-19] MEDS: Pravastatin Sodium 40 MG TABLET PO (21:00)
[2022-03-19] MEDS: Folic Acid 1 MG TABLET PO (21:00)
[2022-03-20 06:00] VITALS: BP 138/86; PULSE 76; RESP 17; TEMP 37; O2SAT 97
[2022-03-20] MEDS: Gabapentin 600 MG TABLET PO ×2 (09:23→20:38)
[2022-03-20] MEDS: Tamsulosin HCL 0.4 MG CAPSULE PO (09:23)
[2022-03-20] MEDS: Multivitamin TABLET 1 TAB PO (09:23)
[2022-03-20] MEDS: levETIRAcetam 500 MG TABLET PO ×2 (09:23→20:39)
[2022-03-20] MEDS: Memantine HCl 10 MG TABLET PO ×2 (09:24→20:38)
[2022-03-20] MEDS: Thiamine HCL 100 MG TABLET PO ×2 (09:24→20:38)
[2022-03-20] MEDS: risperiDONE 0.5 MG TABLET PO (09:24)
[2022-03-20] MEDS: predniSONE 20 MG TABLET 10 MG PO (09:24)
[2022-03-20] MEDS: Apixaban 5 MG TABLET PO ×2 (09:24→20:39)
[2022-03-20] MEDS: Metoprolol Succinate ER 25 MG TAB.ER.24H PO (09:24)
[2022-03-20] MEDS: Loratadine 10 MG TABLET PO (09:24)
--- NOTE | 2022-03-20 12:59 | P.PNPSI_ITS ---
Subjective Subjective Date of Service: 03/20/22 Reason For Visit: Dementia with Behavioral disturbance Subjective Notes: Conditional Voluntary Interim History: the nursing staff reported the patient had being with good spirits yesterday. The delinquency prevention social worker reported that we are [facility]. On interview the patient denies new symptoms. Mental Status Exam Mental Status Exam Patient Appearance: Well Grooomed Patient Orientation: Person and Situation Level of Consciousness: Awake Patient Behavior: Cooperative Mood Description: Withdrawn Affect Description: Constricted Patient Cognition Impaired: Yes Ability to Follow Directions: Good Speech Pattern: Clear Hallucinations: None Delusions: Not Present Thought Process: Distracted Judgement: Fair Diagnostics Vital Signs (24Hr): Vital Signs - 24 hr 03/19/22 18:00 03/20/22 06:00 Temperature 97.5 F 98.6 F Pulse Rate 70 76 Respiratory Rate 17 17 Blood Pressure 140/80 H 138/86 Pulse Oximetry 94 97 Oxygen Delivery Method Room Air Room Air Medications Medications Current Medications Acetaminophen (Acetaminophen 325 Mg Tablet) 650 mg PO Q6H PRN PRN Reason: Headache/Pain Mild Scale (1-3) Last Admin: 03/17/22 14:32 Dose: 650 mg Al Hydroxide/Mg Hydroxide (Magnesium Hydrox/Alum Hydrox 30 Ml Oral.Susp) 30 ml PO Q6H PRN PRN Reason: Heartburn/Nausea Albuterol Sulfate (Albuterol Sulfate 90 Mcg 8 Gm Inhaler) 1 puff INHALE RQ4H PRN PRN Reason: wheezing Apixaban (Apixaban 5 Mg Tablet) 5 mg PO BID [facility] Last Admin: 03/20/22 09:24 Dose: 5 mg Folic Acid (Folic Acid 1 Mg Tablet) 1 mg PO BEDTIME [facility] Last Admin: 03/19/22 21:00 Dose: 1 mg Gabapentin (Gabapentin 600 Mg Tablet) 600 mg PO BID [facility] Last Admin: 03/20/22 09:23 Dose: 600 mg Hydroxyzine HCl (Hydroxyzine Hcl 25 Mg Tablet) 25 mg PO Q6H PRN PRN Reason: Anxiety Levetiracetam (Levetiracetam 500 Mg Tablet) 500 mg PO BID [facility] Last Admin: 03/20/22 09:23 Dose: 500 mg Loratadine (Loratadine 10 Mg Tablet) 10 mg PO DAILY [facility] Last Admin: 03/20/22 09:24 Dose: 10 mg Magnesium Hydroxide (Milk Of Magnesia 30 Ml Oral.Susp) 30 ml PO DAILY PRN PRN Reason: Constipation Memantine (Memantine Hcl 10 Mg Tablet) 10 mg PO BID [facility] Last Admin: 03/20/22 09:24 Dose: 10 mg Metoprolol Succinate (Metoprolol Succinate Er 25 Mg Tab.Er.24h) 25 mg PO DAILY [facility]; Protocol Last Admin: 03/20/22 09:24 Dose: 25 mg Multivitamins/Vitamin C (Multivitamin Tablet) 1 tab PO DAILY [facility] Last Admin: 03/20/22 09:23 Dose: 1 tab Non-Formulary Medication (Anoro Ellipta) 62.5 mcg INHALE DAILY [facility] Pravastatin Sodium (Pravastatin Sodium 40 Mg Tablet) 40 mg PO BEDTIME [facility] Last Admin: 03/19/22 21:00 Dose: 40 mg Prednisone (Prednisone 20 Mg Tablet) 30 mg PO DAILY [facility]; Taper Stop: 03/29/22 08:59 Last Admin: 03/20/22 09:24 Dose: 30 mg Risperidone (Risperidone 1 Mg Tablet) 1 mg PO DAILY@1700 [facility] Last Admin: 03/19/22 17:11 Dose: Not Given Risperidone (Risperidone 0.5 Mg Tablet) 0.5 mg PO DAILY [facility] Last Admin: 03/20/22 09:24 Dose: 0.5 mg Tamsulosin HCl (Tamsulosin Hcl 0.4 Mg Capsule) 0.4 mg PO DAILY [facility] Last Admin: 03/20/22 09:23 Dose: 0.4 mg Thiamine HCl (Thiamine Hcl 100 Mg Tablet) 100 mg PO BID [facility] Last Admin: 03/20/22 09:24 Dose: 100 mg Tramadol HCl (Tramadol Hcl 50 Mg Tablet) 50 mg PO TID PRN PRN Reason: Pain, Moderate (Pain Scale 4-6 Last Admin: 03/18/22 19:52 Dose: 50 mg Trazodone HCl (Trazodone Hcl 50 Mg Tablet) 50 mg PO BEDTIME PRN PRN Reason: Insomnia Allergies Allergies Allergy/AdvReac Type Severity Reaction Status Date / Time Penicillins Allergy Unknown Unknown Verified 02/03/22 19:47 Assessment & Plan Assessment & Plan (1) Dementia: Status: Acute Code(s): F03.90 - Unspecified dementia without behavioral disturbance (2) Psychosis: Status: Acute Code(s): F29 - Unspecified psychosis not due to a substance or known physiological condition (3) CKD (chronic kidney disease): Status: Acute Code(s): N18.9 - Chronic kidney disease, unspecified Plan adult male with a long history of dementia who was admitted initially to this facility for psychotic symptoms. Later he had an acute respiratory failure and needed to be transferred to Medicine for treatment of pneumonia and oxygen therapy. Currently he is stable waiting for placement. Plan 1. Continue same treatment. 2. Work for discharge planning I spent __20____ minutes with the patient and/or on the patient floor today, g reater than?50% of which was spent counseling/coordinating care. Reason for contiued inpatient stay Substantial Risk for: inability to function, rapid decompensation and med/psych decompensation
[2022-03-20 18:00] VITALS: BP 123/74; PULSE 76; RESP 18; TEMP 37; O2SAT 93
[2022-03-20] MEDS: Pravastatin Sodium 40 MG TABLET PO (20:38)
[2022-03-20] MEDS: Folic Acid 1 MG TABLET PO (20:38)
[2022-03-21 05:36] VITALS: O2SAT 93
[2022-03-21 07:40] VITALS: BP 144/79; PULSE 91; RESP 16; TEMP 36.4; O2SAT 94
[2022-03-21] MEDS: risperiDONE 0.5 MG TABLET PO (08:44)
[2022-03-21] MEDS: Loratadine 10 MG TABLET PO (08:44)
[2022-03-21] MEDS: Tamsulosin HCL 0.4 MG CAPSULE PO (08:44)
[2022-03-21] MEDS: traMADoL HCL 50 MG TABLET PO ×2 (08:45→20:05)
[2022-03-21] MEDS: Gabapentin 600 MG TABLET PO ×2 (08:45→20:06)
[2022-03-21] MEDS: predniSONE 20 MG TABLET 10 MG PO (08:45)
[2022-03-21] MEDS: Thiamine HCL 100 MG TABLET PO ×2 (08:45→20:05)
[2022-03-21] MEDS: Metoprolol Succinate ER 25 MG TAB.ER.24H PO (08:45)
[2022-03-21] MEDS: Memantine HCl 10 MG TABLET PO ×2 (08:45→20:06)
[2022-03-21] MEDS: Apixaban 5 MG TABLET PO ×2 (08:45→20:06)
[2022-03-21] MEDS: Multivitamin TABLET 1 TAB PO (08:45)
[2022-03-21] MEDS: levETIRAcetam 500 MG TABLET PO ×2 (08:46→20:06)
[2022-03-21] MEDS: Acetaminophen 325 MG TABLET 650 MG PO ×2 (12:59→20:06)
[2022-03-21] MEDS: risperiDONE 1 MG TABLET PO (16:24)
[2022-03-21 18:00] VITALS: BP 132/74; PULSE 80; RESP 20; TEMP 36.1; O2SAT 90
--- NOTE | 2022-03-21 18:00 | PC.NURSE ---
It was reported this morning by overnight nurse that patient was refusing to keep nasal cannula on. During tht time, his oxygen saturation was reported to be between 91-93% on room air. Ghazala [employer] was informed this morning at start of shift and order was updated to 2L nasal cannula as needed for oxygen saturation less than 90%. Patient has consistently had oxygen saturation between 91-94% on room air this shift
[2022-03-21] MEDS: Pravastatin Sodium 40 MG TABLET PO (20:05)
[2022-03-21] MEDS: Folic Acid 1 MG TABLET PO (20:05)
--- NOTE | 2022-03-21 23:47 | HO.PSYCHPN ---
Subjective Subjective Date of Service: 03/22/22 Reason For Visit: Dementia with Behavioral disturbance Subjective Notes: Ramirez Warning Interim History: Patient seen and discussed with team. Patient evaluated today and upon interview pt reports he is doing just fine. Has no trouble sleeping. I feel good. I feel like a million bucks. Says he has no complaints about anything at all. In the milieu, patient is safe and appropriate in behavior. Says he feels safe. Medication Compliance: Yes Side effects from medications: No Attending Groups: Yes Review of Systems Acute medical concerns: No Medical Review of Systems: unchanged Mental Status Exam Mental Status Exam Narrative: Patient Appearance: Well Grooomed Patient Orientation: Person and Situation Level of Consciousness: Awake Patient Behavior: Cooperative Mood Description: Withdrawn Affect Description: Constricted Patient Cognition Impaired: Yes Ability to Follow Directions: Good Speech Pattern: Clear Hallucinations: None Delusions: Not Present Thought Process: Distracted Judgment: Fair Diagnostics Vital Signs (24Hr): Vital Signs - 24 hr 03/21/22 18:00 03/22/22 07:05 Temperature 97 F 97.2 F Pulse Rate 80 74 Respiratory Rate 20 17 Blood Pressure 132/74 142/81 H Pulse Oximetry 90 L 93 Oxygen Delivery Method Room Air Room Air Medications Medications Current Medications Acetaminophen (Acetaminophen 325 Mg Tablet) 650 mg PO Q6H PRN PRN Reason: Headache/Pain Mild Scale (1-3) Last Admin: 03/21/22 20:06 Dose: 650 mg Al Hydroxide/Mg Hydroxide (Magnesium Hydrox/Alum Hydrox 30 Ml Oral.Susp) 30 ml PO Q6H PRN PRN Reason: Heartburn/Nausea Albuterol Sulfate (Albuterol Sulfate 90 Mcg 8 Gm Inhaler) 1 puff INHALE RQ4H PRN PRN Reason: wheezing Apixaban (Apixaban 5 Mg Tablet) 5 mg PO BID [facility] Last Admin: 03/22/22 08:44 Dose: 5 mg Folic Acid (Folic Acid 1 Mg Tablet) 1 mg PO BEDTIME [facility] Last Admin: 03/21/22 20:05 Dose: 1 mg Gabapentin (Gabapentin 600 Mg Tablet) 600 mg PO BID [facility] Last Admin: 03/22/22 08:44 Dose: 600 mg Hydroxyzine HCl (Hydroxyzine Hcl 25 Mg Tablet) 25 mg PO Q6H PRN PRN Reason: Anxiety Levetiracetam (Levetiracetam 500 Mg Tablet) 500 mg PO BID [facility] Last Admin: 03/22/22 08:44 Dose: 500 mg Loratadine (Loratadine 10 Mg Tablet) 10 mg PO DAILY [facility] Last Admin: 03/22/22 08:43 Dose: 10 mg Magnesium Hydroxide (Milk Of Magnesia 30 Ml Oral.Susp) 30 ml PO DAILY PRN PRN Reason: Constipation Memantine (Memantine Hcl 10 Mg Tablet) 10 mg PO BID [facility] Last Admin: 03/22/22 08:44 Dose: 10 mg Metoprolol Succinate (Metoprolol Succinate Er 25 Mg Tab.Er.24h) 25 mg PO DAILY [facility]; Protocol Last Admin: 03/22/22 08:44 Dose: 25 mg Multivitamins/Vitamin C (Multivitamin Tablet) 1 tab PO DAILY [facility] Last Admin: 03/22/22 08:44 Dose: 1 tab Pravastatin Sodium (Pravastatin Sodium 40 Mg Tablet) 40 mg PO BEDTIME [facility] Last Admin: 03/21/22 20:05 Dose: 40 mg Prednisone (Prednisone 20 Mg Tablet) 30 mg PO DAILY [facility]; Taper Stop: 03/29/22 08:59 Last Admin: 03/22/22 08:42 Dose: 30 mg Risperidone (Risperidone 1 Mg Tablet) 1 mg PO DAILY@1700 [facility] Last Admin: 03/21/22 16:24 Dose: 1 mg Risperidone (Risperidone 0.5 Mg Tablet) 0.5 mg PO DAILY [facility] Last Admin: 03/22/22 08:43 Dose: 0.5 mg Tamsulosin HCl (Tamsulosin Hcl 0.4 Mg Capsule) 0.4 mg PO DAILY [facility] Last Admin: 03/22/22 08:44 Dose: 0.4 mg Thiamine HCl (Thiamine Hcl 100 Mg Tablet) 100 mg PO BID [facility] Last Admin: 03/22/22 08:43 Dose: 100 mg Tramadol HCl (Tramadol Hcl 50 Mg Tablet) 50 mg PO TID PRN PRN Reason: Pain, Moderate (Pain Scale 4-6 Last Admin: 03/22/22 08:44 Dose: 50 mg Trazodone HCl (Trazodone Hcl 50 Mg Tablet) 50 mg PO BEDTIME PRN PRN Reason: Insomnia Allergies Allergies Allergy/AdvReac Type Severity Reaction Status Date / Time Penicillins Allergy Unknown Unknown Verified 02/03/22 19:47 Assessment & Plan Assessment & Plan (1) Dementia: Status: Acute Code(s): F03.90 - Unspecified dementia without behavioral disturbance (2) Psychosis: Status: Acute Code(s): F29 - Unspecified psychosis not due to a substance or known physiological condition (3) CKD (chronic kidney disease): Status: Acute Code(s): N18.9 - Chronic kidney disease, unspecified Plan adult male with a long history of dementia who was admitted initially to this facility for psychotic symptoms. Later he had an acute respiratory failure and needed to be transferred to Medicine for treatment of pneumonia and oxygen therapy. Currently he is stable waiting for placement. Plan 1. Continue same treatment. 2. Work for discharge planning I spent minutes with the patient and/or on the patient floor today, greater than?50% of which was spent counseling/coordinating care. Patient educated on: medication risk/benefits and therapeutic strategies Reason for contiued inpatient stay Substantial Risk for: inability to function
[2022-03-22 07:05] VITALS: BP 142/81; PULSE 74; RESP 17; TEMP 36.2; O2SAT 93
[2022-03-22] MEDS: predniSONE 20 MG TABLET 10 MG PO (08:42)
[2022-03-22] MEDS: risperiDONE 0.5 MG TABLET PO (08:43)
[2022-03-22] MEDS: Thiamine HCL 100 MG TABLET PO ×2 (08:43→20:52)
[2022-03-22] MEDS: Loratadine 10 MG TABLET PO (08:43)
[2022-03-22] MEDS: traMADoL HCL 50 MG TABLET PO (08:44)
[2022-03-22] MEDS: levETIRAcetam 500 MG TABLET PO ×2 (08:44→20:52)
[2022-03-22] MEDS: Tamsulosin HCL 0.4 MG CAPSULE PO (08:44)
[2022-03-22] MEDS: Memantine HCl 10 MG TABLET PO ×2 (08:44→20:52)
[2022-03-22] MEDS: Apixaban 5 MG TABLET PO ×2 (08:44→20:53)
[2022-03-22] MEDS: Multivitamin TABLET 1 TAB PO (08:44)
[2022-03-22] MEDS: Gabapentin 600 MG TABLET PO ×2 (08:44→20:52)
[2022-03-22] MEDS: Metoprolol Succinate ER 25 MG TAB.ER.24H PO (08:44)
--- NOTE | 2022-03-22 11:47 | P.PNPSI_ITS ---
Subjective Subjective Date of Service: 03/22/22 Reason For Visit: Dementia with Behavioral disturbance Subjective Notes: Ramirez Warning Interim History: Patient seen and discussed with team. Patient evaluated today and upon interview pt reports he is feeling like a million bucks. Denies having questions or concerns. No issues with sleep. Says everything is perfect. In the milieu, patient is safe and appropriate in behavior. Says he feels safe. Medication Compliance: Yes Side effects from medications: No Attending Groups: Yes Review of Systems Acute medical concerns: No Medical Review of Systems: unchanged Mental Status Exam Mental Status Exam Narrative: Patient Appearance: Well Groomed Patient Orientation: Person and Situation Level of Consciousness: Awake Patient Behavior: Cooperative Mood Description: Withdrawn Affect Description: Constricted Patient Cognition Impaired: Yes Ability to Follow Directions: Good Speech Pattern: Clear Hallucinations: None Delusions: Not Present Thought Process: Distracted Judgment: Fair Diagnostics Vital Signs (24Hr): Vital Signs - 24 hr 03/21/22 18:00 03/22/22 07:05 Temperature 97 F 97.2 F Pulse Rate 80 74 Respiratory Rate 20 17 Blood Pressure 132/74 142/81 H Pulse Oximetry 90 L 93 Oxygen Delivery Method Room Air Room Air Medications Medications Current Medications Acetaminophen (Acetaminophen 325 Mg Tablet) 650 mg PO Q6H PRN PRN Reason: Headache/Pain Mild Scale (1-3) Last Admin: 03/21/22 20:06 Dose: 650 mg Al Hydroxide/Mg Hydroxide (Magnesium Hydrox/Alum Hydrox 30 Ml Oral.Susp) 30 ml PO Q6H PRN PRN Reason: Heartburn/Nausea Albuterol Sulfate (Albuterol Sulfate 90 Mcg 8 Gm Inhaler) 1 puff INHALE RQ4H PRN PRN Reason: wheezing Apixaban (Apixaban 5 Mg Tablet) 5 mg PO BID [facility] Last Admin: 03/22/22 08:44 Dose: 5 mg Folic Acid (Folic Acid 1 Mg Tablet) 1 mg PO BEDTIME [facility] Last Admin: 03/21/22 20:05 Dose: 1 mg Gabapentin (Gabapentin 600 Mg Tablet) 600 mg PO BID [facility] Last Admin: 03/22/22 08:44 Dose: 600 mg Hydroxyzine HCl (Hydroxyzine Hcl 25 Mg Tablet) 25 mg PO Q6H PRN PRN Reason: Anxiety Levetiracetam (Levetiracetam 500 Mg Tablet) 500 mg PO BID [facility] Last Admin: 03/22/22 08:44 Dose: 500 mg Loratadine (Loratadine 10 Mg Tablet) 10 mg PO DAILY [facility] Last Admin: 03/22/22 08:43 Dose: 10 mg Magnesium Hydroxide (Milk Of Magnesia 30 Ml Oral.Susp) 30 ml PO DAILY PRN PRN Reason: Constipation Memantine (Memantine Hcl 10 Mg Tablet) 10 mg PO BID [facility] Last Admin: 03/22/22 08:44 Dose: 10 mg Metoprolol Succinate (Metoprolol Succinate Er 25 Mg Tab.Er.24h) 25 mg PO DAILY [facility]; Protocol Last Admin: 03/22/22 08:44 Dose: 25 mg Multivitamins/Vitamin C (Multivitamin Tablet) 1 tab PO DAILY [facility] Last Admin: 03/22/22 08:44 Dose: 1 tab Pravastatin Sodium (Pravastatin Sodium 40 Mg Tablet) 40 mg PO BEDTIME [facility] Last Admin: 03/21/22 20:05 Dose: 40 mg Prednisone (Prednisone 20 Mg Tablet) 30 mg PO DAILY [facility]; Taper Stop: 03/29/22 08:59 Last Admin: 03/22/22 08:42 Dose: 30 mg Risperidone (Risperidone 1 Mg Tablet) 1 mg PO DAILY@1700 [facility] Last Admin: 03/21/22 16:24 Dose: 1 mg Risperidone (Risperidone 0.5 Mg Tablet) 0.5 mg PO DAILY [facility] Last Admin: 03/22/22 08:43 Dose: 0.5 mg Tamsulosin HCl (Tamsulosin Hcl 0.4 Mg Capsule) 0.4 mg PO DAILY [facility] Last Admin: 03/22/22 08:44 Dose: 0.4 mg Thiamine HCl (Thiamine Hcl 100 Mg Tablet) 100 mg PO BID [facility] Last Admin: 03/22/22 08:43 Dose: 100 mg Tramadol HCl (Tramadol Hcl 50 Mg Tablet) 50 mg PO TID PRN PRN Reason: Pain, Moderate (Pain Scale 4-6 Last Admin: 03/22/22 08:44 Dose: 50 mg Trazodone HCl (Trazodone Hcl 50 Mg Tablet) 50 mg PO BEDTIME PRN PRN Reason: Insomnia Allergies Allergies Allergy/AdvReac Type Severity Reaction Status Date / Time Penicillins Allergy Unknown Unknown Verified 02/03/22 19:47 Assessment & Plan Assessment & Plan (1) Dementia: Status: Acute Code(s): F03.90 - Unspecified dementia without behavioral disturbance (2) Psychosis: Status: Acute Code(s): F29 - Unspecified psychosis not due to a substance or known physiological condition (3) CKD (chronic kidney disease): Status: Acute Code(s): N18.9 - Chronic kidney disease, unspecified Plan adult male with a long history of dementia who was admitted initially to this facility for psychotic symptoms. Later he had an acute respiratory failure and needed to be transferred to Medicine for treatment of pneumonia and oxygen therapy. Currently he is stable waiting for placement. Plan 1. Continue same treatment. 2. Work for discharge planning I spent minutes with the patient and/or on the patient floor today, greater than?50% of which was spent counseling/coordinating care. Patient educated on: medication risk/benefits and therapeutic strategies Reason for contiued inpatient stay Substantial Risk for: inability to function
[2022-03-22] MEDS: risperiDONE 1 MG TABLET PO (16:00)
[2022-03-22 18:00] VITALS: BP 125/68; PULSE 75; RESP 16; TEMP 36.3; O2SAT 92
[2022-03-22] MEDS: Folic Acid 1 MG TABLET PO (20:51)
[2022-03-22] MEDS: Pravastatin Sodium 40 MG TABLET PO (20:51)
[2022-03-23 06:00] VITALS: BP 135/82; PULSE 69; RESP 18; O2SAT 91
[2022-03-23] MEDS: Gabapentin 600 MG TABLET PO ×2 (08:38→21:18)
[2022-03-23] MEDS: risperiDONE 0.5 MG TABLET PO (08:38)
[2022-03-23] MEDS: predniSONE 20 MG TABLET 10 MG PO (08:38)
[2022-03-23] MEDS: Memantine HCl 10 MG TABLET PO ×2 (08:38→21:17)
[2022-03-23] MEDS: levETIRAcetam 500 MG TABLET PO ×2 (08:38→21:18)
[2022-03-23] MEDS: Apixaban 5 MG TABLET PO ×2 (08:38→21:18)
[2022-03-23] MEDS: Tamsulosin HCL 0.4 MG CAPSULE PO (08:38)
[2022-03-23] MEDS: Metoprolol Succinate ER 25 MG TAB.ER.24H PO (08:38)
[2022-03-23] MEDS: Thiamine HCL 100 MG TABLET PO ×2 (08:39→21:19)
[2022-03-23] MEDS: Loratadine 10 MG TABLET PO (08:39)
[2022-03-23] MEDS: Multivitamin TABLET 1 TAB PO (08:39)
[2022-03-23 18:00] VITALS: BP 161/79; PULSE 65; RESP 18; TEMP 36.6; O2SAT 94
--- NOTE | 2022-03-23 19:31 | P.PNPSI_ITS ---
Subjective Subjective Date of Service: 03/23/22 Reason For Visit: Dementia with Behavioral disturbance Interim History: Patient seen and discussed with team. Patient evaluated today and upon interview he is found sunning himself, says he is feeling like a million bucks. Says he is perfect. In the milieu, patient is safe and appropriate in behavior. Says he feels safe. Medication Compliance: Yes Side effects from medications: No Attending Groups: Yes Review of Systems Acute medical concerns: No Medical Review of Systems: unchanged Mental Status Exam Mental Status Exam Narrative: Patient Appearance: Well Groomed Patient Orientation: Person and Situation Level of Consciousness: Awake Patient Behavior: Cooperative Mood Description: Withdrawn Affect Description: Constricted Patient Cognition Impaired: Yes Ability to Follow Directions: Good Speech Pattern: Clear Hallucinations: None Delusions: Not Present Thought Process: Distracted Judgment: Fair Diagnostics Vital Signs (24Hr): Vital Signs - 24 hr 03/23/22 18:00 Temperature 97.9 F Pulse Rate 65 Respiratory Rate 18 Blood Pressure 161/79 H Pulse Oximetry 94 Oxygen Delivery Method Room Air Medications Medications Current Medications Acetaminophen (Acetaminophen 325 Mg Tablet) 650 mg PO Q6H PRN PRN Reason: Headache/Pain Mild Scale (1-3) Last Admin: 03/24/22 03:51 Dose: 650 mg Al Hydroxide/Mg Hydroxide (Magnesium Hydrox/Alum Hydrox 30 Ml Oral.Susp) 30 ml PO Q6H PRN PRN Reason: Heartburn/Nausea Albuterol Sulfate (Albuterol Sulfate 90 Mcg 8 Gm Inhaler) 1 puff INHALE RQ4H PRN PRN Reason: wheezing Apixaban (Apixaban 5 Mg Tablet) 5 mg PO BID [facility] Last Admin: 03/23/22 21:18 Dose: 5 mg Folic Acid (Folic Acid 1 Mg Tablet) 1 mg PO BEDTIME [facility] Last Admin: 03/23/22 21:17 Dose: 1 mg Gabapentin (Gabapentin 600 Mg Tablet) 600 mg PO BID [facility] Last Admin: 03/23/22 21:18 Dose: 600 mg Hydroxyzine HCl (Hydroxyzine Hcl 25 Mg Tablet) 25 mg PO Q6H PRN PRN Reason: Anxiety Last Admin: 03/24/22 04:16 Dose: 25 mg Levetiracetam (Levetiracetam 500 Mg Tablet) 500 mg PO BID [facility] Last Admin: 03/23/22 21:18 Dose: 500 mg Loratadine (Loratadine 10 Mg Tablet) 10 mg PO DAILY [facility] Last Admin: 03/23/22 08:39 Dose: 10 mg Magnesium Hydroxide (Milk Of Magnesia 30 Ml Oral.Susp) 30 ml PO DAILY PRN PRN Reason: Constipation Memantine (Memantine Hcl 10 Mg Tablet) 10 mg PO BID [facility] Last Admin: 03/23/22 21:17 Dose: 10 mg Metoprolol Succinate (Metoprolol Succinate Er 25 Mg Tab.Er.24h) 25 mg PO DAILY [facility]; Protocol Last Admin: 03/23/22 08:38 Dose: 25 mg Multivitamins/Vitamin C (Multivitamin Tablet) 1 tab PO DAILY [facility] Last Admin: 03/23/22 08:39 Dose: 1 tab Pravastatin Sodium (Pravastatin Sodium 40 Mg Tablet) 40 mg PO BEDTIME [facility] Last Admin: 03/23/22 21:19 Dose: 40 mg Prednisone (Prednisone 20 Mg Tablet) 20 mg PO DAILY [facility]; Taper Stop: 03/29/22 08:59 Last Admin: 03/23/22 08:38 Dose: 20 mg Risperidone (Risperidone 1 Mg Tablet) 1 mg PO DAILY@1700 [facility] Last Admin: 03/23/22 18:22 Dose: Not Given Risperidone (Risperidone 0.5 Mg Tablet) 0.5 mg PO DAILY [facility] Last Admin: 03/23/22 08:38 Dose: 0.5 mg Tamsulosin HCl (Tamsulosin Hcl 0.4 Mg Capsule) 0.4 mg PO DAILY [facility] Last Admin: 03/23/22 08:38 Dose: 0.4 mg Thiamine HCl (Thiamine Hcl 100 Mg Tablet) 100 mg PO BID [facility] Last Admin: 03/23/22 21:19 Dose: 100 mg Tramadol HCl (Tramadol Hcl 50 Mg Tablet) 50 mg PO TID PRN PRN Reason: Pain, Moderate (Pain Scale 4-6 Last Admin: 03/23/22 23:49 Dose: 50 mg Trazodone HCl (Trazodone Hcl 50 Mg Tablet) 50 mg PO BEDTIME PRN PRN Reason: Insomnia Allergies Allergies Allergy/AdvReac Type Severity Reaction Status Date / Time Penicillins Allergy Unknown Unknown Verified 02/03/22 19:47 Assessment & Plan Assessment & Plan (1) Dementia: Status: Acute Code(s): F03.90 - Unspecified dementia without behavioral disturbance (2) Psychosis: Status: Acute Code(s): F29 - Unspecified psychosis not due to a substance or known physiological condition (3) CKD (chronic kidney disease): Status: Acute Code(s): N18.9 - Chronic kidney disease, unspecified Plan adult male with a long history of dementia who was admitted initially to this facility for psychotic symptoms. Later he had an acute respiratory failure and needed to be transferred to Medicine for treatment of pneumonia and oxygen therapy. Currently he is stable waiting for placement. Plan 1. Continue same treatment. 2. Work for discharge planning I spent minutes with the patient and/or on the patient floor today, greater than?50% of which was spent counseling/coordinating care. Patient educated on: medication risk/benefits and therapeutic strategies Reason for contiued inpatient stay Substantial Risk for: inability to function, rapid decompensation and med/psych decompensation
[2022-03-23] MEDS: Folic Acid 1 MG TABLET PO (21:17)
[2022-03-23] MEDS: Pravastatin Sodium 40 MG TABLET PO (21:19)
[2022-03-23] MEDS: traMADoL HCL 50 MG TABLET PO (23:49)
[2022-03-24] MEDS: Acetaminophen 325 MG TABLET 650 MG PO (03:51)
--- NOTE | 2022-03-24 04:06 | PC.NURSE ---
pt found in the common area aggravated and upset. he is angry about the pain in his right shoulder. pt states i don't have to suffer like this. since june no one has done anything. sorry im running out of mr chip riosy patience. pt has a great degree of splinting involving right arm. he is exremely tender in the right shoulder area. his right hand is warm to touch. his radial pulse is palpable. he has extreme pain with movement of right arm. pt states that he does not wear sling because its doing nothing.
[2022-03-24] MEDS: hydrOXYzine HCL 25 MG TABLET PO (04:16)
[2022-03-24 07:50] VITALS: BP 118/70; PULSE 82; RESP 16; TEMP 36.3; O2SAT 91
[2022-03-24] MEDS: traMADoL HCL 50 MG TABLET PO ×2 (10:09→20:59)
[2022-03-24] MEDS: Tamsulosin HCL 0.4 MG CAPSULE PO (10:10)
[2022-03-24] MEDS: predniSONE 20 MG TABLET 10 MG PO (10:10)
[2022-03-24] MEDS: Apixaban 5 MG TABLET PO ×2 (10:10→20:57)
[2022-03-24] MEDS: Thiamine HCL 100 MG TABLET PO ×2 (10:10→20:58)
[2022-03-24] MEDS: Gabapentin 600 MG TABLET PO ×2 (10:10→20:57)
[2022-03-24] MEDS: Metoprolol Succinate ER 25 MG TAB.ER.24H PO (10:10)
[2022-03-24] MEDS: Multivitamin TABLET 1 TAB PO (10:10)
[2022-03-24] MEDS: risperiDONE 0.5 MG TABLET PO (10:10)
[2022-03-24] MEDS: Loratadine 10 MG TABLET PO (10:11)
[2022-03-24] MEDS: Memantine HCl 10 MG TABLET PO ×2 (10:11→20:58)
[2022-03-24] MEDS: levETIRAcetam 500 MG TABLET PO ×2 (10:12→20:57)
--- NOTE | 2022-03-24 15:06 | HO.PSYCHPN ---
Subjective Subjective Date of Service: 03/24/22 Reason For Visit: Dementia with Behavioral disturbance Subjective Notes: Conditional Voluntary Interim History: The nursing staff reported the patient has been doing well he has 1 off of oxygen and he is doing fairly well saturations are within normal limits. The patient denies new symptoms he is concerned about the mornings taking did placement for him. No safety concerns. Mental Status Exam Mental Status Exam Patient Appearance: Well Grooomed Patient Orientation: Person and Situation Level of Consciousness: Awake Patient Behavior: Cooperative Mood Description: Calm Affect Description: Appropriate Patient Cognition Impaired: Yes Ability to Follow Directions: Good Speech Pattern: Clear Memory Description: Intact Hallucinations: None Delusions: Not Present Thought Content: positive for [place] and positive for Poverty of Content Judgement: Fair Diagnostics Vital Signs (24Hr): Vital Signs - 24 hr 03/23/22 18:00 Temperature 97.9 F Pulse Rate 65 Respiratory Rate 18 Blood Pressure 161/79 H Pulse Oximetry 94 Oxygen Delivery Method Room Air Medications Medications Current Medications Acetaminophen (Acetaminophen 325 Mg Tablet) 650 mg PO Q6H PRN PRN Reason: Headache/Pain Mild Scale (1-3) Last Admin: 03/24/22 03:51 Dose: 650 mg Al Hydroxide/Mg Hydroxide (Magnesium Hydrox/Alum Hydrox 30 Ml Oral.Susp) 30 ml PO Q6H PRN PRN Reason: Heartburn/Nausea Albuterol Sulfate (Albuterol Sulfate 90 Mcg 8 Gm Inhaler) 1 puff INHALE RQ4H PRN PRN Reason: wheezing Apixaban (Apixaban 5 Mg Tablet) 5 mg PO BID [facility] Last Admin: 03/24/22 10:10 Dose: 5 mg Folic Acid (Folic Acid 1 Mg Tablet) 1 mg PO BEDTIME [facility] Last Admin: 03/23/22 21:17 Dose: 1 mg Gabapentin (Gabapentin 600 Mg Tablet) 600 mg PO BID [facility] Last Admin: 03/24/22 10:10 Dose: 600 mg Hydroxyzine HCl (Hydroxyzine Hcl 25 Mg Tablet) 25 mg PO Q6H PRN PRN Reason: Anxiety Last Admin: 03/24/22 04:16 Dose: 25 mg Levetiracetam (Levetiracetam 500 Mg Tablet) 500 mg PO BID [facility] Last Admin: 03/24/22 10:12 Dose: 500 mg Loratadine (Loratadine 10 Mg Tablet) 10 mg PO DAILY [facility] Last Admin: 03/24/22 10:11 Dose: 10 mg Magnesium Hydroxide (Milk Of Magnesia 30 Ml Oral.Susp) 30 ml PO DAILY PRN PRN Reason: Constipation Memantine (Memantine Hcl 10 Mg Tablet) 10 mg PO BID [facility] Last Admin: 03/24/22 10:11 Dose: 10 mg Metoprolol Succinate (Metoprolol Succinate Er 25 Mg Tab.Er.24h) 25 mg PO DAILY [facility]; Protocol Last Admin: 03/24/22 10:10 Dose: 25 mg Multivitamins/Vitamin C (Multivitamin Tablet) 1 tab PO DAILY [facility] Last Admin: 03/24/22 10:10 Dose: 1 tab Pravastatin Sodium (Pravastatin Sodium 40 Mg Tablet) 40 mg PO BEDTIME [facility] Last Admin: 03/23/22 21:19 Dose: 40 mg Prednisone (Prednisone 20 Mg Tablet) 20 mg PO DAILY [facility]; Taper Stop: 03/29/22 08:59 Last Admin: 03/24/22 10:10 Dose: 20 mg Risperidone (Risperidone 1 Mg Tablet) 1 mg PO DAILY@1700 [facility] Last Admin: 03/23/22 18:22 Dose: Not Given Risperidone (Risperidone 0.5 Mg Tablet) 0.5 mg PO DAILY [facility] Last Admin: 03/24/22 10:10 Dose: 0.5 mg Tamsulosin HCl (Tamsulosin Hcl 0.4 Mg Capsule) 0.4 mg PO DAILY [facility] Last Admin: 03/24/22 10:10 Dose: 0.4 mg Thiamine HCl (Thiamine Hcl 100 Mg Tablet) 100 mg PO BID [facility] Last Admin: 03/24/22 10:10 Dose: 100 mg Tramadol HCl (Tramadol Hcl 50 Mg Tablet) 50 mg PO TID PRN PRN Reason: Pain, Moderate (Pain Scale 4-6 Last Admin: 03/24/22 10:09 Dose: 50 mg Trazodone HCl (Trazodone Hcl 50 Mg Tablet) 50 mg PO BEDTIME PRN PRN Reason: Insomnia Allergies Allergies Allergy/AdvReac Type Severity Reaction Status Date / Time Penicillins Allergy Unknown Unknown Verified 02/03/22 19:47 Assessment & Plan Assessment & Plan (1) Dementia: Status: Acute Code(s): F03.90 - Unspecified dementia without behavioral disturbance (2) Psychosis: Status: Acute Code(s): F29 - Unspecified psychosis not due to a substance or known physiological condition (3) CKD (chronic kidney disease): Status: Acute Code(s): N18.9 - Chronic kidney disease, unspecified Plan adult male with a long history of dementia who was admitted initially to this facility for psychotic symptoms. Later he had an acute respiratory failure and needed to be transferred to Medicine for treatment of pneumonia and oxygen therapy. Currently he is stable waiting for placement. Plan 1. Continue same treatment. 2. Work for discharge planning I spent __20____ minutes with the patient and/or on the patient floor today, greater than?50% of which was spent counseling/coordinating care. Reason for contiued inpatient stay Substantial Risk for: inability to function, rapid decompensation and med/psych decompensation
[2022-03-24] MEDS: risperiDONE 1 MG TABLET PO (17:53)
[2022-03-24 18:00] VITALS: BP 121/74; PULSE 77; RESP 16; TEMP 36.8; O2SAT 92
[2022-03-24] MEDS: Folic Acid 1 MG TABLET PO (20:57)
[2022-03-24] MEDS: Pravastatin Sodium 40 MG TABLET PO (20:58)
[2022-03-25] MEDS: traZODone HCL 50 MG TABLET PO (00:47)
[2022-03-25] MEDS: hydrOXYzine HCL 25 MG TABLET PO (00:47)
[2022-03-25 06:00] VITALS: BP 122/58; PULSE 78; RESP 16; TEMP 36.6; O2SAT 91
[2022-03-25] MEDS: risperiDONE 0.5 MG TABLET PO (08:53)
[2022-03-25] MEDS: Metoprolol Succinate ER 25 MG TAB.ER.24H PO (08:53)
[2022-03-25] MEDS: traMADoL HCL 50 MG TABLET PO ×3 (08:53→20:10)
[2022-03-25] MEDS: Tamsulosin HCL 0.4 MG CAPSULE PO (08:54)
[2022-03-25] MEDS: Multivitamin TABLET 1 TAB PO (08:54)
[2022-03-25] MEDS: Gabapentin 600 MG TABLET PO ×2 (08:54→20:09)
[2022-03-25] MEDS: Thiamine HCL 100 MG TABLET PO ×2 (08:54→20:10)
[2022-03-25] MEDS: predniSONE 20 MG TABLET 10 MG PO (08:54)
[2022-03-25] MEDS: Loratadine 10 MG TABLET PO (08:55)
[2022-03-25] MEDS: Apixaban 5 MG TABLET PO ×2 (08:55→20:10)
[2022-03-25] MEDS: Memantine HCl 10 MG TABLET PO ×2 (08:55→20:10)
[2022-03-25] MEDS: levETIRAcetam 500 MG TABLET PO ×2 (08:55→20:10)
--- NOTE | 2022-03-25 15:54 | P.PNPSI_ITS ---
Subjective Subjective Date of Service: 03/25/22 Reason For Visit: Dementia with Behavioral disturbance Subjective Notes: Conditional Voluntary Interim History: the nursing staff reported the patient has been off supplemental oxygen and his saturations were within normal limits. We had a meeting with the knees over zoom and we update about discharge planning. On interview the patient denies new symptoms he usually sundowns in the evening. Mental Status Exam Mental Status Exam Patient Appearance: Well Grooomed Patient Orientation: Person and Situation Level of Consciousness: Awake Patient Behavior: Guarded and Passive Mood Description: Withdrawn Affect Description: Withdrawn Patient Cognition Impaired: Yes Ability to Follow Directions: Good Speech Pattern: Clear Hallucinations: None Delusions: Not Present Thought Process: Distracted and Evasive Thought Content: positive for Circumstantial Judgement: Fair Diagnostics Vital Signs (24Hr): Vital Signs - 24 hr 03/24/22 18:00 03/25/22 06:00 Temperature 98.2 F 97.8 F Pulse Rate 77 78 Respiratory Rate 16 16 Blood Pressure 121/74 122/58 L Pulse Oximetry 92 91 L Oxygen Delivery Method Room Air Room Air Medications Medications Current Medications Acetaminophen (Acetaminophen 325 Mg Tablet) 650 mg PO Q6H PRN PRN Reason: Headache/Pain Mild Scale (1-3) Last Admin: 03/24/22 03:51 Dose: 650 mg Al Hydroxide/Mg Hydroxide (Magnesium Hydrox/Alum Hydrox 30 Ml Oral.Susp) 30 ml PO Q6H PRN PRN Reason: Heartburn/Nausea Albuterol Sulfate (Albuterol Sulfate 90 Mcg 8 Gm Inhaler) 1 puff INHALE RQ4H PRN PRN Reason: wheezing Apixaban (Apixaban 5 Mg Tablet) 5 mg PO BID [facility] Last Admin: 03/25/22 08:55 Dose: 5 mg Folic Acid (Folic Acid 1 Mg Tablet) 1 mg PO BEDTIME [facility] Last Admin: 03/24/22 20:57 Dose: 1 mg Gabapentin (Gabapentin 600 Mg Tablet) 600 mg PO BID [facility] Last Admin: 03/25/22 08:54 Dose: 600 mg Hydroxyzine HCl (Hydroxyzine Hcl 25 Mg Tablet) 25 mg PO Q6H PRN PRN Reason: Anxiety Last Admin: 03/25/22 00:47 Dose: 25 mg Levetiracetam (Levetiracetam 500 Mg Tablet) 500 mg PO BID [facility] Last Admin: 03/25/22 08:55 Dose: 500 mg Loratadine (Loratadine 10 Mg Tablet) 10 mg PO DAILY [facility] Last Admin: 03/25/22 08:55 Dose: 10 mg Magnesium Hydroxide (Milk Of Magnesia 30 Ml Oral.Susp) 30 ml PO DAILY PRN PRN Reason: Constipation Memantine (Memantine Hcl 10 Mg Tablet) 10 mg PO BID [facility] Last Admin: 03/25/22 08:55 Dose: 10 mg Metoprolol Succinate (Metoprolol Succinate Er 25 Mg Tab.Er.24h) 25 mg PO DAILY [facility]; Protocol Last Admin: 03/25/22 08:53 Dose: 25 mg Multivitamins/Vitamin C (Multivitamin Tablet) 1 tab PO DAILY [facility] Last Admin: 03/25/22 08:54 Dose: 1 tab Pravastatin Sodium (Pravastatin Sodium 40 Mg Tablet) 40 mg PO BEDTIME [facility] Last Admin: 03/24/22 20:58 Dose: 40 mg Prednisone (Prednisone 20 Mg Tablet) 20 mg PO DAILY [facility]; Taper Stop: 03/29/22 08:59 Last Admin: 03/25/22 08:54 Dose: 20 mg Risperidone (Risperidone 1 Mg Tablet) 1 mg PO DAILY@1700 [facility] Last Admin: 03/24/22 17:53 Dose: 1 mg Risperidone (Risperidone 0.5 Mg Tablet) 0.5 mg PO DAILY [facility] Last Admin: 03/25/22 08:53 Dose: 0.5 mg Tamsulosin HCl (Tamsulosin Hcl 0.4 Mg Capsule) 0.4 mg PO DAILY [facility] Last Admin: 03/25/22 08:54 Dose: 0.4 mg Thiamine HCl (Thiamine Hcl 100 Mg Tablet) 100 mg PO BID [facility] Last Admin: 03/25/22 08:54 Dose: 100 mg Tramadol HCl (Tramadol Hcl 50 Mg Tablet) 50 mg PO TID PRN PRN Reason: Pain, Moderate (Pain Scale 4-6 Last Admin: 03/24/22 10:09 Dose: 50 mg Tramadol HCl (Tramadol Hcl 50 Mg Tablet) 50 mg PO TID [facility] Last Admin: 03/25/22 14:55 Dose: 50 mg Trazodone HCl (Trazodone Hcl 50 Mg Tablet) 50 mg PO BEDTIME PRN PRN Reason: Insomnia Last Admin: 03/25/22 00:47 Dose: 50 mg Allergies Allergies Allergy/AdvReac Type Severity Reaction Status Date / Time Penicillins Allergy Unknown Unknown Verified 02/03/22 19:47 Assessment & Plan Assessment & Plan (1) Dementia: Status: Acute Code(s): F03.90 - Unspecified dementia without behavioral disturbance (2) Psychosis: Status: Acute Code(s): F29 - Unspecified psychosis not due to a substance or known physiological condition (3) CKD (chronic kidney disease): Status: Acute Code(s): N18.9 - Chronic kidney disease, unspecified Plan adult male with a long history of dementia who was admitted initially to this facility for psychotic symptoms. Later he had an acute respiratory failure and needed to be transferred to Medicine for treatment of pneumonia and oxygen therapy. Currently he is stable waiting for placement. Plan 1. Continue same treatment. 2. Work for discharge planning I spent ___20___ minutes with the patient and/or on the patient floor today, greater than?50% of which was spent counseling/coordinating care. Reason for contiued inpatient stay Substantial Risk for: inability to function, rapid decompensation and med/psych decompensation
[2022-03-25] MEDS: risperiDONE 1 MG TABLET PO (17:31)
[2022-03-25 18:00] VITALS: BP 109/57; PULSE 82; RESP 20; TEMP 36.6; O2SAT 92
[2022-03-25] MEDS: Pravastatin Sodium 40 MG TABLET PO (20:09)
[2022-03-25] MEDS: Folic Acid 1 MG TABLET PO (20:09)
[2022-03-26 07:00] VITALS: BP 137/70; PULSE 67; RESP 16; TEMP 36.4; O2SAT 90
[2022-03-26] MEDS: Metoprolol Succinate ER 25 MG TAB.ER.24H PO (08:20)
[2022-03-26] MEDS: levETIRAcetam 500 MG TABLET PO ×2 (08:20→22:20)
[2022-03-26] MEDS: Apixaban 5 MG TABLET PO ×2 (08:20→22:19)
[2022-03-26] MEDS: Memantine HCl 10 MG TABLET PO ×2 (08:20→22:21)
[2022-03-26] MEDS: Gabapentin 600 MG TABLET PO ×2 (08:20→22:19)
[2022-03-26] MEDS: traMADoL HCL 50 MG TABLET PO ×3 (08:20→22:20)
[2022-03-26] MEDS: Tamsulosin HCL 0.4 MG CAPSULE PO (08:20)
[2022-03-26] MEDS: Thiamine HCL 100 MG TABLET PO ×2 (08:20→22:21)
[2022-03-26] MEDS: risperiDONE 0.5 MG TABLET PO (08:20)
[2022-03-26] MEDS: Multivitamin TABLET 1 TAB PO (08:20)
[2022-03-26] MEDS: Loratadine 10 MG TABLET PO (08:21)
[2022-03-26] MEDS: predniSONE 20 MG TABLET 10 MG PO (08:21)
--- NOTE | 2022-03-26 16:36 | HO.PSYCHPN ---
Subjective Subjective Date of Service: 03/26/22 Reason For Visit: Dementia with Behavioral disturbance Subjective Notes: Conditional Voluntary Interim History: the nursing staff reported the patient has been pleasant and cooperative. The social studies department chair reported that she has called to [facility] for facilities and so far we are waiting for placement. Yesterday we have a family meeting with Alma Delia and we updated her on our efforts for placement. On interview the patient denies new symptoms Mental Status Exam Mental Status Exam Patient Appearance: Well Grooomed Patient Orientation: Person and Situation Level of Consciousness: Awake Patient Behavior: Cooperative Mood Description: Calm Affect Description: Constricted Patient Cognition Impaired: Yes Ability to Follow Directions: Fair Speech Pattern: Clear Hallucinations: None Delusions: Not Present Thought Process: Linear Thought Content: positive for Circumstantial Judgement: Fair Diagnostics Vital Signs (24Hr): Vital Signs - 24 hr 03/25/22 18:00 03/26/22 07:00 Temperature 97.9 F 97.6 F Pulse Rate 82 67 Respiratory Rate 20 16 Blood Pressure 109/57 L 137/70 Pulse Oximetry 92 90 L Oxygen Delivery Method Room Air Room Air Medications Medications Current Medications Acetaminophen (Acetaminophen 325 Mg Tablet) 650 mg PO Q6H PRN PRN Reason: Headache/Pain Mild Scale (1-3) Last Admin: 03/24/22 03:51 Dose: 650 mg Al Hydroxide/Mg Hydroxide (Magnesium Hydrox/Alum Hydrox 30 Ml Oral.Susp) 30 ml PO Q6H PRN PRN Reason: Heartburn/Nausea Albuterol Sulfate (Albuterol Sulfate 90 Mcg 8 Gm Inhaler) 1 puff INHALE RQ4H PRN PRN Reason: wheezing Apixaban (Apixaban 5 Mg Tablet) 5 mg PO BID [facility] Last Admin: 03/26/22 08:20 Dose: 5 mg Folic Acid (Folic Acid 1 Mg Tablet) 1 mg PO BEDTIME [facility] Last Admin: 03/25/22 20:09 Dose: 1 mg Gabapentin (Gabapentin 600 Mg Tablet) 600 mg PO BID [facility] Last Admin: 03/26/22 08:20 Dose: 600 mg Hydroxyzine HCl (Hydroxyzine Hcl 25 Mg Tablet) 25 mg PO Q6H PRN PRN Reason: Anxiety Last Admin: 03/25/22 00:47 Dose: 25 mg Levetiracetam (Levetiracetam 500 Mg Tablet) 500 mg PO BID [facility] Last Admin: 03/26/22 08:20 Dose: 500 mg Loratadine (Loratadine 10 Mg Tablet) 10 mg PO DAILY [facility] Last Admin: 03/26/22 08:21 Dose: 10 mg Magnesium Hydroxide (Milk Of Magnesia 30 Ml Oral.Susp) 30 ml PO DAILY PRN PRN Reason: Constipation Memantine (Memantine Hcl 10 Mg Tablet) 10 mg PO BID [facility] Last Admin: 03/26/22 08:20 Dose: 10 mg Metoprolol Succinate (Metoprolol Succinate Er 25 Mg Tab.Er.24h) 25 mg PO DAILY [facility]; Protocol Last Admin: 03/26/22 08:20 Dose: 25 mg Multivitamins/Vitamin C (Multivitamin Tablet) 1 tab PO DAILY [facility] Last Admin: 03/26/22 08:20 Dose: 1 tab Pravastatin Sodium (Pravastatin Sodium 40 Mg Tablet) 40 mg PO BEDTIME [facility] Last Admin: 03/25/22 20:09 Dose: 40 mg Prednisone (Prednisone 20 Mg Tablet) 10 mg PO DAILY [facility]; Taper Stop: 03/29/22 08:59 Last Admin: 03/26/22 08:21 Dose: 10 mg Risperidone (Risperidone 1 Mg Tablet) 1 mg PO DAILY@1700 [facility] Last Admin: 03/25/22 17:31 Dose: 1 mg Risperidone (Risperidone 0.5 Mg Tablet) 0.5 mg PO DAILY [facility] Last Admin: 03/26/22 08:20 Dose: 0.5 mg Tamsulosin HCl (Tamsulosin Hcl 0.4 Mg Capsule) 0.4 mg PO DAILY [facility] Last Admin: 03/26/22 08:20 Dose: 0.4 mg Thiamine HCl (Thiamine Hcl 100 Mg Tablet) 100 mg PO BID [facility] Last Admin: 03/26/22 08:20 Dose: 100 mg Tramadol HCl (Tramadol Hcl 50 Mg Tablet) 50 mg PO TID [facility] Last Admin: 03/26/22 08:20 Dose: 50 mg Trazodone HCl (Trazodone Hcl 50 Mg Tablet) 50 mg PO BEDTIME PRN PRN Reason: Insomnia Last Admin: 03/25/22 00:47 Dose: 50 mg Allergies Allergies Allergy/AdvReac Type Severity Reaction Status Date / Time Penicillins Allergy Unknown Unknown Verified 02/03/22 19:47 Assessment & Plan Assessment & Plan (1) Dementia: Status: Acute Code(s): F03.90 - Unspecified dementia without behavioral disturbance (2) Psychosis: Status: Acute Code(s): F29 - Unspecified psychosis not due to a substance or known physiological condition (3) CKD (chronic kidney disease): Status: Acute Code(s): N18.9 - Chronic kidney disease, unspecified Plan adult male with a long history of dementia who was admitted initially to this facility for psychotic symptoms. Later he had an acute respiratory failure and needed to be transferred to Medicine for treatment of pneumonia and oxygen therapy. Currently he is stable waiting for placement. Plan 1. Continue same treatment. 2. Work for discharge planning I spent ___20___ minutes with the patient and/or on the patient floor today, greater than?50% of which was spent counseling/coordinating care. Reason for contiued inpatient stay Substantial Risk for: inability to function, rapid decompensation and med/psych decompensation
[2022-03-26] MEDS: risperiDONE 1 MG TABLET PO (17:19)
[2022-03-26 22:06] VITALS: BP 115/63; PULSE 76; TEMP 37.3; O2SAT 90
[2022-03-26] MEDS: Pravastatin Sodium 40 MG TABLET PO (22:19)
[2022-03-26] MEDS: Folic Acid 1 MG TABLET PO (22:19)
[2022-03-26] MEDS: Acetaminophen 325 MG TABLET 650 MG PO (22:20)
[2022-03-26 22:38] VITALS: PULSE 82; TEMP 36.6; O2SAT 91
[2022-03-27 07:00] VITALS: BP 103/56; PULSE 78; RESP 18; TEMP 36.1; O2SAT 91
[2022-03-27] MEDS: predniSONE 20 MG TABLET 10 MG PO (09:04)
[2022-03-27] MEDS: risperiDONE 0.5 MG TABLET PO (09:05)
[2022-03-27] MEDS: Apixaban 5 MG TABLET PO ×2 (09:05→20:04)
[2022-03-27] MEDS: Thiamine HCL 100 MG TABLET PO ×2 (09:05→20:05)
[2022-03-27] MEDS: Tamsulosin HCL 0.4 MG CAPSULE PO (09:05)
[2022-03-27] MEDS: Metoprolol Succinate ER 25 MG TAB.ER.24H PO (09:05)
[2022-03-27] MEDS: Loratadine 10 MG TABLET PO (09:05)
[2022-03-27] MEDS: Memantine HCl 10 MG TABLET PO ×2 (09:05→20:05)
[2022-03-27] MEDS: Gabapentin 600 MG TABLET PO ×2 (09:05→20:04)
[2022-03-27] MEDS: traMADoL HCL 50 MG TABLET PO ×3 (09:05→20:05)
[2022-03-27] MEDS: Multivitamin TABLET 1 TAB PO (09:05)
[2022-03-27] MEDS: levETIRAcetam 500 MG TABLET PO ×2 (09:06→20:04)
--- NOTE | 2022-03-27 13:06 | P.PNPSI_ITS ---
Subjective Subjective Date of Service: 03/27/22 Reason For Visit: Dementia with Behavioral disturbance Subjective Notes: Conditional Voluntary Interim History: The nursing staff reported the patient has been pleasant and cooperative. According to the geriatric social worker we are waiting for placement, we have applied to several facilities. On interview the patient denies new symptoms. Mental Status Exam Mental Status Exam Patient Appearance: Well Grooomed Patient Orientation: Person and Situation Level of Consciousness: Awake Patient Behavior: Appropriate and Cooperative Mood Description: Calm Affect Description: Calm Patient Cognition Impaired: Yes Ability to Follow Directions: Good Speech Pattern: Clear Hallucinations: None Delusions: Not Present Thought Content: positive for Circumstantial Judgement: Fair Diagnostics Vital Signs (24Hr): Vital Signs - 24 hr 03/26/22 22:06 03/26/22 22:38 03/27/22 07:00 Temperature 99.1 F 97.8 F 97.0 F Pulse Rate 76 82 78 Respiratory Rate 18 Blood Pressure 115/63 103/56 L Pulse Oximetry 90 L 91 L 91 L Oxygen Delivery Method Room Air Room Air Room Air Medications Medications Current Medications Acetaminophen (Acetaminophen 325 Mg Tablet) 650 mg PO Q6H PRN PRN Reason: Headache/Pain Mild Scale (1-3) Last Admin: 03/26/22 22:20 Dose: 650 mg Al Hydroxide/Mg Hydroxide (Magnesium Hydrox/Alum Hydrox 30 Ml Oral.Susp) 30 ml PO Q6H PRN PRN Reason: Heartburn/Nausea Albuterol Sulfate (Albuterol Sulfate 90 Mcg 8 Gm Inhaler) 1 puff INHALE RQ4H PRN PRN Reason: wheezing Apixaban (Apixaban 5 Mg Tablet) 5 mg PO BID [facility] Last Admin: 03/27/22 09:05 Dose: 5 mg Folic Acid (Folic Acid 1 Mg Tablet) 1 mg PO BEDTIME [facility] Last Admin: 03/26/22 22:19 Dose: 1 mg Gabapentin (Gabapentin 600 Mg Tablet) 600 mg PO BID [facility] Last Admin: 03/27/22 09:05 Dose: 600 mg Hydroxyzine HCl (Hydroxyzine Hcl 25 Mg Tablet) 25 mg PO Q6H PRN PRN Reason: Anxiety Last Admin: 03/25/22 00:47 Dose: 25 mg Levetiracetam (Levetiracetam 500 Mg Tablet) 500 mg PO BID [facility] Last Admin: 03/27/22 09:06 Dose: 500 mg Loratadine (Loratadine 10 Mg Tablet) 10 mg PO DAILY [facility] Last Admin: 03/27/22 09:05 Dose: 10 mg Magnesium Hydroxide (Milk Of Magnesia 30 Ml Oral.Susp) 30 ml PO DAILY PRN PRN Reason: Constipation Memantine (Memantine Hcl 10 Mg Tablet) 10 mg PO BID [facility] Last Admin: 03/27/22 09:05 Dose: 10 mg Metoprolol Succinate (Metoprolol Succinate Er 25 Mg Tab.Er.24h) 25 mg PO DAILY [facility]; Protocol Last Admin: 03/27/22 09:05 Dose: 25 mg Multivitamins/Vitamin C (Multivitamin Tablet) 1 tab PO DAILY [facility] Last Admin: 03/27/22 09:05 Dose: 1 tab Pravastatin Sodium (Pravastatin Sodium 40 Mg Tablet) 40 mg PO BEDTIME [facility] Last Admin: 03/26/22 22:19 Dose: 40 mg Prednisone (Prednisone 20 Mg Tablet) 10 mg PO DAILY [facility]; Taper Stop: 03/29/22 08:59 Last Admin: 03/27/22 09:04 Dose: 10 mg Risperidone (Risperidone 1 Mg Tablet) 1 mg PO DAILY@1700 [facility] Last Admin: 03/26/22 17:19 Dose: 1 mg Risperidone (Risperidone 0.5 Mg Tablet) 0.5 mg PO DAILY [facility] Last Admin: 03/27/22 09:05 Dose: 0.5 mg Tamsulosin HCl (Tamsulosin Hcl 0.4 Mg Capsule) 0.4 mg PO DAILY [facility] Last Admin: 03/27/22 09:05 Dose: 0.4 mg Thiamine HCl (Thiamine Hcl 100 Mg Tablet) 100 mg PO BID [facility] Last Admin: 03/27/22 09:05 Dose: 100 mg Tramadol HCl (Tramadol Hcl 50 Mg Tablet) 50 mg PO TID [facility] Last Admin: 03/27/22 09:05 Dose: 50 mg Trazodone HCl (Trazodone Hcl 50 Mg Tablet) 50 mg PO BEDTIME PRN PRN Reason: Insomnia Last Admin: 03/25/22 00:47 Dose: 50 mg Allergies Allergies Allergy/AdvReac Type Severity Reaction Status Date / Time Penicillins Allergy Unknown Unknown Verified 02/03/22 19:47 Assessment & Plan Assessment & Plan (1) Dementia: Status: Acute Code(s): F03.90 - Unspecified dementia without behavioral disturbance (2) Psychosis: Status: Acute Code(s): F29 - Unspecified psychosis not due to a substance or known physiological condition (3) CKD (chronic kidney disease): Status: Acute Code(s): N18.9 - Chronic kidney disease, unspecified Plan adult male with a long history of dementia who was admitted initially to this facility for psychotic symptoms. Later he had an acute respiratory failure and needed to be transferred to Medicine for treatment of pneumonia and oxygen therapy. Currently he is stable waiting for placement. Plan 1. Continue same treatment. 2. Work for discharge planning I spent __20____ minutes with the patient and/or on the patient floor today, greater than?50% of which was spent counseling/coordinating care. Reason for contiued inpatient stay Substantial Risk for: inability to function, rapid decompensation and med/psych decompensation
[2022-03-27] MEDS: risperiDONE 1 MG TABLET PO (16:53)
[2022-03-27 18:00] VITALS: BP 109/57; PULSE 76; RESP 16; TEMP 36.6; O2SAT 92
[2022-03-27] MEDS: Folic Acid 1 MG TABLET PO (20:04)
[2022-03-27] MEDS: Pravastatin Sodium 40 MG TABLET PO (20:04)
[2022-03-28 06:00] VITALS: BP 121/60; PULSE 68; RESP 16; TEMP 36.3; O2SAT 98
[2022-03-28] MEDS: Apixaban 5 MG TABLET PO ×2 (08:28→21:20)
[2022-03-28] MEDS: risperiDONE 0.5 MG TABLET PO (08:28)
[2022-03-28] MEDS: Metoprolol Succinate ER 25 MG TAB.ER.24H PO (08:28)
[2022-03-28] MEDS: levETIRAcetam 500 MG TABLET PO ×2 (08:29→21:18)
[2022-03-28] MEDS: Gabapentin 600 MG TABLET PO ×2 (08:29→21:19)
[2022-03-28] MEDS: Tamsulosin HCL 0.4 MG CAPSULE PO (08:29)
[2022-03-28] MEDS: Loratadine 10 MG TABLET PO (08:29)
[2022-03-28] MEDS: Thiamine HCL 100 MG TABLET PO ×2 (08:29→21:19)
[2022-03-28] MEDS: predniSONE 20 MG TABLET 10 MG PO (08:29)
[2022-03-28] MEDS: Multivitamin TABLET 1 TAB PO (08:29)
[2022-03-28] MEDS: traMADoL HCL 50 MG TABLET PO ×2 (08:29→21:19)
[2022-03-28] MEDS: Memantine HCl 10 MG TABLET PO ×2 (08:29→21:19)
[2022-03-28 18:00] VITALS: BP 131/73; PULSE 78; RESP 14; TEMP 36.7; O2SAT 92
--- NOTE | 2022-03-28 18:28 | HO.PSYCHPN ---
Subjective Subjective Date of Service: 03/28/22 Reason For Visit: Dementia with Behavioral disturbance Interim History: Patient sitting with peers playing cards. On approach calm and polite. Patient asked nursing today if he was going home today; intermittently swearing and nurse's, but redirectable Mental Status Exam Mental Status Exam Patient Appearance: Well Grooomed Patient Orientation: Person and Place Level of Consciousness: Awake Patient Behavior: Appropriate, Cooperative and Resistive to Care (intermittently) Mood Description: Calm Affect Description: Calm Patient Cognition Impaired: Yes Ability to Follow Directions: Good Speech Pattern: Clear Hallucinations: None Delusions: Not Present Thought Process: Goal Oriented Thought Content: positive for Circumstantial Judgement: Fair Diagnostics Vital Signs (24Hr): Vital Signs - 24 hr 03/28/22 06:00 Temperature 97.3 F Pulse Rate 68 Respiratory Rate 16 Blood Pressure 121/60 Pulse Oximetry 98 Oxygen Delivery Method Room Air Medications Medications Current Medications Acetaminophen (Acetaminophen 325 Mg Tablet) 650 mg PO Q6H PRN PRN Reason: Headache/Pain Mild Scale (1-3) Last Admin: 03/26/22 22:20 Dose: 650 mg Al Hydroxide/Mg Hydroxide (Magnesium Hydrox/Alum Hydrox 30 Ml Oral.Susp) 30 ml PO Q6H PRN PRN Reason: Heartburn/Nausea Albuterol Sulfate (Albuterol Sulfate 90 Mcg 8 Gm Inhaler) 1 puff INHALE RQ4H PRN PRN Reason: wheezing Apixaban (Apixaban 5 Mg Tablet) 5 mg PO BID [facility] Last Admin: 03/28/22 08:28 Dose: 5 mg Folic Acid (Folic Acid 1 Mg Tablet) 1 mg PO BEDTIME [facility] Last Admin: 03/27/22 20:04 Dose: 1 mg Gabapentin (Gabapentin 600 Mg Tablet) 600 mg PO BID [facility] Last Admin: 03/28/22 08:29 Dose: 600 mg Hydroxyzine HCl (Hydroxyzine Hcl 25 Mg Tablet) 25 mg PO Q6H PRN PRN Reason: Anxiety Last Admin: 03/25/22 00:47 Dose: 25 mg Levetiracetam (Levetiracetam 500 Mg Tablet) 500 mg PO BID [facility] Last Admin: 03/28/22 08:29 Dose: 500 mg Loratadine (Loratadine 10 Mg Tablet) 10 mg PO DAILY [facility] Last Admin: 03/28/22 08:29 Dose: 10 mg Magnesium Hydroxide (Milk Of Magnesia 30 Ml Oral.Susp) 30 ml PO DAILY PRN PRN Reason: Constipation Memantine (Memantine Hcl 10 Mg Tablet) 10 mg PO BID [facility] Last Admin: 03/28/22 08:29 Dose: 10 mg Metoprolol Succinate (Metoprolol Succinate Er 25 Mg Tab.Er.24h) 25 mg PO DAILY [facility]; Protocol Last Admin: 03/28/22 08:28 Dose: 25 mg Multivitamins/Vitamin C (Multivitamin Tablet) 1 tab PO DAILY [facility] Last Admin: 03/28/22 08:29 Dose: 1 tab Pravastatin Sodium (Pravastatin Sodium 40 Mg Tablet) 40 mg PO BEDTIME [facility] Last Admin: 03/27/22 20:04 Dose: 40 mg Prednisone (Prednisone 20 Mg Tablet) 10 mg PO DAILY [facility]; Taper Stop: 03/29/22 08:59 Last Admin: 03/28/22 08:29 Dose: 10 mg Risperidone (Risperidone 1 Mg Tablet) 1 mg PO DAILY@1700 [facility] Last Admin: 03/28/22 17:04 Dose: Not Given Risperidone (Risperidone 0.5 Mg Tablet) 0.5 mg PO DAILY [facility] Last Admin: 03/28/22 08:28 Dose: 0.5 mg Tamsulosin HCl (Tamsulosin Hcl 0.4 Mg Capsule) 0.4 mg PO DAILY [facility] Last Admin: 03/28/22 08:29 Dose: 0.4 mg Thiamine HCl (Thiamine Hcl 100 Mg Tablet) 100 mg PO BID [facility] Last Admin: 03/28/22 08:29 Dose: 100 mg Tramadol HCl (Tramadol Hcl 50 Mg Tablet) 50 mg PO TID [facility] Last Admin: 03/28/22 17:03 Dose: Not Given Trazodone HCl (Trazodone Hcl 50 Mg Tablet) 50 mg PO BEDTIME PRN PRN Reason: Insomnia Last Admin: 03/25/22 00:47 Dose: 50 mg Allergies Allergies Allergy/AdvReac Type Severity Reaction Status Date / Time Penicillins Allergy Unknown Unknown Verified 02/03/22 19:47 Assessment & Plan Assessment & Plan (1) Dementia: Status: Acute Code(s): F03.90 - Unspecified dementia without behavioral disturbance (2) Psychosis: Status: Acute Code(s): F29 - Unspecified psychosis not due to a substance or known physiological condition (3) CKD (chronic kidney disease): Status: Acute Code(s): N18.9 - Chronic kidney disease, unspecified Plan adult male with a long history of dementia who was admitted initially to this facility for psychotic symptoms. Later he had an acute respiratory failure and needed to be transferred to Medicine for treatment of pneumonia and oxygen therapy. Currently he is stable waiting for placement. Plan 1. Continue same treatment. 2. Work for discharge planning 03/28 continue current treatment plan I spent minutes with the patient and/or on the patient floor today, greater than?50% of which was spent counseling/coordinating care. Reason for contiued inpatient stay Substantial Risk for: med/psych decompensation
[2022-03-28] MEDS: Pravastatin Sodium 40 MG TABLET PO (21:18)
[2022-03-28] MEDS: Folic Acid 1 MG TABLET PO (21:19)
[2022-03-29 06:00] VITALS: BP 113/64; PULSE 72; RESP 16; TEMP 36.6; O2SAT 93
[2022-03-29] MEDS: Metoprolol Succinate ER 25 MG TAB.ER.24H PO (08:48)
[2022-03-29] MEDS: Apixaban 5 MG TABLET PO ×2 (08:48→19:39)
[2022-03-29] MEDS: traMADoL HCL 50 MG TABLET PO ×3 (08:48→19:38)
[2022-03-29] MEDS: risperiDONE 0.5 MG TABLET PO (08:49)
[2022-03-29] MEDS: Multivitamin TABLET 1 TAB PO (08:49)
[2022-03-29] MEDS: Loratadine 10 MG TABLET PO (08:49)
[2022-03-29] MEDS: Memantine HCl 10 MG TABLET PO ×2 (08:49→19:38)
[2022-03-29] MEDS: Gabapentin 600 MG TABLET PO ×2 (08:49→19:38)
[2022-03-29] MEDS: Tamsulosin HCL 0.4 MG CAPSULE PO (08:49)
[2022-03-29] MEDS: Thiamine HCL 100 MG TABLET PO ×2 (08:49→19:38)
[2022-03-29] MEDS: levETIRAcetam 500 MG TABLET PO ×2 (08:49→19:38)
--- NOTE | 2022-03-29 17:04 | HO.PSYCHPN ---
Subjective Subjective Date of Service: 03/29/22 Reason For Visit: Dementia with Behavioral disturbance Interim History: pt gives thumbs up saying he's good. Electro Optical Engineer asked about his shoulder which He says is much better with scheduled tramadol. not other complaints or requests. Mental Status Exam Mental Status Exam Patient Appearance: Well Grooomed Patient Orientation: Person and Place Level of Consciousness: Awake Patient Behavior: Appropriate, Cooperative and Resistive to Care (intermittently) Mood Description: Calm Affect Description: Calm Patient Cognition Impaired: Yes Ability to Follow Directions: Good Speech Pattern: Clear Hallucinations: None Delusions: Not Present Thought Process: Goal Oriented Thought Content: positive for Circumstantial Judgement: Fair Diagnostics Vital Signs (24Hr): Vital Signs - 24 hr 03/28/22 18:00 03/29/22 06:00 Temperature 98.1 F 97.8 F Pulse Rate 78 72 Respiratory Rate 14 16 Blood Pressure 131/73 113/64 Pulse Oximetry 92 93 Oxygen Delivery Method Room Air Room Air Medications Medications Current Medications Acetaminophen (Acetaminophen 325 Mg Tablet) 650 mg PO Q6H PRN PRN Reason: Headache/Pain Mild Scale (1-3) Last Admin: 03/26/22 22:20 Dose: 650 mg Al Hydroxide/Mg Hydroxide (Magnesium Hydrox/Alum Hydrox 30 Ml Oral.Susp) 30 ml PO Q6H PRN PRN Reason: Heartburn/Nausea Albuterol Sulfate (Albuterol Sulfate 90 Mcg 8 Gm Inhaler) 1 puff INHALE RQ4H PRN PRN Reason: wheezing Apixaban (Apixaban 5 Mg Tablet) 5 mg PO BID [facility] Last Admin: 03/29/22 08:48 Dose: 5 mg Folic Acid (Folic Acid 1 Mg Tablet) 1 mg PO BEDTIME [facility] Last Admin: 03/28/22 21:19 Dose: 1 mg Gabapentin (Gabapentin 600 Mg Tablet) 600 mg PO BID [facility] Last Admin: 03/29/22 08:49 Dose: 600 mg Hydroxyzine HCl (Hydroxyzine Hcl 25 Mg Tablet) 25 mg PO Q6H PRN PRN Reason: Anxiety Last Admin: 03/25/22 00:47 Dose: 25 mg Levetiracetam (Levetiracetam 500 Mg Tablet) 500 mg PO BID [facility] Last Admin: 03/29/22 08:49 Dose: 500 mg Loratadine (Loratadine 10 Mg Tablet) 10 mg PO DAILY [facility] Last Admin: 03/29/22 08:49 Dose: 10 mg Magnesium Hydroxide (Milk Of Magnesia 30 Ml Oral.Susp) 30 ml PO DAILY PRN PRN Reason: Constipation Memantine (Memantine Hcl 10 Mg Tablet) 10 mg PO BID [facility] Last Admin: 03/29/22 08:49 Dose: 10 mg Metoprolol Succinate (Metoprolol Succinate Er 25 Mg Tab.Er.24h) 25 mg PO DAILY [facility]; Protocol Last Admin: 03/29/22 08:48 Dose: 25 mg Multivitamins/Vitamin C (Multivitamin Tablet) 1 tab PO DAILY [facility] Last Admin: 03/29/22 08:49 Dose: 1 tab Pravastatin Sodium (Pravastatin Sodium 40 Mg Tablet) 40 mg PO BEDTIME [facility] Last Admin: 03/28/22 21:18 Dose: 40 mg Risperidone (Risperidone 1 Mg Tablet) 1 mg PO DAILY@1700 [facility] Last Admin: 03/28/22 17:04 Dose: Not Given Risperidone (Risperidone 0.5 Mg Tablet) 0.5 mg PO DAILY [facility] Last Admin: 03/29/22 08:49 Dose: 0.5 mg Tamsulosin HCl (Tamsulosin Hcl 0.4 Mg Capsule) 0.4 mg PO DAILY [facility] Last Admin: 03/29/22 08:49 Dose: 0.4 mg Thiamine HCl (Thiamine Hcl 100 Mg Tablet) 100 mg PO BID [facility] Last Admin: 03/29/22 08:49 Dose: 100 mg Tramadol HCl (Tramadol Hcl 50 Mg Tablet) 50 mg PO TID [facility] Last Admin: 03/29/22 08:48 Dose: 50 mg Trazodone HCl (Trazodone Hcl 50 Mg Tablet) 50 mg PO BEDTIME PRN PRN Reason: Insomnia Last Admin: 03/25/22 00:47 Dose: 50 mg Allergies Allergies Allergy/AdvReac Type Severity Reaction Status Date / Time Penicillins Allergy Unknown Unknown Verified 02/03/22 19:47 Assessment & Plan Assessment & Plan (1) Dementia: Status: Acute Code(s): F03.90 - Unspecified dementia without behavioral disturbance (2) Psychosis: Status: Acute Code(s): F29 - Unspecified psychosis not due to a substance or known physiological condition (3) CKD (chronic kidney disease): Status: Acute Code(s): N18.9 - Chronic kidney disease, unspecified Plan adult male with a long history of dementia who was admitted initially to this facility for psychotic symptoms. Later he had an acute respiratory failure and needed to be transferred to Medicine for treatment of pneumonia and oxygen therapy. Currently he is stable waiting for placement. Plan 1. Continue same treatment. 2. Work for discharge planning 03/28 continue current treatment plan 03/28 continue current treatment plan I spent minutes with the patient and/or on the patient floor today, greater than?50% of which was spent counseling/coordinating care. Patient educated on: medical condition Informed Consent: understands Reason for contiued inpatient stay Substantial Risk for: med/psych decompensation
[2022-03-29 18:00] VITALS: BP 120/62; PULSE 80; RESP 16; TEMP 36.7; O2SAT 98
[2022-03-29] MEDS: Pravastatin Sodium 40 MG TABLET PO (19:38)
[2022-03-29] MEDS: Folic Acid 1 MG TABLET PO (19:38)
[2022-03-29] MEDS: risperiDONE 1 MG TABLET PO (19:38)
[2022-03-30 07:00] VITALS: BP 104/61; PULSE 90; RESP 17; TEMP 36; O2SAT 91
[2022-03-30] MEDS: Apixaban 5 MG TABLET PO ×2 (08:34→21:41)
[2022-03-30] MEDS: Multivitamin TABLET 1 TAB PO (08:34)
[2022-03-30] MEDS: Tamsulosin HCL 0.4 MG CAPSULE PO (08:34)
[2022-03-30] MEDS: Metoprolol Succinate ER 25 MG TAB.ER.24H PO (08:34)
[2022-03-30] MEDS: Loratadine 10 MG TABLET PO (08:34)
[2022-03-30] MEDS: levETIRAcetam 500 MG TABLET PO ×2 (08:35→21:41)
[2022-03-30] MEDS: Memantine HCl 10 MG TABLET PO ×2 (08:35→21:41)
[2022-03-30] MEDS: Thiamine HCL 100 MG TABLET PO ×2 (08:35→21:41)
[2022-03-30] MEDS: risperiDONE 0.5 MG TABLET PO (08:35)
[2022-03-30] MEDS: Gabapentin 600 MG TABLET PO ×2 (08:35→21:41)
[2022-03-30] MEDS: traMADoL HCL 50 MG TABLET PO ×2 (14:50→21:41)
[2022-03-30] MEDS: Acetaminophen 325 MG TABLET 650 MG PO (14:51)
--- NOTE | 2022-03-30 15:11 | HO.PSYCHPN ---
Subjective Subjective Date of Service: 03/30/22 Reason For Visit: Dementia with Behavioral disturbance Subjective Notes: Conditional Voluntary Interim History: the nursing staff reported the patient has been pleasant and cooperative, he complained of some sporadic pain in his shoulder. On interview the patient is awake and alert, waiting for placement Mental Status Exam Mental Status Exam Patient Appearance: Well Grooomed Patient Orientation: Person and Situation Level of Consciousness: Awake Patient Behavior: Cooperative Mood Description: Withdrawn Affect Description: Constricted Patient Cognition Impaired: Yes Ability to Follow Directions: Good Speech Pattern: Clear Hallucinations: None Delusions: Not Present Thought Process: Distracted Thought Content: positive for [place] Judgement: Fair Diagnostics Vital Signs (24Hr): Vital Signs - 24 hr 03/29/22 18:00 03/30/22 07:00 Temperature 98.0 F 96.8 F Pulse Rate 80 90 Respiratory Rate 16 17 Blood Pressure 120/62 104/61 Pulse Oximetry 98 91 L Oxygen Delivery Method Room Air Room Air Medications Medications Current Medications Acetaminophen (Acetaminophen 325 Mg Tablet) 650 mg PO Q6H PRN PRN Reason: Headache/Pain Mild Scale (1-3) Last Admin: 03/30/22 14:51 Dose: 650 mg Al Hydroxide/Mg Hydroxide (Magnesium Hydrox/Alum Hydrox 30 Ml Oral.Susp) 30 ml PO Q6H PRN PRN Reason: Heartburn/Nausea Albuterol Sulfate (Albuterol Sulfate 90 Mcg 8 Gm Inhaler) 1 puff INHALE RQ4H PRN PRN Reason: wheezing Apixaban (Apixaban 5 Mg Tablet) [address] [facility] Last Admin: 03/30/22 08:34 Dose: 5 mg Folic Acid (Folic Acid 1 Mg Tablet) [address] [facility] Last Admin: 03/29/22 19:38 Dose: 1 mg Gabapentin (Gabapentin 600 Mg Tablet) [address] [facility] Last Admin: 03/30/22 08:35 Dose: 600 mg Hydroxyzine HCl (Hydroxyzine Hcl 25 Mg Tablet) 25 mg PO Q6H PRN PRN Reason: Anxiety Last Admin: 03/25/22 00:47 Dose: 25 mg Levetiracetam (Levetiracetam 500 Mg Tablet) [address] [facility] Last Admin: 03/30/22 08:35 Dose: 500 mg Loratadine (Loratadine 10 Mg Tablet) [address] [facility] Last Admin: 03/30/22 08:34 Dose: 10 mg Magnesium Hydroxide (Milk Of Magnesia 30 Ml Oral.Susp) 30 ml PO DAILY PRN PRN Reason: Constipation Memantine (Memantine Hcl 10 Mg Tablet) [address] [facility] Last Admin: 03/30/22 08:35 Dose: 10 mg Metoprolol Succinate (Metoprolol Succinate Er 25 Mg Tab.Er.24h) [address] [facility]; Protocol Last Admin: 03/30/22 08:34 Dose: 25 mg Multivitamins/Vitamin C (Multivitamin Tablet) [address] [facility] Last Admin: 03/30/22 08:34 Dose: 1 tab Pravastatin Sodium (Pravastatin Sodium 40 Mg Tablet) [address] [facility] Last Admin: 03/29/22 19:38 Dose: 40 mg Risperidone (Risperidone 1 Mg Tablet) 1 mg PO DAILY@1700 [facility] Last Admin: 03/29/22 19:38 Dose: 1 mg Risperidone (Risperidone 0.5 Mg Tablet) 0.[address] [facility] Last Admin: 03/30/22 08:35 Dose: 0.5 mg Tamsulosin HCl (Tamsulosin Hcl 0.4 Mg Capsule) 0.[address] [facility] Last Admin: 03/30/22 08:34 Dose: 0.4 mg Thiamine HCl (Thiamine Hcl 100 Mg Tablet) [address] [facility] Last Admin: 03/30/22 08:35 Dose: 100 mg Tramadol HCl (Tramadol Hcl 50 Mg Tablet) 50 mg PO Q6H PRN PRN Reason: Pain, Moderate (Pain Scale 4-6 Tramadol HCl (Tramadol Hcl 50 Mg Tablet) [address] [facility] Last Admin: 03/30/22 14:50 Dose: 50 mg Trazodone HCl (Trazodone Hcl 50 Mg Tablet) 50 mg PO BEDTIME PRN PRN Reason: Insomnia Last Admin: 03/25/22 00:47 Dose: 50 mg Allergies Allergies Allergy/AdvReac Type Severity Reaction Status Date / Time Penicillins Allergy Unknown Unknown Verified 02/03/22 19:47 Assessment & Plan Assessment & Plan (1) Dementia: Status: Acute Code(s): F03.90 - Unspecified dementia without behavioral disturbance (2) Psychosis: Status: Acute Code(s): F29 - Unspecified psychosis not due to a substance or known physiological condition (3) CKD (chronic kidney disease): Status: Acute Code(s): N18.9 - Chronic kidney disease, unspecified Plan adult male with a long history of dementia who was admitted initially to this facility for psychotic symptoms. Later he had an acute respiratory failure and needed to be transferred to Medicine for treatment of pneumonia and oxygen therapy. Currently he is stable waiting for placement. Plan 1. Continue same treatment. 2. Work for discharge planning I spent ___20___ minutes with the patient and/or on the patient floor today, greater than?50% of which was spent counseling/coordinating care. Reason for contiued inpatient stay Substantial Risk for: inability to function, rapid decompensation and med/psych decompensation
[2022-03-30] MEDS: risperiDONE 1 MG TABLET PO (17:05)
[2022-03-30 21:38] VITALS: BP 103/57; PULSE 74; RESP 20; TEMP 36.6; O2SAT 93
[2022-03-30] MEDS: Pravastatin Sodium 40 MG TABLET PO (21:41)
[2022-03-30] MEDS: Folic Acid 1 MG TABLET PO (21:41)
[2022-03-31 07:00] VITALS: BP 163/78; PULSE 70; RESP 13; TEMP 36.2; O2SAT 92
[2022-03-31] MEDS: Apixaban 5 MG TABLET PO ×2 (08:53→20:50)
[2022-03-31] MEDS: levETIRAcetam 500 MG TABLET PO ×2 (08:53→20:50)
[2022-03-31] MEDS: Memantine HCl 10 MG TABLET PO ×2 (08:53→20:50)
[2022-03-31] MEDS: Gabapentin 600 MG TABLET PO ×2 (08:53→20:51)
[2022-03-31] MEDS: Metoprolol Succinate ER 25 MG TAB.ER.24H PO (08:53)
[2022-03-31] MEDS: risperiDONE 0.5 MG TABLET PO (08:53)
[2022-03-31] MEDS: Loratadine 10 MG TABLET PO (08:53)
[2022-03-31] MEDS: Multivitamin TABLET 1 TAB PO (08:53)
[2022-03-31] MEDS: traMADoL HCL 50 MG TABLET PO ×3 (08:53→20:50)
[2022-03-31] MEDS: Tamsulosin HCL 0.4 MG CAPSULE PO (08:53)
[2022-03-31] MEDS: Thiamine HCL 100 MG TABLET PO ×2 (08:53→20:51)
[2022-03-31 10:28] LABS: COVID-19 Test Negative (Negative); IDNOW Serial# 9DB6401D
--- NOTE | 2022-03-31 13:32 | HO.PSYCHPN ---
Subjective Subjective Date of Service: 03/31/22 Reason For Visit: Dementia with Behavioral disturbance Subjective Notes: Conditional Voluntary Interim History: The nursing staff reported the patient has been compliant with treatment, cooperative and pleasant. His COVID 19-. The licensed clinical social worker reported that she is going to work with the family to the referrals out of her catchment area because there are no options right now. On interview no new issues, waiting for placement Medication Compliance: Yes Side effects from medications: No Attending Groups: Intermittent Review of Systems Acute medical concerns: No Medical Review of Systems: unchanged Mental Status Exam Mental Status Exam Patient Appearance: Appropriate Patient Orientation: Person and Situation Level of Consciousness: Awake Patient Behavior: Cooperative Mood Description: Withdrawn Affect Description: Calm Patient Cognition Impaired: Yes Ability to Follow Directions: Good Speech Pattern: Clear Hallucinations: None Delusions: Not Present Thought Process: Distracted Thought Content: positive for [place], positive for [place] and positive for Poverty of Content Judgement: Fair Diagnostics Vital Signs (24Hr): Vital Signs - 24 hr 03/30/22 21:38 03/31/22 07:00 Temperature 98 F 97.1 F Pulse Rate 74 70 Respiratory Rate 20 13 Blood Pressure 103/57 L 163/78 H Pulse Oximetry 93 92 Oxygen Delivery Method Room Air Room Air Labs Labs: Laboratory Results - last 48 hr 03/31/22 09:35 COVID-19 ([facility]) Negative COVID-19 Clin Com See Note Medications Medications Current Medications Acetaminophen (Acetaminophen 325 Mg Tablet) 650 mg PO Q6H PRN PRN Reason: Headache/Pain Mild Scale (1-3) Last Admin: 03/30/22 14:51 Dose: 650 mg Al Hydroxide/Mg Hydroxide (Magnesium Hydrox/Alum Hydrox 30 Ml Oral.Susp) 30 ml PO Q6H PRN PRN Reason: Heartburn/Nausea Albuterol Sulfate (Albuterol Sulfate 90 Mcg 8 Gm Inhaler) 1 puff INHALE RQ4H PRN PRN Reason: wheezing Apixaban (Apixaban 5 Mg Tablet) 5 mg PO BID [facility] Last Admin: 03/31/22 08:53 Dose: 5 mg Folic Acid (Folic Acid 1 Mg Tablet) 1 mg PO BEDTIME [facility] Last Admin: 03/30/22 21:41 Dose: 1 mg Gabapentin (Gabapentin 600 Mg Tablet) 600 mg PO BID [facility] Last Admin: 03/31/22 08:53 Dose: 600 mg Hydroxyzine HCl (Hydroxyzine Hcl 25 Mg Tablet) 25 mg PO Q6H PRN PRN Reason: Anxiety Last Admin: 03/25/22 00:47 Dose: 25 mg Levetiracetam (Levetiracetam 500 Mg Tablet) 500 mg PO BID [facility] Last Admin: 03/31/22 08:53 Dose: 500 mg Loratadine (Loratadine 10 Mg Tablet) 10 mg PO DAILY [facility] Last Admin: 03/31/22 08:53 Dose: 10 mg Magnesium Hydroxide (Milk Of Magnesia 30 Ml Oral.Susp) 30 ml PO DAILY PRN PRN Reason: Constipation Memantine (Memantine Hcl 10 Mg Tablet) 10 mg PO BID [facility] Last Admin: 03/31/22 08:53 Dose: 10 mg Metoprolol Succinate (Metoprolol Succinate Er 25 Mg Tab.Er.24h) 25 mg PO DAILY [facility]; Protocol Last Admin: 03/31/22 08:53 Dose: 25 mg Multivitamins/Vitamin C (Multivitamin Tablet) 1 tab PO DAILY [facility] Last Admin: 03/31/22 08:53 Dose: 1 tab Pravastatin Sodium (Pravastatin Sodium 40 Mg Tablet) 40 mg PO BEDTIME [facility] Last Admin: 03/30/22 21:41 Dose: 40 mg Risperidone (Risperidone 1 Mg Tablet) 1 mg PO DAILY@1700 [facility] Last Admin: 03/30/22 17:05 Dose: 1 mg Risperidone (Risperidone 0.5 Mg Tablet) 0.5 mg PO DAILY [facility] Last Admin: 03/31/22 08:53 Dose: 0.5 mg Tamsulosin HCl (Tamsulosin Hcl 0.4 Mg Capsule) 0.4 mg PO DAILY [facility] Last Admin: 03/31/22 08:53 Dose: 0.4 mg Thiamine HCl (Thiamine Hcl 100 Mg Tablet) 100 mg PO BID [facility] Last Admin: 03/31/22 08:53 Dose: 100 mg Tramadol HCl (Tramadol Hcl 50 Mg Tablet) 50 mg PO Q6H PRN PRN Reason: Pain, Moderate (Pain Scale 4-6 Tramadol HCl (Tramadol Hcl 50 Mg Tablet) 50 mg PO TID [facility] Last Admin: 03/31/22 08:53 Dose: 50 mg Trazodone HCl (Trazodone Hcl 50 Mg Tablet) 50 mg PO BEDTIME PRN PRN Reason: Insomnia Last Admin: 03/25/22 00:47 Dose: 50 mg Allergies Allergies Allergy/AdvReac Type Severity Reaction Status Date / Time Penicillins Allergy Unknown Unknown Verified 02/03/22 19:47 Assessment & Plan Assessment & Plan (1) Dementia: Status: Acute Code(s): F03.90 - Unspecified dementia without behavioral disturbance (2) Psychosis: Status: Acute Code(s): F29 - Unspecified psychosis not due to a substance or known physiological condition (3) CKD (chronic kidney disease): Status: Acute Code(s): N18.9 - Chronic kidney disease, unspecified Plan adult male with a long history of dementia who was admitted initially to this facility for psychotic symptoms. Later he had an acute respiratory failure and needed to be transferred to Medicine for treatment of pneumonia and oxygen therapy. Currently he is stable waiting for placement. Plan 1. Continue same treatment. 2. Work for discharge planning I spent ___20___ minutes with the patient and/or on the patient floor today, greater than?50% of which was spent counseling/coordinating care. Reason for contiued inpatient stay Substantial Risk for: inability to function, rapid decompensation and med/psych decompensation
[2022-03-31] MEDS: risperiDONE 1 MG TABLET PO (16:03)
[2022-03-31 20:40] VITALS: BP 123/77; PULSE 89; RESP 14; TEMP 37.5; O2SAT 92
[2022-03-31] MEDS: Pravastatin Sodium 40 MG TABLET PO (20:51)
[2022-03-31] MEDS: Folic Acid 1 MG TABLET PO (20:51)
[2022-04-01 05:55] VITALS: RESP 17; TEMP 37.2
[2022-04-01 07:30] VITALS: BP 147/69; PULSE 81; RESP 18; TEMP 36.6; O2SAT 90
[2022-04-01] MEDS: Loratadine 10 MG TABLET PO (08:12)
[2022-04-01] MEDS: Metoprolol Succinate ER 25 MG TAB.ER.24H PO (08:12)
[2022-04-01] MEDS: Tamsulosin HCL 0.4 MG CAPSULE PO (08:12)
[2022-04-01] MEDS: Memantine HCl 10 MG TABLET PO ×2 (08:12→20:14)
[2022-04-01] MEDS: levETIRAcetam 500 MG TABLET PO ×2 (08:12→20:13)
[2022-04-01] MEDS: Thiamine HCL 100 MG TABLET PO ×2 (08:12→20:13)
[2022-04-01] MEDS: Apixaban 5 MG TABLET PO ×2 (08:13→20:13)
[2022-04-01] MEDS: Multivitamin TABLET 1 TAB PO (08:13)
[2022-04-01] MEDS: traMADoL HCL 50 MG TABLET PO ×4 (08:13→22:55)
[2022-04-01] MEDS: Gabapentin 600 MG TABLET PO ×2 (08:13→20:14)
[2022-04-01] MEDS: risperiDONE 0.5 MG TABLET PO (08:13)
--- NOTE | 2022-04-01 12:03 | P.PNPSI_ITS ---
Subjective Subjective Date of Service: 04/01/22 Reason For Visit: Dementia with Behavioral disturbance Subjective Notes: Conditional Voluntary Interim History: the nursing staff reported the patient has been pleasant and cooperative, appropriate tape. The social media sr strategy manager reported that she has applied to several places and so far there is limited response. On interview the patient denies new symptoms he is pleasant and cooperative. Waiting for discharge and proper disposition. Medication Compliance: Yes Side effects from medications: No Attending Groups: Yes Review of Systems Acute medical concerns: No Medical Review of Systems: unchanged Mental Status Exam Mental Status Exam Patient Appearance: Well Grooomed Patient Orientation: Person and Situation Level of Consciousness: Awake Patient Behavior: Cooperative Mood Description: Withdrawn Affect Description: Constricted Patient Cognition Impaired: Yes Ability to Follow Directions: Fair Speech Pattern: Clear Hallucinations: None Delusions: Not Present Thought Process: Distracted Thought Content: positive for [place] and positive for Poverty of Content Judgement: Poor Diagnostics Vital Signs (24Hr): Vital Signs - 24 hr 03/31/22 20:40 04/01/22 05:55 04/01/22 07:30 Temperature 99.5 F 98.9 F 97.8 F Pulse Rate 89 81 Respiratory Rate 14 17 18 Blood Pressure 123/77 147/69 H Pulse Oximetry 92 90 L Oxygen Delivery Method Room Air Room Air Labs Labs: Laboratory Results - last 48 hr 03/31/22 09:35 COVID-19 ([facility]) Negative COVID-19 Clin Com See Note Medications Medications Current Medications Acetaminophen (Acetaminophen 325 Mg Tablet) 650 mg PO Q6H PRN PRN Reason: Headache/Pain Mild Scale (1-3) Last Admin: 03/30/22 14:51 Dose: 650 mg Al Hydroxide/Mg Hydroxide (Magnesium Hydrox/Alum Hydrox 30 Ml Oral.Susp) 30 ml PO Q6H PRN PRN Reason: Heartburn/Nausea Albuterol Sulfate (Albuterol Sulfate 90 Mcg 8 Gm Inhaler) 1 puff INHALE RQ4H PRN PRN Reason: wheezing Apixaban (Apixaban 5 Mg Tablet) 5 mg PO BID [facility] Last Admin: 04/01/22 08:13 Dose: 5 mg Folic Acid (Folic Acid 1 Mg Tablet) 1 mg PO BEDTIME [facility] Last Admin: 03/31/22 20:51 Dose: 1 mg Gabapentin (Gabapentin 600 Mg Tablet) 600 mg PO BID [facility] Last Admin: 04/01/22 08:13 Dose: 600 mg Hydroxyzine HCl (Hydroxyzine Hcl 25 Mg Tablet) 25 mg PO Q6H PRN PRN Reason: Anxiety Last Admin: 03/25/22 00:47 Dose: 25 mg Levetiracetam (Levetiracetam 500 Mg Tablet) 500 mg PO BID [facility] Last Admin: 04/01/22 08:12 Dose: 500 mg Loratadine (Loratadine 10 Mg Tablet) 10 mg PO DAILY [facility] Last Admin: 04/01/22 08:12 Dose: 10 mg Magnesium Hydroxide (Milk Of Magnesia 30 Ml Oral.Susp) 30 ml PO DAILY PRN PRN Reason: Constipation Memantine (Memantine Hcl 10 Mg Tablet) 10 mg PO BID [facility] Last Admin: 04/01/22 08:12 Dose: 10 mg Metoprolol Succinate (Metoprolol Succinate Er 25 Mg Tab.Er.24h) 25 mg PO DAILY [facility]; Protocol Last Admin: 04/01/22 08:12 Dose: 25 mg Multivitamins/Vitamin C (Multivitamin Tablet) 1 tab PO DAILY [facility] Last Admin: 04/01/22 08:13 Dose: 1 tab Pravastatin Sodium (Pravastatin Sodium 40 Mg Tablet) 40 mg PO BEDTIME [facility] Last Admin: 03/31/22 20:51 Dose: 40 mg Risperidone (Risperidone 1 Mg Tablet) 1 mg PO DAILY@1700 [facility] Last Admin: 03/31/22 16:03 Dose: 1 mg Risperidone (Risperidone 0.5 Mg Tablet) 0.5 mg PO DAILY [facility] Last Admin: 04/01/22 08:13 Dose: 0.5 mg Tamsulosin HCl (Tamsulosin Hcl 0.4 Mg Capsule) 0.4 mg PO DAILY [facility] Last Admin: 04/01/22 08:12 Dose: 0.4 mg Thiamine HCl (Thiamine Hcl 100 Mg Tablet) 100 mg PO BID [facility] Last Admin: 04/01/22 08:12 Dose: 100 mg Tramadol HCl (Tramadol Hcl 50 Mg Tablet) 50 mg PO Q6H PRN PRN Reason: Pain, Moderate (Pain Scale 4-6 Tramadol HCl (Tramadol Hcl 50 Mg Tablet) 50 mg PO TID [facility] Last Admin: 04/01/22 08:13 Dose: 50 mg Trazodone HCl (Trazodone Hcl 50 Mg Tablet) 50 mg PO BEDTIME PRN PRN Reason: Insomnia Last Admin: 03/25/22 00:47 Dose: 50 mg Allergies Allergies Allergy/AdvReac Type Severity Reaction Status Date / Time Penicillins Allergy Unknown Unknown Verified 02/03/22 19:47 Assessment & Plan Assessment & Plan (1) Dementia: Status: Acute Code(s): F03.90 - Unspecified dementia without behavioral disturbance (2) Psychosis: Status: Acute Code(s): F29 - Unspecified psychosis not due to a substance or known physiological condition (3) CKD (chronic kidney disease): Status: Acute Code(s): N18.9 - Chronic kidney disease, unspecified Plan adult male with a long history of dementia who was admitted initially to this facility for psychotic symptoms. Later he had an acute respiratory failure and needed to be transferred to Medicine for treatment of pneumonia and oxygen therapy. Currently he is stable waiting for placement. Plan 1. Continue same treatment. 2. Work for discharge planning I spent minutes with the patient and/or on the patient floor today, greater than?50% of which was spent counseling/coordinating care. Reason for contiued inpatient stay Substantial Risk for: inability to function, rapid decompensation and med/psych decompensation
[2022-04-01] MEDS: risperiDONE 1 MG TABLET PO (16:32)
[2022-04-01 18:00] VITALS: BP 116/75; PULSE 93; RESP 18; TEMP 37.7; O2SAT 90
[2022-04-01] MEDS: Pravastatin Sodium 40 MG TABLET PO (20:13)
[2022-04-01] MEDS: Folic Acid 1 MG TABLET PO (20:13)
[2022-04-01 20:36] VITALS: TEMP 36.9
[2022-04-01] MEDS: Acetaminophen 325 MG TABLET 650 MG PO (20:41)
[2022-04-02 06:00] VITALS: BP 153/72; PULSE 82; RESP 18; TEMP 37; O2SAT 92
[2022-04-02] MEDS: Thiamine HCL 100 MG TABLET PO ×2 (08:17→20:58)
[2022-04-02] MEDS: levETIRAcetam 500 MG TABLET PO ×2 (08:17→20:59)
[2022-04-02] MEDS: Loratadine 10 MG TABLET PO (08:17)
[2022-04-02] MEDS: risperiDONE 0.5 MG TABLET PO (08:17)
[2022-04-02] MEDS: Apixaban 5 MG TABLET PO ×2 (08:17→20:59)
[2022-04-02] MEDS: Memantine HCl 10 MG TABLET PO ×2 (08:17→20:59)
[2022-04-02] MEDS: Metoprolol Succinate ER 25 MG TAB.ER.24H PO (08:17)
[2022-04-02] MEDS: traMADoL HCL 50 MG TABLET PO ×4 (08:17→20:58)
[2022-04-02] MEDS: Tamsulosin HCL 0.4 MG CAPSULE PO (08:17)
[2022-04-02] MEDS: Gabapentin 600 MG TABLET PO ×2 (08:17→20:58)
[2022-04-02] MEDS: Multivitamin TABLET 1 TAB PO (08:18)
[2022-04-02 10:28] LABS: COVID-19 Test Negative (Negative); IDNOW Serial# 16C4AD1C
--- NOTE | 2022-04-02 10:48 | P.PNPSI_ITS ---
Subjective Subjective Date of Service: 04/02/22 Reason For Visit: Dementia with Behavioral disturbance Subjective Notes: Conditional Voluntary Interim History: The nursing staff reported the patient has been compliant with treatment. Today in the morning he reported to the nursing staff that he was having an extreme acute pain in his ear 06/29. I advised to take his tramadol p.r.n. and I called for a hospitalist consult. Today he came back negative to COVID-19 test. On interview he denies new symptoms, we discussed about discharge planning. Medication Compliance: Yes Side effects from medications: No Attending Groups: Yes Review of Systems Acute medical concerns: Yes Acute ear pain Mental Status Exam Mental Status Exam Patient Appearance: Well Grooomed Patient Orientation: Person and Situation Level of Consciousness: Awake Patient Behavior: Passive Mood Description: Withdrawn Affect Description: Calm Patient Cognition Impaired: Yes Ability to Follow Directions: Good Speech Pattern: Clear Hallucinations: None Delusions: Not Present Thought Process: Distracted Thought Content: positive for [place] and positive for [place] Judgement: Fair Diagnostics Vital Signs (24Hr): Vital Signs - 24 hr 04/01/22 18:00 04/01/22 20:36 04/02/22 06:00 Temperature 99.8 F 98.4 F 98.6 F Pulse Rate 93 82 Respiratory Rate 18 18 Blood Pressure 116/75 153/72 H Pulse Oximetry 90 L 92 Oxygen Delivery Method Room Air Room Air Labs Labs: Laboratory Results - last 48 hr 04/02/22 09:50 COVID-19 ([facility]) Negative COVID-19 Clin Com See Note Medications Medications Current Medications Acetaminophen (Acetaminophen 325 Mg Tablet) 650 mg PO Q6H PRN PRN Reason: Headache/Pain Mild Scale (1-3) Last Admin: 04/01/22 20:41 Dose: 650 mg Al Hydroxide/Mg Hydroxide (Magnesium Hydrox/Alum Hydrox 30 Ml Oral.Susp) 30 ml PO Q6H PRN PRN Reason: Heartburn/Nausea Albuterol Sulfate (Albuterol Sulfate 90 Mcg 8 Gm Inhaler) 1 puff INHALE RQ4H PRN PRN Reason: wheezing Apixaban (Apixaban 5 Mg Tablet) 5 mg PO BID [facility] Last Admin: 04/02/22 08:17 Dose: 5 mg Folic Acid (Folic Acid 1 Mg Tablet) 1 mg PO BEDTIME [facility] Last Admin: 04/01/22 20:13 Dose: 1 mg Gabapentin (Gabapentin 600 Mg Tablet) 600 mg PO BID [facility] Last Admin: 04/02/22 08:17 Dose: 600 mg Hydroxyzine HCl (Hydroxyzine Hcl 25 Mg Tablet) 25 mg PO Q6H PRN PRN Reason: Anxiety Last Admin: 03/25/22 00:47 Dose: 25 mg Levetiracetam (Levetiracetam 500 Mg Tablet) 500 mg PO BID [facility] Last Admin: 04/02/22 08:17 Dose: 500 mg Loratadine (Loratadine 10 Mg Tablet) 10 mg PO DAILY [facility] Last Admin: 04/02/22 08:17 Dose: 10 mg Magnesium Hydroxide (Milk Of Magnesia 30 Ml Oral.Susp) 30 ml PO DAILY PRN PRN Reason: Constipation Memantine (Memantine Hcl 10 Mg Tablet) 10 mg PO BID [facility] Last Admin: 04/02/22 08:17 Dose: 10 mg Metoprolol Succinate (Metoprolol Succinate Er 25 Mg Tab.Er.24h) 25 mg PO DAILY [facility]; Protocol Last Admin: 04/02/22 08:17 Dose: 25 mg Multivitamins/Vitamin C (Multivitamin Tablet) 1 tab PO DAILY [facility] Last Admin: 04/02/22 08:18 Dose: 1 tab Pravastatin Sodium (Pravastatin Sodium 40 Mg Tablet) 40 mg PO BEDTIME [facility] Last Admin: 04/01/22 20:13 Dose: 40 mg Risperidone (Risperidone 1 Mg Tablet) 1 mg PO DAILY@1700 [facility] Last Admin: 04/01/22 16:32 Dose: 1 mg Risperidone (Risperidone 0.5 Mg Tablet) 0.5 mg PO DAILY [facility] Last Admin: 04/02/22 08:17 Dose: 0.5 mg Tamsulosin HCl (Tamsulosin Hcl 0.4 Mg Capsule) 0.4 mg PO DAILY [facility] Last Admin: 04/02/22 08:17 Dose: 0.4 mg Thiamine HCl (Thiamine Hcl 100 Mg Tablet) 100 mg PO BID [facility] Last Admin: 04/02/22 08:17 Dose: 100 mg Tramadol HCl (Tramadol Hcl 50 Mg Tablet) 50 mg PO Q6H PRN PRN Reason: Pain, Moderate (Pain Scale 4-6 Last Admin: 04/01/22 22:55 Dose: 50 mg Tramadol HCl (Tramadol Hcl 50 Mg Tablet) 50 mg PO TID [facility] Last Admin: 04/02/22 08:17 Dose: 50 mg Trazodone HCl (Trazodone Hcl 50 Mg Tablet) 50 mg PO BEDTIME PRN PRN Reason: Insomnia Last Admin: 03/25/22 00:47 Dose: 50 mg Allergies Allergies Allergy/AdvReac Type Severity Reaction Status Date / Time Penicillins Allergy Unknown Unknown Verified 02/03/22 19:47 Assessment & Plan Assessment & Plan (1) Dementia: Status: Acute Code(s): F03.90 - Unspecified dementia without behavioral disturbance (2) Psychosis: Status: Acute Code(s): F29 - Unspecified psychosis not due to a substance or known physiological condition (3) CKD (chronic kidney disease): Status: Acute Code(s): N18.9 - Chronic kidney disease, unspecified Plan adult male with a long history of dementia who was admitted initially to this facility for psychotic symptoms. Later he had an acute respiratory failure and needed to be transferred to Medicine for treatment of pneumonia and oxygen therapy. Currently he is stable waiting for placement. Plan 1. Continue same treatment. 2. Work for discharge planning I spent __20____ minutes with the patient and/or on the patient floor today, greater than?50% of which was spent counseling/coordinating care. Reason for contiued inpatient stay Substantial Risk for: inability to function, rapid decompensation and med/psych decompensation
--- NOTE | 2022-04-02 12:58 | PM.EVENT ---
Event Note Date of Service: 04/02/22 Event Note: Called to consult on this 77yo M on Geriatric Psychiatry unit with acute onset of severe L-sided ear pain 2d ago. No drainage or redness. He is chronically hard of hearing. Denies complaints in R ear. He has been vigilantly washing out his ears with the shower head. Denies placing any Qtips in his ears. On exam, TMs bilaterally are pearly dwyer. R EAC is normal. L EAC has slight erythema and there is pain with manipulation of the tragus. Impression is of otitis externa. Will Rx Polytrim otic drops to L ear, 4 gtts tid x 1 wk. Thank you for this consultation. We are signing off the case at this time. Please communicate with us if any new medical questions arise.
[2022-04-02] MEDS: risperiDONE 1 MG TABLET PO (16:46)
[2022-04-02 20:45] VITALS: BP 123/77; PULSE 109; RESP 16; TEMP 36.3; O2SAT 94
[2022-04-02] MEDS: Pravastatin Sodium 40 MG TABLET PO (20:58)
[2022-04-02] MEDS: Folic Acid 1 MG TABLET PO (20:58)
[2022-04-02] MEDS: NeoMYCIN/Polymyxin/HC Otic Sol BOTTLE 4 DROP EAR-LEFT (21:43)
[2022-04-03 06:00] VITALS: BP 115/57; PULSE 65; RESP 16; TEMP 36.9; O2SAT 89
[2022-04-03] MEDS: Thiamine HCL 100 MG TABLET PO ×2 (09:14→20:12)
[2022-04-03] MEDS: Tamsulosin HCL 0.4 MG CAPSULE PO (09:14)
[2022-04-03] MEDS: risperiDONE 0.5 MG TABLET PO (09:14)
[2022-04-03] MEDS: Loratadine 10 MG TABLET PO (09:14)
[2022-04-03] MEDS: Gabapentin 600 MG TABLET PO ×2 (09:14→20:13)
[2022-04-03] MEDS: Multivitamin TABLET 1 TAB PO (09:14)
[2022-04-03] MEDS: NeoMYCIN/Polymyxin/HC Otic Sol BOTTLE 4 DROP EAR-LEFT ×3 (09:14→20:20)
[2022-04-03] MEDS: Memantine HCl 10 MG TABLET PO ×2 (09:14→20:13)
[2022-04-03] MEDS: Metoprolol Succinate ER 25 MG TAB.ER.24H PO (09:15)
[2022-04-03] MEDS: traMADoL HCL 50 MG TABLET PO ×3 (09:15→20:12)
[2022-04-03] MEDS: Apixaban 5 MG TABLET PO ×2 (09:16→20:12)
[2022-04-03] MEDS: levETIRAcetam 500 MG TABLET PO ×2 (09:16→20:12)
--- NOTE | 2022-04-03 10:29 | P.PNPSI_ITS ---
Subjective Subjective Date of Service: 04/03/22 Reason For Visit: Dementia with Behavioral disturbance Subjective Notes: Conditional Voluntary Interim History: the nursing staff reported that the hospitalist saw him and he was diagnosed with external otitis, started on topical antibiotics. The socially responsible investment adviser reported that he was referred to [facility] and probably he will be accepted next week. On interview the patient denies new symptoms Mental Status Exam Mental Status Exam Patient Appearance: Well Grooomed Patient Orientation: Person and Situation Level of Consciousness: Awake Patient Behavior: Cooperative Mood Description: Constricted Affect Description: Calm Patient Cognition Impaired: Yes Ability to Follow Directions: Good Speech Pattern: Clear Hallucinations: None Delusions: Not Present Thought Process: Distracted Thought Content: positive for [place] and positive for Poverty of Content Judgement: Fair Diagnostics Vital Signs (24Hr): Vital Signs - 24 hr 04/02/22 20:45 Temperature 97.3 F Pulse Rate 109 H Respiratory Rate 16 Blood Pressure 123/77 Pulse Oximetry 94 Oxygen Delivery Method Room Air Labs Labs: Laboratory Results - last 48 hr 04/02/22 09:50 COVID-19 ([facility]) Negative COVID-19 Clin Com See Note Medications Medications Current Medications Acetaminophen (Acetaminophen 325 Mg Tablet) 650 mg PO Q6H PRN PRN Reason: Headache/Pain Mild Scale (1-3) Last Admin: 04/01/22 20:41 Dose: 650 mg Al Hydroxide/Mg Hydroxide (Magnesium Hydrox/Alum Hydrox 30 Ml Oral.Susp) 30 ml PO Q6H PRN PRN Reason: Heartburn/Nausea Albuterol Sulfate (Albuterol Sulfate 90 Mcg 8 Gm Inhaler) 1 puff INHALE RQ4H PRN PRN Reason: wheezing Apixaban (Apixaban 5 Mg Tablet) 5 mg PO BID [facility] Last Admin: 04/03/22 09:16 Dose: 5 mg Folic Acid (Folic Acid 1 Mg Tablet) 1 mg PO BEDTIME [facility] Last Admin: 04/02/22 20:58 Dose: 1 mg Gabapentin (Gabapentin 600 Mg Tablet) 600 mg PO BID [facility] Last Admin: 04/03/22 09:14 Dose: 600 mg Hydroxyzine HCl (Hydroxyzine Hcl 25 Mg Tablet) 25 mg PO Q6H PRN PRN Reason: Anxiety Last Admin: 03/25/22 00:47 Dose: 25 mg Levetiracetam (Levetiracetam 500 Mg Tablet) 500 mg PO BID [facility] Last Admin: 04/03/22 09:16 Dose: 500 mg Loratadine (Loratadine 10 Mg Tablet) 10 mg PO DAILY [facility] Last Admin: 04/03/22 09:14 Dose: 10 mg Magnesium Hydroxide (Milk Of Magnesia 30 Ml Oral.Susp) 30 ml PO DAILY PRN PRN Reason: Constipation Memantine (Memantine Hcl 10 Mg Tablet) 10 mg PO BID [facility] Last Admin: 04/03/22 09:14 Dose: 10 mg Metoprolol Succinate (Metoprolol Succinate Er 25 Mg Tab.Er.24h) 25 mg PO DAILY [facility]; Protocol Last Admin: 04/03/22 09:15 Dose: 25 mg Multivitamins/Vitamin C (Multivitamin Tablet) 1 tab PO DAILY [facility] Last Admin: 04/03/22 09:14 Dose: 1 tab Neomycin/Polymyxin/Hydrocortisone (Neomycin/Polymyxin/Hc Otic Joy Bottle) 4 drop EAR-LEFT TID [facility] Last Admin: 04/03/22 09:14 Dose: 4 drop Pravastatin Sodium (Pravastatin Sodium 40 Mg Tablet) 40 mg PO BEDTIME [facility] Last Admin: 04/02/22 20:58 Dose: 40 mg Risperidone (Risperidone 1 Mg Tablet) 1 mg PO DAILY@1700 [facility] Last Admin: 04/02/22 16:46 Dose: 1 mg Risperidone (Risperidone 0.5 Mg Tablet) 0.5 mg PO DAILY [facility] Last Admin: 04/03/22 09:14 Dose: 0.5 mg Tamsulosin HCl (Tamsulosin Hcl 0.4 Mg Capsule) 0.4 mg PO DAILY [facility] Last Admin: 04/03/22 09:14 Dose: 0.4 mg Thiamine HCl (Thiamine Hcl 100 Mg Tablet) 100 mg PO BID [facility] Last Admin: 04/03/22 09:14 Dose: 100 mg Tramadol HCl (Tramadol Hcl 50 Mg Tablet) 50 mg PO Q6H PRN PRN Reason: Pain, Moderate (Pain Scale 4-6 Last Admin: 04/02/22 11:24 Dose: 50 mg Tramadol HCl (Tramadol Hcl 50 Mg Tablet) 50 mg PO TID [facility] Last Admin: 04/03/22 09:15 Dose: 50 mg Trazodone HCl (Trazodone Hcl 50 Mg Tablet) 50 mg PO BEDTIME PRN PRN Reason: Insomnia Last Admin: 03/25/22 00:47 Dose: 50 mg Allergies Allergies Allergy/AdvReac Type Severity Reaction Status Date / Time Penicillins Allergy Unknown Unknown Verified 02/03/22 19:47 Assessment & Plan Assessment & Plan (1) Dementia: Status: Acute Code(s): F03.90 - Unspecified dementia without behavioral disturbance (2) Psychosis: Status: Acute Code(s): F29 - Unspecified psychosis not due to a substance or known physiological condition (3) CKD (chronic kidney disease): Status: Acute Code(s): N18.9 - Chronic kidney disease, unspecified Plan adult male with a long history of dementia who was admitted initially to this facility for psychotic symptoms. Later he had an acute respiratory failure and needed to be transferred to Medicine for treatment of pneumonia and oxygen therapy. Currently he is stable waiting for placement. Plan 1. Continue same treatment. 2. Work for discharge planning I spent __20____ minutes with the patient and/or on the patient floor today, greater than?50% of which was spent counseling/coordinating care. Reason for contiued inpatient stay Substantial Risk for: inability to function, rapid decompensation and med/psych decompensation
[2022-04-03] MEDS: risperiDONE 1 MG TABLET PO (16:11)
[2022-04-03 18:00] VITALS: BP 126/65; PULSE 68; RESP 14; TEMP 36.4; O2SAT 91
[2022-04-03] MEDS: Folic Acid 1 MG TABLET PO (20:13)
[2022-04-03] MEDS: Pravastatin Sodium 40 MG TABLET PO (20:13)
[2022-04-04 07:50] VITALS: BP 117/65; PULSE 65; RESP 16; TEMP 36.6; O2SAT 91
[2022-04-04] MEDS: Thiamine HCL 100 MG TABLET PO ×2 (08:49→21:35)
[2022-04-04] MEDS: levETIRAcetam 500 MG TABLET PO ×2 (08:49→21:37)
[2022-04-04] MEDS: risperiDONE 0.5 MG TABLET PO (08:49)
[2022-04-04] MEDS: Multivitamin TABLET 1 TAB PO (08:49)
[2022-04-04] MEDS: Metoprolol Succinate ER 25 MG TAB.ER.24H PO (08:49)
[2022-04-04] MEDS: Gabapentin 600 MG TABLET PO ×2 (08:50→21:37)
[2022-04-04] MEDS: traMADoL HCL 50 MG TABLET PO ×3 (08:50→21:36)
[2022-04-04] MEDS: Loratadine 10 MG TABLET PO (08:50)
[2022-04-04] MEDS: Tamsulosin HCL 0.4 MG CAPSULE PO (08:50)
[2022-04-04] MEDS: Apixaban 5 MG TABLET PO ×2 (08:50→21:35)
[2022-04-04] MEDS: Memantine HCl 10 MG TABLET PO ×2 (08:50→21:36)
[2022-04-04] MEDS: NeoMYCIN/Polymyxin/HC Otic Sol BOTTLE 4 DROP EAR-LEFT ×3 (08:51→21:39)
--- NOTE | 2022-04-04 15:09 | HO.PSYCHPN ---
Subjective Subjective Date of Service: 04/04/22 Reason For Visit: Dementia with Behavioral disturbance Interim History: Pleasant, friendly. Made a joke saying that his arm is hanging on. Says the pain is subsiding with tramadol. No other complaints. Staff concurs that patient has been calm and in good behavioral control Mental Status Exam Mental Status Exam Patient Appearance: Well Grooomed Patient Orientation: Person and Situation Level of Consciousness: Awake Patient Behavior: Cooperative Mood Description: Constricted Affect Description: Calm Patient Cognition Impaired: Yes Ability to Follow Directions: Good Speech Pattern: Clear Hallucinations: None Delusions: Not Present Thought Process: Distracted Thought Content: positive for [place] and positive for Poverty of Content Judgement: Fair Diagnostics Vital Signs (24Hr): Vital Signs - 24 hr 04/03/22 18:00 04/04/22 07:50 Temperature 97.5 F 98 F Pulse Rate 68 65 Respiratory Rate 14 16 Blood Pressure 126/65 117/65 Pulse Oximetry 91 L 91 L Oxygen Delivery Method Room Air Room Air Medications Medications Current Medications Acetaminophen (Acetaminophen 325 Mg Tablet) 650 mg PO Q6H PRN PRN Reason: Headache/Pain Mild Scale (1-3) Last Admin: 04/01/22 20:41 Dose: 650 mg Al Hydroxide/Mg Hydroxide (Magnesium Hydrox/Alum Hydrox 30 Ml Oral.Susp) 30 ml PO Q6H PRN PRN Reason: Heartburn/Nausea Albuterol Sulfate (Albuterol Sulfate 90 Mcg 8 Gm Inhaler) 1 puff INHALE RQ4H PRN PRN Reason: wheezing Apixaban (Apixaban 5 Mg Tablet) 5 mg PO BID [facility] Last Admin: 04/04/22 08:50 Dose: 5 mg Folic Acid (Folic Acid 1 Mg Tablet) 1 mg PO BEDTIME [facility] Last Admin: 04/03/22 20:13 Dose: 1 mg Gabapentin (Gabapentin 600 Mg Tablet) 600 mg PO BID [facility] Last Admin: 04/04/22 08:50 Dose: 600 mg Hydroxyzine HCl (Hydroxyzine Hcl 25 Mg Tablet) 25 mg PO Q6H PRN PRN Reason: Anxiety Last Admin: 03/25/22 00:47 Dose: 25 mg Levetiracetam (Levetiracetam 500 Mg Tablet) 500 mg PO BID [facility] Last Admin: 04/04/22 08:49 Dose: 500 mg Loratadine (Loratadine 10 Mg Tablet) 10 mg PO DAILY [facility] Last Admin: 04/04/22 08:50 Dose: 10 mg Magnesium Hydroxide (Milk Of Magnesia 30 Ml Oral.Susp) 30 ml PO DAILY PRN PRN Reason: Constipation Memantine (Memantine Hcl 10 Mg Tablet) 10 mg PO BID [facility] Last Admin: 04/04/22 08:50 Dose: 10 mg Metoprolol Succinate (Metoprolol Succinate Er 25 Mg Tab.Er.24h) 25 mg PO DAILY [facility]; Protocol Last Admin: 04/04/22 08:49 Dose: 25 mg Multivitamins/Vitamin C (Multivitamin Tablet) 1 tab PO DAILY [facility] Last Admin: 04/04/22 08:49 Dose: 1 tab Neomycin/Polymyxin/Hydrocortisone (Neomycin/Polymyxin/Hc Otic Joy Bottle) 4 drop EAR-LEFT TID [facility] Last Admin: 04/04/22 08:51 Dose: 4 drop Pravastatin Sodium (Pravastatin Sodium 40 Mg Tablet) 40 mg PO BEDTIME [facility] Last Admin: 04/03/22 20:13 Dose: 40 mg Risperidone (Risperidone 1 Mg Tablet) 1 mg PO DAILY@1700 [facility] Last Admin: 04/03/22 16:11 Dose: 1 mg Risperidone (Risperidone 0.5 Mg Tablet) 0.5 mg PO DAILY [facility] Last Admin: 04/04/22 08:49 Dose: 0.5 mg Tamsulosin HCl (Tamsulosin Hcl 0.4 Mg Capsule) 0.4 mg PO DAILY [facility] Last Admin: 04/04/22 08:50 Dose: 0.4 mg Thiamine HCl (Thiamine Hcl 100 Mg Tablet) 100 mg PO BID [facility] Last Admin: 04/04/22 08:49 Dose: 100 mg Trazodone HCl (Trazodone Hcl 50 Mg Tablet) 50 mg PO BEDTIME PRN PRN Reason: Insomnia Last Admin: 03/25/22 00:47 Dose: 50 mg Allergies Allergies Allergy/AdvReac Type Severity Reaction Status Date / Time Penicillins Allergy Unknown Unknown Verified 02/03/22 19:47 Assessment & Plan Assessment & Plan (1) Dementia: Status: Acute Code(s): F03.90 - Unspecified dementia without behavioral disturbance (2) Psychosis: Status: Acute Code(s): F29 - Unspecified psychosis not due to a substance or known physiological condition (3) CKD (chronic kidney disease): Status: Acute Code(s): N18.9 - Chronic kidney disease, unspecified Plan adult male with a long history of dementia who was admitted initially to this facility for psychotic symptoms. Later he had an acute respiratory failure and needed to be transferred to Medicine for treatment of pneumonia and oxygen therapy. Currently he is stable waiting for placement. Plan 1. Continue same treatment. 2. Work for discharge planning 04/04 continue current treatment plan I spent minutes with the patient and/or on the patient floor today, greater than?50% of which was spent counseling/coordinating care. Patient educated on: medical condition Informed Consent: understands Reason for contiued inpatient stay Substantial Risk for: med/psych decompensation
[2022-04-04] MEDS: risperiDONE 1 MG TABLET PO (15:57)
[2022-04-04 21:05] VITALS: BP 125/63; PULSE 78; RESP 14; TEMP 36.4; O2SAT 91
[2022-04-04] MEDS: Folic Acid 1 MG TABLET PO (21:35)
[2022-04-04] MEDS: Pravastatin Sodium 40 MG TABLET PO (21:35)
[2022-04-05 07:50] VITALS: BP 139/63; PULSE 70; RESP 15; TEMP 36.7; O2SAT 94
[2022-04-05] MEDS: Multivitamin TABLET 1 TAB PO (08:56)
[2022-04-05] MEDS: Tamsulosin HCL 0.4 MG CAPSULE PO (08:56)
[2022-04-05] MEDS: Apixaban 5 MG TABLET PO ×2 (08:56→20:29)
[2022-04-05] MEDS: Metoprolol Succinate ER 25 MG TAB.ER.24H PO (08:56)
[2022-04-05] MEDS: Gabapentin 600 MG TABLET PO ×2 (08:56→20:29)
[2022-04-05] MEDS: Loratadine 10 MG TABLET PO (08:56)
[2022-04-05] MEDS: risperiDONE 0.5 MG TABLET PO (08:56)
[2022-04-05] MEDS: levETIRAcetam 500 MG TABLET PO ×2 (08:56→20:30)
[2022-04-05] MEDS: Thiamine HCL 100 MG TABLET PO ×2 (08:56→20:29)
[2022-04-05] MEDS: traMADoL HCL 50 MG TABLET PO ×3 (08:57→20:29)
[2022-04-05] MEDS: NeoMYCIN/Polymyxin/HC Otic Sol BOTTLE 4 DROP EAR-LEFT ×3 (08:58→20:29)
[2022-04-05] MEDS: Memantine HCl 10 MG TABLET PO ×2 (08:58→20:30)
[2022-04-05] MEDS: risperiDONE 1 MG TABLET PO (16:18)
[2022-04-05 18:00] VITALS: BP 130/58; PULSE 65; RESP 16; TEMP 37.2; O2SAT 92
--- NOTE | 2022-04-05 18:32 | P.PNPSI_ITS ---
Subjective Subjective Date of Service: 04/05/22 Reason For Visit: Dementia with Behavioral disturbance Interim History: Good mood, no complaints Mental Status Exam Mental Status Exam Patient Appearance: Appropriate Patient Orientation: Person and Situation Level of Consciousness: Awake Patient Behavior: Cooperative Mood Description: Withdrawn Affect Description: Constricted Patient Cognition Impaired: Yes Ability to Follow Directions: Good Speech Pattern: Clear Hallucinations: None Delusions: Not Present Thought Process: Distracted and Slowed Thinking Thought Content: positive for [place] and positive for Circumstantial Judgement: Fair Judgement and Insight: Limited Diagnostics Vital Signs (24Hr): Vital Signs - 24 hr 04/04/22 21:05 04/05/22 07:50 Temperature 97.5 F 98.1 F Pulse Rate 78 70 Respiratory Rate 14 15 Blood Pressure 125/63 139/63 Pulse Oximetry 91 L 94 Oxygen Delivery Method Room Air Room Air Medications Medications Current Medications Acetaminophen (Acetaminophen 325 Mg Tablet) 650 mg PO Q6H PRN PRN Reason: Headache/Pain Mild Scale (1-3) Last Admin: 04/01/22 20:41 Dose: 650 mg Al Hydroxide/Mg Hydroxide (Magnesium Hydrox/Alum Hydrox 30 Ml Oral.Susp) 30 ml PO Q6H PRN PRN Reason: Heartburn/Nausea Albuterol Sulfate (Albuterol Sulfate 90 Mcg 8 Gm Inhaler) 1 puff INHALE RQ4H PRN PRN Reason: wheezing Apixaban (Apixaban 5 Mg Tablet) 5 mg PO BID [facility] Last Admin: 04/05/22 08:56 Dose: 5 mg Folic Acid (Folic Acid 1 Mg Tablet) 1 mg PO BEDTIME [facility] Last Admin: 04/04/22 21:35 Dose: 1 mg Gabapentin (Gabapentin 600 Mg Tablet) 600 mg PO BID [facility] Last Admin: 04/05/22 08:56 Dose: 600 mg Hydroxyzine HCl (Hydroxyzine Hcl 25 Mg Tablet) 25 mg PO Q6H PRN PRN Reason: Anxiety Last Admin: 03/25/22 00:47 Dose: 25 mg Levetiracetam (Levetiracetam 500 Mg Tablet) 500 mg PO BID [facility] Last Admin: 04/05/22 08:56 Dose: 500 mg Loratadine (Loratadine 10 Mg Tablet) 10 mg PO DAILY [facility] Last Admin: 04/05/22 08:56 Dose: 10 mg Magnesium Hydroxide (Milk Of Magnesia 30 Ml Oral.Susp) 30 ml PO DAILY PRN PRN Reason: Constipation Memantine (Memantine Hcl 10 Mg Tablet) 10 mg PO BID [facility] Last Admin: 04/05/22 08:58 Dose: 10 mg Metoprolol Succinate (Metoprolol Succinate Er 25 Mg Tab.Er.24h) 25 mg PO DAILY [facility]; Protocol Last Admin: 04/05/22 08:56 Dose: 25 mg Multivitamins/Vitamin C (Multivitamin Tablet) 1 tab PO DAILY [facility] Last Admin: 04/05/22 08:56 Dose: 1 tab Neomycin/Polymyxin/Hydrocortisone (Neomycin/Polymyxin/Hc Otic Joy Bottle) 4 drop EAR-LEFT TID [facility] Last Admin: 04/05/22 16:22 Dose: 4 drop Pravastatin Sodium (Pravastatin Sodium 40 Mg Tablet) 40 mg PO BEDTIME [facility] Last Admin: 04/04/22 21:35 Dose: 40 mg Risperidone (Risperidone 1 Mg Tablet) 1 mg PO DAILY@1700 [facility] Last Admin: 04/05/22 16:18 Dose: 1 mg Risperidone (Risperidone 0.5 Mg Tablet) 0.5 mg PO DAILY [facility] Last Admin: 04/05/22 08:56 Dose: 0.5 mg Tamsulosin HCl (Tamsulosin Hcl 0.4 Mg Capsule) 0.4 mg PO DAILY [facility] Last Admin: 04/05/22 08:56 Dose: 0.4 mg Thiamine HCl (Thiamine Hcl 100 Mg Tablet) 100 mg PO BID [facility] Last Admin: 04/05/22 08:56 Dose: 100 mg Tramadol HCl (Tramadol Hcl 50 Mg Tablet) 50 mg PO TID [facility] Last Admin: 04/05/22 16:18 Dose: 50 mg Trazodone HCl (Trazodone Hcl 50 Mg Tablet) 50 mg PO BEDTIME PRN PRN Reason: Insomnia Last Admin: 03/25/22 00:47 Dose: 50 mg Allergies Allergies Allergy/AdvReac Type Severity Reaction Status Date / Time Penicillins Allergy Unknown Unknown Verified 02/03/22 19:47 Assessment & Plan Assessment & Plan (1) Dementia: Status: Acute Code(s): F03.90 - Unspecified dementia without behavioral disturbance (2) Psychosis: Status: Acute Code(s): F29 - Unspecified psychosis not due to a substance or known physiological condi tion (3) CKD (chronic kidney disease): Status: Acute Code(s): N18.9 - Chronic kidney disease, unspecified Plan adult male with a long history of dementia who was admitted initially to this facility for psychotic symptoms. Later he had an acute respiratory failure and needed to be transferred to Medicine for treatment of pneumonia and oxygen therapy. Currently he is stable waiting for placement. Plan 1. Continue same treatment. 2. Work for discharge planning 04/04 continue current treatment plan 04/05 continue current treatment plan I spent minutes with the patient and/or on the patient floor today, greater than?50% of which was spent counseling/coordinating care. Reason for contiued inpatient stay Substantial Risk for: stable for discharge
[2022-04-05] MEDS: Pravastatin Sodium 40 MG TABLET PO (20:29)
[2022-04-05] MEDS: Folic Acid 1 MG TABLET PO (20:29)
[2022-04-06] MEDS: levETIRAcetam 500 MG TABLET PO ×2 (08:31→21:35)
[2022-04-06] MEDS: risperiDONE 0.5 MG TABLET PO (08:31)
[2022-04-06] MEDS: Gabapentin 600 MG TABLET PO ×2 (08:31→21:35)
[2022-04-06] MEDS: Multivitamin TABLET 1 TAB PO (08:31)
[2022-04-06] MEDS: Tamsulosin HCL 0.4 MG CAPSULE PO (08:31)
[2022-04-06] MEDS: traMADoL HCL 50 MG TABLET PO ×2 (08:31→21:36)
[2022-04-06] MEDS: Thiamine HCL 100 MG TABLET PO ×2 (08:31→21:37)
[2022-04-06] MEDS: Apixaban 5 MG TABLET PO ×2 (08:31→21:36)
[2022-04-06] MEDS: Memantine HCl 10 MG TABLET PO ×2 (08:31→21:35)
[2022-04-06] MEDS: Metoprolol Succinate ER 25 MG TAB.ER.24H PO (08:31)
[2022-04-06] MEDS: NeoMYCIN/Polymyxin/HC Otic Sol BOTTLE 4 DROP EAR-LEFT ×3 (08:35→21:49)
[2022-04-06] MEDS: Loratadine 10 MG TABLET PO (09:16)
[2022-04-06 12:52] LABS: COVID-19 Test Negative (Negative); IDNOW Serial# 9DB6401D
--- NOTE | 2022-04-06 14:07 | P.PNPSI_ITS ---
Subjective Subjective Date of Service: 04/06/22 Reason For Visit: Dementia with Behavioral disturbance Subjective Notes: Conditional Voluntary Interim History: The nursing staff reported the patient has been forgetful and confused but pleasant and easily redirectable. Today with the social services designee we talked with him regarding disposition and he agreed to go to the assisted [facility]. Mental Status Exam Mental Status Exam Patient Appearance: Appropriate Patient Orientation: Person and Situation Level of Consciousness: Awake Patient Behavior: Guarded and Passive Mood Description: Withdrawn Affect Description: Constricted Patient Cognition Impaired: Yes Ability to Follow Directions: Good Speech Pattern: Clear Hallucinations: None Delusions: Not Present Thought Process: Distracted and Evasive Thought Content: positive for [place] and positive for Poverty of Content Judgement: Fair Diagnostics Vital Signs (24Hr): Vital Signs - 24 hr 04/05/22 18:00 Temperature 98.9 F Pulse Rate 65 Respiratory Rate 16 Blood Pressure 130/58 L Pulse Oximetry 92 Oxygen Delivery Method Room Air Labs Labs: Laboratory Results - last 48 hr 04/06/22 12:25 COVID-19 ([facility]) Negative COVID-19 Clin Com See Note Medications Medications Current Medications Acetaminophen (Acetaminophen 325 Mg Tablet) 650 mg PO Q6H PRN PRN Reason: Headache/Pain Mild Scale (1-3) Last Admin: 04/01/22 20:41 Dose: 650 mg Al Hydroxide/Mg Hydroxide (Magnesium Hydrox/Alum Hydrox 30 Ml Oral.Susp) 30 ml PO Q6H PRN PRN Reason: Heartburn/Nausea Albuterol Sulfate (Albuterol Sulfate 90 Mcg 8 Gm Inhaler) 1 puff INHALE RQ4H PRN PRN Reason: wheezing Apixaban (Apixaban 5 Mg Tablet) 5 mg PO BID [facility] Last Admin: 04/06/22 08:31 Dose: 5 mg Folic Acid (Folic Acid 1 Mg Tablet) 1 mg PO BEDTIME [facility] Last Admin: 04/05/22 20:29 Dose: 1 mg Gabapentin (Gabapentin 600 Mg Tablet) 600 mg PO BID [facility] Last Admin: 04/06/22 08:31 Dose: 600 mg Hydroxyzine HCl (Hydroxyzine Hcl 25 Mg Tablet) 25 mg PO Q6H PRN PRN Reason: Anxiety Last Admin: 03/25/22 00:47 Dose: 25 mg Levetiracetam (Levetiracetam 500 Mg Tablet) 500 mg PO BID [facility] Last Admin: 04/06/22 08:31 Dose: 500 mg Loratadine (Loratadine 10 Mg Tablet) 10 mg PO DAILY [facility] Last Admin: 04/06/22 09:16 Dose: 10 mg Magnesium Hydroxide (Milk Of Magnesia 30 Ml Oral.Susp) 30 ml PO DAILY PRN PRN Reason: Constipation Memantine (Memantine Hcl 10 Mg Tablet) 10 mg PO BID [facility] Last Admin: 04/06/22 08:31 Dose: 10 mg Metoprolol Succinate (Metoprolol Succinate Er 25 Mg Tab.Er.24h) 25 mg PO DAILY [facility]; Protocol Last Admin: 04/06/22 08:31 Dose: 25 mg Multivitamins/Vitamin C (Multivitamin Tablet) 1 tab PO DAILY [facility] Last Admin: 04/06/22 08:31 Dose: 1 tab Neomycin/Polymyxin/Hydrocortisone (Neomycin/Polymyxin/Hc Otic Joy Bottle) 4 drop EAR-LEFT TID [facility] Last Admin: 04/06/22 08:35 Dose: 4 drop Pravastatin Sodium (Pravastatin Sodium 40 Mg Tablet) 40 mg PO BEDTIME [facility] Last Admin: 04/05/22 20:29 Dose: 40 mg Risperidone (Risperidone 1 Mg Tablet) 1 mg PO DAILY@1700 [facility] Last Admin: 04/05/22 16:18 Dose: 1 mg Risperidone (Risperidone 0.5 Mg Tablet) 0.5 mg PO DAILY [facility] Last Admin: 04/06/22 08:31 Dose: 0.5 mg Tamsulosin HCl (Tamsulosin Hcl 0.4 Mg Capsule) 0.4 mg PO DAILY [facility] Last Admin: 04/06/22 08:31 Dose: 0.4 mg Thiamine HCl (Thiamine Hcl 100 Mg Tablet) 100 mg PO BID [facility] Last Admin: 04/06/22 08:31 Dose: 100 mg Tramadol HCl (Tramadol Hcl 50 Mg Tablet) 50 mg PO TID [facility] Last Admin: 04/06/22 08:31 Dose: 50 mg Trazodone HCl (Trazodone Hcl 50 Mg Tablet) 50 mg PO BEDTIME PRN PRN Reason: Insomnia Last Admin: 03/25/22 00:47 Dose: 50 mg Allergies Allergies Allergy/AdvReac Type Severity Reaction Status Date / Time Penicillins Allergy Unknown Unknown Verified 02/03/22 19:47 Assessment & Plan Assessment & Plan (1) Dementia: Status: Acute Code(s): F03.90 - Unspecified dementia without behavioral disturbance (2) Psychosis: Status: Acute Code(s): F29 - Unspecified psychosis not due to a substance or known physiological condition (3) CKD (chronic kidney disease): Status: Acute Code(s): N18.9 - Chronic kidney disease, unspecified Plan adult male with a long history of dementia who was admitted initially to this facility for psychotic symptoms. Later he had an acute respiratory failure and needed to be transferred to Medicine for treatment of pneumonia and oxygen therapy. Currently he is stable waiting for placement. Plan 1. Continue same treatment. 2. Work for discharge planning I spent __20____ minutes with the patient and/or on the patient floor today, greater than?50% of which was spent counseling/coordinating care. Reason for contiued inpatient stay Substantial Risk for: inability to function, rapid decompensation and med/psych decompensation
[2022-04-06] MEDS: Acetaminophen 325 MG TABLET 650 MG PO (21:35)
[2022-04-06] MEDS: Folic Acid 1 MG TABLET PO (21:36)
[2022-04-06] MEDS: Pravastatin Sodium 40 MG TABLET PO (21:37)
[2022-04-06 21:42] VITALS: BP 143/67; PULSE 65; RESP 20; TEMP 36.3; O2SAT 91
[2022-04-07 06:00] VITALS: BP 103/57; PULSE 64; RESP 17; TEMP 36.2; O2SAT 96
[2022-04-07] MEDS: Loratadine 10 MG TABLET PO (08:19)
[2022-04-07] MEDS: traMADoL HCL 50 MG TABLET PO (08:19)
[2022-04-07] MEDS: Apixaban 5 MG TABLET PO (08:19)
[2022-04-07] MEDS: Gabapentin 600 MG TABLET PO (08:19)
[2022-04-07] MEDS: levETIRAcetam 500 MG TABLET PO (08:19)
[2022-04-07] MEDS: Tamsulosin HCL 0.4 MG CAPSULE PO (08:19)
[2022-04-07] MEDS: Metoprolol Succinate ER 25 MG TAB.ER.24H PO (08:19)
[2022-04-07] MEDS: risperiDONE 0.5 MG TABLET PO (08:19)
[2022-04-07] MEDS: Thiamine HCL 100 MG TABLET PO (08:21)
[2022-04-07] MEDS: Multivitamin TABLET 1 TAB PO (08:21)
[2022-04-07] MEDS: NeoMYCIN/Polymyxin/HC Otic Sol BOTTLE 4 DROP EAR-LEFT (08:21)
[2022-04-07] MEDS: Memantine HCl 10 MG TABLET PO (08:24)
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
--- NOTE | 2022-04-07 10:41 | PC.NURSE ---
Pt. alert and grossly oriented. Has not had recent episodes of aggression or agitation. He is med an treatment compliant and attending to his ADLs. He endorses no depression or anxiety and states he is ready for discharge and is looking forward to [facility]. Pt. left unit via stretcher accompanied by 2 data assistant at 10:20 with all appropriate paperwork. [ End ]
== END 2022-04-07 10:20 | disposition skilled nursing facility (03) | DRG 885 ==
PROVIDERS: Admitting Provider Psychiatry & Neurology Psychiatry; Visit Provider Psychiatry & Neurology Psychiatry
DX: F29 Unspecified psychosis not due to a substance or known physiological condition (principal); F03.91 Unspecified dementia, unspecified severity, with behavioral disturbance; N40.0 Benign prostatic hyperplasia without lower urinary tract symptoms; J44.9 Chronic obstructive pulmonary disease, unspecified; G89.29 Other chronic pain; Z20.822 Contact with and (suspected) exposure to COVID-19; H60.92 Unspecified otitis externa, left ear; I12.9 Hypertensive chronic kidney disease with stage 1 through stage 4 chronic kidney disease, or unspecified chronic kidney disease; N18.9 Chronic kidney disease, unspecified; Z86.711 Personal history of pulmonary embolism; Z95.0 Presence of cardiac pacemaker; Z86.73 Personal history of transient ischemic attack (TIA), and cerebral infarction without residual deficits; Z88.0 Allergy status to penicillin; Z79.01 Long term (current) use of anticoagulants; Z79.899 Other long term (current) drug therapy
CPT/HCPCS: 87635